=== PATIENT | female | born 1980 | race Caucasian/White ===

== ENCOUNTER 2016-11-04 16:16 | Inpatient (IN) | payer MEDICARE, MEDICAID ==
[~2016-11-04] VITALS: Ht 172.7 cm; Wt 91.9 kg
[~2016-11-04 16:16] MED LIST: /LAMO20TA PO; ABIL1TAB5 PO; ABIL2TAB OR; ABIL5TAB PO; ALPH0.156 OD; Birth Control Pill OR; CLAR10CA3 PO; CLAR5CHW OR; CLON0.5T PO; DEBR6.5S AU; FLON0.05; LEVO112T2 PO; LEVO125T3 PO; LEVO75TA2 OR; LOPR50TA OR; LUMI0.01 OP; METO25TAB PO; OMEP20TA7 OR; PRIL20CA9 PO; TRAZ50TA4 PO; TRI SPRINTEC PO; TRIC145T PO; TRIC145T19 OR; VITA200016 PO; VITA500047 PO; WELBUTRIN PO; WELL100T2 OR; WELLTAB38 PO; ZOLO100T OR; ZOLO100T PO
[2016-11-04] MEDS ORDERED: ONDANSETRON 4 MG ORAL DISINTEGRATING TAB (S0181) PO ONE (16:30)
[2016-11-04] MEDS ORDERED: WELLTAB38 PO (16:43)
[2016-11-04 17:09] LABS: MEAN CORPUSCULAR HEMOGLOBIN 28.3 pg (27.0-33.0); MEAN CORPUSCULAR VOLUME 85.9 fl (80.0-96.0); PLATELET COUNT, AUTOMATED 514 k/mm3 (150-450); RED CELL DISTRIBUTION WIDTH 12.7 % (11.5-14.5)
[2016-11-04 17:24] LABS: ANION GAP 10 MEQ/L (8-16); BLOOD UREA NITROGEN 18 MG/DL (7-18); CALCIUM LEVEL 9.3 MG/DL (8.5-10.1); CARBON DIOXIDE LEVEL 25 MEQ/L (21-32); CHLORIDE LEVEL 107 MEQ/L (98-107); CREATININE FOR GFR 1.11 MG/DL (0.55-1.02); GLOMERULAR FILTRATION RATE 59.2 (>60); GLUCOSE, FASTING 181 MG/DL (70-105); POTASSIUM SERUM 3.8 MEQ/L (3.5-5.1); SODIUM LEVEL 142 MEQ/L (136-145)
[2016-11-04] MEDS ORDERED: ONDANSETRON 4MG/2ML VIAL (J2405) IV PRN ×2 (17:30→23:45)
[2016-11-04] MEDS ORDERED: NS 1,000 ML IV ONE (17:30)
[2016-11-04 17:52] LABS: ALBUMIN 4.1 GM/DL (3.2-5.2); ALBUMIN/GLOBULIN RATIO 1.14 (1.00-1.93); ALKALINE PHOSPHATASE 104 U/L (45-117); ALT/SGPT 24 U/L (12-78); AST/SGOT 13 U/L (15-37); BILIRUBIN,DIRECT 0.1 MG/DL (0.0-0.2); BILIRUBIN,TOTAL 0.3 MG/DL (0.2-1.0); TOTAL PROTEIN 7.7 GM/DL (6.4-8.2)
--- NOTE | 2016-11-04 18:12 | REP ---
Clinical: Right flank pain. Findings: Lung bases clear. Liver, spleen, pancreas, gallbladder, bilateral adrenal glands and kidneys are normal for noncontrast evaluation. Aseptically, there is no perinephric stranding, hydroureteronephrosis, intrarenal or obstructing ureteral calculi. The enteric system is without obstruction or acute inflammatory process and a normal terminal ileum and appendix are identified in the right lower quadrant. Pelvis demonstrates normal bladder and age-appropriate uterus/adnexa. No pelvic fluid or ascites. No adenopathy. No free air. Abdominal aorta without aneurysm. Surrounding musculoskeletal structures are intact. Impression: Normal noncontrast CT of the abdomen and pelvis. Signed by Jaylen Holloway MD 11/04/2016 06:03 P
[2016-11-04] MEDS ORDERED: METOCLOPRAMIDE INJ 10MG/2ML VIAL (J2765) IV ONE (19:00)
[2016-11-04] MEDS ORDERED: LORazepam 2 MG/ML VIAL (J2060) IV STA (19:29)
[2016-11-04] MEDS ORDERED: ISOVUE-370 76% 100ML VIAL (Q9967) As Ordered ONE (20:36)
[2016-11-04 20:39] LABS: CONTROL LINE HCG INT CTR LINE PRESENT
--- NOTE | 2016-11-04 21:50 | REPUSA ---
CT of the abdomen and pelvis with contrast Clinical statement: Pain. Technique: Multiple axial CT images were obtained from the base of the lungs through the floor of the pelvis utilizing 5 mm axial slices after administration of nonionic intravenous contrast. Coronal an d sagittal reconstructions were also obtained. Findings: Chest: The visualized lung bases are clear. Abdomen: The liver, spleen, pancreas, kidneys, gallbladder, and adrenal glands are unremarkable. The aorta is within normal limits. There is no evidence of abdominal lymphadenopathy or ascites. Pelvis: The bowel is unremarkable, with no obstructive or inflammatory changes. The appendix is natalie l. The urinary bladder is within normal limits. There is a simple left ovarian cyst noted, measuring 2.8 x 2.5 cm. The other pelvic structures appear grossly intact. There is no evidence of pelvic lymph adenopathy or ascites. Bones: There are no suspicious osseous abnormalities seen. Impression: 1. Simple left ovarian cyst. 2. No obstructive or inflammatory bowel changes. 3. No other acute abnormality. Findings are stable since the prior study.
[2016-11-04] MEDS ORDERED: TRUS1SOL OD (23:26)
[2016-11-04] MEDS ORDERED: METO25TA74 PO (23:26)
[2016-11-04] MEDS ORDERED: COMB0.2S OU (23:26)
[2016-11-04] MEDS ORDERED: GLUCAGON FOR INJ 1 MG VIAL (J1610) SC PRN (23:45)
[2016-11-04] MEDS ORDERED: DEXTROSE 50% 50 ML SYRINGE IV PRN (23:45)
[2016-11-04] MEDS ORDERED: ACETAMINOPHEN TAB 650MG DOSE (2X325MG) PO PRN (23:45)
[2016-11-04] MEDS ORDERED: GLUCOSE 4 GM CHEW TABLET PO PRN (23:45)
[2016-11-04 23:54] LABS: BASO % 0.2 % (0.0-1.0); EOS % 0.2 % (0.0-3.0); LARGE UNSTAINED CELL # 0.1 K/mm3 (0.0-0.4); LARGE UNSTAINED CELL % 0.6 % (0.0-4.0); LYMPH % 4.9 % (24.0-44.0); MONO # 0.8 K/mm3 (0.0-0.8); MONO % 3.9 % (0.0-5.0); NEUTROPHILS # 18.6 K/mm3 (1.8-7.7); NEUTROPHILS % 90.2 % (36.0-66.0)
[2016-11-05 00:10] LABS: MAGNESIUM LEVEL 2.1 MG/DL (1.8-2.4)
[2016-11-05 00:16] LABS: ERYTHROCYTE SEDIMENTATION RATE 2 mm/hr (0-20)
[2016-11-05 00:50] VITALS: BP 154/96
[2016-11-05] MEDS: PIPERACILLIN/TAZOBACTAM SOD 3.375 GM in D5W MINI-BAG PLUS 50 ML IV SCH ×2 (01:13→08:00)
[2016-11-05] MEDS: NS 0.45% 1,000 ML IV SCH ×5 (01:13→22:40)
--- NOTE | 2016-11-05 03:26 | HPE ---
DATE OF ADMISSION: 11/04/2016 TIME: Patient was seen at roughly 2300 PRIMARY CARE PROVIDER: Dr. Trinidad. HISTORY OF PRESENT ILLNESS: 36-year-old female with past medical history of persistent leukocytosis, suicidal thoughts, posttraumatic stress disorder (PTSD) , depression, mild mental retardation, history of oppositional and manipulative behavior, hypertriglyceridemia, gastroesophageal reflux disease (GERD), hypertension, hypothyroidism, vitamin D deficiency, presented with severe nausea , vomiting and poor oral intake. From [facility] ([facility]) staff , patient started vomiting the night prior around 10 p.m. It appeared to be somewhat bilious; however, the next day patient's vomiting worsened. She vomited at least 10 times every time patient had something to drink. Patient herself was not very cooperative. She only spoke a few words. From patient, she stated that she is feeling cold; however, no actual fever. Denies any abdominal pains, any diarrhea or constipation. Patient's last bowel movement was today and it was not loose per patient. However, patient appears to be a poor historian. She actually had thoughts of committing suicide yesterday and she also had a plan to stab herself. She also received counseling at [facility] and stated that she is better now. Otherwise, she also denied any problem with urination, any burning on urination. She also denies any headache. Admits to another person she stayed in contact with at [facility] had the flu. Denies any discomfort anywhere else and she does have a history of persistent elevated leukocytosis. From record back in 2011 her white count was as high as 23.3 thousand and around that time patient had suicidal ideation. ALLERGIES: No known drug allergies. PAST MEDICAL HISTORY: 1. Persistent leukocytosis. 2. Suicidal thoughts. 3. PTSD, depression. 4. Mental retardation. 5. History of oppositional and manipulative behavior. 6. GERD. 7. Hyperlipidemia, specifically hypertriglyceridemia. 8. Hypertension. 9. Hypothyroidism. 10. Vitamin D deficiency. 11. Glaucoma of the right eye. 12. Allergic rhinitis. PAST SURGICAL HISTORY: Denies. Patient does not have any surgical history. HOME MEDICATIONS: - Wellbutrin 150 mg one tablet by mouth daily - Combigan 0.2/0.5% in each eye twice a day - Trusopt one drop in each eye three times a day - TriCor 145 mg one tablet by mouth daily - levothyroxine 125 mcg by mouth daily - metoprolol 25 mg one tablet by mouth daily - omeprazole 20 mg one tablet by mouth daily - vitamin D 2000 units one tablet by mouth daily SOCIAL HISTORY: Patient does not smoke, drink or use any recreational drugs. Patient is a resident at [facility]. FAMILY HISTORY: Denies. REVIEW OF SYSTEMS: GENERAL: Denies any recent traveling, any weight changes. Patient does have a sick contact. One of her residents that she stayed close contact to has flu at [facility]. Admits to feeling cold. HEENT: Denies any changes with vision, smell, hearing or taste. Denies any sore throat or cough. CARDIOVASCULAR: Denies any chest pain, trouble breathing. PULMONARY: Denies any trouble breathing. GASTROINTESTINAL (GI): Admits to severe vomiting. Denies any abdominal pains, however. Denies any diarrhea or constipation. Denies any blood in the stool. Last bowel movement was today and it appears to be normal per patient. GENITOURINARY (): Denies any problem with urination. MUSCULOSKELETAL: Denies any pain anywhere. ENDOCRINE: Denies any polydipsia, polyuria. Admits to feeling cold. Denies excessive heat. HEMATOLOGY/ONCOLOGY: Denies any bleeding anywhere. Denies any easy bruising. PSYCHIATRIC: Admits to depression. Admits to suicidal thoughts and a plan to commit suicide by stabbing herself. NEUROLOGICAL: Denies any weakness on any side of her body, any change of sensations. PHYSICAL EXAMINATION: VITAL SIGNS: Temperature 98.6, pulse 99, respirations 20, blood pressure 144/83 , oxygen was saturating 97% on room air. GENERAL: Patient is a morbidly obese young female who was alert, awake, and oriented times three. Does not appear to be in distress, lying comfortably in bed at left lateral decubitus position. HEENT: Normocephalic, atraumatic. Extraocular motor intact. Mucous moist. NECK: Supple, no neck lymphadenopathy. CARDIOVASCULAR: Regular rate and rhythm, S1, S2. Difficult to auscultate due to increased AP diameter and body habitus. LUNGS: Clear to auscultate bilaterally. No wheezes, rales, rhonchi. ABDOMEN: Obese. Positive bowel sounds, soft, nontender. There are no peritoneal signs. No ecchymosis. EXTREMITIES: No edema, clubbing or cyanosis. SKIN: Warm and dry. NEUROLOGIC: Cranial nerves II-XII intact. No focal neurological deficit. LABORATORY DATA: WBC 21, hemoglobin 15.5, hematocrit 47 with platelet count of 514, and MCV of 85.9. Sodium 142, potassium 3.8, chloride 107, bicarbonate 25, anion gap was 10, BUN 18, creatinine 1.11, GFR 59.2, fasting glucose 181, calcium 9.3, total bilirubin 0.3, direct bilirubin 0.1, AST 13, ALT 24, alkaline phosphatase 104, total protein 7.7, albumin 4.1. HCG was negative. Patient's urine appears to be cloudy, 1+ protein, 1+ glucose, trace ketone, 1+ blood, no nitrite, no leukocyte esterase, 6+ WBC, 2 bacteria, small amorphous sediment. Influenza has been negative. Urine culture is pending. Gastrointestinal (GI) panel and respiratory panel are pending. Patient had a CT of abdomen and pelvis in the emergency department (ED). Shows a simple left ovarian cyst with contrast. The patient had a noncontrast CT of abdomen and pelvis earlier in the day. Shows normal noncontrast CT of abdomen and pelvis. Patient also had a portable chest x-ray in the emergency room. Did not show any acute finding. Official result is pending. ASSESSMENT AND PLAN: 36-year-old female with past medical history of persistent leukocytosis, posttraumatic stress disorder (PTSD), depression, suicidal ideations, mild mental retardation, hypertriglyceridemia, gastroesophageal reflux disease (GERD), hypertension, hypothyroidism, vitamin D deficiency, presented with: 1. Severe nausea and vomiting. Likely secondary to viral gastritis; however, patient does have a white count of 21. Therefore, bacterial etiology could not be entirely ruled out. Patient also has a very mild urinalysis (UA) with positive bacteria and positive white blood cells (WBCs). At this point, will start patient on empiric antibiotic with Zosyn 3.375 grams intravenous (IV) every 8 hours and will discontinue once urine culture and blood culture have been negative. In addition, will start patient on half-normal saline at a rate of 100 mL/h due to patient's severe nausea and vomiting and prerenal azotemia. At this point, will continue to monitor patient. 2. Suicidal ideation with plan. Sitter has been ordered. Patient has been put on suicidal precautions. Will need psychiatry consult in the morning. At this point, patient appears to be calm. She did receive counseling at [facility] ([facility]) as well. 3. Hyperglycemia with a glucose elevated at 181. Possibly secondary to infection versus type 2 diabetes. Patient does appear to be obese. A1c has been ordered. Will continue to monitor. At this point, will place patient on fingersticks and insulin sliding scale. 4. Prerenal azotemia with a creatinine of 1.11. Patient's baseline is 0.9. Continue half-normal saline at a rate of 100 mL/h. Patient is on clear liquid diet due to severe nausea, vomiting. Will advance as tolerated, likely in the morning. 5. History of PTSD, depression, suicidal attempts and oppositional manipulative disorder. Continue to monitor. Continue sitter and possibly consult psychiatry in the morning. 6. Persistent leukocytosis. Patient's baseline white count appears to be between 12 and 13 thousand; however, back in 2013 it was as high as 18 and back in 2011 it was as high as 23. At this point, will continue to monitor. This is likely related to patient's severe nausea and vomiting. Continue empiric antibiotic and will stop it once culture comes back negative. 7. Hypertension. Continue metoprolol succinate 25 mg daily with hold parameters, holding for systolic blood pressures less than 120 or heart rates less than 65. 8. GERD. Continue home proton pump inhibitor (PPI). 9. Hypertriglyceridemia. Continue fenofibrate. 10. Mild mental retardation. Stable, continue to monitor. 11. Glaucoma. Continue eye drops. 12. Allergic rhinitis. Continue to monitor. 13. Deep venous thrombosis (DVT) prophylaxis. On subcutaneous Lovenox. Patient has been discussed with attending doctor, Dr. Sharif. My preceptor for this patient encounter was Dr. Jefferson Sharif. The preceptor was physically present in the building during the encounter and was fully available as needed. All aspects of the patient interview, examination, medical decision making process, and medical care plan development were reviewed and approved by the preceptor. The preceptor is aware and concurs with the plan as stated in the body of this note and will attest to such by his/her co-signature. JEFRY
[2016-11-05 05:52] LABS: BASO % 0.2 % (0.0-1.0); EOS # 0.1 K/mm3 (0.0-0.50); EOS % 0.6 % (0.0-3.0); LARGE UNSTAINED CELL # 0.3 K/mm3 (0.0-0.4); LARGE UNSTAINED CELL % 1.6 % (0.0-4.0); LYMPH # 3.2 K/mm3 (1.5-4.5); LYMPH % 14.7 % (24.0-44.0); MEAN CORPUSCULAR HEMOGLOBIN 29.2 pg (27.0-33.0); MEAN CORPUSCULAR HGB CONC 32.7 g/dl (32.0-36.5); MEAN CORPUSCULAR VOLUME 89.1 fl (80.0-96.0); MONO # 1.7 K/mm3 (0.0-0.8); MONO % 8.5 % (0.0-5.0); NEUTROPHILS # 14.7 K/mm3 (1.8-7.7); NEUTROPHILS % 74.5 % (36.0-66.0); RED CELL DISTRIBUTION WIDTH 13.1 % (11.5-14.5); WHITE BLOOD COUNT 19.7 K/mm3 (4.0-10.0)
[2016-11-05 06:00] VITALS: BP 125/78
[2016-11-05 06:01] LABS: PLATELET COUNT, AUTOMATED 381 k/mm3 (150-450)
[2016-11-05 06:06] LABS: BLOOD UREA NITROGEN 14 MG/DL (7-18); CARBON DIOXIDE LEVEL 27 MEQ/L (21-32); CHLORIDE LEVEL 111 MEQ/L (98-107); CREATININE FOR GFR 0.86 MG/DL (0.55-1.02); GLOMERULAR FILTRATION RATE > 60.0 (>60); GLUCOSE, FASTING 118 MG/DL (70-105)
[2016-11-05] MEDS: LEVOTHYROXINE 0.125 MG TAB (125 MCG) PO SCH (06:08)
[2016-11-05 06:38] LABS: ANION GAP 7 MEQ/L (8-16); CALCIUM LEVEL 7.9 MG/DL (8.5-10.1); SODIUM LEVEL 145 MEQ/L (136-145)
[2016-11-05] MEDS ORDERED: HumaLOG INSULIN (NovoLOG) PER UNIT SC SCH ×2 (07:30→21:00)
--- NOTE | 2016-11-05 09:14 | IPNPDOC ---
Subjective Date Seen The patient was seen on 11/05/16. Subjective Chief Complaint/HPI The patient is a 36-year-old female admitted with a reason for visit of Leukocytosis;Vomiting. General: Denies: Chills, Fatigue, Malaise, Night Sweats, Normal Appetite, Other Symptoms, ROS Unobtainable Constitutional: Denies: Chills, Fatigue, Fever, Lethargy, Malaise, Night Sweats , Other, Weakness, Weight Loss Eyes: Denies: Conjunctivae inflammation, Eyelid inflammation, Other, Pain, Redness, Vision change ENT: Denies: Dysphagia, Ear Pain, Epistaxis, Head Aches, Other Symptoms, Post Nasal Drip, Sinus Congestion, Sore Throat Skin: Denies: Breakdown, Bruising, Dry, Itching, Jaundice, Lesions, Nail Changes, Other, Rash Pulmonary: Denies: Cough, Dyspnea, Other Symptoms, Pleuritic Chest Pain Cardiovascular: Denies: Chest Pain, Edema, Lt Headedness, Orthopnea, Other Symptoms, Palpitations, Paroxysmal Noc. Dyspnea Gastrointestinal: Denies: Abdominal Pain, Constipation, Diarrhea, Hematochezia , Melena, Nausea, Other Symptoms, Vomiting Genitourinary: Denies: Dysuria, Frequency, Hematuria, Incontinence, Other Symptoms, Retention Objective Physical Examination General Exam: Positive: Alert, Cooperative, No Acute Distress Eye Exam: Positive: Conjunctiva & lids normal, EOMI, PERRLA, Negative: Sclera icteric ENT Exam: Positive: Atraumatic, Mucous membr. moist/pink Neck Exam: Positive: Supple Chest Exam: Positive: Clear to auscultation, Normal air movement Heart Exam: Positive: Rate Normal, Regular Rhythm Abdomen Exam: Positive: Normal bowel sounds, Other (obese), Soft, Negative: Tenderness Extremity Exam: Negative: Edema Psych Exam: Positive: Oriented x 3, Other (flat affect) Assessment /Plan Problems (1) Suicidal ideation Status: Acute Response to Treatment: Progressing Discussed With: Patient Problem Specific Plan: Consult Specialist, Monitor Clinically Problem Text: 1:1 sitter Suicide precautions Psych evaluation likely in 24 hours. (2) Vomiting Status: Acute Response to Treatment: Improving Discussed With: Patient Problem Specific Plan: Monitor Clinically, Repeat Labs Problem Text: Appears to be tolerating diet. Continue to follow clinically. Monitor electrolytes. (3) Leukocytosis Status: Acute Discussed With: Patient Problem Specific Plan: Monitor Clinically Problem Text: Acute on chronic. Patient has history of persistent leukocytosis. No obvious source of infection, possibly gastroenteritis. Continue to follow clinically. Deescalate antibiotics to Levaquin 500 IV. Check peripheral smear. (4) PTSD (post-traumatic stress disorder) Status: Chronic Discussed With: Patient (5) Depression Status: Chronic Problem Text: Wellbutrin. (6) Mental retardation Status: Chronic (7) Psychiatric disorder Status: Chronic Discussed With: Patient Problem Specific Plan: Monitor Clinically Problem Text: History of PTSD, depression, suicide attempt and oppositional manipulate disorder. Anticipate psych eval in 24 hours. Continue home medication - Wellbutrin. (8) Hypertriglyceridemia Status: Chronic Problem Text: Tricor. (9) GERD (gastroesophageal reflux disease) Status: Chronic Problem Text: Prilosec (10) HTN (hypertension) Status: Chronic Problem Specific Plan: Monitor Clinically Problem Text: Troprol XL (11) Hypothyroidism Status: Chronic Discussed With: Patient Problem Text: Synthroid (12) Hyperglycemia Status: Acute Discussed With: Patient Problem Specific Plan: Monitor Clinically, Repeat Labs Problem Text: A1C - 5.6 Monitor FS. Plan/VTE VTE Prophylaxis Ordered?: Yes (Lovenox) Plan IVF: Decrease Diet: Advance Activity: Continue Current Medications: Replete Electrolytes PO, Taper Antibiotics Diagnostics: Repeat Labs in AM Anticipated Discharge: Psych VS, I&O, 24H, Fishbone Vital Signs/I&O Vital Signs Date Time Temp Pulse Resp B/P Pulse Ox O2 Delivery O2 Flow Rate FiO2 11/05/16 06:00 98.8 92 18 125/78 99 11/05/16 00:50 Room Air I&O- Last 24 Hours up to 6 AM 11/05/16 05:59 Intake Total 550 ml Balance 550 ml Laboratory Data 24H LABS Laboratory Tests 2 11/04/16 16:40: Human Chorionic Gonadotropin, Qual NEGATIVE, Urine Amorphous Sediment SMALLH, Urine Appearance CLOUDYH, Urine Color YELLOW, Urine pH 5.0, Urine Specific Groom 1.029, Urine Protein 1+H, Urine Glucose (UA) 1+H, Urine Ketones TRACEH, Urine Urobilinogen 0.2, Urine Bilirubin NEGATIVE, Urine Leukocyte Esterase NEGATIVE, Urine Bacteria (Auto) 2+H, Urine Blood 1+H, Urine Calcium Carbonate Cryst(Auto) , Urine Calcium Oxalate Cryst (Auto) , Urine Calcium Phosphate Dee (Auto) , Urine Cellular Casts , Urine Cystine Crystals , Urine Granular Casts ( Auto) , Urine Hyaline Casts (Auto) 0, Urine Leucine Crystals , Urine Mucus (Auto ) , Urine Nitrite NEGATIVE, Urine Oval Fat Bodies (Auto) , Urine RBC (Auto) 0, Urine Renal Epithelial Cells , Urine Sperm (Auto) , Urine Squamous Epithelial Cells 7, Urine Transitional Epithelial Cells , Urine Trichomonas (Auto) , Urine Triple Phosphate Cryst (Auto) , Urine Tyrosine Crystals , Urine Uric Acid Crystals (Auto) , Urine WBC (Auto) 6H, Urine Waxy Casts (Auto) , Urine Yeast- Like Cells (Auto) 11/04/16 16:49: Aspartate Amino Transf (AST/SGOT) 13L, Alanine Aminotransferase (ALT/SGPT) 24, Alkaline Phosphatase 104, Total Bilirubin 0.3, Direct Bilirubin 0.1, Albumin 4.1 , Albumin/Globulin Ratio 1.14, Anion Gap 10, Basophils # (Auto) 0.0, Basophils ( %) (Auto) 0.2, C-Reactive Protein, Quantitative 4.28H, Calcium Level 9.3, Creatine Kinase MB 1.0, Creatine Kinase MB Relative Index 0.99, Eosinophils # ( Auto) 0.0, Eosinophils (%) (Auto) 0.2, Erythrocyte Sedimentation Rate 2, Glomerular Filtration Rate 59.2L, Large Unclassified Cells # 0.1, Large Unclassified Cells % 0.6, Lymphocytes # (Auto) 1.0L, Lymphocytes (%) (Auto) 4.9L , Magnesium Level 2.1, Monocytes # (Auto) 0.8, Monocytes (%) (Auto) 3.9, Neutrophils # (Auto) 18.6H, Neutrophils (%) (Auto) 90.2H, Platelet Estimate , Thyroid Stimulating Hormone (TSH) 0.672, Total Creatine Kinase 101, Total Protein 7.7, Troponin I < 0.02 11/05/16 00:04: Estimated Mean Plasma Glucose 114H, Hemoglobin A1c 5.6 11/05/16 05:41: Anion Gap 7L, Basophils # (Auto) 0.0, Basophils (%) (Auto) 0.2, Calcium Level 7.9#L, Eosinophils # (Auto) 0.1, Eosinophils (%) (Auto) 0.6, Glomerular Filtration Rate > 60.0, Large Unclassified Cells # 0.3, Large Unclassified Cells % 1.6, Lymphocytes # (Auto) 3.2, Lymphocytes (%) (Auto) 14.7L, Monocytes # (Auto) 1.7H, Monocytes (%) (Auto) 8.5H, Neutrophils # (Auto) 14.7H, Neutrophils (%) (Auto) 74.5H, White Blood Count 19.7H, Red Blood Count 4.53, Hemoglobin 13.2#, Hematocrit 40.4, Mean Corpuscular Volume 89.1, Mean Corpuscular Hemoglobin 29.2, Mean Corpuscular Hemoglobin Concent 32.7, Red Cell Distribution Width 13.1, Platelet Count 381#, Blood Urea Nitrogen 14, Creatinine 0.86, Sodium Level 145, Potassium Level 3.0#L, Chloride Level 111H, Carbon Dioxide Level 27 CBC/BMP Laboratory Tests 11/04/16 16:49 Red Blood Count 5.48 H, Mean Corpuscular Volume 85.9, Mean Corpuscular Hemoglobin 28.3, Mean Corpuscular Hemoglobin Concent 33.0, Red Cell Distribution Width 12.7 11/05/16 05:41 Red Blood Count 4.53, Mean Corpuscular Volume 89.1, Mean Corpuscular Hemoglobin 29.2, Mean Corpuscular Hemoglobin Concent 32.7, Red Cell Distribution Width 13.1 , Calcium Level 7.9 #L, Neutrophils (%) (Auto) 74.5 H, Lymphocytes (%) (Auto) 14.7 L, Monocytes (%) (Auto) 8.5 H, Eosinophils (%) (Auto) 0.6, Basophils (%) ( Auto) 0.2, Neutrophils # (Auto) 14.7 H, Lymphocytes # (Auto) 3.2, Monocytes # ( Auto) 1.7 H, Eosinophils # (Auto) 0.1, Basophils # (Auto) 0.0 Microbiology Microbiology 11/05/16 Blood Culture, Received Pending 11/05/16 Blood Culture, Received Pending 11/05/16 Respiratory Virus Panel (PCR) ([facility]) - Final, Complete 11/04/16 Influenza Virus Type A Antigen - Final, Complete 11/04/16 Influenza Virus Type B Antigen - Final, Complete 11/04/16 Urine Culture, Received Pending DONOVAN TODD MD Nov 05, 2016 09:14
--- NOTE | 2016-11-05 09:20 | REP ---
Clinical: Chest and abdominal pain with vomiting . Comparison: 08/31/2014 . Findings: The mediastinum and cardiac silhouette are stable and within normal limits for portable technique. The lung vick are clear without acute consolidation, effusion, or pneumothorax. Skeletal structures are intact. Impression: Normal portable chest x-ray Signed by Jaylen Holloway MD 11/05/2016 09:12 A
[2016-11-05 09:44] LABS: REASON FOR REVIEW LEUKEMIA / BLASTS
[2016-11-05] MEDS: buPROPion **XL** TABLET 150MG (WELLBUTRIN XL) PO SCH (09:59)
[2016-11-05] MEDS: FENOFIBRATE 145 MG TAB (TRICOR) PO SCH (09:59)
[2016-11-05] MEDS: ENOXAPARIN 40 MG/0.4 ML SYRINGE (J1650) SC SCH (10:00)
[2016-11-05] MEDS: METOPROLOL SUCC *XL* 25MG TAB (TopROL *XL*) PO SCH (10:00)
[2016-11-05] MEDS ORDERED: POTASSIUM CHLORIDE 10 MEQ SR TABLET PO ONE (10:00)
[2016-11-05] MEDS: OMEPRAZOLE 20 MG CAP PO SCH (10:00)
[2016-11-05] MEDS: VITAMIN D 1,000 INTERNATIONAL UNITS TABLET PO SCH (10:00)
[2016-11-05] MEDS: DORZOLAMIDE 2% OPHTH SOLN 10 ML BTL OD SCH ×3 (10:01→20:30)
[2016-11-05] MEDS: LevoFLOXacin IV 500 MG in APPROPRIATE DILUENT 1 EA IV SCH (10:01)
[2016-11-05 14:00] VITALS: BP 159/81
[2016-11-05 17:53] LABS: ANION GAP 7 MEQ/L (8-16); BLOOD UREA NITROGEN 14 MG/DL (7-18); CALCIUM LEVEL 7.7 MG/DL (8.5-10.1); CARBON DIOXIDE LEVEL 27 MEQ/L (21-32); CHLORIDE LEVEL 109 MEQ/L (98-107); CREATININE FOR GFR 0.78 MG/DL (0.55-1.02); GLOMERULAR FILTRATION RATE > 60.0 (>60); GLUCOSE, FASTING 88 MG/DL (70-105); POTASSIUM SERUM 3.6 MEQ/L (3.5-5.1); SODIUM LEVEL 143 MEQ/L (136-145)
[2016-11-05 22:00] VITALS: BP 142/89
[2016-11-06] MEDS: NS 0.45% 1,000 ML IV SCH ×2 (04:39→16:35)
[2016-11-06] MEDS: LEVOTHYROXINE 0.125 MG TAB (125 MCG) PO SCH (05:41)
[2016-11-06 06:00] VITALS: BP 135/70
[2016-11-06 06:00] LABS: BASO # 0.1 K/mm3 (0.0-0.2); BASO % 0.5 % (0.0-1.0); EOS # 0.3 K/mm3 (0.0-0.50); EOS % 2.6 % (0.0-3.0); LARGE UNSTAINED CELL # 0.2 K/mm3 (0.0-0.4); LARGE UNSTAINED CELL % 1.5 % (0.0-4.0); LYMPH # 3.2 K/mm3 (1.5-4.5); LYMPH % 24.6 % (24.0-44.0); MEAN CORPUSCULAR HEMOGLOBIN 28.3 pg (27.0-33.0); MEAN CORPUSCULAR HGB CONC 31.8 g/dl (32.0-36.5); MEAN CORPUSCULAR VOLUME 89.2 fl (80.0-96.0); MONO # 0.9 K/mm3 (0.0-0.8); MONO % 6.8 % (0.0-5.0); NEUTROPHILS # 8.4 K/mm3 (1.8-7.7); PLATELET COUNT, AUTOMATED 402 k/mm3 (150-450); RED CELL DISTRIBUTION WIDTH 12.9 % (11.5-14.5); WHITE BLOOD COUNT 13.2 K/mm3 (4.0-10.0)
[2016-11-06 06:20] LABS: ANION GAP 10 MEQ/L (8-16); BLOOD UREA NITROGEN 11 MG/DL (7-18); CALCIUM LEVEL 7.7 MG/DL (8.5-10.1); CARBON DIOXIDE LEVEL 26 MEQ/L (21-32); CHLORIDE LEVEL 105 MEQ/L (98-107); CREATININE FOR GFR 0.93 MG/DL (0.55-1.02); GLOMERULAR FILTRATION RATE > 60.0 (>60); GLUCOSE, FASTING 89 MG/DL (70-105); POTASSIUM SERUM 3.2 MEQ/L (3.5-5.1); SODIUM LEVEL 141 MEQ/L (136-145)
[2016-11-06] MEDS: ENOXAPARIN 40 MG/0.4 ML SYRINGE (J1650) SC SCH (09:54)
[2016-11-06] MEDS: LevoFLOXacin IV 500 MG in APPROPRIATE DILUENT 1 EA IV SCH (09:54)
[2016-11-06] MEDS: VITAMIN D 1,000 INTERNATIONAL UNITS TABLET PO SCH (09:54)
[2016-11-06] MEDS: FENOFIBRATE 145 MG TAB (TRICOR) PO SCH (09:55)
[2016-11-06] MEDS: OMEPRAZOLE 20 MG CAP PO SCH (09:55)
[2016-11-06] MEDS: buPROPion **XL** TABLET 150MG (WELLBUTRIN XL) PO SCH (09:55)
[2016-11-06] MEDS: DORZOLAMIDE 2% OPHTH SOLN 10 ML BTL OD SCH ×3 (09:56→20:02)
[2016-11-06] MEDS: METOPROLOL SUCC *XL* 25MG TAB (TopROL *XL*) PO SCH (09:56)
--- NOTE | 2016-11-06 09:58 | IPNPDOC ---
Subjective Date Seen The patient was seen on 11/06/16. Subjective Chief Complaint/HPI The patient is a 36-year-old female admitted with a reason for visit of Leukocytosis;Vomiting. General: Denies: Chills, Fatigue, Malaise, Night Sweats, Normal Appetite, Other Symptoms, ROS Unobtainable Constitutional: Denies: Chills, Fatigue, Fever, Lethargy, Malaise, Night Sweats , Other, Weakness, Weight Loss Eyes: Denies: Conjunctivae inflammation, Eyelid inflammation, Other, Pain, Redness, Vision change ENT: Denies: Dysphagia, Ear Pain, Epistaxis, Head Aches, Other Symptoms, Post Nasal Drip, Sinus Congestion, Sore Throat Skin: Denies: Breakdown, Bruising, Dry, Itching, Jaundice, Lesions, Nail Changes, Other, Rash Pulmonary: Denies: Cough, Dyspnea, Other Symptoms, Pleuritic Chest Pain Cardiovascular: Denies: Chest Pain, Edema, Lt Headedness, Orthopnea, Other Symptoms, Palpitations, Paroxysmal Noc. Dyspnea Gastrointestinal: Denies: Abdominal Pain, Constipation, Diarrhea, Hematochezia , Melena, Nausea, Other Symptoms, Vomiting Genitourinary: Denies: Dysuria, Frequency, Hematuria, Incontinence, Other Symptoms, Retention Hematologic: Denies: Bleeding Excessively, Bruising, Enlarged Lymph Nodes, Other Hematologic, Petecchia, Purpura Endocrine: Denies: Cold Intolerance, Heat Intolerance, Other Endocrine Sx, Polydipsia, Polyphagia, Polyuria Musculoskeletal: Denies: Arm Pain, Back Pain, Foot Pain, Hand Pain, Joint Pain , Leg Pain, Muscle Pain, Neck Pain, Other Symptoms, Shoulder Pain, Spasms Objective Physical Examination General Exam: Positive: Alert, Cooperative, No Acute Distress Eye Exam: Positive: Conjunctiva & lids normal, EOMI, PERRLA, Negative: Sclera icteric ENT Exam: Positive: Atraumatic, Mucous membr. moist/pink Neck Exam: Positive: Supple Chest Exam: Positive: Clear to auscultation, Normal air movement Heart Exam: Positive: Rate Normal, Regular Rhythm Abdomen Exam: Positive: Normal bowel sounds, Other (obese), Soft, Negative: Tenderness Extremity Exam: Negative: Edema Psych Exam: Positive: Oriented x 3, Other (flat affect, requires significant prompting to verbalize, still short one word answers) Assessment /Plan Problems (1) Suicidal ideation Status: Acute Response to Treatment: Progressing Discussed With: Patient Problem Specific Plan: Consult Specialist, Monitor Clinically Problem Text: 1:1 sitter Suicide precautions Psych evaluation likely in 24 hours. (2) Vomiting Status: Acute Response to Treatment: Improving Discussed With: Patient Problem Specific Plan: Monitor Clinically, Repeat Labs Problem Text: No further episodes, but poor PO intake. Continue to follow clinically. Monitor electrolytes. (3) Leukocytosis Status: Acute Discussed With: Patient Problem Specific Plan: Monitor Clinically Problem Text: Improving. Patient has history of persistent leukocytosis. No obvious source of infection, possibly gastroenteritis. Continue to follow clinically. Deescalate antibiotics to Levaquin 500 IV. Peripheral smear noted. (4) PTSD (post-traumatic stress disorder) Status: Chronic Discussed With: Patient Problem Text: As per medical history. (5) Depression Status: Chronic Problem Text: Wellbutrin. (6) Mental retardation Status: Chronic Problem Text: Resident of [facility]. (7) Psychiatric disorder Status: Chronic Discussed With: Patient Problem Specific Plan: Monitor Clinically Problem Text: History of PTSD, depression, suicide attempt and oppositional manipulate disorder. Anticipate psych eval in 24 hours. Continue home medication - Wellbutrin. (8) Hypertriglyceridemia Status: Chronic Problem Text: Tricor. (9) GERD (gastroesophageal reflux disease) Status: Chronic Problem Text: Prilosec (10) HTN (hypertension) Status: Chronic Problem Specific Plan: Monitor Clinically Problem Text: Troprol XL (11) Hypothyroidism Status: Chronic Discussed With: Patient Problem Text: Synthroid (12) Hyperglycemia Status: Resolved Discussed With: Patient Problem Specific Plan: Repeat Labs Problem Text: A1C - 5.6 Monitor FS. Plan/VTE VTE Prophylaxis Ordered?: Yes (Lovenox) Plan IVF: Decrease Diet: Advance Activity: Continue Current Medications: Replete Electrolytes PO, Taper Antibiotics Diagnostics: Repeat Labs in AM Anticipated Discharge: Psych Continue to monitor urine output, leukocytosis improving, currently IV antibiotics. Anticipating psych evaluation in 24 hours. Disposition Likely discharge to [facility]. VS, I&O, 24H, Fishbone Vital Signs/I&O Vital Signs Date Time Temp Pulse Resp B/P Pulse Ox O2 Delivery O2 Flow Rate FiO2 11/06/16 06:00 98.6 66 18 135/70 95 11/05/16 14:00 Room Air I&O- Last 24 Hours up to 6 AM 11/06/16 06:00 Intake Total 1720 ml Output Total 1200 ml Balance 520 ml Laboratory Data 24H LABS Laboratory Tests 2 11/05/16 17:20: Anion Gap 7L, Blood Urea Nitrogen 14, Creatinine 0.78, Sodium Level 143, Potassium Level 3.6, Chloride Level 109H, Carbon Dioxide Level 27, Calcium Level 7.7L, Glomerular Filtration Rate > 60.0 11/05/16 20:52: Troponin I < 0.02 11/06/16 05:41: Anion Gap 10, Blood Urea Nitrogen 11, Creatinine 0.93, Sodium Level 141, Potassium Level 3.2L, Chloride Level 105, Carbon Dioxide Level 26, Calcium Level 7.7L, Glomerular Filtration Rate > 60.0, Troponin I < 0.02, White Blood Count 13.2H, Red Blood Count 4.71, Hemoglobin 13.3, Hematocrit 42.0, Mean Corpuscular Volume 89.2, Mean Corpuscular Hemoglobin 28.3, Mean Corpuscular Hemoglobin Concent 31.8L, Red Cell Distribution Width 12.9, Platelet Count 402, Neutrophils (%) (Auto) 64.0, Lymphocytes (%) (Auto) 24.6, Monocytes (%) (Auto) 6.8H, Eosinophils (%) (Auto) 2.6, Basophils (%) (Auto) 0.5, Neutrophils # (Auto ) 8.4H, Lymphocytes # (Auto) 3.2, Monocytes # (Auto) 0.9H, Eosinophils # (Auto) 0.3, Basophils # (Auto) 0.1, Large Unclassified Cells # 0.2, Large Unclassified Cells % 1.5 CBC/BMP Laboratory Tests 11/05/16 17:20 Calcium Level 7.7 L 11/06/16 05:41 Calcium Level 7.7 L, Red Blood Count 4.71, Mean Corpuscular Volume 89.2, Mean Corpuscular Hemoglobin 28.3, Mean Corpuscular Hemoglobin Concent 31.8 L, Red Cell Distribution Width 12.9, Neutrophils (%) (Auto) 64.0, Lymphocytes (%) (Auto ) 24.6, Monocytes (%) (Auto) 6.8 H, Eosinophils (%) (Auto) 2.6, Basophils (%) ( Auto) 0.5, Neutrophils # (Auto) 8.4 H, Lymphocytes # (Auto) 3.2, Monocytes # ( Auto) 0.9 H, Eosinophils # (Auto) 0.3, Basophils # (Auto) 0.1 Microbiology Microbiology 11/05/16 Blood Culture - Preliminary, Resulted No growth after 24 hours . All specim... 11/05/16 Blood Culture - Preliminary, Resulted No growth after 24 hours . All specim... 11/05/16 MRSA Screen, Received Pending 11/05/16 Respiratory Virus Panel (PCR) ([facility]) - Final, Complete 11/04/16 Influenza Virus Type A Antigen - Final, Complete 11/04/16 Influenza Virus Type B Antigen - Final, Complete 11/04/16 Urine Culture - Final, Complete DONOVAN TODD MD Nov 06, 2016 09:58
[2016-11-06 14:00] VITALS: BP 148/89
[2016-11-06 15:22] LABS: MAGNESIUM LEVEL 2.2 MG/DL (1.8-2.4)
[2016-11-06] MEDS ORDERED: POTASSIUM CHLORIDE 10 MEQ SR TABLET PO ONE (16:00)
[2016-11-06] MEDS: COMBIGAN OPHTH (PATIENT'S OWN MED) OU SCH (20:02)
--- NOTE | 2016-11-06 21:10 | ECGEPIP ---
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
[2016-11-06 22:00] VITALS: BP 136/78
[2016-11-07] MEDS: NS 0.45% 1,000 ML IV SCH (02:33)
[2016-11-07] MEDS: LEVOTHYROXINE 0.125 MG TAB (125 MCG) PO SCH (05:44)
[2016-11-07 06:00] VITALS: BP 139/75
[2016-11-07 06:16] LABS: BASO % 0.4 % (0.0-1.0); EOS # 0.3 K/mm3 (0.0-0.50); EOS % 2.8 % (0.0-3.0); LARGE UNSTAINED CELL # 0.1 K/mm3 (0.0-0.4); LARGE UNSTAINED CELL % 1.3 % (0.0-4.0); LYMPH # 2.7 K/mm3 (1.5-4.5); LYMPH % 25.6 % (24.0-44.0); MEAN CORPUSCULAR HEMOGLOBIN 28.7 pg (27.0-33.0); MEAN CORPUSCULAR HGB CONC 32.3 g/dl (32.0-36.5); MEAN CORPUSCULAR VOLUME 88.8 fl (80.0-96.0); MONO # 0.8 K/mm3 (0.0-0.8); MONO % 7.3 % (0.0-5.0); NEUTROPHILS # 6.7 K/mm3 (1.8-7.7); NEUTROPHILS % 62.6 % (36.0-66.0); PLATELET COUNT, AUTOMATED 392 k/mm3 (150-450); RED CELL DISTRIBUTION WIDTH 12.7 % (11.5-14.5); WHITE BLOOD COUNT 10.6 K/mm3 (4.0-10.0)
[2016-11-07 06:30] LABS: ANION GAP 7 MEQ/L (8-16); BLOOD UREA NITROGEN 7 MG/DL (7-18); CARBON DIOXIDE LEVEL 24 MEQ/L (21-32); CHLORIDE LEVEL 112 MEQ/L (98-107); CREATININE FOR GFR 0.69 MG/DL (0.55-1.02); GLOMERULAR FILTRATION RATE > 60.0 (>60); GLUCOSE, FASTING 88 MG/DL (70-105); POTASSIUM SERUM 3.9 MEQ/L (3.5-5.1); SODIUM LEVEL 143 MEQ/L (136-145)
[2016-11-07] MEDS: DORZOLAMIDE 2% OPHTH SOLN 10 ML BTL OD SCH ×2 (09:48→15:07)
[2016-11-07] MEDS: ENOXAPARIN 40 MG/0.4 ML SYRINGE (J1650) SC SCH (09:48)
[2016-11-07] MEDS: COMBIGAN OPHTH (PATIENT'S OWN MED) OU SCH (09:48)
[2016-11-07 09:49] VITALS: BP 139/75
[2016-11-07] MEDS: LevoFLOXacin IV 500 MG in APPROPRIATE DILUENT 1 EA IV SCH (09:49)
[2016-11-07] MEDS: buPROPion **XL** TABLET 150MG (WELLBUTRIN XL) PO SCH (09:49)
[2016-11-07] MEDS: FENOFIBRATE 145 MG TAB (TRICOR) PO SCH (09:49)
[2016-11-07] MEDS: OMEPRAZOLE 20 MG CAP PO SCH (09:49)
[2016-11-07] MEDS: VITAMIN D 1,000 INTERNATIONAL UNITS TABLET PO SCH (09:49)
[2016-11-07] MEDS: METOPROLOL SUCC *XL* 25MG TAB (TopROL *XL*) PO SCH (09:49)
[2016-11-07] MEDS ORDERED: LEVA500T PO (11:45)
[2016-11-07 14:00] VITALS: BP 145/86
--- NOTE | 2016-11-07 16:26 | CR ---
DATE OF CONSULTATION: 11/07/2016 Ning Sifuentes is a 36-year-old female living at [facility] on [facility]. She was admitted for throwing up, which is no longer occurring. She states that she was admitted here for having suicidal thoughts, though at this moment she states she is no longer suicidal. She states however she is depressed, and has been depressed for weeks before coming in. She states that she has been taking Wellbutrin. She does not know the dose. She has been depressed for a number of weeks. Her psychiatric outpatient treatment is by Dr. Baron. She does not know how long it has been since she has seen him. PSYCHIATRIC MEDICATION: Has been Wellbutrin. PSYCHIATRIC HOSPITALIZATION: She states she was previously hospitalized here for suicidality. SOCIAL HISTORY: Her mother lives in [place]. She does not know her own education. She does not know if she has ever worked. DRUG HISTORY: Negative. ALCOHOL HISTORY: Negative. For fun the patient likes to play cards. LEGAL ISSUES: Negative. No other medical problems. Very pleasant female. Good eye contact. Fully oriented. Full fund of information. Denying hallucinations, delusions, obsessions, compulsions and phobias. Her speech is of normal rate and rhtyhm. Some poverty of thought. Attention and concentration are intact. No apparent psychotic thought or thought disorder noted. DIAGNOSES: Major depression, recurrent. MMR suggesting transfer to inpatient mental health unit for stabilization.
--- NOTE | 2016-11-07 17:51 | DSES ---
DATE OF ADMISSION: 11/06/2016 DATE OF DISCHARGE: 11/07/2016 SPECIALIST INVOLVED IN CARE: Dr. Smith. No complications during her stay, no procedures performed during her stay. DISCHARGE DIAGNOSES: - Suicidal ideation. - Gastroenteritis. - Vomiting. - Leukocytosis. - Posttraumatic stress disorder (PTSD) - Depression. - Mental retardation. - Psychiatric disorder. - Hypertriglyceridemia. - Gastroesophageal reflux disease (GERD). - Hypertension. - Hypothyroidism. - Hyperglycemia. - Possible myeloproliferative disorder versus reactive process. FINAL SUMMARY OF HER HOSPITALIZATION: This is a 36-year-old patient of [facility] who presented with vomiting. She had limited interaction and was thought to be a poor historian at the time of presentation. She was admitted to the hospitalists service with a sitter because she had expressed suicidal ideation with plan. She is treated imperially with antibiotics with improvement of her marked white cell count. Resolution of her nausea. The patient did have a peripheral smear during her stay which was nonspecific as was it findings. Would recommend following up for full smear or CBC in 6-8 weeks with followup with Hematology/Oncology as needed. On day of discharge she is feeling well. She has no complaints of pain, chest pain, shortness of breath, tolerating a diet, and is still relatively non-verbal. Temperature 98.2, pulse 68, respirations 16, blood pressure 129/75, 97% on room air. Heart is in regular rate and rhythm. Abdomen is soft, doughy, nontender, hypoactive bowel sounds. No significant lower extremity edema. White cell count 10.6, hemoglobin 13, and platelets of 392. BUN 7, creatinine 0.69. DISCHARGE INSTRUCTIONS: Followup with [facility] upon discharge from Inpatient Mental Health Unit (IM). Diet and activity as tolerated. Continue Levaquin 500 mg by mouth daily for 4 days. Continue Wellbutrin XL 150 mg by mouth daily, Combigan HI twice daily, Trusopt 1 drop right eye three times a day, fenofibrate 145 mg by mouth daily, Synthroid 125 mcg by mouth daily, metoprolol succinate 25 mg by mouth daily, omeprazole 20 mg by mouth daily, and vitamin D 2,000 units by mouth daily.
[2016-11-08] MEDS ORDERED: LevoFLOXacin 500 MG TABLET PO SCH (06:00)
== END 2016-11-07 16:24 | DRG 392 ==
LOC: M ED 18:20 → M ED INP 23:00 → M MSPAV 11-05 00:51 → OBSVTOIN 11-06 10:43
PROVIDERS: ADMIT Internal Medicine; ATTEND Internal Medicine
DX: K52.9 Noninfective gastroenteritis and colitis, unspecified (principal); F33.9 Major depressive disorder, recurrent, unspecified; K21.9 Gastro-esophageal reflux disease without esophagitis; I10 Essential (primary) hypertension; E03.9 Hypothyroidism, unspecified; F43.10 Post-traumatic stress disorder, unspecified; F70 Mild intellectual disabilities; E55.9 Vitamin D deficiency, unspecified; H40.9 Unspecified glaucoma; Z79.899 Other long term (current) drug therapy; E78.1 Pure hyperglyceridemia; R73.9 Hyperglycemia, unspecified; D72.829 Elevated white blood cell count, unspecified

== ENCOUNTER 2016-11-07 14:59 | Inpatient (IN) | payer MEDICARE, MEDICAID ==
[~2016-11-07] VITALS: Ht 165.1 cm; Wt 90.4 kg
[~2016-11-07 14:59] MED LIST changes: +COMB0.2S OU; +LEVA500T PO; +METO25TA74 PO; +TRUS1SOL OD
[2016-11-07 17:18] VITALS: BP 155/90
[2016-11-07] MEDS ORDERED: MOM 30ML SUSPENSION UDC PO PRN (18:30)
[2016-11-07] MEDS ORDERED: ACETAMINOPHEN TAB 650MG DOSE (2X325MG) PO PRN (18:30)
[2016-11-07] MEDS ORDERED: MAALOX 30 ML SUSP *UDC PO PRN (18:30)
[2016-11-07] MEDS: OPTH OU SCH (21:59)
[2016-11-07] MEDS: DORZOLAMIDE 2% OPHTH SOLN 10 ML BTL OD SCH (21:59)
[2016-11-07] MEDS: COMBIGAN OU SCH (21:59)
[2016-11-07] MEDS: traZODone 50 MG TAB PO PRN (22:17)
[2016-11-08 06:19] VITALS: BP 139/79
[2016-11-08] MEDS: LEVOTHYROXINE 0.125 MG TAB (125 MCG) PO SCH (06:32)
[2016-11-08] MEDS: METOPROLOL SUCC *XL* 25MG TAB (TopROL *XL*) PO SCH (09:00)
[2016-11-08] MEDS: COMBIGAN OU SCH ×2 (09:00→21:29)
[2016-11-08] MEDS: DORZOLAMIDE 2% OPHTH SOLN 10 ML BTL OD SCH ×3 (09:00→21:28)
[2016-11-08] MEDS: FENOFIBRATE 145 MG TAB (TRICOR) PO SCH (09:00)
[2016-11-08] MEDS: OPTH OU SCH ×2 (09:00→21:29)
[2016-11-08] MEDS: OMEPRAZOLE 20 MG CAP PO SCH (09:00)
[2016-11-08] MEDS: VITAMIN D 1,000 INTERNATIONAL UNITS TABLET PO SCH (09:01)
[2016-11-08] MEDS: buPROPion **XL** TABLET 150MG (WELLBUTRIN XL) PO SCH (09:01)
--- NOTE | 2016-11-08 11:43 | HPEPDOC ---
Medical History and Physical Date of Admission Nov 07, 2016 at 16:30 History and Physical PCP: Radha RUSSO ATTENDING: Dr. Ten Alexander HPI: 36yoF admitted to [facility] for MDD, being medically examined today. No acute medical complaints today. Denies any fevers, chills, weakness, fatigue, HOLLAND, CP, SOB, cough, palpitations, abdominal pain, N/V/D or changes in bowel or bladder habits. PMHx: Persistent leukocytosis SI PTSD Depression Mental retardation History of oppositional and manipulative behavior GERD Hyperlipidemia/hypertriglyceridemia Hypertension Hypothyroidism Vitamin D deficiency Glaucoma of the right eye Allergic rhinitis PSHX: Denies SOCHX: Resides in: [facility] residence Marital Status: Single Kids: None Employment: Disabled Tobacco use: Denies ETOH: Denies Illicit Drugs: Denies IV Drug Use: Denies Tattoos done unprofessionally: Denies FAMHX: Mother: Alive, well Father: , unknown Siblings: One brother, one sister Alive, well Children: None ROS: As noted in HPI, otherwise 11pt ROS of systems reviewed and remarkable only for LMP unknown. PE: GEN: 36 yo F, appears stated age. Well-nourished, well developed. No acute distress. Alert and oriented x 3. Pleasant, interactive. HEENT: Normocephalic, atraumatic. Pupils are equal, round, and reactive to light. Extraocular movements are intact. No nystagmus appreciated. Sclera are nonicteric. Conjunctiva without injection. Nose midline. Nasal turbinates without bogginess. EACs both patent BL. TMs both visualized and mccarthy with good cone of light, no bulging or erythema. No facial asymmetry. Moist mucous membranes. Dentition fair. Pharynx pink and moist, no cobblestoning. Neck supple , trachea midline. No lymphadenopathy or thyromegaly appreciated. CHEST: Regular rate and rhythm, +S1, +S2 LUNGS: Clear to auscultation bilaterally. No wheezes, rales, or rhonchi. Breathing appears symmetric and easy. Patient is speaking in full sentences. No accessory muscle use. ABD: Round, soft, non-tender, non-distended. +Bowel sounds throughout. No rebound or guarding. No costovertebral angle tenderness. EXT: Pulses 2+ bilaterally dorsalis pedis and radial. No lower extremity edema appreciated. SKIN: [place], dry, warm. Capillary refill <2sec. Excoriations are noted on the left forearm which the patient states is from scratching. NEURO: Alert and oriented x 3. Cranial nerves III-XII are intact. No focal deficits appreciated. EK11/05/16 Normal sinus rhythm Left axis deviation Delayed anterior R wave progression Nonspecific ST-T wave abnormalities No significant change when compared to prior tracing of 08/31/2014 Peripheral smear 11/06/16 Mild leukocytosis with neutrophilia. Normal Hb and platelet count. No evidence for acute leukemia or lymphoma is noted. Patient has Hx of leukocytosis in previous years, if leukocytosis persists in 6- 8 weeks , further work up/hematology consult may be needed to rule out a myeloproliferative disorder versus a reactive process. MRSA screen. Negative Blood culture 2. Negative Urine culture. Negative Respiratory panel. Negative Flu screen. Negative A&P: 36yoF admitted to [facility] for MDD 1. Psych. Plan per Psychiatry. EKG on file. 2. Glaucoma. Continue Combigan and Trusopt eyedrops. 3. Borderline EKG. No cardiac signs or symptoms appreciated on exam, follow with PCP. 4. Follow up with PCP on discharge. 5. Hypertriglyceridemia. Continue TriCor 145 mg by mouth daily. 6. Hypothyroidism. Continue levothyroxine 125 g daily. TSH is noted within normal limits. 7. Vitamin D deficiency. Continue vitamin D 2000 units daily. 8. GERD. Continue Prilosec 20 mg daily. 9. Hypertension. Continue Toprol-XL 25 mg daily. 10. Persistent leukocytosis. No obvious source of infectious etiology with influenza screen, respiratory panel, urine culture, blood culture, MRSA screen negative. Patient is finishing course of antibiotics for gastroenteritis, she will finish Levaquin by mouth 500 mg daily for an additional 4 days. Peripheral smear indicated mild leukocytosis with neutrophilia. No acute leukemia or lymphoma. If leukocytosis persists in 6-8 weeks further workup and hematology consultation is recommended. Plan is for outpatient follow-up with PCP. 11. Staff member Danuta present throughout exam. Vital Signs Vital Signs Label Value Date Time Patient Temperature 97.5 degrees F 11/08/16 0619 Temperature Source Skin 11/08/16 0619 Pulse 63 11/08/16 0619 Respiratory Rate 18 bpm 11/08/16 0619 Blood Pressure Assessment 139/79 (99) 11/08/16 0619 Bedside Pulse Oximetry 98 % 11/07/16 1718 Item Value Date Time Oxygen Delivery Method Room Air 11/07/16 1718 Laboratory Data Labs 24H Item Value Date Time Thyroid Stimulating Hormone (TSH) 0.672 uIU/ML 11/04/16 1649 Human Chorionic Gonadotropin, Qual NEGATIVE 11/04/16 1640 Item Value Date Time White Blood Count 10.6 K/mm3 H 11/07/16 0556 Red Blood Count 4.54 M/mm3 11/07/16 0556 Hemoglobin 13.0 g/dl 11/07/16 0556 Hematocrit 40.3 % 11/07/16 0556 Mean Corpuscular Volume 88.8 fl 11/07/16 0556 Mean Corpuscular Hemoglobin 28.7 pg 11/07/16 0556 Mean Corpuscular Hemoglobin Concent 32.3 g/dl 11/07/16 0556 Red Cell Distribution Width 12.7 % 11/07/16 0556 Platelet Count 392 k/mm3 11/07/16 0556 Sodium Level 143 MEQ/L 11/07/16 0556 Potassium Level 3.9 MEQ/L # 11/07/16 0556 Chloride Level 112 MEQ/L H 11/07/16 0556 Carbon Dioxide Level 24 MEQ/L 11/07/16 0556 Anion Gap 7 MEQ/L L 11/07/16 0556 Blood Urea Nitrogen 7 MG/DL 11/07/16 0556 Creatinine 0.69 MG/DL 11/07/16 0556 Glomerular Filtration Rate > 60.0 11/07/16 0556 Fasting Glucose 88 MG/DL 11/07/16 0556 Calcium Level 8.0 MG/DL L 11/07/16 0556 Troponin I < 0.02 NG/ML 11/06/16 1157 Home Medications Scheduled (Combigan 0.2-0.5 %) 1 Hakeem Hakeem 1 HAKEEM OU BID Bupropion HCl (Wellbutrin Xl) 150 Mg Tab 150 MG PO DAILY Dorzolamide HCl (Trusopt) 2 % Hakeem 1 DROP OD TID Fenofibrate (Tricor) 145 Mg Tab 145 MG PO DAILY Levofloxacin Hemihydrate (Levaquin) 500 Mg Tab 500 MG PO DAILY Levothyroxine Sodium (Synthroid) 125 Mcg Tab 125 MCG PO DAILY Metoprolol Succinate (Metoprolol Succinate ER) 25 Mg Tab 25 MG PO DAILY Omeprazole (Prilosec) 20 Mg Cap 20 MG PO DAILY Vitamin D (Vitamin D) 2,000 Unit Cap 2,000 UNIT PO DAILY Allergies Coded Allergies: No Known Drug Allergy (Verified Allergy, Mild, 11/04/16) Karon Marin Nov 08, 2016 11:43
[2016-11-08] MEDS: LevoFLOXacin 500 MG TABLET PO SCH (12:30)
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
[2016-11-08] MEDS: hydrOXYzine 25 MG TAB PO PRN (16:27)
[2016-11-08 18:00] VITALS: BP 134/88
[2016-11-08] MEDS: traZODone 50 MG TAB PO PRN (21:28)
[2016-11-09] MEDS: LEVOTHYROXINE 0.125 MG TAB (125 MCG) PO SCH (06:04)
[2016-11-09] MEDS: LevoFLOXacin 500 MG TABLET PO SCH (06:04)
[2016-11-09 06:10] VITALS: BP 115/53
[2016-11-09] MEDS: hydrOXYzine 25 MG TAB PO PRN (09:08)
[2016-11-09] MEDS: VITAMIN D 1,000 INTERNATIONAL UNITS TABLET PO SCH (09:08)
[2016-11-09] MEDS: FENOFIBRATE 145 MG TAB (TRICOR) PO SCH (09:09)
[2016-11-09] MEDS: buPROPion **XL** TABLET 150MG (WELLBUTRIN XL) PO SCH (09:09)
[2016-11-09] MEDS: OMEPRAZOLE 20 MG CAP PO SCH (09:09)
[2016-11-09] MEDS: DORZOLAMIDE 2% OPHTH SOLN 10 ML BTL OD SCH ×3 (09:09→21:16)
[2016-11-09] MEDS: METOPROLOL SUCC *XL* 25MG TAB (TopROL *XL*) PO SCH (09:09)
[2016-11-09] MEDS: COMBIGAN OU SCH ×2 (09:10→21:16)
[2016-11-09] MEDS: OPTH OU SCH ×2 (09:10→21:16)
--- NOTE | 2016-11-09 10:39 | IPN ---
DATE: 11/09/2016 I spoke with Ms. Sifuentes today. Her mood was good. She denied any suicidal or homicidal ideation or self destructive thoughts. She denied any thoughts of self harm at all. She stated that she was looking forward to going back to the [facility] ([facility] home. There was no thought disorder noted. She had no loose associations. She described no abnormal or psychotic thoughts. Her judgment and insight were fair. She was fully oriented. There was no disturbance of recent or remote memory. Her attention and concentration were good. No disturbances of language noted. Fund of knowledge was fair. Mood was good. Affect was bright. Discharge planned for tomorrow. DIAGNOSES: 1. Mild mental retardation. 2. History of depression. JEFRY
--- NOTE | 2016-11-09 17:24 | IPNPDOC ---
[facility] Progress Note Progress Note DATE OF SERVICE: 11/09/16 INTERVAL HISTORY: Medication Side Effects: The patient reports no side effects from her home Wellbutrin Psychiatric Symptoms: The patient denies any expansive depression or anxiety currently. States that her original presenting symptoms had resolved prior to her presenting to the inpatient psychiatric navarro. Events/Behavior: The patient is been noted to be amenable and generally well behaved on the navarro. There've been no acute issues overnight. Psychotherapy/Group attendance: The patient has been noted to attend groups relatively frequently. MENTAL STATUS EXAMINATION: General: Well dressed with good hygiene Speech: Spontaneous and fluid Thought processes: Linear and logical Thought content: Future orientated focused on discharge Abstract reasoning, and computation: Intact Description of associations: Intact Description of abnormal or psychotic thoughts:Denies any suicidal or homicidal ideation. Denies any auditory or visual hallucinations. Does not appear to be responding to internal stimuli. Does not appear to be endorsing any bizarre or paranoid ideation. Judgment: Fair Insight: Fair Orientation: Alert and orientated 3 Recent and remote memory: Intact Attention span and concentration: Intact Fund of knowledge: Limited Mood: "Okay" Affect: Euthymic with a full range DIAGNOSES Per DSMV: 1. Unspecified depressive disorder. 2. Intellectual disability, mild, by history. 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 This case was discussed with the Attending and SW. TIME SPENT: 15 minutes. Vital Signs Vital Signs Date Time Temp Pulse Resp B/P Pulse Ox O2 Delivery O2 Flow Rate FiO2 11/09/16 09:09 93 135/83 11/09/16 06:10 99.4 16 11/08/16 06:19 Room Air 11/07/16 17:18 98 Current Medications Current Medications Acetaminophen (Tylenol Tab) 650 mg Q6HP PRN PO HEADACHE or DISCOMFORT; Start at 18:30; Stop 12/07/16 at 18:29 Al Hydrox/Mg Hydrox/Simethicone (Mylanta) 30 ml Q4HP PRN PO HEARTBURN/ INDIGESTION; Start 11/07/16 at 18:30; Stop 12/07/16 at 18:29 Bupropion HCl (Wellbutrin Xl) 150 mg DAILY PO Last administered on 11/09/16 09 :09; Start 11/08/16 at 09:00; Stop 12/08/16 at 08:59 Dorzolamide HCl (Trusopt Ocumeter Plus) 1 drop TID OD Last administered on 11/09 16:35; Start 11/07/16 at 21:00; Stop 12/07/16 at 20:59 Fenofibrate (Tricor) 145 mg DAILY PO Last administered on 11/09/16 09:09; Start 11/08/16 at 09:00; Stop 12/08/16 at 08:59 Hydroxyzine HCl (Atarax) 25 mg Q6HP PRN PO ANXIETY Last administered on 09:08; Start 11/07/16 at 18:45; Stop 12/07/16 at 18:44 Levofloxacin (Levaquin) 500 mg DAILY@06 PO Last administered on 11/09/16 06:04 ; Start 11/08/16 at 06:00; Stop 11/11/16 at 06:01 Levothyroxine Sodium (Synthroid) 0.125 mg DAILY@06 PO Last administered on 11/09 06:04; Start 11/08/16 at 06:00; Stop 12/08/16 at 05:59 Magnesium Hydroxide (Milk Of Magnesia) 30 ml DAILYPRN PRN PO CONSTIPATION; Start 11/07/16 at 18:30; Stop 12/07/16 at 18:29 Metoprolol Succinate (TopROL XL) 25 mg DAILY PO Last administered on 11/09/16 09:09; Start 11/08/16 at 09:00; Stop 12/08/16 at 08:59 Omeprazole (PriLOSEC) 20 mg DAILY PO Last administered on 11/09/16 09:09; Start 11/08/16 at 09:00; Stop 12/08/16 at 08:59 Patient Own Medication (Patient'S Own Med) COMBIGAN 0.2-0.5% O... BID OU Last administered on 11/09/16 09:10; Start 11/07/16 at 21:00; Stop 12/07/16 at 20:59 Trazodone HCl (Desyrel) 50 mg QHSP PRN PO INSOMNIA Last administered on 21:28; Start 11/07/16 at 18:30; Stop 12/07/16 at 18:29 Vitamin D (Vitamin D) 2,000 units DAILY PO Last administered on 11/09/16 09:08 ; Start 11/08/16 at 09:00; Stop 12/08/16 at 08:59 Allergies Coded Allergies: No Known Drug Allergy (Verified Allergy, Mild, 11/04/16) GME ATTESTATION My preceptor for this patient encounter was physically present in the building during the encounter and was fully available. As needed, all aspects of the patient interview, examination, medical decision making process, and medical care plan development were reviewed and approved by the preceptor. Preceptor is aware and concurs with the plan as stated in the body of this note and will attest to such by his/her cosignature. LISANDRO FONSECA DO Nov 09, 2016 17:24
[2016-11-09 18:00] VITALS: BP 122/67
[2016-11-09] MEDS: traZODone 50 MG TAB PO PRN (21:15)
[2016-11-10] MEDS: LEVOTHYROXINE 0.125 MG TAB (125 MCG) PO SCH (06:09)
[2016-11-10] MEDS: LevoFLOXacin 500 MG TABLET PO SCH (06:09)
[2016-11-10 06:33] VITALS: BP 127/73
[2016-11-10] MEDS ORDERED: BUPR150T3 PO (07:04)
[2016-11-10] MEDS ORDERED: HYDR25T PO (07:20)
[2016-11-10] MEDS: OMEPRAZOLE 20 MG CAP PO SCH (08:59)
[2016-11-10] MEDS: COMBIGAN OU SCH (09:00)
[2016-11-10] MEDS: OPTH OU SCH (09:00)
[2016-11-10 09:01] VITALS: BP 127/73
[2016-11-10] MEDS: buPROPion **XL** TABLET 150MG (WELLBUTRIN XL) PO SCH (09:01)
[2016-11-10] MEDS: DORZOLAMIDE 2% OPHTH SOLN 10 ML BTL OD SCH (09:01)
[2016-11-10] MEDS: METOPROLOL SUCC *XL* 25MG TAB (TopROL *XL*) PO SCH (09:01)
[2016-11-10] MEDS: FENOFIBRATE 145 MG TAB (TRICOR) PO SCH (09:01)
[2016-11-10] MEDS: VITAMIN D 1,000 INTERNATIONAL UNITS TABLET PO SCH (09:01)
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
[2016-11-10] MEDS ORDERED: LEVA500T PO (12:21)
== END 2016-11-10 12:30 | disposition home or self-care (01) | DRG 881 ==
LOC: M PSY 16:30
PROVIDERS: ADMIT Psychiatry & Neurology Child & Adolescent Psychiatry; ATTEND Psychiatry & Neurology Child & Adolescent Psychiatry
DX: F32.9 Major depressive disorder, single episode, unspecified (principal); F70 Mild intellectual disabilities; K21.9 Gastro-esophageal reflux disease without esophagitis; F91.3 Oppositional defiant disorder; E03.9 Hypothyroidism, unspecified; I10 Essential (primary) hypertension; E78.5 Hyperlipidemia, unspecified; E55.9 Vitamin D deficiency, unspecified; E78.1 Pure hyperglyceridemia; D72.829 Elevated white blood cell count, unspecified; K52.9 Noninfective gastroenteritis and colitis, unspecified; Z79.899 Other long term (current) drug therapy

== ENCOUNTER 2016-11-19 16:46 | Emergency (ER) | payer MEDICARE, MEDICAID ==
[~2016-11-19] VITALS: Ht 165.1 cm; Wt 93.0 kg
[~2016-11-19 16:46] MED LIST changes: +BUPR150T3 PO; +HYDR25T PO
[2016-11-19] MEDS ORDERED: TRI-TAB11 PO (17:02)
[2016-11-19] MEDS ORDERED: METOCLOPRAMIDE INJ 10MG/2ML VIAL (J2765) IV ONE (19:30)
[2016-11-19] MEDS ORDERED: NS 1,000 ML IV ONE (19:30)
[2016-11-19 19:49] LABS: BASO % 0.2 % (0.0-1.0); EOS # 0.1 K/mm3 (0.0-0.50); EOS % 0.3 % (0.0-3.0); LARGE UNSTAINED CELL # 0.1 K/mm3 (0.0-0.4); LARGE UNSTAINED CELL % 0.4 % (0.0-4.0); LYMPH # 0.9 K/mm3 (1.5-4.5); MEAN CORPUSCULAR HEMOGLOBIN 28.1 pg (27.0-33.0); MEAN CORPUSCULAR HGB CONC 31.5 g/dl (32.0-36.5); MEAN CORPUSCULAR VOLUME 89.2 fl (80.0-96.0); MONO # 0.5 K/mm3 (0.0-0.8); MONO % 2.6 % (0.0-5.0); NEUTROPHILS # 18.3 K/mm3 (1.8-7.7); NEUTROPHILS % 92.4 % (36.0-66.0); PLATELET COUNT, AUTOMATED 403 k/mm3 (150-450); RED CELL DISTRIBUTION WIDTH 13.5 % (11.5-14.5); WHITE BLOOD COUNT 19.8 K/mm3 (4.0-10.0)
[2016-11-19 20:12] LABS: ALBUMIN 3.4 GM/DL (3.2-5.2); ALBUMIN/GLOBULIN RATIO 0.92 (1.00-1.93); ALKALINE PHOSPHATASE 100 U/L (45-117); ALT/SGPT 22 U/L (12-78); AMYLASE 43 U/L (25-115); ANION GAP 9 MEQ/L (8-16); AST/SGOT 17 U/L (15-37); BILIRUBIN,DIRECT < 0.1 MG/DL (0.0-0.2); BILIRUBIN,TOTAL 0.2 MG/DL (0.2-1.0); BLOOD UREA NITROGEN 13 MG/DL (7-18); CALCIUM LEVEL 8.8 MG/DL (8.5-10.1); CARBON DIOXIDE LEVEL 23 MEQ/L (21-32); CHLORIDE LEVEL 109 MEQ/L (98-107); CREATININE FOR GFR 0.93 MG/DL (0.55-1.02); GLOMERULAR FILTRATION RATE > 60.0 (>60); GLUCOSE, FASTING 122 MG/DL (70-105); POTASSIUM SERUM 4.1 MEQ/L (3.5-5.1); SODIUM LEVEL 141 MEQ/L (136-145); TOTAL PROTEIN 7.1 GM/DL (6.4-8.2)
[2016-11-19] MEDS ORDERED: ZOFR4TAB3 PO (22:06)
[2016-11-19] MEDS ORDERED: ACETAMINOPHEN TAB 650MG DOSE (2X325MG) PO ONE (22:30)
[2016-11-19 22:31] VITALS: BP 175/89
[2016-11-19] MEDS ORDERED: ACETAMINOPHEN 325 MG TAB As Ordered ONE (22:36)
== END 2016-11-19 22:39 | disposition home or self-care (01) ==
LOC: M ED 17:45
DX: R11.2 Nausea with vomiting, unspecified (principal); R19.7 Diarrhea, unspecified; I10 Essential (primary) hypertension; E78.00 Pure hypercholesterolemia, unspecified; J30.9 Allergic rhinitis, unspecified; K21.9 Gastro-esophageal reflux disease without esophagitis; E03.9 Hypothyroidism, unspecified; E55.9 Vitamin D deficiency, unspecified; F41.9 Anxiety disorder, unspecified; F33.9 Major depressive disorder, recurrent, unspecified; F43.10 Post-traumatic stress disorder, unspecified; F70 Mild intellectual disabilities; Z79.899 Other long term (current) drug therapy
CPT/HCPCS: 36415; 80048; 80076; 81001; 81025; 82150; 83690; 85025; 87086; 96361; 96374; 99283; J2765

== ENCOUNTER → 2016-11-21 | Outpatient (REF) | payer MEDICARE, MEDICAID ==
[~2016-11-21] MED LIST changes: +TRI-TAB11 PO; +ZOFR4TAB3 PO
[2016-11-21 17:27] LABS: MEAN CORPUSCULAR HEMOGLOBIN 28.4 pg (27.0-33.0); RED CELL DISTRIBUTION WIDTH 13.3 % (11.5-14.5); WHITE BLOOD COUNT 12.8 K/mm3 (4.0-10.0)
[2016-11-21 17:53] LABS: ALBUMIN 3.2 GM/DL (3.2-5.2); ALBUMIN/GLOBULIN RATIO 1.03 (1.00-1.93); ALKALINE PHOSPHATASE 79 U/L (45-117); ALT/SGPT 26 U/L (12-78); ANION GAP 6 MEQ/L (8-16); AST/SGOT 25 U/L (15-37); BILIRUBIN,TOTAL 0.3 MG/DL (0.2-1.0); BLOOD UREA NITROGEN 11 MG/DL (7-18); CALCIUM LEVEL 8.5 MG/DL (8.5-10.1); CARBON DIOXIDE LEVEL 26 MEQ/L (21-32); CHLORIDE LEVEL 106 MEQ/L (98-107); CREATININE FOR GFR 0.93 MG/DL (0.55-1.02); GLOMERULAR FILTRATION RATE > 60.0 (>60); GLUCOSE, FASTING 91 MG/DL (70-105); POTASSIUM SERUM 3.8 MEQ/L (3.5-5.1); SODIUM LEVEL 138 MEQ/L (136-145); TOTAL PROTEIN 6.3 GM/DL (6.4-8.2)
== END ==
LOC: M SFHCLERA 13:36
PROVIDERS: ATTEND Physician Assistant
DX: D72.829 Elevated white blood cell count, unspecified (principal)
CPT/HCPCS: 80053; 85027; G0463

== ENCOUNTER → 2016-11-23 | Outpatient (REF) | payer MEDICARE, MEDICAID | LOC: M LAB REF 15:17 | PROVIDERS: ATTEND Physician Assistant Medical | DX: R19.7 Diarrhea, unspecified (principal) ==

== ENCOUNTER 2017-06-25 06:23 | Observation (INO) | payer MEDICARE, MEDICAID ==
[~2017-06-25] VITALS: Ht 157.5 cm; Wt 90.6 kg
[~2017-06-25 06:23] MED LIST changes: +ABIL10TA9 PO; -ABIL1TAB5 PO; +HYDR-3363 PO; -HYDR25T PO; +LEVA1TAB2 PO; -LEVA500T PO; -LEVO125T3 PO; +LEVO125T4 PO; +METO1TAB32 PO; -METO25TA74 PO; +TRAZ50TA11 PO; -TRAZ50TA4 PO; -TRIC145T PO; +TRIC145T22 PO
[2017-06-25] MEDS ORDERED: TRUS1SOL OD (06:35)
[2017-06-25] MEDS ORDERED: METOCLOPRAMIDE INJ 10MG/2ML VIAL (J2765) IV ONE (06:45)
[2017-06-25] MEDS ORDERED: NS 1,000 ML IV ONE ×2 (06:45→08:45)
[2017-06-25 07:47] LABS: BASO # 0.1 10^3/uL (0.0-0.2); BASO % 0.4 % (0.0-1.0); EOS % 0.1 % (0.0-3.0); IMMATURE GRANULOCYTE % 0.7 % (0-0); LYMPH # 1.3 10^3/uL (1.5-4.5); LYMPH % 5.3 % (24.0-44.0); MEAN CORPUSCULAR HEMOGLOBIN 28.3 pg (27.0-33.0); MEAN CORPUSCULAR HGB CONC 32.4 g/dl (32.0-36.5); MEAN CORPUSCULAR VOLUME 87.4 fl (80.0-96.0); MONO # 0.5 10^3/uL (0.0-0.8); MONO % 2.2 % (0.0-5.0); NEUTROPHILS # 22.9 10^3/uL (1.8-7.7); NEUTROPHILS % 91.3 % (36.0-66.0); PLATELET COUNT, AUTOMATED 556 10^3/uL (150-450); RED CELL DISTRIBUTION WIDTH 13.1 % (11.5-14.5); WHITE BLOOD COUNT 25.1 10^3/uL (4.0-10.0)
[2017-06-25 08:08] LABS: CONTROL LINE HCG INT CTR LINE PRESENT
[2017-06-25 08:13] LABS: ALBUMIN 3.9 GM/DL (3.2-5.2); ALBUMIN/GLOBULIN RATIO 1.03 (1.00-1.93); ALKALINE PHOSPHATASE 112 U/L (45-117); ALT/SGPT 22 U/L (12-78); AMYLASE 70 U/L (25-115); ANION GAP 8 MEQ/L (8-16); AST/SGOT 12 U/L (7-37); BILIRUBIN,DIRECT 0.1 MG/DL (0.0-0.2); BILIRUBIN,TOTAL 0.3 MG/DL (0.2-1.0); BLOOD UREA NITROGEN 18 MG/DL (7-18); CALCIUM LEVEL 9.5 MG/DL (8.5-10.1); CARBON DIOXIDE LEVEL 28 MEQ/L (21-32); CHLORIDE LEVEL 103 MEQ/L (98-107); CREATININE FOR GFR 1.01 MG/DL (0.55-1.02); GLOMERULAR FILTRATION RATE > 60.0 (>60); GLUCOSE, FASTING 167 MG/DL (70-105); POTASSIUM SERUM 4.1 MEQ/L (3.5-5.1); SODIUM LEVEL 139 MEQ/L (136-145); TOTAL PROTEIN 7.7 GM/DL (6.4-8.2)
[2017-06-25] MEDS ORDERED: ISOVUE-370 76% 100ML VIAL (Q9967) As Ordered ONE (08:45)
--- NOTE | 2017-06-25 08:47 | REP ---
Clinical: Chest pain . Comparison: 11/04/2016 . Findings: The mediastinum and cardiac silhouette are stable and within normal limits for portable technique. The lung vick are clear without acute consolidation, effusion, or pneumothorax. Skeletal structures are intact. Impression: No acute cardiopulmonary process appreciated. Signed by Jaylen Holloway MD 06/25/2017 08:39 A
[2017-06-25] MEDS: DORZOLAMIDE 2% OPHTH SOLN 10 ML BTL OD SCH ×3 (09:00→20:08)
--- NOTE | 2017-06-25 09:13 | REP ---
Clinical: Acute abdominal pain with leukocytosis and vomiting. Technique: Axial contrast enhanced images from the lung bases to the pubic symphysis using 100 ml Isovue 370 intravenous contrast material with coronal and sagittal re-formations. Comparison: 11/04/2016. Findings: Lung bases are clear. Visualized heart and pericardium are normal. Liver, spleen, pancreas, gallbladder, bilateral adrenal glands and kidneys are normal. The enteric system is without obstruction or acute inflammatory process. Normal terminal ileum and appendix identified in the right lower quadrant. Pelvis demonstrates normal bladder and age-appropriate uterus/adnexa. No pelvic fluid or ascites. No free air. No adenopathy. Abdominal aorta and vasculature appears normal. Musculoskeletal structures are intact. Impression: No acute abdominopelvic pathology appreciated. Signed by Jaylen Holloway MD 06/25/2017 09:05 A
[2017-06-25] MEDS ORDERED: ONDANSETRON 4MG/2ML VIAL (J2405) IV ONE (09:15)
[2017-06-25] MEDS ORDERED: BUPR150T3 PO (09:58)
[2017-06-25] MEDS ORDERED: NS 1,000 ML IV SCH (10:21)
--- NOTE | 2017-06-25 10:21 | HPEPDOC ---
[facility] Medical History & Physical Date of Admission Jun 25, 2017 Primary Care Physician: BEV PASCUAL PA-C Attending Physician: JENNIFFER AMATO DO History and Physical PCP: Radha RUSSO CC: N/V intractable since 1;30 am HPI: 36yoF presented to ED with intractable vomiting and abdominal pain/ cramping that started this morning. She is a [facility] resident and the caregiver with her says there seems to be quite a bit of this going around at their facility. She was evaluated in ED and provider contacted the hospitalist service for Observation because Ning has not been able to keep food down and has an unusually high white count. She does have a history of chronic leukocytosis but no usually this high. No history of recent antibiotics. Ning does not c/o: f/c/r, diarrhea, hematochezia/melena, CP, GUERRA/SOB, productive sputum, h/a, photophobia. PMHx: Persistent leukocytosis SI PTSD Depression Mental retardation History of oppositional and manipulative behavior GERD Hyperlipidemia/hypertriglyceridemia Hypertension Hypothyroidism Vitamin D deficiency Glaucoma of the right eye Allergic rhinitis PSHX: Denies SOCHX: Resides in: [facility] [place] residence Marital Status: Single Kids: None Employment: Disabled Tobacco use: Denies ETOH: Denies Illicit Drugs: Denies IV Drug Use: Denies Tattoos done unprofessionally: Denies FAMHX: Mother: Alive, well Father: , unknown Siblings: One brother, one sister Alive, well Children: None ROS: As noted in HPI, otherwise 11pt ROS of systems reviewed and remarkable only for LMP unknown. Allergies: NKDA MEDICATIONS: Listed below (will wait for pharmacy medication reconciliation) PE: GEN: 36 yo F, appears stated age. Well-nourished, well developed. No acute distress. Alert and oriented x 3. Pleasant, interactive. HEENT: Normocephalic, atraumatic. Pupils are equal, round, and reactive to light. Extraocular movements are intact. No nystagmus appreciated. Sclera are nonicteric. Conjunctiva without injection. Nose midline. Nasal turbinates without bogginess. EACs both patent BL. TMs both visualized and mccarthy with good cone of light, no bulging or erythema. No facial asymmetry. Moist mucous membranes. Dentition fair. Pharynx pink and moist, no cobblestoning. Neck supple , trachea midline. No lymphadenopathy or thyromegaly appreciated. CHEST: Regular rate and rhythm, +S1, +S2 LUNGS: Clear to auscultation bilaterally. No wheezes, rales, or rhonchi. Breathing appears symmetric and easy. Patient is speaking in full sentences. No accessory muscle use. ABD: Round, soft, mild vague tendernes without distention. +Bowel sounds throughout. No rebound or guarding. No costovertebral angle tenderness. EXT: Pulses 2+ bilaterally dorsalis pedis and radial. No lower extremity edema appreciated. SKIN: [place], dry, warm. Capillary refill <2sec. Excoriations are noted on the left forearm which the patient states is from scratching. NEURO: Alert and oriented x 3. Cranial nerves III-XII are intact. No focal deficits appreciated. Peripheral smear 11/06/16 Mild leukocytosis with neutrophilia. Normal Hb and platelet count. No evidence for acute leukemia or lymphoma is noted. Patient has Hx of leukocytosis in previous years, if leukocytosis persists in 6- 8 weeks , further work up/hematology consult may be needed to rule out a myeloproliferative disorder versus a reactive process. See labs listed below. CXR: No acute cardiopulmonary process appreciated. CT ABD/PELVIS W/CONTRAST: No acute abdominopelvic pathology appreciated. IMPRESSION: 37 yo female resident of [facility] with intractable n/v and gastroenteritis in need of further supportive care. PROBLEM LIST: 1. Acute Gastroenteritis 2. Leukocytosis (acute on persistent) 3. PTSD with h/o SI (not currently suicidal) 4. Depression 5. Mental retardation 6. History of oppositional and manipulative behavior 7. GERD 8. Hyperlipidemia/hypertriglyceridemia 9. Hypertension 10. Hypothyroidism 11. Vitamin D deficiency 12. Glaucoma of the right eye 13. Allergic rhinitis PLAN: Admit Observation overnight with supportive IVNS with antiemetics, brat diet as tolerated. Her Leukocytosis may be reactive and related to her vomiting. However, she is on a PPI and this could increase her risk of c. Diff. Should she develop diarrhea may want to check a GI panel. Continue her home medications. Repeat CBC and RP in morning. DVT Prophylaxis: Lovenox DISPOSITION: Anticipate discharge to [facility] tomorrow. Vital Signs Vital Signs Date Time Temp Pulse Resp B/P (MAP) Pulse Ox O2 Delivery O2 Flow Rate FiO2 06/25/17 09:50 110 94 06/25/17 09:35 182/89 (120) 06/25/17 06:24 96.5 20 Room Air Laboratory Data Labs 24H Laboratory Tests 2 06/25/17 07:29: Immature Granulocyte % (Auto) 0.7H, White Blood Count 25.1H, Red Blood Count 5.30, Hemoglobin 15.0, Hematocrit 46.3, Mean Corpuscular Volume 87.4, Mean Corpuscular Hemoglobin 28.3, Mean Corpuscular Hemoglobin Concent 32.4, Red Cell Distribution Width 13.1, Platelet Count 556H, Neutrophils (%) (Auto) 91.3H, Lymphocytes (%) (Auto) 5.3L, Monocytes (%) (Auto) 2.2, Eosinophils (%) (Auto) 0.1, Basophils (%) (Auto) 0.4, Neutrophils # (Auto) 22.9H, Lymphocytes # (Auto) 1.3L, Monocytes # (Auto) 0.5, Eosinophils # (Auto) 0.0, Basophils # (Auto) 0.1, Immature Granulocyte # (Auto) 0.2H, Nucleated Red Blood Cells % (auto) 0.0, Urine Appearance HAZY, Urine Color YELLOW, Urine pH 7.0, Urine Specific Secretary 1.026, Urine Protein 1+H, Urine Glucose (UA) NEGATIVE, Urine Ketones NEGATIVE, Urine Urobilinogen 0.2, Urine Bilirubin NEGATIVE, Urine Leukocyte Esterase NEGATIVE, Urine Blood NEGATIVE, Urine Nitrite NEGATIVE, Urine WBC (Auto) 1, Urine RBC (Auto) 3, Urine Hyaline Casts (Auto) 0, Urine Bacteria (Auto) NEGATIVE , Urine Squamous Epithelial Cells 2, Urine Mucus (Auto) SMALL, Urine Sperm (Auto ) , Anion Gap 8, Glomerular Filtration Rate > 60.0, Calcium Level 9.5, Aspartate Amino Transf (AST/SGOT) 12, Alanine Aminotransferase (ALT/SGPT) 22, Alkaline Phosphatase 112, Total Bilirubin 0.3, Direct Bilirubin 0.1, Total Protein 7.7, Albumin 3.9, Albumin/Globulin Ratio 1.03, Amylase Level 70, Lipase 145, Human Chorionic Gonadotropin, Qual NEGATIVE CBC/BMP Laboratory Tests 06/25/17 07:29 Red Blood Count 5.30, Mean Corpuscular Volume 87.4, Mean Corpuscular Hemoglobin 28.3, Mean Corpuscular Hemoglobin Concent 32.4, Red Cell Distribution Width 13.1 , Neutrophils (%) (Auto) 91.3 H, Lymphocytes (%) (Auto) 5.3 L, Monocytes (%) ( Auto) 2.2, Eosinophils (%) (Auto) 0.1, Basophils (%) (Auto) 0.4, Neutrophils # ( Auto) 22.9 H, Lymphocytes # (Auto) 1.3 L, Monocytes # (Auto) 0.5, Eosinophils # (Auto) 0.0, Basophils # (Auto) 0.1 Microbiology Microbiology 06/25/17 Blood Culture, Received Pending 06/25/17 Blood Culture, Received Pending 06/25/17 Urine Culture, Received Pending Home Medications Scheduled (Combigan 0.2-0.5 %) 1 Lula Lula, 1 DROP OU BID (Tri-Previfem 0.18/0.215/0.25 mg-35 Mcg) 1 Tab Tab, 1 TAB PO DAILY Bupropion Hcl (Bupropion HCl Xl) 150 Mg Tab, 150 MG PO DAILY Dorzolamide HCl (Trusopt) 2 % Lula, 1 DROP OD TID Fenofibrate (Tricor) 145 Mg Tab, 145 MG PO DAILY Levothyroxine Sodium (Synthroid) 125 Mcg Tab, 125 MCG PO DAILY Metoprolol Succinate (Metoprolol Succinate ER) 25 Mg Tab, 25 MG PO DAILY Omeprazole (Prilosec) 20 Mg Cap, 20 MG PO DAILY Vitamin D (Vitamin D) 2,000 Unit Cap, 2,000 UNIT PO DAILY Allergies Coded Allergies: No Known Drug Allergy (Verified Allergy, Mild, 11/04/16) JENNIFFER AMATO DO Jun 25, 2017 10:21
[2017-06-25] MEDS ORDERED: ONDANSETRON 4MG/2ML VIAL (J2405) IV PRN ×2 (10:30→14:15)
[2017-06-25] MEDS ORDERED: LORazepam 2 MG/ML VIAL (J2060) As Ordered ONE (10:43)
[2017-06-25] MEDS ORDERED: LORazepam 2 MG/ML VIAL (J2060) IV STA (10:47)
[2017-06-25 10:50] VITALS: BP 167/93
[2017-06-25] MEDS ORDERED: diphenhydrAMINE INJ 50MG/ML VIAL (J1200) IV PRN (11:00)
[2017-06-25] MEDS ORDERED: HALOPERIDOL 5 MG/ML VIAL (J1630) IV PRN (11:00)
[2017-06-25] MEDS: FENOFIBRATE 145 MG TAB (TRICOR) PO SCH (11:17)
[2017-06-25] MEDS: VITAMIN D 1,000 INTERNATIONAL UNITS TABLET PO SCH (11:17)
[2017-06-25] MEDS: buPROPion **XL** TABLET 150MG (WELLBUTRIN XL) PO SCH (11:17)
[2017-06-25] MEDS: OMEPRAZOLE 20 MG CAP PO SCH (11:17)
[2017-06-25] MEDS: ENOXAPARIN 40 MG/0.4 ML SYRINGE (J1650) SC SCH (11:17)
[2017-06-25] MEDS: METOPROLOL SUCC *XL* 25MG TAB (TopROL *XL*) PO SCH (11:18)
[2017-06-25] MEDS: LEVOTHYROXINE 125MCG TABLET (0.125MG) PO SCH (11:19)
[2017-06-25 14:00] VITALS: BP 140/90
[2017-06-25] MEDS ORDERED: METOCLOPRAMIDE INJ 10MG/2ML VIAL (J2765) IV PRN (14:15)
[2017-06-25 15:48] VITALS: BP 162/92
[2017-06-25] MEDS: GI COCKTAIL 50ML BTL(HYOSCYAMINE/MAALOX/LIDOCAINE VISCOUS)(1:3:1) PO PRN (17:23)
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
[2017-06-25] MEDS: LORazepam 2 MG/ML VIAL (J2060) IV PRN (20:08)
[2017-06-25] MEDS: ACETAMINOPHEN TAB 650MG DOSE (2X325MG) PO PRN (20:08)
[2017-06-25 22:00] VITALS: BP 128/62
[2017-06-26] MEDS: LEVOTHYROXINE 125MCG TABLET (0.125MG) PO SCH (05:47)
[2017-06-26 06:00] VITALS: BP 141/80
[2017-06-26 06:45] LABS: MEAN CORPUSCULAR HEMOGLOBIN 28.7 pg (27.0-33.0); MEAN CORPUSCULAR HGB CONC 32.5 g/dl (32.0-36.5); MEAN CORPUSCULAR VOLUME 88.4 fl (80.0-96.0); RED CELL DISTRIBUTION WIDTH 13.1 % (11.5-14.5)
[2017-06-26 06:57] LABS: PLATELET COUNT, AUTOMATED 409 10^3/uL (150-450)
[2017-06-26 07:08] LABS: ANION GAP 8 MEQ/L (8-16); BLOOD UREA NITROGEN 9 MG/DL (7-18); CARBON DIOXIDE LEVEL 25 MEQ/L (21-32); CHLORIDE LEVEL 108 MEQ/L (98-107); CREATININE FOR GFR 0.68 MG/DL (0.55-1.02); GLOMERULAR FILTRATION RATE > 60.0 (>60); GLUCOSE, FASTING 107 MG/DL (70-105); PHOSPHORUS LEVEL 1.3 MG/DL (2.5-4.9); POTASSIUM SERUM 3.1 MEQ/L (3.5-5.1); SODIUM LEVEL 141 MEQ/L (136-145)
[2017-06-26] MEDS: OMEPRAZOLE 20 MG CAP PO SCH (08:22)
[2017-06-26] MEDS: VITAMIN D 1,000 INTERNATIONAL UNITS TABLET PO SCH (08:22)
[2017-06-26] MEDS: FENOFIBRATE 145 MG TAB (TRICOR) PO SCH (08:22)
[2017-06-26] MEDS: ENOXAPARIN 40 MG/0.4 ML SYRINGE (J1650) SC SCH (08:23)
[2017-06-26] MEDS: LORazepam 2 MG/ML VIAL (J2060) IV PRN (08:23)
[2017-06-26] MEDS: buPROPion **XL** TABLET 150MG (WELLBUTRIN XL) PO SCH (08:24)
[2017-06-26] MEDS: METOPROLOL SUCC *XL* 25MG TAB (TopROL *XL*) PO SCH (08:28)
[2017-06-26] MEDS: DORZOLAMIDE 2% OPHTH SOLN 10 ML BTL OD SCH ×3 (08:28→20:03)
[2017-06-26] MEDS ORDERED: POTASSIUM PHOSPHATE INJ 15 MMOL in D5W 250 ML IV ONE (10:00)
[2017-06-26 13:17] LABS: MEAN CORPUSCULAR HEMOGLOBIN 28.4 pg (27.0-33.0); MEAN CORPUSCULAR HGB CONC 32.5 g/dl (32.0-36.5); MEAN CORPUSCULAR VOLUME 87.5 fl (80.0-96.0); PLATELET COUNT, AUTOMATED 419 10^3/uL (150-450); RED CELL DISTRIBUTION WIDTH 13.1 % (11.5-14.5); WHITE BLOOD COUNT 23.9 10^3/uL (4.0-10.0)
[2017-06-26 13:28] LABS: ADD MANUAL DIFFER YES; DIFF SLIDE NUMBER 164; POSITIVE MORPH POS FLAG
[2017-06-26 14:00] VITALS: BP 142/92
[2017-06-26 14:05] LABS: ALBUMIN 3.1 GM/DL (3.2-5.2); ALBUMIN/GLOBULIN RATIO 1.03 (1.00-1.93); ALKALINE PHOSPHATASE 86 U/L (45-117); ALT/SGPT 26 U/L (12-78); ANION GAP 7 MEQ/L (8-16); AST/SGOT 23 U/L (7-37); BILIRUBIN,TOTAL 0.3 MG/DL (0.2-1.0); BLOOD UREA NITROGEN 8 MG/DL (7-18); CALCIUM LEVEL 7.9 MG/DL (8.5-10.1); CARBON DIOXIDE LEVEL 25 MEQ/L (21-32); CHLORIDE LEVEL 104 MEQ/L (98-107); GLOMERULAR FILTRATION RATE > 60.0 (>60); GLUCOSE, FASTING 143 MG/DL (70-105); POTASSIUM SERUM 3.6 MEQ/L (3.5-5.1); SODIUM LEVEL 136 MEQ/L (136-145); TOTAL PROTEIN 6.1 GM/DL (6.4-8.2)
[2017-06-26] MEDS: ACETAMINOPHEN TAB 650MG DOSE (2X325MG) PO PRN (14:21)
[2017-06-26 14:28] LABS: ANISOCYTOSIS 1+; MICROCYTOSIS 1+
--- NOTE | 2017-06-26 15:02 | IPNPDOC ---
Text Note Date of Service The patient was seen on 06/26/17. NOTE Subjective: Pt feels well. Denies CP/SOB. No abd pain. No N/V. Would like to advance diet. No diarrhea. Objective: Vitals: (see below) General: No acute distress, laying comfortably in bed. HEENT: Moist mucous membranes. Neck: No JVD or lymphadenopathy Cardiac: RRR, No murmurs Pulm: Clear to auscultation b/l. No wheezing, rhonchi Abd: NT/ND + BS Ext: No edema or cyanosis Labs (see below) Images: CT ABd/pelvis 06/25/17 Impression: No acute abdominopelvic pathology appreciated. Assessment/Plan 1. Acute Gastroenteritis - resolving. Will advance diet as tolerated. No N/V/ Abd pain. States she has not tried to advance diet yet. Afebrile. No Diarrhea. 2. Leukocytosis (acute on persistent) - improving. 3. PTSD with h/o SI (not currently suicidal). 4. Depression - cont home meds 5. Mental retardation 6. History of oppositional and manipulative behavior 7. GERD on PPI 8. Hyperlipidemia/hypertriglyceridemia - cont home meds 9. Hypertension- cont home meds 10. Hypothyroidism- cont home meds 11. Vitamin D deficiency 12. Glaucoma of the right eye 13. Allergic rhinitis DVT prophy: Enoxaparin VS,Fishbone, I+O VS, Fishbone, I+O Laboratory Tests 06/26/17 06:29 Red Blood Count 4.14, Mean Corpuscular Volume 88.4, Mean Corpuscular Hemoglobin 28.7, Mean Corpuscular Hemoglobin Concent 32.5, Red Cell Distribution Width 13.1 , Anion Gap 8 06/26/17 12:59 Red Blood Count 4.15, Mean Corpuscular Volume 87.5, Mean Corpuscular Hemoglobin 28.4, Mean Corpuscular Hemoglobin Concent 32.5, Red Cell Distribution Width 13.1 , Calcium Level 7.9 L, Aspartate Amino Transf (AST/SGOT) 23, Alanine Aminotransferase (ALT/SGPT) 26, Alkaline Phosphatase 86, Total Bilirubin 0.3, Total Protein 6.1 #L, Albumin 3.1 L Vital Signs Date Time Temp Pulse Resp B/P (MAP) Pulse Ox O2 Delivery O2 Flow Rate FiO2 06/26/17 14:00 97.6 81 20 142/92 (564) 97 Room Air I&O- Last 24 Hours up to 6 AM 06/27/17 06:00 Intake Total 360 ml Output Total 400 ml Balance -40 ml OLVIN RM MD Jun 26, 2017 15:02
[2017-06-26] MEDS: GI COCKTAIL 50ML BTL(HYOSCYAMINE/MAALOX/LIDOCAINE VISCOUS)(1:3:1) PO PRN (20:04)
[2017-06-26] MEDS: TIMOLOL OU SCH (20:25)
[2017-06-26] MEDS: BRIMONIDINE OU SCH (20:25)
[2017-06-26 22:00] VITALS: BP 167/84
[2017-06-27] MEDS: LEVOTHYROXINE 125MCG TABLET (0.125MG) PO SCH (05:34)
[2017-06-27] MEDS: ACETAMINOPHEN TAB 650MG DOSE (2X325MG) PO PRN (05:34)
[2017-06-27 05:57] LABS: MEAN CORPUSCULAR HEMOGLOBIN 28.7 pg (27.0-33.0); MEAN CORPUSCULAR HGB CONC 32.4 g/dl (32.0-36.5); MEAN CORPUSCULAR VOLUME 88.6 fl (80.0-96.0); PLATELET COUNT, AUTOMATED 405 10^3/uL (150-450); WHITE BLOOD COUNT 17.4 10^3/uL (4.0-10.0)
[2017-06-27 06:00] VITALS: BP 142/75
[2017-06-27 06:14] LABS: ANION GAP 4 MEQ/L (8-16); BLOOD UREA NITROGEN 8 MG/DL (7-18); CARBON DIOXIDE LEVEL 29 MEQ/L (21-32); CHLORIDE LEVEL 105 MEQ/L (98-107); CREATININE FOR GFR 0.72 MG/DL (0.55-1.02); GLOMERULAR FILTRATION RATE > 60.0 (>60); GLUCOSE, FASTING 92 MG/DL (70-105); PHOSPHORUS LEVEL 1.9 MG/DL (2.5-4.9); POTASSIUM SERUM 3.6 MEQ/L (3.5-5.1); SODIUM LEVEL 138 MEQ/L (136-145)
[2017-06-27] MEDS ORDERED: POTASSIUM CHLORIDE 10 MEQ SR TABLET PO ONE (08:00)
[2017-06-27] MEDS ORDERED: DOCUSATE SODIUM 100 MG CAP PO SCH (09:00)
[2017-06-27] MEDS ORDERED: MIRALAX *UNIT DOSE* 17GM PACKET PO SCH (09:00)
[2017-06-27] MEDS: OMEPRAZOLE 20 MG CAP PO SCH (09:14)
[2017-06-27] MEDS: VITAMIN D 1,000 INTERNATIONAL UNITS TABLET PO SCH (09:14)
[2017-06-27] MEDS: ENOXAPARIN 40 MG/0.4 ML SYRINGE (J1650) SC SCH (09:14)
[2017-06-27] MEDS: FENOFIBRATE 145 MG TAB (TRICOR) PO SCH (09:14)
[2017-06-27] MEDS: TIMOLOL OU SCH (09:14)
[2017-06-27] MEDS: DORZOLAMIDE 2% OPHTH SOLN 10 ML BTL OD SCH (09:14)
[2017-06-27] MEDS: BRIMONIDINE OU SCH (09:14)
[2017-06-27 09:15] VITALS: BP 142/75
[2017-06-27] MEDS: buPROPion **XL** TABLET 150MG (WELLBUTRIN XL) PO SCH (09:15)
[2017-06-27] MEDS: METOPROLOL SUCC *XL* 25MG TAB (TopROL *XL*) PO SCH (09:15)
[2017-06-27] MEDS ORDERED: COLA100C5 PO (10:22)
[2017-06-27] MEDS: GI COCKTAIL 50ML BTL(HYOSCYAMINE/MAALOX/LIDOCAINE VISCOUS)(1:3:1) PO PRN (10:41)
[2017-06-27 14:00] VITALS: BP 140/86
--- NOTE | 2017-06-27 14:15 | DS.PDOC ---
Discharge Summary General Date of Admission Jun 25, 2017 at 10:21 Date of Discharge 06/27/17 Attending Physician: OLVIN RM MD Discharge Summary PROCEDURES PERFORMED DURING STAY: None. ADMITTING/DISCHARGE DIAGNOSES: 1. Gastroenteritis 2. Leukocytosis (acute on persistent) 3. PTSD with h/o SI (not currently suicidal). 4. Depression 5. Mental retardation 6. History of oppositional and manipulative behavior 7. GERD on PPI 8. Hyperlipidemia/hypertriglyceridemia 9. Hypertension 10. Hypothyroidism 11. Vitamin D deficiency 12. Glaucoma of the right eye 13. Allergic rhinitis COMPLICATIONS/CHIEF COMPLAINT: N/V HISTORY OF PRESENT ILLNESS/HOSPITAL COURSE: This is a 37-year-old female past medical history mental retardation, GERD, PTSD who presents with nausea/vomiting. Patient's was likely noted to have gastric enteritis. She had a CAT scan of the abdomen and pelvis which was negative. Her nausea and vomiting had significantly improved, she was tolerating a clear liquid diet. The patient states she feels well today. Her diet has been advanced. The patient states that she has no nausea/vomiting/abdominal pain at this point. Patient was also noted to have leukocytosis likely secondary to her gastroenteritis, which has resolved. Her leukocytosis has started to trend down and has been chronic in nature. She will need to follow-up outpatient for this. Patient is now hemodynamically stable and will be discharged back to [facility]. Patient is to return to the ED if symptoms worsen. DISCHARGE MEDICATIONS: Please see below. ALLERGIES: Please see below. PHYSICAL EXAMINATION ON DISCHARGE: Vitals: (see below) General: No acute distress, laying comfortably in bed. HEENT: Moist mucous membranes. Neck: No JVD or lymphadenopathy Cardiac: RRR, No murmurs Pulm: Clear to auscultation b/l. No wheezing, rhonchi Abd: NT/ND + BS Ext: No edema or cyanosis LABORATORY DATA: Please see below. IMAGING: CT Abd/pelvis 06/25/17 Impression: No acute abdominopelvic pathology appreciated. PROGNOSIS: Fair ACTIVITY: As tolerated. DIET: BRAT diet DISCHARGE PLAN/DISPOSITION: Discharged to [facility] DISCHARGE INSTRUCTIONS: 1. Follow-up with PCP in 1-2 weeks. Return to the ED if symptoms worsen. DISCHARGE CONDITION: Stable. TIME SPENT ON DISCHARGE: Greater than 30 minutes. Vital Signs/I&Os Vital Signs Date Time Temp Pulse Resp B/P (MAP) Pulse Ox O2 Delivery O2 Flow Rate FiO2 06/27/17 09:15 65 142/75 06/27/17 06:00 97.1 18 97 06/26/17 14:00 Room Air I&O- Last 24 Hours up to 6 AM 06/28/17 06:00 Intake Total 120 ml Balance 120 ml Laboratory Data Labs 24H Laboratory Tests 2 06/27/17 05:26: Nucleated Red Blood Cells % (auto) 0.0, Blood Urea Nitrogen 8, Creatinine 0.72, Sodium Level 138, Potassium Level 3.6, Chloride Level 105, Carbon Dioxide Level 29, Anion Gap 4L, Glomerular Filtration Rate > 60.0, Calcium Level 8.0L, Phosphorus Level 1.9#L, Albumin 3.0L CBC/BMP Laboratory Tests 06/27/17 05:26 Red Blood Count 4.29, Mean Corpuscular Volume 88.6, Mean Corpuscular Hemoglobin 28.7, Mean Corpuscular Hemoglobin Concent 32.4, Red Cell Distribution Width 13.0 , Anion Gap 4 L Microbiology Microbiology 06/25/17 Blood Culture - Preliminary, Resulted No Growth after 48 hours. All Specime... 06/25/17 Blood Culture - Preliminary, Resulted No Growth after 48 hours. All Specime... 06/25/17 Urine Culture - Final, Complete Discharge Medications Scheduled (Combigan 0.2-0.5 %) 1 Lula Lula, 1 DROP OU BID, (Reported) (Tri-Previfem 0.18/0.215/0.25 mg-35 Mcg) 1 Tab Tab, 1 TAB PO DAILY, (Reported) Bupropion Hcl (Bupropion HCl Xl) 150 Mg Tab, 150 MG PO DAILY, (Reported) Docusate Sodium (Colace) 100 Mg Cap, 100 MG PO BID Dorzolamide HCl (Trusopt) 2 % Lula, 1 DROP OD TID, (Reported) Fenofibrate (Tricor) 145 Mg Tab, 145 MG PO DAILY, (Reported) Levothyroxine Sodium (Synthroid) 125 Mcg Tab, 125 MCG PO DAILY, (Reported) Metoprolol Succinate (Metoprolol Succinate ER) 25 Mg Tab, 25 MG PO DAILY, ( Reported) Omeprazole (Prilosec) 20 Mg Cap, 20 MG PO DAILY, (Reported) Vitamin D (Vitamin D) 2,000 Unit Cap, 2,000 UNIT PO DAILY, (Reported) Allergies Coded Allergies: No Known Drug Allergy (Verified Allergy, Mild, 11/04/16) OLVIN RM MD Jun 27, 2017 14:15
[2017-06-27] MEDS ORDERED: MOM 30ML SUSPENSION UDC PO ONE (15:00)
== END 2017-06-27 15:24 | disposition home or self-care (01) ==
LOC: M ED 06:23 → M ED INP 10:21 → M MSPAV 10:50
PROVIDERS: ADMIT Hospitalist; ATTEND Internal Medicine
DX: K52.89 Other specified noninfective gastroenteritis and colitis (principal); R11.2 Nausea with vomiting, unspecified; D72.829 Elevated white blood cell count, unspecified; I10 Essential (primary) hypertension; E03.9 Hypothyroidism, unspecified; E78.5 Hyperlipidemia, unspecified; E78.1 Pure hyperglyceridemia; E55.9 Vitamin D deficiency, unspecified; F43.10 Post-traumatic stress disorder, unspecified; F32.9 Major depressive disorder, single episode, unspecified; K21.9 Gastro-esophageal reflux disease without esophagitis; F79 Unspecified intellectual disabilities; J30.9 Allergic rhinitis, unspecified; H40.9 Unspecified glaucoma; Z79.899 Other long term (current) drug therapy
CPT/HCPCS: 36415; 71010; 74177; 80048; 80053; 80069; 80076; 81001; 82150; 82550; 82553; 83690; 83735; 84484; 84703; 85025; 85027; 87040; 87086; 93005; 96361; 96372; 96374; 96375; 99285; G0378; J1650; J2060; J2405; J2765; Q9967

== ENCOUNTER 2017-07-07 14:46 | Inpatient (IN) | payer MEDICARE, MEDICAID ==
[~2017-07-07] VITALS: Ht 162.6 cm; Wt 90.9 kg
[~2017-07-07 14:46] MED LIST changes: +COLA100C5 PO
[2017-07-07] MEDS ORDERED: ONDANSETRON 4MG/2ML VIAL (J2405) IV ONE (17:15)
[2017-07-07] MEDS ORDERED: KETOROLAC 30 MG/ML VIAL (J1885) IV ONE (17:15)
[2017-07-07 18:05] LABS: MEAN CORPUSCULAR HEMOGLOBIN 28.6 pg (27.0-33.0); MEAN CORPUSCULAR HGB CONC 32.5 g/dl (32.0-36.5); MEAN CORPUSCULAR VOLUME 87.9 fl (80.0-96.0); PLATELET COUNT, AUTOMATED 488 10^3/uL (150-450); RED CELL DISTRIBUTION WIDTH 13.6 % (11.5-14.5)
[2017-07-07 18:09] LABS: POS COUNT POS FLAG; POSITIVE DIFF POS FLAG; WHITE BLOOD COUNT 34.5 10^3/uL (4.0-10.0)
[2017-07-07 18:13] LABS: ADD MANUAL DIFFER YES; DIFF SLIDE NUMBER 152
[2017-07-07] MEDS ORDERED: DOCU100C16 PO (19:15)
[2017-07-07 19:39] LABS: ALBUMIN 3.6 GM/DL (3.2-5.2); ALBUMIN/GLOBULIN RATIO 0.95 (1.00-1.93); ALKALINE PHOSPHATASE 108 U/L (45-117); ALT/SGPT 22 U/L (12-78); ANION GAP 11 MEQ/L (8-16); AST/SGOT 16 U/L (7-37); BILIRUBIN,TOTAL 0.3 MG/DL (0.2-1.0); BLOOD UREA NITROGEN 18 MG/DL (7-18); CALCIUM LEVEL 9.1 MG/DL (8.5-10.1); CARBON DIOXIDE LEVEL 20 MEQ/L (21-32); CHLORIDE LEVEL 109 MEQ/L (98-107); CREATININE FOR GFR 0.97 MG/DL (0.55-1.02); GLOMERULAR FILTRATION RATE > 60.0 (>60); GLUCOSE, FASTING 122 MG/DL (70-105); POTASSIUM SERUM 4.7 MEQ/L (3.5-5.1); SODIUM LEVEL 140 MEQ/L (136-145); TOTAL PROTEIN 7.4 GM/DL (6.4-8.2)
[2017-07-07] MEDS ORDERED: METOCLOPRAMIDE INJ 10MG/2ML VIAL (J2765) IV ONE (19:45)
[2017-07-07] MEDS ORDERED: MORPHINE 4 MG/ML 1ML SYRINGE IV ONE (19:45)
[2017-07-07 19:56] LABS: AMYLASE 31 U/L (25-115)
--- NOTE | 2017-07-07 20:00 | REPUSA ---
Clinical history: Right upper quadrant pain. Findings: The pancreas is limited in visualization secondary to overlying bowel gas, but appears pablito sly unremarkable. The liver demonstrates increased echotexture and echogenicity, with no mass lesions . The gallbladder is unremarkable. The common bile duct measures 5 mm and is within normal limits. Th ere is no ascites. The right kidney measures 9.5 cm in length and is unremarkable. Impression: 1. No acute abnormality. 2. Fatty infiltration of the liver.
[2017-07-07] MEDS ORDERED: ISOVUE-370 76% 100ML VIAL (Q9967) As Ordered ONE (20:21)
[2017-07-07] MEDS ORDERED: diphenhydrAMINE INJ 50MG/ML VIAL (J1200) IV ONE (20:30)
--- NOTE | 2017-07-07 20:50 | REPUSA ---
CT of the abdomen and pelvis with contrast Clinical statement: Pain. Technique: Multiple axial CT images were obtained from the base of the lungs through the floor of the pelvis utilizing 5 mm axial slices after administration of nonionic intravenous contrast. Coronal an d sagittal reconstructions were also obtained. Comparison: 11/04/2016. Findings: Chest: The visualized lung bases are clear. Abdomen: The liver, spleen, pancreas, kidneys, gallbladder, and adrenal glands are unremarkable. The aorta is within normal limits. There is no evidence of abdominal lymphadenopathy or ascites. Pelvis: Numerous air fluid levels are seen throughout the colon. The bowel is otherwise unremarkable, with no obstructive or inflammatory changes. The urinary bladder is within normal limits. The other pelvic structures appear grossly intact. There is no evidence of pelvic lymphadenopathy or ascites. Bones: There are no suspicious osseous abnormalities seen. Impression: 1. Mild colonic ileus with numerous air fluid levels suggesting diarrhea. Findings could represent co litis. Follow-up is recommended as clinically indicated. No evidence of bowel obstruction.
[2017-07-07] MEDS: DORZOLAMIDE 2% OPHTH SOLN 10 ML BTL OD SCH (21:00)
[2017-07-07] MEDS: DOCUSATE SODIUM 100 MG CAP PO SCH (21:00)
[2017-07-07] MEDS ORDERED: CIPROFLOXACIN 400 MG in APPROPRIATE DILUENT 1 EA IV ONE (22:00)
[2017-07-07] MEDS ORDERED: metroNIDAZOLE 500 MG in APPROPRIATE DILUENT 1 EA IV ONE (22:00)
[2017-07-08 00:50] VITALS: BP 140/88
[2017-07-08] MEDS: NS 1,000 ML IV SCH ×3 (01:46→23:37)
[2017-07-08] MEDS: ACETAMINOPHEN TAB 650MG DOSE (2X325MG) PO PRN ×2 (02:09→09:14)
[2017-07-08] MEDS: ONDANSETRON 4MG/2ML VIAL (J2405) IV PRN (02:37)
--- NOTE | 2017-07-08 02:42 | HPE ---
DATE OF ADMISSION: 07/07/2017 The patient, Ning Sifuentes, is a 37-year-old female. Patient comes in with a chief complaint of nausea and one episode of vomiting. Patient with recent admission for similar symptoms. Patient notes that she has had nausea and abdominal pain with one episode of vomiting for the last day. She was brought in by her home care staff. Patient is [place], [facility] [place]. Patient was found to have extremely elevated white count 34.[address] that shows mild colonic ileus with numerous air-fluid levels suggestive of diarrhea, though the patient denies diarrhea. Findings could represent colitis. Followup is recommended as clinically indicated. No evidence of bowel obstruction. REVIEW OF SYSTEMS: Patient without any other acute complaints other than what was noted in the history of present illness (HPI). Patient denies any significant family history. Patient denies significant previous medical history; however, documentation shows patient with a history of posttraumatic stress disorder (PTSD), depression, mental retardation, history of oppositional manipulative behavior, gastroesophageal reflux disease (GERD) on proton pump inhibitor (PPI), hyperlipidemia, hypertriglyceridemia, hypertension, hypothyroidism, vitamin D deficiency, glaucoma in the right eye, allergic rhinitis. Patient's workers note that she always has a relatively high WBC count between 15 and 20 at baseline. Patient's home medications include: - bupropion - Combigan - docusate sodium - Trusopt - fenofibrate - levothyroxine - metoprolol - omeprazole - Tri-Previfem - vitamin D PHYSICAL EXAMINATION: Patient's cranial nerves II-XII grossly intact. Patient is alert and oriented times two. Patient with grossly normal hearing. ENT within normal limits. Neck exam was supple with no rigidity. S1, S2. Good inspiratory, expiratory effort. No wheezes, rhonchi or rales. Patient with good strength in all four extremities, able to sit up under her own power. No apparent lymphadenopathy. Abdomen is soft, nontender to palpation. Patient with normal affect, normal mood. Patient is alert and oriented times three at this time. Vital signs: Patient's temperature 99.4, pulse 83, respiratory rate 16, blood pressure 126/84, pulse oximetry 95% on room air. IMAGING: As noted in HPI. LABORATORY EXAMINATION: Shows WBC 34.5, platelet count 488, hemoglobin and hematocrit within normal limits. Chemistry: Sodium 140, potassium 4.7, chloride 109, carbon dioxide 20, BUN/creatinine 18/0.97, fasting glucose is 122, lactic acid is 1.5. Urinalysis is negative for stigmata of infection. ASSESSMENT AND PLAN: Patient is a 37-year-old female who comes in with chief complaint of one episode of nausea and vomiting. Patient with possible colitis versus other infectious process. Cipro, Flagyl began in the emergency department (ED), will continue. Intravenous (IV) fluids. Not meeting sepsis criteria. Deep venous thrombosis (DVT) prophylaxis not indicated. Patient is young and ambulatory. Patient is, however, on IV antibiotics, therefore a prolonged admission of greater than two midnights is expected. Patient with significant psychiatric history with multiple difficulties in past admissions with regards to her behavior, therefore, patient to be on close monitoring. Will continue patient's home psychiatric medications. For hypothyroidism, continue patient's home levothyroxine. For hypertension, continue patient's home medications. Gastrointestinal (GI) prophylaxis/gastroesophageal reflux disease (GERD). Patient's home dose omeprazole 20. Will replace with 40 daily of omeprazole. I first saw patient 07/07/2017.
[2017-07-08] MEDS: metroNIDAZOLE 500 MG in APPROPRIATE DILUENT 1 EA IV SCH ×4 (04:52→22:31)
[2017-07-08 06:00] VITALS: BP 135/81
[2017-07-08 07:02] LABS: MEAN CORPUSCULAR HEMOGLOBIN 28.6 pg (27.0-33.0); MEAN CORPUSCULAR HGB CONC 32.4 g/dl (32.0-36.5); MEAN CORPUSCULAR VOLUME 88.3 fl (80.0-96.0); PLATELET COUNT, AUTOMATED 414 10^3/uL (150-450); RED CELL DISTRIBUTION WIDTH 13.7 % (11.5-14.5); WHITE BLOOD COUNT 24.5 10^3/uL (4.0-10.0)
[2017-07-08 07:18] LABS: ANION GAP 10 MEQ/L (8-16); BLOOD UREA NITROGEN 20 MG/DL (7-18); CALCIUM LEVEL 8.4 MG/DL (8.5-10.1); CARBON DIOXIDE LEVEL 21 MEQ/L (21-32); CHLORIDE LEVEL 110 MEQ/L (98-107); CREATININE FOR GFR 0.96 MG/DL (0.55-1.02); GLOMERULAR FILTRATION RATE > 60.0 (>60); GLUCOSE, FASTING 131 MG/DL (70-105); POTASSIUM SERUM 3.9 MEQ/L (3.5-5.1); SODIUM LEVEL 141 MEQ/L (136-145)
[2017-07-08 07:48] LABS: REASON FOR REVIEW COMPREHENSIVE REVIEW
[2017-07-08] MEDS: PANTOPRAZOLE 40MG TAB (PROTONIX) PO SCH (09:10)
[2017-07-08] MEDS: LEVOTHYROXINE 125MCG TABLET (0.125MG) PO SCH (09:10)
[2017-07-08] MEDS: DOCUSATE SODIUM 100 MG CAP PO SCH ×2 (09:10→21:16)
[2017-07-08] MEDS: FENOFIBRATE 145 MG TAB (TRICOR) PO SCH (09:10)
[2017-07-08] MEDS: buPROPion **XL** TABLET 150MG (WELLBUTRIN XL) PO SCH (09:11)
[2017-07-08] MEDS: METOPROLOL SUCC *XL* 25MG TAB (TopROL *XL*) PO SCH (09:11)
[2017-07-08] MEDS: VITAMIN D 1,000 INTERNATIONAL UNITS TABLET PO SCH (09:11)
[2017-07-08] MEDS: CIPROFLOXACIN 400 MG in APPROPRIATE DILUENT 1 EA IV SCH ×2 (09:12→21:16)
[2017-07-08] MEDS: COMBIGAN OU SCH ×2 (09:13→21:16)
[2017-07-08] MEDS: DORZOLAMIDE 2% OPHTH SOLN 10 ML BTL OD SCH ×3 (09:13→21:16)
[2017-07-08 14:00] VITALS: BP 137/82
--- NOTE | 2017-07-08 18:27 | IPN ---
DATE: 07/08/2017 SUBJECTIVE: Patient seen and examined in the room today. The patient stated her abdominal pain is improving. No more nausea and vomiting. The patient showed gradual improvement of her symptoms. OBJECTIVE: VITAL SIGNS: Temperature is 98.1, pulse 85, respirations 18, blood pressure 135/81, pulse oximetry 96% on room air. GENERAL: No sign of acute distress. Alert and oriented times three. HEENT: Normocephalic, atraumatic. Extraocular motor grossly intact. CARDIOVASCULAR: Positive S1, S2. Regular rate. LUNGS: Clear to auscultation bilaterally. ABDOMEN: Soft, nontender, nondistended. Bowel sounds present. EXTREMITIES: No edema. No sign of cyanosis. LABORATORY DATA: WBC 24.5, hemoglobin 12.5, hematocrit 38.6, platelet count 414. Sodium is 141, potassium 3.9, chloride 110, carbon dioxide 21, BUN 20, creatinine 0.96, GFR greater than 60, fasting glucose 131, calcium 8.4. ASSESSMENT AND PLAN: 1. Abdominal pain due to possible colitis. Imaging study highly suggests colitis. The patient started empiric antibiotics of Cipro and Flagyl. Since admission, the patient does not have any bowel movements and unable to obtain samples. Since admission, the patient did show improvement of the symptoms and also improvement of white blood cell count (WBC). 2. Chronic leukocytosis. The patient has been having chronic elevation of WBC last time the patient was admitted to the hospital, and the patient was given instructions to followup with family mediator. We will follow with a repeat of peripheral smear. 3. Multiple psychiatric (please clarify) in the past. The patient is continued on her home psychiatric medications. 4. Hypothyroidism, on Synthroid. 5. Hypertension. Blood pressure in the satisfactory range. Patient is on metoprolol succinate. 6. Gastroesophageal reflux disease on omeprazole. 7. Deep venous thrombosis (DVT) prophylaxis: Compression.
[2017-07-08 22:00] VITALS: BP 133/65
[2017-07-09] MEDS: metroNIDAZOLE 500 MG in APPROPRIATE DILUENT 1 EA IV SCH ×4 (03:34→22:29)
[2017-07-09 06:00] VITALS: BP 138/78
[2017-07-09 07:07] LABS: BASO # 0.1 10^3/uL (0.0-0.2); BASO % 0.4 % (0.0-1.0); EOS # 0.2 10^3/uL (0.0-0.50); EOS % 1.5 % (0.0-3.0); IMMATURE GRANULOCYTE % 0.9 % (0-0); LYMPH # 2.5 10^3/uL (1.5-4.5); LYMPH % 21.2 % (24.0-44.0); MEAN CORPUSCULAR HGB CONC 32.1 g/dl (32.0-36.5); MEAN CORPUSCULAR VOLUME 90.2 fl (80.0-96.0); MONO # 0.8 10^3/uL (0.0-0.8); MONO % 6.9 % (0.0-5.0); NEUTROPHILS # 8.1 10^3/uL (1.8-7.7); NEUTROPHILS % 69.1 % (36.0-66.0); PLATELET COUNT, AUTOMATED 349 10^3/uL (150-450); RED CELL DISTRIBUTION WIDTH 13.7 % (11.5-14.5); WHITE BLOOD COUNT 11.7 10^3/uL (4.0-10.0)
[2017-07-09 07:24] LABS: ANION GAP 7 MEQ/L (8-16); BLOOD UREA NITROGEN 7 MG/DL (7-18); CALCIUM LEVEL 7.6 MG/DL (8.5-10.1); CARBON DIOXIDE LEVEL 25 MEQ/L (21-32); CHLORIDE LEVEL 109 MEQ/L (98-107); CREATININE FOR GFR 0.86 MG/DL (0.55-1.02); GLOMERULAR FILTRATION RATE > 60.0 (>60); GLUCOSE, FASTING 114 MG/DL (70-105); POTASSIUM SERUM 3.5 MEQ/L (3.5-5.1); SODIUM LEVEL 141 MEQ/L (136-145)
[2017-07-09] MEDS: ACETAMINOPHEN TAB 650MG DOSE (2X325MG) PO PRN (08:37)
[2017-07-09] MEDS: DORZOLAMIDE 2% OPHTH SOLN 10 ML BTL OD SCH ×3 (09:00→20:43)
[2017-07-09] MEDS: CIPROFLOXACIN 400 MG in APPROPRIATE DILUENT 1 EA IV SCH ×2 (10:34→20:43)
[2017-07-09] MEDS: FENOFIBRATE 145 MG TAB (TRICOR) PO SCH (10:35)
[2017-07-09] MEDS: buPROPion **XL** TABLET 150MG (WELLBUTRIN XL) PO SCH (10:35)
[2017-07-09] MEDS: DOCUSATE SODIUM 100 MG CAP PO SCH ×2 (10:37→20:43)
[2017-07-09] MEDS: LEVOTHYROXINE 125MCG TABLET (0.125MG) PO SCH (10:37)
[2017-07-09] MEDS: METOPROLOL SUCC *XL* 25MG TAB (TopROL *XL*) PO SCH (10:37)
[2017-07-09] MEDS: VITAMIN D 1,000 INTERNATIONAL UNITS TABLET PO SCH (10:41)
[2017-07-09] MEDS: PANTOPRAZOLE 40MG TAB (PROTONIX) PO SCH (10:41)
[2017-07-09] MEDS: COMBIGAN OU SCH ×2 (10:47→21:09)
[2017-07-09 10:53] VITALS: BP 120/72
[2017-07-09] MEDS: NS 1,000 ML IV SCH (12:50)
[2017-07-09 13:53] VITALS: BP 130/83
--- NOTE | 2017-07-09 17:52 | IPNPDOC ---
Text Note Date of Service The patient was seen on 07/09/17. NOTE Patient seen and examined in the room today. The patient stated her abdominal pain is improving. No more nausea and vomiting. She tolerates liquid diet well. She agrees diet advancement. OBJECTIVE: VITAL SIGNS: Listed below GENERAL: No sign of acute distress. Alert and oriented times three. HEENT: Normocephalic, atraumatic. Extraocular motor grossly intact. CARDIOVASCULAR: Positive S1, S2. Regular rate. LUNGS: Clear to auscultation bilaterally. ABDOMEN: Soft, nontender, nondistended. Bowel sounds present. EXTREMITIES: No edema. No sign of cyanosis. LABORATORY DATA: WBC 24.5, hemoglobin 12.5, hematocrit 38.6, platelet count 414. Sodium is 141, potassium 3.9, chloride 110, carbon dioxide 21, BUN 20, creatinine 0.96, GFR greater than 60, fasting glucose 131, calcium 8.4. ASSESSMENT AND PLAN: 1. Abdominal pain due to possible colitis. Imaging study highly suggests colitis. The patient started empiric antibiotics of Cipro and Flagyl. Since admission, the patient does not have any bowel movements and unable to obtain samples. Since admission, the patient did show improvement of the symptoms and also improvement of white blood cell count (WBC). Will advance the diet. Consider discharge patient tomorrow. 2. Chronic leukocytosis. The patient has been having chronic elevation of WBC last time the patient was admitted to the hospital, and the patient was given instructions to followup with bar and filler assembler. Peripheral smear shows reactive process. . 3. Multiple psychiatric conditions in the past. The patient is continued on her home psychiatric medications. 4. Hypothyroidism, on Synthroid. 5. Hypertension. Blood pressure in the satisfactory range. Patient is on metoprolol succinate. 6. Gastroesophageal reflux disease on omeprazole. 7. Deep venous thrombosis (DVT) prophylaxis: Compression. VS,Fishbone, I+O VS, Fishbone, I+O Laboratory Tests 07/09/17 06:46 Red Blood Count 3.97 L, Mean Corpuscular Volume 90.2, Mean Corpuscular Hemoglobin 29.0, Mean Corpuscular Hemoglobin Concent 32.1, Red Cell Distribution Width 13.7, Neutrophils (%) (Auto) 69.1 H, Lymphocytes (%) (Auto) 21.2 L, Monocytes (%) (Auto) 6.9 H, Eosinophils (%) (Auto) 1.5, Basophils (%) ( Auto) 0.4, Neutrophils # (Auto) 8.1 H, Lymphocytes # (Auto) 2.5, Monocytes # ( Auto) 0.8, Eosinophils # (Auto) 0.2, Basophils # (Auto) 0.1 07/09/17 06:47 Calcium Level 7.6 L Vital Signs Date Time Temp Pulse Resp B/P (MAP) Pulse Ox O2 Delivery O2 Flow Rate FiO2 07/09/17 13:53 97.1 78 19 130/83 (99) 98 Room Air I&O- Last 24 Hours up to 6 AM 07/10/17 06:00 Intake Total 3500 ml Output Total 2800 ml Balance 700 ml AYO ALDRIDGE DO Jul 09, 2017 17:52
[2017-07-09] MEDS: TRI PREVIFEM PO SCH (20:43)
[2017-07-09 22:40] VITALS: BP 162/89
[2017-07-09 23:22] VITALS: BP 142/85
[2017-07-10] MEDS: NS 1,000 ML IV SCH ×3 (00:39→20:39)
[2017-07-10 04:00] VITALS: BP 137/99
[2017-07-10] MEDS: metroNIDAZOLE 500 MG in APPROPRIATE DILUENT 1 EA IV SCH ×2 (04:19→10:14)
[2017-07-10] MEDS: ACETAMINOPHEN TAB 650MG DOSE (2X325MG) PO PRN (04:23)
[2017-07-10 08:32] LABS: BASO # 0.1 10^3/uL (0.0-0.2); BASO % 0.6 % (0.0-1.0); EOS # 0.2 10^3/uL (0.0-0.50); EOS % 1.6 % (0.0-3.0); IMMATURE GRANULOCYTE % 0.7 % (0-0); LYMPH # 2.5 10^3/uL (1.5-4.5); LYMPH % 16.5 % (24.0-44.0); MEAN CORPUSCULAR HEMOGLOBIN 29.1 pg (27.0-33.0); MEAN CORPUSCULAR HGB CONC 32.4 g/dl (32.0-36.5); MEAN CORPUSCULAR VOLUME 89.8 fl (80.0-96.0); MONO # 1.2 10^3/uL (0.0-0.8); MONO % 8.2 % (0.0-5.0); NEUTROPHILS # 10.9 10^3/uL (1.8-7.7); NEUTROPHILS % 72.4 % (36.0-66.0); PLATELET COUNT, AUTOMATED 379 10^3/uL (150-450); RED CELL DISTRIBUTION WIDTH 13.7 % (11.5-14.5)
[2017-07-10] MEDS: DORZOLAMIDE 2% OPHTH SOLN 10 ML BTL OD SCH ×3 (08:41→20:24)
[2017-07-10] MEDS: FENOFIBRATE 145 MG TAB (TRICOR) PO SCH (08:42)
[2017-07-10] MEDS: DOCUSATE SODIUM 100 MG CAP PO SCH ×2 (08:42→20:23)
[2017-07-10] MEDS: LEVOTHYROXINE 125MCG TABLET (0.125MG) PO SCH (08:42)
[2017-07-10] MEDS: METOPROLOL SUCC *XL* 25MG TAB (TopROL *XL*) PO SCH (08:42)
[2017-07-10] MEDS: CIPROFLOXACIN 400 MG in APPROPRIATE DILUENT 1 EA IV SCH (08:42)
[2017-07-10] MEDS: PANTOPRAZOLE 40MG TAB (PROTONIX) PO SCH (08:42)
[2017-07-10] MEDS: buPROPion **XL** TABLET 150MG (WELLBUTRIN XL) PO SCH (08:42)
[2017-07-10] MEDS: VITAMIN D 1,000 INTERNATIONAL UNITS TABLET PO SCH (08:42)
[2017-07-10] MEDS: COMBIGAN OU SCH ×2 (08:43→20:24)
[2017-07-10] MEDS: TRI PREVIFEM PO SCH (08:43)
[2017-07-10 09:06] LABS: ANION GAP 7 MEQ/L (8-16); BLOOD UREA NITROGEN 7 MG/DL (7-18); CALCIUM LEVEL 8.7 MG/DL (8.5-10.1); CARBON DIOXIDE LEVEL 22 MEQ/L (21-32); CHLORIDE LEVEL 110 MEQ/L (98-107); CREATININE FOR GFR 0.69 MG/DL (0.55-1.02); GLOMERULAR FILTRATION RATE > 60.0 (>60); GLUCOSE, FASTING 99 MG/DL (70-105); POTASSIUM SERUM 4.2 MEQ/L (3.5-5.1); SODIUM LEVEL 139 MEQ/L (136-145)
[2017-07-10 13:16] LABS: ALBUMIN 2.8 GM/DL (3.2-5.2); ALKALINE PHOSPHATASE 78 U/L (45-117); ALT/SGPT 21 U/L (12-78); AST/SGOT 22 U/L (7-37); BILIRUBIN,DIRECT < 0.1 MG/DL (0.0-0.2); BILIRUBIN,TOTAL < 0.1 MG/DL (0.2-1.0); TOTAL PROTEIN 6.3 GM/DL (6.4-8.2)
[2017-07-10] MEDS ORDERED: ISOVUE-370 76% 100ML VIAL (Q9967) As Ordered ONE (13:27)
[2017-07-10 13:41] LABS: ERYTHROCYTE SEDIMENTATION RATE 7 mm/hr (0-20)
[2017-07-10 14:00] VITALS: BP 130/74
[2017-07-10] MEDS: metroNIDAZOLE (FLAGYL) 500 MG TAB PO SCH ×2 (14:24→22:19)
--- NOTE | 2017-07-10 14:45 | REP ---
Clinical: Increasing abdominal pain. Comparison: 07/07/2017. Technique: Axial contrast enhanced images from the lung bases to the pubic symphysis using 100 ml Isovue 370 intravenous contrast material with coronal and sagittal re-formations. Findings: Lung bases are clear. Visualized heart and pericardium normal. Liver, spleen, pancreas, gallbladder, bilateral adrenal glands and kidneys are normal. The enteric system is improved when compared to prior examination previously noted distended colon with air-fluid levels now appears relatively normal. The small bowel is without obstruction or acute inflammatory process. A normal terminal ileum and appendix are identified in the right lower quadrant. Pelvis demonstrates normal bladder and age-appropriate uterus/adnexa. No pelvic fluid or ascites. No free air. No adenopathy. Abdominal aorta without aneurysm or dissection. Musculoskeletal structures are intact. Impression: 1. Improved appearance with normal appearing large bowel and no evidence for continued ileus. No evidence for bowel obstruction or perforation. No pneumatosis. 2. No acute abdominopelvic pathology appreciated. 3. No ascites. No free air. No adenopathy. Signed by Jaylen Holloway MD 07/10/2017 02:37 P
[2017-07-10] MEDS: CIPROFLOXACIN 500 MG TAB PO SCH (17:02)
--- NOTE | 2017-07-10 18:38 | IPNPDOC ---
Text Note Date of Service The patient was seen on 07/10/17. NOTE SUBJECTIVE: Patient seen and examined in the room today. Patient states she has no appetite. Right abdominal pain still persist. No nausea and vomiting. OBJECTIVE: VITAL SIGNS: Listed below GENERAL: No sign of acute distress. Alert and oriented times three. HEENT: Normocephalic, atraumatic. Extraocular motor grossly intact. CARDIOVASCULAR: Positive S1, S2. Regular rate. LUNGS: Clear to auscultation bilaterally. ABDOMEN: Soft, nontender, nondistended. Bowel sounds present. EXTREMITIES: No edema. No sign of cyanosis. LABORATORY DATA: Listed below ASSESSMENT AND PLAN: 1. Abdominal pain due to possible colitis. Imaging study highly suggests colitis. The patient started empiric antibiotics of Cipro and Flagyl. Since admission, the patient does not have any bowel movements and unable to obtain samples. Patient has acute worsening of symptoms. WBC also increases. Will follow repeat CT abdomen/pelvis. 2. Chronic leukocytosis. The patient has been having chronic elevation of WBC last time the patient was admitted to the hospital, and the patient was given instructions to followup with anthropology instructor. Peripheral smear shows reactive process. . 3. Multiple psychiatric conditions in the past. The patient is continued on her home psychiatric medications. 4. Hypothyroidism, on Synthroid. 5. Hypertension. Blood pressure in the satisfactory range. Patient is on metoprolol succinate. 6. Gastroesophageal reflux disease on omeprazole. 7. Deep venous thrombosis (DVT) prophylaxis: Compression. VS,Fishbone, I+O VS, Fishbone, I+O Laboratory Tests 07/10/17 08:20 Red Blood Count 4.33, Mean Corpuscular Volume 89.8, Mean Corpuscular Hemoglobin 29.1, Mean Corpuscular Hemoglobin Concent 32.4, Red Cell Distribution Width 13.7 , Neutrophils (%) (Auto) 72.4 H, Lymphocytes (%) (Auto) 16.5 L, Monocytes (%) ( Auto) 8.2 H, Eosinophils (%) (Auto) 1.6, Basophils (%) (Auto) 0.6, Neutrophils # (Auto) 10.9 H, Lymphocytes # (Auto) 2.5, Monocytes # (Auto) 1.2 H, Eosinophils # (Auto) 0.2, Basophils # (Auto) 0.1, Calcium Level 8.7 Vital Signs Date Time Temp Pulse Resp B/P (MAP) Pulse Ox O2 Delivery O2 Flow Rate FiO2 07/10/17 14:00 98.8 62 18 130/74 (92) 98 Room Air I&O- Last 24 Hours up to 6 AM 07/11/17 06:00 Intake Total 240 ml Output Total 2400 ml Balance -2160 ml AYO ALDRIDGE DO Jul 10, 2017 18:38
[2017-07-10 21:21] VITALS: BP 131/71
[2017-07-11] MEDS: CIPROFLOXACIN 500 MG TAB PO SCH ×2 (05:55→18:21)
[2017-07-11] MEDS: metroNIDAZOLE (FLAGYL) 500 MG TAB PO SCH ×3 (05:55→21:12)
[2017-07-11 06:14] VITALS: BP 131/67
[2017-07-11 07:20] LABS: BASO # 0.1 10^3/uL (0.0-0.2); BASO % 0.5 % (0.0-1.0); EOS # 0.3 10^3/uL (0.0-0.50); IMMATURE GRANULOCYTE % 0.6 % (0-0); LYMPH # 2.4 10^3/uL (1.5-4.5); LYMPH % 16.6 % (24.0-44.0); MEAN CORPUSCULAR HEMOGLOBIN 28.9 pg (27.0-33.0); MEAN CORPUSCULAR HGB CONC 32.4 g/dl (32.0-36.5); MEAN CORPUSCULAR VOLUME 89.1 fl (80.0-96.0); MONO % 6.8 % (0.0-5.0); NEUTROPHILS # 10.7 10^3/uL (1.8-7.7); NEUTROPHILS % 73.5 % (36.0-66.0); PLATELET COUNT, AUTOMATED 398 10^3/uL (150-450); RED CELL DISTRIBUTION WIDTH 13.7 % (11.5-14.5); WHITE BLOOD COUNT 14.6 10^3/uL (4.0-10.0)
[2017-07-11 07:43] LABS: ANION GAP 7 MEQ/L (8-16); BLOOD UREA NITROGEN 10 MG/DL (7-18); CALCIUM LEVEL 8.1 MG/DL (8.5-10.1); CARBON DIOXIDE LEVEL 25 MEQ/L (21-32); CHLORIDE LEVEL 109 MEQ/L (98-107); CREATININE FOR GFR 0.75 MG/DL (0.55-1.02); GLOMERULAR FILTRATION RATE > 60.0 (>60); GLUCOSE, FASTING 109 MG/DL (70-105); POTASSIUM SERUM 3.9 MEQ/L (3.5-5.1); SODIUM LEVEL 141 MEQ/L (136-145)
[2017-07-11] MEDS: FENOFIBRATE 145 MG TAB (TRICOR) PO SCH (08:36)
[2017-07-11] MEDS: PANTOPRAZOLE 40MG TAB (PROTONIX) PO SCH (08:36)
[2017-07-11] MEDS: COMBIGAN OU SCH ×2 (08:36→21:12)
[2017-07-11] MEDS: buPROPion **XL** TABLET 150MG (WELLBUTRIN XL) PO SCH (08:36)
[2017-07-11] MEDS: TRI PREVIFEM PO SCH (08:36)
[2017-07-11] MEDS: DORZOLAMIDE 2% OPHTH SOLN 10 ML BTL OD SCH ×3 (08:36→21:13)
[2017-07-11] MEDS: DOCUSATE SODIUM 100 MG CAP PO SCH ×2 (08:36→21:12)
[2017-07-11] MEDS: VITAMIN D 1,000 INTERNATIONAL UNITS TABLET PO SCH (08:36)
[2017-07-11] MEDS: METOPROLOL SUCC *XL* 25MG TAB (TopROL *XL*) PO SCH (08:37)
[2017-07-11] MEDS: LEVOTHYROXINE 125MCG TABLET (0.125MG) PO SCH (08:37)
[2017-07-11] MEDS: NS 1,000 ML IV SCH ×2 (11:43→18:21)
[2017-07-11 13:30] VITALS: BP 122/76
[2017-07-11 17:00] VITALS: BP 130/90
--- NOTE | 2017-07-11 19:59 | IPNPDOC ---
Text Note Date of Service The patient was seen on 07/11/17. NOTE SUBJECTIVE: Patient seen and examined in the room today. Patient states her symptoms are improving. right mid/upper abdominal pain has almost resolved completely. Her appetite also improved. OBJECTIVE: VITAL SIGNS: Listed below GENERAL: No sign of acute distress. Alert and oriented times three. HEENT: Normocephalic, atraumatic. Extraocular motor grossly intact. CARDIOVASCULAR: Positive S1, S2. Regular rate. LUNGS: Clear to auscultation bilaterally. ABDOMEN: Soft, nontender, nondistended. Bowel sounds present. EXTREMITIES: No edema. No sign of cyanosis. LABORATORY DATA: Listed below ASSESSMENT AND PLAN: 1. Abdominal pain due to possible colitis. Imaging study highly suggests colitis. The patient started empiric antibiotics of Cipro and Flagyl. Since admission, the patient does not have any bowel movements and unable to obtain samples. Patient has acute worsening of symptoms. WBC also increases. Repeated CT abdomen shows there is improvement. 2. Chronic leukocytosis. The patient has been having chronic elevation of WBC last time the patient was admitted to the hospital, and the patient was given instructions to followup with ore washer. Peripheral smear shows reactive process. . 3. Multiple psychiatric conditions in the past. The patient is continued on her home psychiatric medications. 4. Hypothyroidism, on Synthroid. 5. Hypertension. Blood pressure in the satisfactory range. Patient is on metoprolol succinate. 6. Gastroesophageal reflux disease on omeprazole. 7. Deep venous thrombosis (DVT) prophylaxis: Compression. VS,Fishbone, I+O VS, Fishbone, I+O Laboratory Tests 07/11/17 07:05 Red Blood Count 4.05, Mean Corpuscular Volume 89.1, Mean Corpuscular Hemoglobin 28.9, Mean Corpuscular Hemoglobin Concent 32.4, Red Cell Distribution Width 13.7 , Neutrophils (%) (Auto) 73.5 H, Lymphocytes (%) (Auto) 16.6 L, Monocytes (%) ( Auto) 6.8 H, Eosinophils (%) (Auto) 2.0, Basophils (%) (Auto) 0.5, Neutrophils # (Auto) 10.7 H, Lymphocytes # (Auto) 2.4, Monocytes # (Auto) 1.0 H, Eosinophils # (Auto) 0.3, Basophils # (Auto) 0.1, Calcium Level 8.1 L Vital Signs Date Time Temp Pulse Resp B/P (MAP) Pulse Ox O2 Delivery O2 Flow Rate FiO2 07/11/17 17:00 98.0 61 16 130/90 (103) 100 Room Air I&O- Last 24 Hours up to 6 AM 07/12/17 06:00 Intake Total 480 ml Output Total 2600 ml Balance -2120 ml AYO ALDRIDGE DO Jul 11, 2017 19:59
[2017-07-11 22:00] VITALS: BP 152/90
[2017-07-12] MEDS: NS 1,000 ML IV SCH ×2 (03:08→12:39)
[2017-07-12] MEDS: CIPROFLOXACIN 500 MG TAB PO SCH (05:48)
[2017-07-12] MEDS: metroNIDAZOLE (FLAGYL) 500 MG TAB PO SCH ×2 (05:48→14:14)
[2017-07-12 06:00] VITALS: BP 143/72
[2017-07-12 06:54] LABS: MEAN CORPUSCULAR HEMOGLOBIN 28.6 pg (27.0-33.0); MEAN CORPUSCULAR HGB CONC 32.4 g/dl (32.0-36.5); MEAN CORPUSCULAR VOLUME 88.3 fl (80.0-96.0); PLATELET COUNT, AUTOMATED 446 10^3/uL (150-450); RED CELL DISTRIBUTION WIDTH 13.7 % (11.5-14.5); WHITE BLOOD COUNT 16.2 10^3/uL (4.0-10.0)
[2017-07-12] MEDS: ONDANSETRON 4MG/2ML VIAL (J2405) IV PRN (06:58)
[2017-07-12 07:15] LABS: ANION GAP 8 MEQ/L (8-16); BLOOD UREA NITROGEN 9 MG/DL (7-18); CALCIUM LEVEL 8.4 MG/DL (8.5-10.1); CARBON DIOXIDE LEVEL 26 MEQ/L (21-32); CHLORIDE LEVEL 106 MEQ/L (98-107); CREATININE FOR GFR 0.73 MG/DL (0.55-1.02); GLOMERULAR FILTRATION RATE > 60.0 (>60); GLUCOSE, FASTING 108 MG/DL (70-105); POTASSIUM SERUM 3.8 MEQ/L (3.5-5.1); SODIUM LEVEL 140 MEQ/L (136-145)
[2017-07-12] MEDS: PANTOPRAZOLE 40MG TAB (PROTONIX) PO SCH (09:00)
[2017-07-12] MEDS: COMBIGAN OU SCH (09:00)
[2017-07-12] MEDS: DORZOLAMIDE 2% OPHTH SOLN 10 ML BTL OD SCH (09:00)
[2017-07-12] MEDS: TRI PREVIFEM PO SCH (09:07)
[2017-07-12] MEDS: LEVOTHYROXINE 125MCG TABLET (0.125MG) PO SCH (09:07)
[2017-07-12 09:08] VITALS: BP 143/72
[2017-07-12] MEDS: METOPROLOL SUCC *XL* 25MG TAB (TopROL *XL*) PO SCH (09:08)
[2017-07-12] MEDS: buPROPion **XL** TABLET 150MG (WELLBUTRIN XL) PO SCH (09:08)
[2017-07-12] MEDS: VITAMIN D 1,000 INTERNATIONAL UNITS TABLET PO SCH (09:09)
[2017-07-12] MEDS: FENOFIBRATE 145 MG TAB (TRICOR) PO SCH (09:09)
[2017-07-12] MEDS: DOCUSATE SODIUM 100 MG CAP PO SCH (09:09)
[2017-07-12] MEDS ORDERED: BACITAB PO (10:59)
[2017-07-12] MEDS ORDERED: FLAG500T PO (10:59)
[2017-07-12] MEDS ORDERED: ZOFR20TA PO (10:59)
[2017-07-12] MEDS ORDERED: CIPR500T3 PO (10:59)
== END 2017-07-12 14:40 | disposition other institution (70) | DRG 392 ==
LOC: M ED 14:46 → M ED INP 22:39 → M MS5PR 07-08 01:00 → M MS4PR 07-09 22:46 → M MS5PR 07-11 16:45
PROVIDERS: ADMIT Internal Medicine; ATTEND Internal Medicine
DX: K52.9 Noninfective gastroenteritis and colitis, unspecified (principal); K21.9 Gastro-esophageal reflux disease without esophagitis; E78.5 Hyperlipidemia, unspecified; I10 Essential (primary) hypertension; E03.9 Hypothyroidism, unspecified; F43.10 Post-traumatic stress disorder, unspecified; F32.9 Major depressive disorder, single episode, unspecified; F79 Unspecified intellectual disabilities; Z79.899 Other long term (current) drug therapy

== ENCOUNTER → 2017-07-20 | Outpatient (REF) | payer MEDICARE, MEDICAID ==
[~2017-07-20] MED LIST changes: +BACITAB PO; +CIPR500T3 PO; +DOCU100C16 PO; +FLAG500T PO; +ZOFR20TA PO
[2017-07-20 12:52] LABS: BASO # 0.1 10^3/uL (0.0-0.2); BASO % 0.5 % (0.0-1.0); EOS # 0.2 10^3/uL (0.0-0.50); EOS % 1.2 % (0.0-3.0); IMMATURE GRANULOCYTE % 0.5 % (0-0); LYMPH # 1.7 10^3/uL (1.5-4.5); LYMPH % 12.6 % (24.0-44.0); MEAN CORPUSCULAR HEMOGLOBIN 28.8 pg (27.0-33.0); MEAN CORPUSCULAR HGB CONC 31.9 g/dl (32.0-36.5); MEAN CORPUSCULAR VOLUME 90.4 fl (80.0-96.0); MONO # 0.8 10^3/uL (0.0-0.8); NEUTROPHILS # 10.9 10^3/uL (1.8-7.7); NEUTROPHILS % 79.2 % (36.0-66.0); PLATELET COUNT, AUTOMATED 541 10^3/uL (150-450); RED CELL DISTRIBUTION WIDTH 13.8 % (11.5-14.5); WHITE BLOOD COUNT 13.8 10^3/uL (4.0-10.0)
[2017-07-20 13:20] LABS: REASON FOR REVIEW COMPREHENSIVE REVIEW
== END ==
LOC: M SFHCLERA 10:43
PROVIDERS: ATTEND Physician Assistant
DX: D72.829 Elevated white blood cell count, unspecified (principal); E03.9 Hypothyroidism, unspecified; Z79.899 Other long term (current) drug therapy

== ENCOUNTER 2017-08-30 22:53 | Emergency (ER) | payer MEDICARE, MEDICAID ==
[2017-08-30] MEDS: NS 500 ML IV (23:49)
[2017-08-30] MEDS: ONDANSETRON 4MG/2ML VIAL (J2405) IV (23:49)
[2017-08-30 23:54] LABS: BASO # 0.1 10^3/uL (0.0-0.2); BASO % 0.2 % (0.0-1.0); HEMATOCRIT 41.4 % (36.0-47.0); HEMOGLOBIN 13.7 g/dl (12.0-16.0); IMMATURE GRANULOCYTE # 0.1 10^3/uL (0-0); IMMATURE GRANULOCYTE % 0.4 % (0-0); LYMPH # 1.1 10^3/uL (1.5-4.5); LYMPH % 5.1 % (24.0-44.0); MEAN CORPUSCULAR HEMOGLOBIN 29.1 pg (27.0-33.0); MEAN CORPUSCULAR HGB CONC 33.1 g/dl (32.0-36.5); MEAN CORPUSCULAR VOLUME 87.9 fl (80.0-96.0); MONO # 0.3 10^3/uL (0.0-0.8); MONO % 1.2 % (0.0-5.0); NEUTROPHILS # 19.5 10^3/uL (1.8-7.7); NEUTROPHILS % 93.1 % (36.0-66.0); PLATELET COUNT, AUTOMATED 463 10^3/uL (150-450); RED BLOOD COUNT 4.71 10^6/uL (4.00-5.40); RED CELL DISTRIBUTION WIDTH 12.3 % (11.5-14.5)
[2017-08-31 00:18] LABS: ALBUMIN 3.8 GM/DL (3.2-5.2); ALBUMIN/GLOBULIN RATIO 0.88 (1.00-1.93); ALKALINE PHOSPHATASE 92 U/L (45-117); ALT/SGPT 16 U/L (12-78); ANION GAP 8 MEQ/L (8-16); AST/SGOT 11 U/L (7-37); BILIRUBIN,DIRECT < 0.1 MG/DL (0.0-0.2); BILIRUBIN,TOTAL 0.3 MG/DL (0.2-1.0); BLOOD UREA NITROGEN 12 MG/DL (7-18); CALCIUM LEVEL 8.8 MG/DL (8.5-10.1); CARBON DIOXIDE LEVEL 27 MEQ/L (21-32); CHLORIDE LEVEL 103 MEQ/L (98-107); CREATININE FOR GFR 0.89 MG/DL (0.55-1.02); GLOMERULAR FILTRATION RATE > 60.0 (>60); GLUCOSE, FASTING 156 MG/DL (70-105); LIPASE 81 U/L (73-393); POTASSIUM SERUM 3.6 MEQ/L (3.5-5.1); SODIUM LEVEL 138 MEQ/L (136-145); TOTAL PROTEIN 8.1 GM/DL (6.4-8.2)
[2017-08-31 00:22] LABS: LACTIC ACID SEPSIS PROTOCOL 1.3 MMOL/L (0.4-2.0)
[2017-08-31] MEDS ORDERED: ISOVUE-370 76% 100ML VIAL (Q9967) As Ordered (00:32)
[2017-08-31] MEDS: ONDANSETRON 4MG/2ML VIAL (J2405) IV (00:45)
[2017-08-31] MEDS: PANTOPRAZOLE 40MG INJ (PROTONIX) (C9113) IV (00:45)
[2017-08-31] MEDS: LORazepam 2 MG/ML VIAL (J2060) IV ×2 (01:04→01:28)
[2017-08-31] MEDS ORDERED: fentaNYL 100 MCG/2 ML INJECTION (J3010) As Ordered (01:15)
[2017-08-31] MEDS: fentaNYL 100 MCG/2 ML INJECTION (J3010) IV (01:21)
[2017-08-31] MEDS: HALOPERIDOL 5 MG/ML VIAL (J1630) IM (01:33)
== END 2017-08-31 03:27 | disposition home or self-care (01) ==
LOC: M ED 22:53
DX: R10.9 Unspecified abdominal pain (principal); R11.2 Nausea with vomiting, unspecified; R19.7 Diarrhea, unspecified; I10 Essential (primary) hypertension; F32.9 Major depressive disorder, single episode, unspecified; F43.10 Post-traumatic stress disorder, unspecified; E03.9 Hypothyroidism, unspecified; K21.9 Gastro-esophageal reflux disease without esophagitis; F91.8 Other conduct disorders
CPT/HCPCS: C9113

== ENCOUNTER → 2017-09-05 | Outpatient (REF) | payer MEDICARE, MEDICAID ==
[2017-09-05 14:29] LABS: FERRITIN 49 NG/ML (8-252); IRON (FE) 68 UG/DL (50-170); PERCENT SATURATION 17.3 % (13.2-45.0); TOTAL IRON BINDING CAPACITY 392 UG/DL (250-450)
== END ==
LOC: M LAB REF 12:48
DX: D72.829 Elevated white blood cell count, unspecified (principal)
CPT/HCPCS: 83550

== ENCOUNTER → 2017-09-07 | Outpatient (REF) | payer MEDICARE, MEDICAID | LOC: M SFHCWAGY 15:41 | DX: Z12.4 Encounter for screening for malignant neoplasm of cervix (principal) | CPT/HCPCS: G0123 ==

== ENCOUNTER → 2017-09-19 | Outpatient (CLI) | payer MEDICARE, MEDICAID ==
[2017-09-19 07:58] LABS: IMMUNOGLOBULIN A 92.5 MG/DL (70-400)
[2017-09-19 07:58] LABS: THYROID STIMULATING HORMONE 0.499 uIU/ML (0.358-3.740)
[2017-09-20 14:11] LABS: TISSUE TRANSGLUTAMINASE IgA <2 U/mL (0-3)
== END ==
LOC: M LAB 06:27
DX: R10.30 Lower abdominal pain, unspecified (principal); R11.2 Nausea with vomiting, unspecified; E03.9 Hypothyroidism, unspecified
CPT/HCPCS: 84443

== ENCOUNTER → 2017-09-20 | Outpatient (REF) | payer MEDICARE, MEDICAID | LOC: M LAB REF 18:34 | DX: R10.30 Lower abdominal pain, unspecified (principal) | CPT/HCPCS: 87507 ==

== ENCOUNTER 2017-09-27 07:14 | Day surgery (SDC) | payer MEDICARE, MEDICAID ==
[~2017-09-27 07:14] MED LIST changes: -/LAMO20TA PO; -ABIL10TA9 PO; -ABIL2TAB OR; -ABIL5TAB PO; -ALPH0.156 OD; -BACITAB PO; -BUPR150T3 PO; -Birth Control Pill OR; -CIPR500T3 PO; -CLAR10CA3 PO; -CLAR5CHW OR; -CLON0.5T PO; -COLA100C5 PO; -COMB0.2S OU; -DEBR6.5S AU; -DOCU100C16 PO; -FLAG500T PO; -FLON0.05; -HYDR-3363 PO; -LEVA1TAB2 PO; -LEVO112T2 PO; -LEVO125T4 PO; -LEVO75TA2 OR; +LIDOCAINE 2% INJ 100 MG/5 ML SDV (FOR ANES.) As Ordered; -LOPR50TA OR; -LUMI0.01 OP; -METO1TAB32 PO; -METO25TAB PO; -OMEP20TA7 OR; -PRIL20CA9 PO; +PROPOFOL 200 MG/20 ML VIAL As Ordered; -TRAZ50TA11 PO; -TRI SPRINTEC PO; -TRI-TAB11 PO; -TRIC145T19 OR; -TRIC145T22 PO; -TRUS1SOL OD; -VITA200016 PO; -VITA500047 PO; -WELBUTRIN PO; -WELL100T2 OR; -WELLTAB38 PO; -ZOFR20TA PO; -ZOFR4TAB3 PO; -ZOLO100T OR; -ZOLO100T PO
[2017-09-27] MEDS: NS 1,000 ML IV (07:30)
[2017-09-27] MEDS ORDERED: PROPOFOL 200 MG/20 ML VIAL As Ordered (08:31)
== END 2017-09-27 08:55 | disposition home or self-care (01) ==
LOC: M OPP 07:14
DX: R93.3 Abnormal findings on diagnostic imaging of other parts of digestive tract (principal); R10.84 Generalized abdominal pain; R11.2 Nausea with vomiting, unspecified; I10 Essential (primary) hypertension; E78.5 Hyperlipidemia, unspecified; E05.90 Thyrotoxicosis, unspecified without thyrotoxic crisis or storm; E03.9 Hypothyroidism, unspecified; K52.9 Noninfective gastroenteritis and colitis, unspecified; R12 Heartburn; K21.9 Gastro-esophageal reflux disease without esophagitis; D72.829 Elevated white blood cell count, unspecified; F41.9 Anxiety disorder, unspecified; F32.9 Major depressive disorder, single episode, unspecified; R51 Headache; F43.10 Post-traumatic stress disorder, unspecified; F70 Mild intellectual disabilities; H40.9 Unspecified glaucoma; Z88.8 Allergy status to other drugs, medicaments and biological substances; Z88.5 Allergy status to narcotic agent; Z79.899 Other long term (current) drug therapy
CPT/HCPCS: 45378

== ENCOUNTER → 2017-10-11 | Outpatient (CLI) | payer MEDICARE, MEDICAID | LOC: M RAD 08:00 | DX: K82.8 Other specified diseases of gallbladder (principal); R11.2 Nausea with vomiting, unspecified | CPT/HCPCS: J2805 ==

== ENCOUNTER → 2017-10-17 | Outpatient (REF) | payer MEDICARE, MEDICAID | LOC: M LAB REF 15:02 | DX: D72.829 Elevated white blood cell count, unspecified (principal) | CPT/HCPCS: 88300 ==

== ENCOUNTER 2017-10-19 14:22 | Emergency (ER) | payer MEDICARE, MEDICAID ==
[2017-10-19] MEDS ORDERED: fentaNYL 100 MCG/2 ML INJECTION (J3010) IV (16:00)
[2017-10-19] MEDS ORDERED: PANTOPRAZOLE 40MG INJ (PROTONIX) (C9113) IV (16:00)
[2017-10-19] MEDS ORDERED: METOCLOPRAMIDE INJ 10MG/2ML VIAL (J2765) IV (16:15)
[2017-10-19 16:33] LABS: KETONE, URINE AUTO RFX NEGATIVE (NEGATIVE); LEUKOCYTE ESTERASE UR AUTO RFX NEGATIVE (NEGATIVE); NITRITE, URINE AUTO RFX NEGATIVE (NEGATIVE); RBC, URINE AUTO RFX 2 /HPF (0-3); SPECIFIC GRAVITY UR AUTO RFX 1.005 (1.002-1.035); SQUAM EPITHELIAL CELL UR AURFX 1 /HPF (0-6); WBC, URINE AUTO RFX 1 /HPF (0-3)
[2017-10-19] MEDS: PANTOPRAZOLE 40MG TAB (PROTONIX) PO (17:06)
[2017-10-19] MEDS: PERCOCET 5MG/325MG TAB PO (17:06)
[2017-10-19] MEDS: METOCLOPRAMIDE 10 MG TAB PO (17:06)
[2017-10-19 17:24] LABS: BASO # 0.1 10^3/uL (0.0-0.2); BASO % 0.6 % (0.0-1.0); EOS # 0.2 10^3/uL (0.0-0.50); EOS % 1.1 % (0.0-3.0); HEMOGLOBIN 13.7 g/dl (12.0-16.0); IMMATURE GRANULOCYTE % 0.7 % (0-3.0); LYMPH # 2.8 10^3/uL (1.5-4.5); LYMPH % 17.4 % (24.0-44.0); MEAN CORPUSCULAR HEMOGLOBIN 28.4 pg (27.0-33.0); MEAN CORPUSCULAR HGB CONC 32.6 g/dl (32.0-36.5); MEAN CORPUSCULAR VOLUME 87.1 fl (80.0-96.0); MONO # 0.9 10^3/uL (0.0-0.8); MONO % 5.7 % (0.0-5.0); NEUTROPHILS # 11.9 10^3/uL (1.8-7.7); NEUTROPHILS % 74.5 % (36.0-66.0); PLATELET COUNT, AUTOMATED 505 10^3/uL (150-450); RED BLOOD COUNT 4.82 10^6/uL (4.00-5.40); RED CELL DISTRIBUTION WIDTH 12.5 % (11.5-14.5)
[2017-10-19 17:52] LABS: ALBUMIN 3.6 GM/DL (3.2-5.2); ALBUMIN/GLOBULIN RATIO 1.06 (1.00-1.93); ALKALINE PHOSPHATASE 92 U/L (45-117); ALT/SGPT 17 U/L (12-78); ANION GAP 8 MEQ/L (8-16); AST/SGOT 15 U/L (7-37); BILIRUBIN,DIRECT < 0.1 MG/DL (0.0-0.2); BILIRUBIN,TOTAL 0.2 MG/DL (0.2-1.0); BLOOD UREA NITROGEN 12 MG/DL (7-18); CALCIUM LEVEL 8.9 MG/DL (8.5-10.1); CARBON DIOXIDE LEVEL 25 MEQ/L (21-32); CHLORIDE LEVEL 110 MEQ/L (98-107); GLOMERULAR FILTRATION RATE > 60.0 (>60); GLUCOSE, FASTING 93 MG/DL (70-100); LIPASE 93 U/L (73-393); POTASSIUM SERUM 4.2 MEQ/L (3.5-5.1); SODIUM LEVEL 143 MEQ/L (136-145)
== END 2017-10-19 18:41 | disposition home or self-care (01) ==
LOC: M ED 14:22
DX: D72.829 Elevated white blood cell count, unspecified (principal); K31.84 Gastroparesis; F41.9 Anxiety disorder, unspecified; E78.5 Hyperlipidemia, unspecified; F32.9 Major depressive disorder, single episode, unspecified; F43.10 Post-traumatic stress disorder, unspecified; F79 Unspecified intellectual disabilities; F91.3 Oppositional defiant disorder; R51 Headache; E03.9 Hypothyroidism, unspecified; H40.9 Unspecified glaucoma; K52.9 Noninfective gastroenteritis and colitis, unspecified; Z79.899 Other long term (current) drug therapy; Z88.5 Allergy status to narcotic agent; Z88.8 Allergy status to other drugs, medicaments and biological substances
CPT/HCPCS: 83690

== ENCOUNTER → 2017-10-30 | Outpatient (CLI) | payer MEDICARE, MEDICAID ==
[~2017-10-30] MED LIST changes: +GLUCAGON FOR INJ 1 MG VIAL (J1610) As Ordered; +ISOVUE-370 76% 100ML VIAL (Q9967) As Ordered; -LIDOCAINE 2% INJ 100 MG/5 ML SDV (FOR ANES.) As Ordered; -PROPOFOL 200 MG/20 ML VIAL As Ordered; +VoLumen 0.1% SUSPENSION 450ML BOTTLE As Ordered
== END ==
LOC: M RAD 11:32
DX: K52.89 Other specified noninfective gastroenteritis and colitis (principal)
CPT/HCPCS: Q9967

== ENCOUNTER → 2017-12-11 | Outpatient (CLI) | payer MEDICARE, MEDICAID ==
[2017-12-11 07:02] LABS: BASO # 0.1 10^3/uL (0.0-0.2); BASO % 0.4 % (0.0-1.0); EOS # 0.3 10^3/uL (0.0-0.50); HEMATOCRIT 40.9 % (36.0-47.0); HEMOGLOBIN 13.1 g/dl (12.0-15.5); IMMATURE GRANULOCYTE % 0.4 % (0-3.0); LYMPH # 2.8 10^3/uL (1.5-4.5); LYMPH % 21.3 % (24.0-44.0); MEAN CORPUSCULAR HEMOGLOBIN 28.2 pg (27.0-33.0); MONO # 1.1 10^3/uL (0.0-0.8); NEUTROPHILS % 67.9 % (36.0-66.0); PLATELET COUNT, AUTOMATED 443 10^3/uL (150-450); RED BLOOD COUNT 4.65 10^6/uL (4.00-5.40); RED CELL DISTRIBUTION WIDTH 13.1 % (11.5-14.5); WHITE BLOOD COUNT 13.3 10^3/uL (4.0-10.0)
[2017-12-11 07:25] LABS: ALBUMIN 3.4 GM/DL (3.2-5.2); ALBUMIN/GLOBULIN RATIO 0.89 (1.00-1.93); ALKALINE PHOSPHATASE 102 U/L (45-117); ALT/SGPT 17 U/L (12-78); ANION GAP 9 MEQ/L (8-16); AST/SGOT 15 U/L (7-37); BILIRUBIN,TOTAL 0.3 MG/DL (0.2-1.0); BLOOD UREA NITROGEN 13 MG/DL (7-18); CALCIUM LEVEL 8.8 MG/DL (8.5-10.1); CARBON DIOXIDE LEVEL 24 MEQ/L (21-32); CHLORIDE LEVEL 110 MEQ/L (98-107); CREATININE FOR GFR 0.82 MG/DL (0.55-1.30); GLOMERULAR FILTRATION RATE > 60.0 (>60); GLUCOSE, FASTING 102 MG/DL (70-100); POTASSIUM SERUM 4.2 MEQ/L (3.5-5.1); SODIUM LEVEL 143 MEQ/L (136-145); TOTAL PROTEIN 7.2 GM/DL (6.4-8.2)
== END ==
LOC: M LAB 06:15
DX: I10 Essential (primary) hypertension (principal); E03.9 Hypothyroidism, unspecified
CPT/HCPCS: 84443

== ENCOUNTER → 2018-04-05 | Outpatient (CLI) | payer MEDICARE, MEDICAID ==
[2018-04-05 07:09] LABS: ESTIMATED AVERAGE GLUCOSE 114 MG/DL (60-110); HEMOGLOBIN A1c 5.6 %
== END ==
LOC: M LAB 06:24
DX: E66.09 Other obesity due to excess calories (principal); R73.09 Other abnormal glucose
CPT/HCPCS: 83036

== ENCOUNTER 2018-04-29 21:44 | Emergency (ER) | payer MEDICARE, MEDICAID ==
[2018-04-29 22:50] LABS: BASO # 0.1 10^3/uL (0.0-0.2); BASO % 0.4 % (0.0-1.0); EOS % 0.1 % (0.0-3.0); HEMATOCRIT 42.5 % (36.0-47.0); HEMOGLOBIN 13.9 g/dl (12.0-15.5); IMMATURE GRANULOCYTE % 0.6 % (0-3.0); LYMPH # 1.5 10^3/uL (1.5-4.5); LYMPH % 7.5 % (24.0-44.0); MEAN CORPUSCULAR HEMOGLOBIN 28.1 pg (27.0-33.0); MEAN CORPUSCULAR HGB CONC 32.7 g/dl (32.0-36.5); MEAN CORPUSCULAR VOLUME 85.9 fl (80.0-96.0); MONO # 0.5 10^3/uL (0.0-0.8); MONO % 2.6 % (0.0-5.0); NEUTROPHILS # 18.2 10^3/uL (1.8-7.7); NEUTROPHILS % 88.8 % (36.0-66.0); PLATELET COUNT, AUTOMATED 551 10^3/uL (150-450); RED BLOOD COUNT 4.95 10^6/uL (4.00-5.40); RED CELL DISTRIBUTION WIDTH 12.8 % (11.5-14.5); WHITE BLOOD COUNT 20.5 10^3/uL (4.0-10.0)
[2018-04-29] MEDS: NS 1,000 ML IV (22:51)
[2018-04-29] MEDS: diphenhydrAMINE INJ 50MG/ML VIAL (J1200) IV (22:51)
[2018-04-29] MEDS: HALOPERIDOL 5 MG/ML VIAL (J1630) IV (22:51)
[2018-04-29 23:13] LABS: CONTROL LINE HCG INT CTR LINE PRESENT; HCG, SERUM QUALITATIVE NEGATIVE (NEGATIVE)
[2018-04-29 23:18] LABS: ALBUMIN 3.6 GM/DL (3.2-5.2); ALBUMIN/GLOBULIN RATIO 0.84 (1.00-1.93); ALKALINE PHOSPHATASE 94 U/L (45-117); ALT/SGPT 21 U/L (12-78); ANION GAP 11 MEQ/L (8-16); AST/SGOT 15 U/L (7-37); BILIRUBIN,DIRECT < 0.1 MG/DL (0.0-0.2); BILIRUBIN,TOTAL 0.2 MG/DL (0.2-1.0); BLOOD UREA NITROGEN 11 MG/DL (7-18); CALCIUM LEVEL 8.8 MG/DL (8.5-10.1); CARBON DIOXIDE LEVEL 22 MEQ/L (21-32); CHLORIDE LEVEL 105 MEQ/L (98-107); CREATININE FOR GFR 0.88 MG/DL (0.55-1.30); GLOMERULAR FILTRATION RATE > 60.0 (>60); GLUCOSE, FASTING 142 MG/DL (70-100); LIPASE 90 U/L (73-393); POTASSIUM SERUM 3.7 MEQ/L (3.5-5.1); SODIUM LEVEL 138 MEQ/L (136-145); TOTAL PROTEIN 7.9 GM/DL (6.4-8.2)
[2018-04-30 00:43] LABS: APPEARANCE, URINE CLEAR (CLEAR); BACTERIA, URINE AUTO NEGATIVE (NEGATIVE); BILIRUBIN, URINE AUTO NEGATIVE (NEGATIVE); BLOOD, URINE BLOOD 3+ (NEGATIVE); COLOR, URINE STRAW (YELLOW); GLUCOSE, URINE (UA) AUTO NEGATIVE (NEGATIVE); KETONE, URINE AUTO NEGATIVE (NEGATIVE); LEUKOCYTE ESTERASE, URINE AUTO NEGATIVE (NEGATIVE); MUCUS, URINE SMALL (NEGATIVE); NITRITE, URINE AUTO NEGATIVE (NEGATIVE); PROTEIN, URINE AUTO NEGATIVE (NEGATIVE); RBC, URINE AUTO 1 /HPF (0-3); SPECIFIC GRAVITY URINE AUTO 1.002 (1.002-1.035); SQUAMOUS EPITHELIAL CELL UR AU 3 /HPF (0-6); UROBILINOGEN, URINE AUTO 0.2 mg/dL (0.0-2.0); WBC, URINE AUTO 0 /HPF (0-3)
== END 2018-04-30 01:58 | disposition home or self-care (01) ==
LOC: M ED 04-30 01:58
DX: R11.10 Vomiting, unspecified (principal); R10.9 Unspecified abdominal pain; E03.9 Hypothyroidism, unspecified; E78.5 Hyperlipidemia, unspecified; K21.9 Gastro-esophageal reflux disease without esophagitis; F78 Other intellectual disabilities; Z79.899 Other long term (current) drug therapy; Z79.890 Hormone replacement therapy; Z88.5 Allergy status to narcotic agent; Z88.8 Allergy status to other drugs, medicaments and biological substances
CPT/HCPCS: J1200

== ENCOUNTER → 2018-05-02 | Outpatient (REF) | payer MEDICARE, MEDICAID ==
[2018-05-02 18:43] LABS: BASO # 0.1 10^3/uL (0.0-0.2); BASO % 0.5 % (0.0-1.0); EOS # 0.4 10^3/uL (0.0-0.50); EOS % 2.4 % (0.0-3.0); HEMATOCRIT 41.7 % (36.0-47.0); HEMOGLOBIN 13.3 g/dl (12.0-15.5); IMMATURE GRANULOCYTE % 0.7 % (0-3.0); LYMPH # 3.2 10^3/uL (1.5-4.5); LYMPH % 19.8 % (24.0-44.0); MEAN CORPUSCULAR HEMOGLOBIN 28.2 pg (27.0-33.0); MEAN CORPUSCULAR HGB CONC 31.9 g/dl (32.0-36.5); MEAN CORPUSCULAR VOLUME 88.5 fl (80.0-96.0); MONO # 1.1 10^3/uL (0.0-0.8); MONO % 6.6 % (0.0-5.0); NEUTROPHILS # 11.4 10^3/uL (1.8-7.7); PLATELET COUNT, AUTOMATED 494 10^3/uL (150-450); RED BLOOD COUNT 4.71 10^6/uL (4.00-5.40); RED CELL DISTRIBUTION WIDTH 13.1 % (11.5-14.5); WHITE BLOOD COUNT 16.3 10^3/uL (4.0-10.0)
== END ==
LOC: M SFHCPLAZ 15:04
DX: D72.829 Elevated white blood cell count, unspecified (principal)
CPT/HCPCS: 85025

== ENCOUNTER → 2018-08-26 | Outpatient (CLI) | payer MEDICAID, MEDICARE ==
[~2018-08-26] MED LIST changes: +/LAMO20TA PO; +ABIL10TA9 PO; +ABIL2TAB OR; +ABIL5TAB PO; +ALPH0.156 OD; +BACITAB PO; +BUPR150T3 PO; +Birth Control Pill OR; +CIPR500T3 PO; +CLAR10CA3 PO; +CLAR5CHW OR; +CLON0.5T PO; +COLA100C5 PO; +COMB0.2S OU; +DEBR6.5S AU; +DOCU100C16 PO; +FLAG500T PO; +FLON0.05; -GLUCAGON FOR INJ 1 MG VIAL (J1610) As Ordered; +HYDR-3363 PO; -ISOVUE-370 76% 100ML VIAL (Q9967) As Ordered; +LEVA1TAB2 PO; +LEVO112T2 PO; +LEVO125T4 PO; +LEVO75TA2 OR; +LOPR50TA OR; +LUMI0.01 OP; +METO1TAB32 PO; +METO25TAB PO; +OMEP20TA7 OR; +PHEN2SUP PR; +PRIL20CA9 PO; +REGL10TA6 PO; +TRAZ-160 PO; +TRI SPRINTEC PO; +TRI-TAB11 PO; +TRIC145T19 OR; +TRIC145T22 PO; +TRUS1SOL OD; +VITA200016 PO; +VITA500047 PO; -VoLumen 0.1% SUSPENSION 450ML BOTTLE As Ordered; +WELBUTRIN PO; +WELL100T2 OR; +WELLTAB38 PO; +ZOFR4TAB14 PO; +ZOFR4TAB16 PO; +ZOLO100T OR; +ZOLO100T PO
[2018-08-26 07:58] LABS: HEMOGLOBIN A1c 5.7 %
[2018-08-26 08:10] LABS: FREE T4 1.22 NG/DL (0.76-1.46); THYROID STIMULATING HORMONE 0.326 uIU/ML (0.358-3.740)
[2018-08-26 10:38] LABS: PTH INTACT 25.2 PG/ML (18.5-88.0); TOTAL 25(OH) VITAMIN D 43.6 NG/ML (30.0-100.0)
== END ==
LOC: M LAB 07:09
PROVIDERS: ATTEND Physician Assistant Medical
DX: E66.09 Other obesity due to excess calories (principal); E03.9 Hypothyroidism, unspecified; E55.9 Vitamin D deficiency, unspecified

== ENCOUNTER → 2018-09-26 | Outpatient (REF) | payer MEDICARE, MEDICAID ==
[2018-09-26 12:34] LABS: ALBUMIN 3.4 GM/DL (3.2-5.2); ALT/SGPT 16 U/L (12-78); BILIRUBIN,TOTAL 0.2 MG/DL (0.2-1.0); BLOOD UREA NITROGEN 15 MG/DL (7-18); CALCIUM LEVEL 8.9 MG/DL (8.5-10.1); CARBON DIOXIDE LEVEL 26 MEQ/L (21-32); CHLORIDE LEVEL 104 MEQ/L (98-107); CREATININE FOR GFR 0.81 MG/DL (0.55-1.30); FREE T4 1.15 NG/DL (0.76-1.46); GLOMERULAR FILTRATION RATE > 60.0 (>60); GLUCOSE, FASTING 110 MG/DL (70-100); POTASSIUM SERUM 4.7 MEQ/L (3.5-5.1); SODIUM LEVEL 140 MEQ/L (136-145); TOTAL PROTEIN 6.8 GM/DL (6.4-8.2)
[2018-09-26 14:50] LABS: HEMOGLOBIN A1c 5.8 %
== END ==
LOC: M SFHCPLAZ 09:16
PROVIDERS: ATTEND Physician Assistant Medical
DX: I10 Essential (primary) hypertension (principal); E03.9 Hypothyroidism, unspecified; Z68.31 Body mass index [BMI] 31.0-31.9, adult

== ENCOUNTER 2019-02-10 01:15 | Emergency (ER) | payer MEDICARE, MEDICAID ==
[~2019-02-10] VITALS: Ht 162.6 cm; Wt 100.0 kg
[~2019-02-10 01:15] MED LIST changes: -/LAMO20TA PO; +LAMI1TAB9 PO; +METO1TAB63 PO; -METO25TAB PO; -TRAZ-160 PO; +TRAZ-252 PO
[2019-02-10] MEDS ORDERED: LEVO112T2 PO (01:50)
[2019-02-10] MEDS ORDERED: D-10TAB3 PO (01:50)
[2019-02-10] MEDS ORDERED: MM S100C PO (01:50)
[2019-02-10 01:57] LABS: BASO # 0.1 10^3/uL (0.0-0.2); BASO % 0.4 % (0.0-1.0); EOS % 0.2 % (0.0-3.0); HEMATOCRIT 43.3 % (36.0-47.0); HEMOGLOBIN 14.3 g/dl (12.0-15.5); LYMPH # 1.4 10^3/uL (1.5-4.5); LYMPH % 7.3 % (24.0-44.0); MEAN CORPUSCULAR HEMOGLOBIN 29.1 pg (27.0-33.0); MEAN CORPUSCULAR VOLUME 88.2 fl (80.0-96.0); MONO # 0.6 10^3/uL (0.0-0.8); NEUTROPHILS # 16.5 10^3/uL (1.8-7.7); NEUTROPHILS % 88.8 % (36.0-66.0); PLATELET COUNT, AUTOMATED 474 10^3/uL (150-450); RED BLOOD COUNT 4.91 10^6/uL (4.00-5.40); WHITE BLOOD COUNT 18.6 10^3/uL (4.0-10.0)
[2019-02-10] MEDS ORDERED: METOCLOPRAMIDE INJ 10MG/2ML VIAL (J2765) As Ordered ONE (01:57)
[2019-02-10] MEDS ORDERED: ONDANSETRON 4 MG ORAL DISINTEGRATING TAB (Q0162 PER 1MG) PO ONE (02:00)
[2019-02-10] MEDS ORDERED: NS 1,000 ML IV ONE (02:00)
[2019-02-10] MEDS ORDERED: ACETAMINOPHEN 500 MG TAB PO ONE (02:00)
[2019-02-10] MEDS ORDERED: METOCLOPRAMIDE INJ 10MG/2ML VIAL (J2765) IV ONE (02:00)
[2019-02-10 02:10] LABS: ALT/SGPT 25 U/L (12-78); BILIRUBIN,DIRECT < 0.1 MG/DL (0.0-0.2); BILIRUBIN,TOTAL 0.2 MG/DL (0.2-1.0); BLOOD UREA NITROGEN 20 MG/DL (7-18); CALCIUM LEVEL 9.3 MG/DL (8.5-10.1); CARBON DIOXIDE LEVEL 23 MEQ/L (21-32); CHLORIDE LEVEL 109 MEQ/L (98-107); CREATININE FOR GFR 0.94 MG/DL (0.55-1.30); GLOMERULAR FILTRATION RATE > 60.0 (>60); GLUCOSE, FASTING 149 MG/DL (70-100); LIPASE 102 U/L (73-393); POTASSIUM SERUM 4.3 MEQ/L (3.5-5.1); SODIUM LEVEL 142 MEQ/L (136-145); TOTAL PROTEIN 7.7 GM/DL (6.4-8.2)
[2019-02-10 02:16] LABS: APPEARANCE, URINE CLOUDY (CLEAR); BACTERIA, URINE AUTO NEGATIVE (NEGATIVE); BILIRUBIN, URINE AUTO NEGATIVE (NEGATIVE); BLOOD, URINE BLOOD NEGATIVE (NEGATIVE); COLOR, URINE YELLOW (YELLOW); GLUCOSE, URINE (UA) AUTO NEGATIVE (NEGATIVE); KETONE, URINE AUTO NEGATIVE (NEGATIVE); LEUKOCYTE ESTERASE, URINE AUTO NEGATIVE (NEGATIVE); MUCUS, URINE SMALL (NEGATIVE); NITRITE, URINE AUTO NEGATIVE (NEGATIVE); PROTEIN, URINE AUTO NEGATIVE (NEGATIVE); RBC, URINE AUTO 2 /HPF (0-3); SPECIFIC GRAVITY URINE AUTO 1.023 (1.002-1.035); SQUAMOUS EPITHELIAL CELL UR AU 19 /HPF (0-6); UROBILINOGEN, URINE AUTO 0.2 mg/dL (0.0-2.0); WBC, URINE AUTO 2 /HPF (0-3)
[2019-02-10] MEDS ORDERED: ACETAMINOPHEN *IV* 1,000 MG in APPROPRIATE DILUENT 1 EA IV ONE (02:45)
[2019-02-10] MEDS ORDERED: ACETAMINOPHEN *IV* 650 MG in APPROPRIATE DILUENT 1 EA IV ONE (02:45)
[2019-02-10 02:58] LABS: HCG, SERUM QUALITATIVE NEGATIVE (NEGATIVE)
[2019-02-10] MEDS ORDERED: diphenhydrAMINE INJ 50MG/ML VIAL (J1200) IV STA (03:16)
[2019-02-10] MEDS ORDERED: HALOPERIDOL 5 MG/ML VIAL (J1630) IV STA (03:16)
--- NOTE | 2019-02-10 03:56 | REPVR ---
EXAM: CT Abdomen and Pelvis Without Contrast EXAM DATE/TIME: 02/10/2019 3:05 AM CLINICAL HISTORY: 38 years old, female; Abdominal pain; Flank; Left; Additional info: L colic TECHNIQUE: Imaging protocol: Axial computed tomography images of the abdomen and pelvis without contrast. Coronal and sagittal reformatted images were created and reviewed. Radiation optimization: All CT scans at this facility use at least one of these dose optimization techniques: automated exposure control; mA and/or kV adjustment per patient size (includes targeted exams where dose is matched to clinical indication); or iterative reconstruction. COMPARISON: CT ABD PELVIS W/O CONTRAST 04/30/2018 12:52 AM FINDINGS: Mediastinum: Slight wall thickening of the distal esophagus. Liver: Normal. No mass. Gallbladder and bile ducts: Normal. No calcified stones. No ductal dilation. Pancreas: Normal. No ductal dilation. Spleen: Normal. No splenomegaly. Adrenals: Normal. No mass. Kidneys and ureters: Normal. No hydronephrosis. Stomach and bowel: Normal. No obstruction. No mucosal thickening. Appendix: A normal appendix is seen. Intraperitoneal space: Normal. No free air. No significant fluid collection. Vasculature: Normal. No abdominal aortic aneurysm. Lymph nodes: Normal. No enlarged lymph nodes. Bladder: Unremarkable as visualized. Reproductive: Unremarkable as visualized. Bones/joints: No acute fracture. No dislocation. Soft tissues: Unremarkable. IMPRESSION: 1. Slight distal esophageal wall thickening which may reflect esophagitis. 2. Otherwise negative CT abdomen/pelvis which is similar to 04/30/2018. No renal or ureteral calculi are evident and there is no evidence of obstructive uropathy. Electronically signed by: Jorge Alvarez On 02/10/2019 03:56:36 AM
[2019-02-10] MEDS ORDERED: GI COCKTAIL 50ML BTL(HYOSCYAMINE/MAALOX/LIDOCAINE VISCOUS)(1:3:1) PO ONE (04:00)
[2019-02-10] MEDS ORDERED: PANTOPRAZOLE 40MG INJ (PROTONIX) (C9113) IV ONE (04:00)
[2019-02-10] MEDS ORDERED: PROT1TAB2 PO (04:04)
[2019-02-10] MEDS ORDERED: SUCR1SS PO (04:04)
[2019-02-10] MEDS ORDERED: MAALSUS19 PO (04:06)
[2019-02-10 06:00] VITALS: BP 169/88
== END 2019-02-10 06:25 | disposition home or self-care (01) ==
LOC: M ED 01:15
DX: K20.9 Esophagitis, unspecified (principal); K21.9 Gastro-esophageal reflux disease without esophagitis; K29.70 Gastritis, unspecified, without bleeding; D72.829 Elevated white blood cell count, unspecified; F98.9 Unspecified behavioral and emotional disorders with onset usually occurring in childhood and adolescence; Z79.899 Other long term (current) drug therapy; Z88.6 Allergy status to analgesic agent
CPT/HCPCS: 36415; 74176; 80048; 80076; 81001; 83690; 84703; 85025; 87086; 96361; 96374; 96375; 99284; C9113; J0131; J1200; J1630; J2765; Q0162

== ENCOUNTER → 2019-02-27 | Outpatient (CLI) | payer MEDICARE, MEDICAID ==
[~2019-02-27] MED LIST changes: +D-10TAB3 PO; +MAALSUS19 PO; +MM S100C PO; +PROT1TAB2 PO; +SUCR1SS PO
[2019-02-27 06:57] LABS: BASO # 0.1 10^3/uL (0.0-0.2); BASO % 0.6 % (0.0-1.0); EOS # 0.3 10^3/uL (0.0-0.50); HEMATOCRIT 39.4 % (36.0-47.0); HEMOGLOBIN 12.5 g/dl (12.0-15.5); LYMPH # 3.7 10^3/uL (1.5-4.5); LYMPH % 22.7 % (24.0-44.0); MEAN CORPUSCULAR HEMOGLOBIN 28.3 pg (27.0-33.0); MEAN CORPUSCULAR HGB CONC 31.7 g/dl (32.0-36.5); MEAN CORPUSCULAR VOLUME 89.3 fl (80.0-96.0); MONO % 6.4 % (0.0-5.0); NEUTROPHILS % 67.8 % (36.0-66.0); PLATELET COUNT, AUTOMATED 466 10^3/uL (150-450); RED BLOOD COUNT 4.41 10^6/uL (4.00-5.40); WHITE BLOOD COUNT 16.2 10^3/uL (4.0-10.0)
[2019-02-27 07:14] LABS: HEMOGLOBIN A1c 6.1 %
[2019-02-27 07:34] LABS: ALBUMIN 3.4 GM/DL (3.2-5.2); ALT/SGPT 19 U/L (12-78); BILIRUBIN,TOTAL 0.3 MG/DL (0.2-1.0); BLOOD UREA NITROGEN 13 MG/DL (7-18); CALCIUM LEVEL 8.6 MG/DL (8.5-10.1); CARBON DIOXIDE LEVEL 27 MEQ/L (21-32); CHLORIDE LEVEL 109 MEQ/L (98-107); CHOLESTEROL LEVEL 164 MG/DL (<200); CHOLESTEROL RISK RATIO 2.411 (<5); CREATININE FOR GFR 0.93 MG/DL (0.55-1.30); FREE T4 1.03 NG/DL (0.76-1.46); GLOMERULAR FILTRATION RATE > 60.0 (>60); GLUCOSE, FASTING 98 MG/DL (70-100); HDL CHOLESTEROL 68 MG/DL (>40); LDL CHOLESTEROL 65 MG/DL (<100); NON-HDL-C 96 MG/DL; POTASSIUM SERUM 4.3 MEQ/L (3.5-5.1); SODIUM LEVEL 141 MEQ/L (136-145); TOTAL PROTEIN 6.8 GM/DL (6.4-8.2); TRIGLYCERIDES LEVEL 155 MG/DL (<150)
[2019-02-27 10:02] LABS: PTH INTACT 38.2 PG/ML (18.5-88.0); TOTAL 25(OH) VITAMIN D 40.5 NG/ML (30.0-100.0)
== END ==
LOC: M LAB 06:21
PROVIDERS: ATTEND Physician Assistant Medical
DX: Z13.220 Encounter for screening for lipoid disorders (principal); D72.829 Elevated white blood cell count, unspecified; R11.10 Vomiting, unspecified; E03.9 Hypothyroidism, unspecified; E66.09 Other obesity due to excess calories; E55.9 Vitamin D deficiency, unspecified; Z79.899 Other long term (current) drug therapy

== ENCOUNTER → 2019-05-08 | Outpatient (CLI) | payer MEDICARE, MEDICAID ==
[2019-05-08 08:01] LABS: FREE T4 1.27 NG/DL (0.76-1.46); THYROID STIMULATING HORMONE 0.197 uIU/ML (0.358-3.740)
== END ==
LOC: M LAB 06:34
PROVIDERS: ATTEND Physician Assistant Medical
DX: E03.9 Hypothyroidism, unspecified (principal)

== ENCOUNTER → 2019-07-08 | Outpatient (CLI) | payer MEDICARE, MEDICAID ==
[2019-07-08 07:19] LABS: FREE T4 1.14 NG/DL (0.76-1.46); THYROID STIMULATING HORMONE 2.55 uIU/ML (0.358-3.740)
== END ==
LOC: M LAB 06:19
PROVIDERS: ATTEND Physician Assistant Medical
DX: E03.9 Hypothyroidism, unspecified (principal)

== ENCOUNTER → 2019-09-16 | Outpatient (CLI) | payer MEDICARE, MEDICAID ==
[2019-09-16 07:16] LABS: APPEARANCE, URINE CLEAR (CLEAR); BACTERIA, URINE AUTO 1+ (NEGATIVE); BILIRUBIN, URINE AUTO NEGATIVE (NEGATIVE); BLOOD, URINE BLOOD 3+ (NEGATIVE); COLOR, URINE YELLOW (YELLOW); GLUCOSE, URINE (UA) AUTO NEGATIVE (NEGATIVE); KETONE, URINE AUTO NEGATIVE (NEGATIVE); LEUKOCYTE ESTERASE, URINE AUTO NEGATIVE (NEGATIVE); MUCUS, URINE SMALL (NEGATIVE); NITRITE, URINE AUTO NEGATIVE (NEGATIVE); PROTEIN, URINE AUTO NEGATIVE (NEGATIVE); RBC, URINE AUTO TNTC /HPF (0-3); SQUAMOUS EPITHELIAL CELL UR AU 8 /HPF (0-6); UROBILINOGEN, URINE AUTO 0.2 mg/dL (0.0-2.0); WBC, URINE AUTO 1 /HPF (0-3)
[2019-09-16 07:34] LABS: HEMOGLOBIN A1c 5.7 %
[2019-09-16 07:42] LABS: ALBUMIN 3.5 GM/DL (3.2-5.2); ALT/SGPT 16 U/L (12-78); BILIRUBIN,TOTAL 0.2 MG/DL (0.2-1.0); BLOOD UREA NITROGEN 12 MG/DL (7-18); C REACTIVE PROTEIN QUANTITATIV 0.67 MG/DL (0.00-0.30); CALCIUM LEVEL 8.7 MG/DL (8.5-10.1); CARBON DIOXIDE LEVEL 27 MEQ/L (21-32); CHLORIDE LEVEL 110 MEQ/L (98-107); CHOLESTEROL LEVEL 150 MG/DL (<200); CHOLESTEROL RISK RATIO 2.307 (<5); CPK CREATINE PHOSPHOKINASE 66 U/L (26-192); CREATININE FOR GFR 0.78 MG/DL (0.55-1.30); GLOMERULAR FILTRATION RATE > 60.0 (>60); GLUCOSE, FASTING 98 MG/DL (70-100); HDL CHOLESTEROL 65 MG/DL (>40); LDL CHOLESTEROL 46 MG/DL (<100); NON-HDL-C 85 MG/DL; POTASSIUM SERUM 4.4 MEQ/L (3.5-5.1); SODIUM LEVEL 141 MEQ/L (136-145); TOTAL PROTEIN 6.7 GM/DL (6.4-8.2); TRIGLYCERIDES LEVEL 194 MG/DL (<150)
[2019-09-16 07:51] LABS: MAU/CREAT RATIO 11.5 MCG/MG (0.0-30.0)
== END ==
LOC: M LAB 06:31
PROVIDERS: ATTEND Family Medicine
DX: E78.2 Mixed hyperlipidemia (principal); R73.01 Impaired fasting glucose

== ENCOUNTER 2019-12-25 11:08 | Inpatient (IN) | payer MEDICARE, MEDICAID ==
[~2019-12-25] VITALS: Ht 170.2 cm; Wt 78.1 kg
[2019-12-25] MEDS ORDERED: DORZ2SOL4 OD (11:31)
[2019-12-25] MEDS ORDERED: ATOR1TAB21 PO (11:31)
[2019-12-25] MEDS ORDERED: TRI-TAB PO (11:31)
[2019-12-25] MEDS ORDERED: METF500T13 PO (11:31)
[2019-12-25] MEDS ORDERED: KETO0.02 OU (11:31)
[2019-12-25] MEDS ORDERED: PROMETHAZINE INJ 25 MG/ML VIAL (J2550) IM ONE (11:45)
[2019-12-25 12:34] LABS: HEMATOCRIT 41.6 % (36.0-47.0); HEMOGLOBIN 13.8 g/dl (12.0-15.5); MEAN CORPUSCULAR HEMOGLOBIN 28.9 pg (27.0-33.0); MEAN CORPUSCULAR HGB CONC 33.2 g/dl (32.0-36.5); MEAN CORPUSCULAR VOLUME 87.2 fl (80.0-96.0); PLATELET COUNT, AUTOMATED 584 10^3/uL (150-450); RED BLOOD COUNT 4.77 10^6/uL (4.00-5.40); WHITE BLOOD COUNT 24.7 10^3/uL (4.0-10.0)
[2019-12-25 12:35] LABS: AMPHETAMINES LEVEL URINE NEGATIVE (NEGATIVE); BARBITURATES URINE NEGATIVE (NEGATIVE); BENZODIAZEPINES URINE NEGATIVE (NEGATIVE); CANNABINOIDS URINE NEGATIVE (NEGATIVE); COCAINE METABOLITE URINE NEGATIVE (NEGATIVE); HCG, SERUM QUALITATIVE NEGATIVE (NEGATIVE); METHADONE URINE NEGATIVE (NEGATIVE); OPIATES URINE NEGATIVE (NEGATIVE); PHENCYCLIDINE URINE NEGATIVE (NEGATIVE)
[2019-12-25 12:48] LABS: ACETAMINOPHEN LEVEL < 2.0 UG/ML (10.0-30.0); ALBUMIN 3.3 GM/DL (3.2-5.2); ALT/SGPT 40 U/L (12-78); BILIRUBIN,DIRECT 0.2 MG/DL (0.0-0.2); BILIRUBIN,TOTAL 0.5 MG/DL (0.2-1.0); BLOOD UREA NITROGEN 13 MG/DL (7-18); CALCIUM LEVEL 8.7 MG/DL (8.5-10.1); CARBON DIOXIDE LEVEL 27 MEQ/L (21-32); CHLORIDE LEVEL 105 MEQ/L (98-107); CREATININE FOR GFR 0.94 MG/DL (0.55-1.30); ETHYL ALCOHOL (ETHANOL) 0.003 % (0.000-0.010); GLOMERULAR FILTRATION RATE > 60.0 (>60); GLUCOSE, FASTING 124 MG/DL (70-100); POTASSIUM SERUM 3.6 MEQ/L (3.5-5.1); SALICYLATE LEVEL < 1.7 MG/DL (5.0-30.0); SODIUM LEVEL 139 MEQ/L (136-145); TOTAL PROTEIN 7.5 GM/DL (6.4-8.2)
[2019-12-25] MEDS ORDERED: ISOVUE-370 76% 100ML VIAL As Ordered ONE ×2 (13:32→13:46)
--- NOTE | 2019-12-25 14:58 | REP ---
CT ABDOMEN AND PELVIS WITH IV CONTRAST: TECHNIQUE: Axial contrast enhanced images from the lung bases to the pubic symphysis using 100 mL Isovue-370 intravenous contrast material with multiplanar reformations. Visualized lung bases demonstrate no acute infiltrate. The liver, gallbladder, spleen, adrenals, pancreas, and kidneys are unremarkable. There is no hydronephrosis. There is no abdominal aortic aneurysm. There is no adenopathy. There is no free air or free fluid. No bowel thickening is seen. The appendix is normal. A cystic structure in the right adnexa measures 3.3 cm in diameter. This is a new findings compared to the prior CT of 02/10/2019. No other pelvic mass is seen. Urinary bladder is not well distended and not well evaluated. IMPRESSION: Cystic structure right adnexa 3.3 cm in diameter. No free air or free fluid. Normal appendix. No evidence of bowel obstruction. No other acute finding. Electronically Signed by Rodríguez Caputo MD 12/25/2019 03:09 P
[2019-12-25 19:38] LABS: BASO # 0.1 10^3/uL (0.0-0.2); BASO % 0.3 % (0.0-1.0); EOS # 0.1 10^3/uL (0.0-0.5); EOS % 0.3 % (0.0-3.0); HEMATOCRIT 39.3 % (36.0-47.0); HEMOGLOBIN 12.8 g/dl (12.0-15.5); LYMPH # 2.7 10^3/uL (1.5-5.0); LYMPH % 14.2 % (24.0-44.0); MEAN CORPUSCULAR HEMOGLOBIN 28.4 pg (27.0-33.0); MEAN CORPUSCULAR HGB CONC 32.6 g/dl (32.0-36.5); MEAN CORPUSCULAR VOLUME 87.1 fl (80.0-96.0); MONO # 1.3 10^3/uL (0.0-0.8); MONO % 6.7 % (0.0-5.0); NEUTROPHILS # 14.5 10^3/uL (1.5-8.5); NEUTROPHILS % 77.5 % (36.0-66.0); PLATELET COUNT, AUTOMATED 546 10^3/uL (150-450); RED BLOOD COUNT 4.51 10^6/uL (4.00-5.40); WHITE BLOOD COUNT 18.7 10^3/uL (4.0-10.0)
[2019-12-25] MEDS ORDERED: VITAD1000T PO (19:56)
[2019-12-25] MEDS ORDERED: PANT-23 PO (19:56)
[2019-12-25] MEDS ORDERED: ACETAMINOPHEN TAB 650MG DOSE (2X325MG) PO PRN (20:15)
[2019-12-25] MEDS ORDERED: MOM 30ML SUSPENSION UDC PO PRN (20:15)
[2019-12-25] MEDS ORDERED: MAALOX 30 ML SUSP *UDC PO PRN (20:15)
[2019-12-25 21:27] VITALS: BP 134/77
[2019-12-25] MEDS: ATORVASTATIN 20 MG TAB PO SCH (23:00)
[2019-12-25] MEDS: DOCUSATE SODIUM 100 MG CAP PO SCH (23:00)
[2019-12-25] MEDS: PANTOPRAZOLE 40MG TAB (PROTONIX) PO SCH (23:00)
[2019-12-25] MEDS: DORZOLAMIDE 2% OPHTH SOLN 10 ML BTL OD SCH (23:26)
[2019-12-26] MEDS: ACETAMINOPHEN 500 MG TAB PO SCH ×3 (06:00→21:47)
[2019-12-26] MEDS: LEVOTHYROXINE 112MCG TABLET (0.112MG) PO SCH (06:02)
[2019-12-26 06:18] VITALS: BP 136/63
[2019-12-26] MEDS: DOCUSATE SODIUM 100 MG CAP PO SCH ×2 (08:30→21:30)
[2019-12-26] MEDS: VITAMIN D 1,000 INTERNATIONAL UNITS TABLET PO SCH (08:30)
[2019-12-26] MEDS: DORZOLAMIDE 2% OPHTH SOLN 10 ML BTL OD SCH ×2 (08:31→21:30)
[2019-12-26] MEDS: METOPROLOL SUCC *XL* 25MG TAB (TopROL *XL*) PO SCH (08:32)
[2019-12-26] MEDS ORDERED: buPROPion **XL** TABLET 150MG (WELLBUTRIN XL) PO SCH (09:00)
--- NOTE | 2019-12-26 09:12 | MHHPEPDOC ---
[facility] History & Physical History and Physical DATE OF ADMISSION: December 25, 2019 at 20:01 New Patient Ning Wright MRN: N/A Date of : N/A Date of Service: 12/26/2019 Chief Complaint "I want to kill myself." History of Present Illness The patient a 25-year-old woman with history of intellectual problems and depression presents after becoming distorted and bizarre. She had reportedly made unusual statements and had tried to kill herself. She was brought in and admitted out of an abundance of caution. The patient is quite a poor historian and generally does not engage and much of an interview simply saying yes or no to a majority of questions stated. The patient reports that she had been feeling down and want to , but denied any other depressive symptoms. There have been some concerns that she was trying to spend more time outside of her house that she has had a boyfriend. Review Of Systems Depression: As above. Anxiety: No reported anxiety. Mitchel: Does not screen, positive for mitchel. Psychotic: Denies any voices. Trauma: Screen is negative for PTSD. Borderline: Not screened due to IQ. Past Psychiatric History Has a history of reported depression and auditory hallucinations in the past. Allergies Please see below. Family Psychiatric History The patient denies/is unaware any history of mental health history including addictions and suicide. Social History The patient currently lives in the [facility]. No notable history of trauma or abuse. Completed the 12th grade at high school with an IEP. Patient currently lives and is supported by [facility]. Substance Abuse History The patient denies any excessive alcohol use, tobacco or illicit drug use, denies history of substance use treatment. Medical History Patient has no significant past medical history. Mental Status Examination General: Well dressed with good hygiene Speech: Spontaneous and fluid Thought processes: Linear and logical MSK: Smooth and coordinated gait, no signs of tremors or involuntary orofacial movements Thought content: Hopelessness. Abstract reasoning, and computation: Intact Description of associations: Intact Description of abnormal or psychotic thoughts: Report suicidal thoughts. Judgment: Limited. Insight: Limited. Orientation: Alert and orientated 3 Cognition: Grossly normal Recent and remote memory: Intact Attention span and concentration: Intact Fund of knowledge: Adequate Mood: "okay" Affect: Flat and dysthymic, as well as anxious. Diagnoses Unspecified depressive disorder. Likely adjustment versus manufactured. Intellectual disability. Assessment and Plan Unspecified depressive disorder: Increase Wellbutrin to 300 mg daily. Intellectual disability: Monitor for behavioral problem. Disposition Patient will be retained for further observation and treatment due to suicidal thoughts. Problem List 1. Risk for suicide. 2. Ineffective coping. Initial Treatment Plan 1. Patient was admitted on a 9.39 legal status. 2. Complete history was obtained. 3. With patients permission, family will be contacted and database will be expanded. 4. Patients medication regimen will be reviewed and changed accordingly. 5. Patient will be provided with protected environment. 6. Patient will be treated with individual, group, and milieu therapies. 7. Patient will receive supportive psych-education. 8. Discharge planning will commence immediately. 9. Outpatient follow-up treatment will be strongly recommended. 10. The initial treatment plan will focus initially on: Estimated Length Of Stay 3 days. Time Spent 70 minutes with greater than 50% of time spent on counseling/coordination of care. Sunday Vital Signs Vital Signs Date Time Temp Pulse Resp B/P (MAP) Pulse Ox O2 Delivery O2 Flow Rate FiO2 12/26/19 08:32 94 126/84 12/26/19 06:18 98.0 16 97 12/25/19 21:27 Room Air Laboratory Data 24H Labs Laboratory Tests 2 12/25/19 11:52: Nucleated Red Blood Cells % (auto) 0.0, Anion Gap 7L, Glomerular Filtration Rate > 60.0, Calcium Level 8.7, Total Bilirubin 0.5, Direct Bilirubin 0.2, Aspartate Amino Transf (AST/SGOT) 30, Alanine Aminotransferase (ALT/SGPT) 40, Alkaline Phosphatase 250H, Total Protein 7.5, Albumin 3.3, Albumin/Globulin Ratio 0.8L, Thyroid Stimulating Hormone (TSH) 2.000, Human Chorionic Gonadotropin, Qual NEGATIVE, Salicylates Level < 1.7L, Urine Opiates Screen NEGATIVE, Urine Methado ne Screen NEGATIVE, Acetaminophen Level < 2.0L, Urine Barbiturates Screen NEGATIVE, Urine Phencyclidine Screen NEGATIVE, Urine Amphetamines Screen NEGATIVE, Urine Benzodiazepines Screen NEGATIVE, Urine Cocaine Metabolite Screen NEGATIVE, Urine Cannabinoids Screen NEGATIVE, Ethyl Alcohol Level 0.003 12/25/19 19:22: Nucleated Red Blood Cells % (auto) 0.0, Immature Granulocyte % (Auto) 1.0, Neutrophils (%) (Auto) 77.5H, Lymphocytes (%) (Auto) 14.2L, Monocytes (%) (Auto) 6.7H, Eosinophils (%) (Auto) 0.3, Basophils (%) (Auto) 0.3, Neutrophils # (Auto) 14.5H, Lymphocytes # (Auto) 2.7, Monocytes # (Auto) 1.3H, Eosinophils # (Auto) 0.1, Basophils # (Auto) 0.1 CBC/BMP Laboratory Tests 12/25/19 11:52 12/25/19 19:22 Medications Scheduled Atorvastatin Calcium (Atorvastatin Calcium) 20 Mg Tablet, 20 MG PO QHS, (R eported) Brimonidine Tartrate/Timolol (Combigan 0.2%-0.5% Eye Drops) 1 Lula Lula, 1 DROP OU BID, (Reported) Bupropion Hcl (Bupropion Xl) 150 Mg Tab, 150 MG PO DAILY, (Reported) Cholecalciferol (Vitamin D3) (Vitamin D3) 1,000 Unit Tablet, 1,000 UNITS PO DAILY, (Reported) Docusate Sodium (Stool Softener) 100 Mg Capsule, 100 MG PO BID, (Reported) Dorzolamide HCl (Dorzolamide HCl) 2% 10ML Drops, 1 DROP OD BID, (Reported) Ketotifen Fumarate (Ketotifen Fumarate) 5 Ml Drops, 1 DROP OU BID, (Reported) Levothyroxine Sodium (Levothyroxine Sodium) 112 Mcg Tablet, 112 MCG PO DAILY, ( Reported) Metformin HCl (Metformin HCl) 500 Mg Tablet, 500 MG PO BID, (Reported) Metoprolol Succinate (Metoprolol Succinate) 25 Mg Tab, 25 MG PO DAILY, (Reported) Norgestimate-Ethinyl Estradiol (Tri-Sprintec Tablet) 1 Each Tablet, 1 TAB PO QHS, (Reported) Pantoprazole Sodium (Pantoprazole Sodium) 40 Mg Tablet.dr, 40 MG PO QPM, (Reported) Allergies Coded Allergies: ketorolac (Verified Allergy, Intermediate, rash, itching, 02/10/19) was given close together with morphine; unsure which one caused allergic reaction morphine (Verified Allergy, Intermediate, rash, itching, 02/10/19) LISANDRO FONSECA DO December 26, 2019 09:12
[2019-12-26 10:13] LABS: ERYTHROCYTE SEDIMENTATION RATE 45 mm/hr (0-20)
[2019-12-26 10:14] LABS: C REACTIVE PROTEIN QUANTITATIV 2.14 MG/DL (0.00-0.30)
[2019-12-26 11:02] LABS: CA 125 5.6 U/ML (<30.2)
[2019-12-26 11:32] LABS: CA19-9 TUMOR MARKER,CARBOHYDRA 8.8 U/ML (<35.0)
--- NOTE | 2019-12-26 11:56 | REP ---
PELVIC ULTRASOUND: Real-time sonographic evaluation of pelvis performed. Transabdominal and endovaginal technique is utilized. The bladder measures 3.1 x 1.3 x 5.5 cm. The uterus measures 6.4 x 3.1 x 4.0 cm. The endometrial thickness is 2 mm. Left ovary is not visualized. Right ovary measures 4.7 x 2.7 x 4.8 cm. There is a simple cyst of the right ovary 2.9 x 2.2 x 3.1 cm. There is no evidence of right ovarian torsion with duplex Doppler evaluation. No free fluid is seen. IMPRESSION: Simple cyst right ovary 3.1 cm in diameter. No torsion or free fluid. Left ovary is not visualized sonographically, but appears normal on CT scan of 12/25/2019. Electronically Signed by Rodríguez Caputo MD 12/26/2019 12:03 P
[2019-12-26 16:04] VITALS: BP 110/56
--- NOTE | 2019-12-26 20:19 | HPE ---
DATE OF ADMISSION: 12/25/2019 Date of service: 12/26/2019 CC: depression HPI: 39-year-old female admitted for psychosis to inpatient mental health unit, complained of abdominal pain. CT abdomen and pelvis 12/25/2019 showed adnexal cystic structure on the right, 3.3 cm. No other abnormality noted.no fever or chills, or flank pain. No vaginal discharge. Denies cloudy urine. Patient was evaluated with CT abdomen and pelvis, which showed a right adnexal cyst, given Tylenol as needed for pain, admitted to inpatient mental health unit for psychosis, unspecified. The patient denies any weight gain, weight loss, fatigue, hematuria, bright red blood per rectum, vaginal bleeding. Denies abdominal fullness, abdominal distention, ascites, lower extremity edema. No family history of gynecological (CAD OPERATOR) cancer, such as ovarian, breast, endometrial. Denies any family history of prostate or colon cancer in the family. Describes pain as achy, present all the time, worse with ambulation, unrelated to meals, 5/10 on a pain scale, better with Tylenol. PAST MEDICAL HISTORY: Chronic leukocytosis. Depression. Post-traumatic stress disorder (PTSD). Hypothyroidism. Hypertension. Reflux. Oppositional and manipulative behavior. History of suicidal thoughts. Glaucoma. Mild mental retardation. Vitamin D deficiency. Hyperlipidemia. Allergic rhinitis. Gastroparesis. Gastric retention via capsule endoscopy. ALLERGIES: To MORPHINE, TORADOL causing hives. SURGICAL HISTORY: No surgical history aside from normal esophagogastroduodenoscopy (EGD)/colonoscopy, capsule endoscopy. FAMILY HISTORY: Father alive, age 65, with hypertension, coronary artery disease, myocardial infarction ([place]), diabetes. Siblings age 24 and 31. Mother alive, with diabetes. HOSPITAL MEDICATIONS: - Tylenol 650 mg as needed - Wellbutrin 150 mg daily - vitamin D 1000 units daily - metoprolol 25 mg daily - Synthroid 112 mcg daily - atorvastatin 20 mg nightly - Colace 100 mg twice a day - Trusopt one drop twice a day - Protonix 40 mg every evening - trazodone 50 mg nightly as needed - Milk of Magnesia 30 mL daily as needed - Mylanta 30 mL every 4 hours as needed SOCIAL HISTORY: Never worked, lives at [facility] finished high school. Denies recreational drug use. No alcohol. No smoking history. REVIEW OF SYSTEMS: Per history of the present illness, 12-point system otherwise negative. PHYSICAL EXAM: Temperature 98, pulse 91, respiratory rate 16, blood pressure 126/84, 97% on room air. Generally, awake, alert, oriented to person, place and time. Answering questions appropriately. No facial asymmetry. Trachea is midline. Pupils round and reactive, anicteric, no jaundice. Lungs are clear to auscultation. No wheezing, rales or rhonchi. Heart: S1, S2, sinus rhythm. Abdomen is soft, slight tender left lower quadrant. No rebound, guarding. Positive bowel sounds. Extremities: No cyanosis, clubbing or any pitting edema. LABORATORY DATA: White count 18.7, previous white count of 16.2 in February 2019, hemoglobin 12, hematocrit 39, platelet count 546. Sodium 139, potassium 3.6, chloride 105, bicarbonate 27, BUN 13, creatinine 0.94, glucose of 124. ASSESSMENT AND PLAN: A 39-year-old female admitted for psychosis to inpatient mental health unit, complained of abdominal pain. CT abdomen and pelvis 12/25/2019 showed adnexal cystic structure on the right, 3.3 cm. No other abnormality noted. IMPRESSION: 1. Right adnexal cystic structure 3.3 cm. Obtain a transvaginal ultrasound. Check CA19-9, CA-125 Check UA, urine culture and sensitivity, CRP, ESR and procalcitonin. 2. Chronic leukocytosis. Previously evaluated by medical oncologist, Dr. Bindu Shah, at the [facility] and thought to be reactive without need for bone marrow. 3. Mild mental retardation/psychosis, managed by psychiatrist. 4. History of reflux with gastroparesis. Continue on home medications. 5. Hypothyroidism. Continue on Synthroid. 6. Hypertension, on Toprol XL 25 mg daily. 7. Dyslipidemia. On Lipitor. 8. Metabolic syndrome. Check A1c and lipid profile. [facility]
[2019-12-26] MEDS: PANTOPRAZOLE 40MG TAB (PROTONIX) PO SCH (21:30)
[2019-12-26] MEDS: ATORVASTATIN 20 MG TAB PO SCH (21:31)
[2019-12-26] MEDS: traZODone 50 MG TAB PO PRN (21:31)
[2019-12-27 06:35] VITALS: BP 140/83
[2019-12-27] MEDS: LEVOTHYROXINE 112MCG TABLET (0.112MG) PO SCH (06:36)
[2019-12-27] MEDS: ACETAMINOPHEN 500 MG TAB PO SCH ×3 (06:37→22:22)
[2019-12-27] MEDS: buPROPion **XL** TABLET 150MG (WELLBUTRIN XL) PO SCH (09:03)
[2019-12-27] MEDS: VITAMIN D 1,000 INTERNATIONAL UNITS TABLET PO SCH (09:03)
[2019-12-27] MEDS: METOPROLOL SUCC *XL* 25MG TAB (TopROL *XL*) PO SCH (09:03)
[2019-12-27] MEDS: DORZOLAMIDE 2% OPHTH SOLN 10 ML BTL OD SCH ×2 (09:03→21:28)
[2019-12-27] MEDS: DOCUSATE SODIUM 100 MG CAP PO SCH ×2 (09:03→21:30)
[2019-12-27 16:16] VITALS: BP 122/76
[2019-12-27] MEDS: ATORVASTATIN 20 MG TAB PO SCH (21:31)
[2019-12-27] MEDS: PANTOPRAZOLE 40MG TAB (PROTONIX) PO SCH (21:31)
[2019-12-27] MEDS: traZODone 50 MG TAB PO PRN (21:31)
[2019-12-28] MEDS: LEVOTHYROXINE 112MCG TABLET (0.112MG) PO SCH (06:14)
[2019-12-28] MEDS: ACETAMINOPHEN 500 MG TAB PO SCH ×3 (06:14→20:36)
[2019-12-28 06:33] VITALS: BP 135/84
[2019-12-28] MEDS: DORZOLAMIDE 2% OPHTH SOLN 10 ML BTL OD SCH ×2 (08:29→20:35)
[2019-12-28] MEDS: buPROPion **XL** TABLET 150MG (WELLBUTRIN XL) PO SCH (08:29)
[2019-12-28] MEDS: VITAMIN D 1,000 INTERNATIONAL UNITS TABLET PO SCH (08:30)
[2019-12-28] MEDS: DOCUSATE SODIUM 100 MG CAP PO SCH ×2 (08:30→20:35)
[2019-12-28] MEDS: METOPROLOL SUCC *XL* 25MG TAB (TopROL *XL*) PO SCH (08:30)
--- NOTE | 2019-12-28 09:44 | MHIPN ---
DATE: 12/27/2019 The patient today states, " I am doing good". She then admits that sometimes she is still having suicidal thoughts. She says she slept good. MENTAL STATUS EXAMINATION: This patient is alert times three. Eye contact is fair. She is very guarded. She responds in simple one or two word sentences that appear to be appropriate. There is no formal thought disorder noted. She says that her mood is "good". Her affect is flat. She says that she is still having some suicidal thoughts. She denies homicidal thoughts. I did not elicit any psychotic symptoms. Concentration is fair. Insight and judgment is poor. DIAGNOSES: Unspecified depressive disorder. Intellectual disability. TREATMENT PLAN: We will continue to monitor the patient for continued elevation and stabilization of her mood and continued resolution of suicidal ideation.
[2019-12-28 16:10] VITALS: BP 137/78
[2019-12-28] MEDS: traZODone 50 MG TAB PO PRN (20:35)
[2019-12-28] MEDS: PANTOPRAZOLE 40MG TAB (PROTONIX) PO SCH (20:36)
[2019-12-28] MEDS: ATORVASTATIN 20 MG TAB PO SCH (20:36)
[2019-12-28] MEDS ORDERED: haloperidoL 5 MG TAB PO ONE (22:15)
[2019-12-28] MEDS ORDERED: diphenhydrAMINE 50MG CAP PO ONE (22:15)
[2019-12-28] MEDS ORDERED: LORazepam 1 MG TAB PO ONE (22:15)
[2019-12-29] MEDS: LEVOTHYROXINE 112MCG TABLET (0.112MG) PO SCH (06:10)
[2019-12-29] MEDS: ACETAMINOPHEN 500 MG TAB PO SCH ×3 (06:11→21:36)
[2019-12-29 06:38] VITALS: BP 117/60
[2019-12-29] MEDS: DOCUSATE SODIUM 100 MG CAP PO SCH ×2 (08:57→21:35)
[2019-12-29] MEDS: buPROPion **XL** TABLET 150MG (WELLBUTRIN XL) PO SCH (08:57)
[2019-12-29] MEDS: VITAMIN D 1,000 INTERNATIONAL UNITS TABLET PO SCH (08:58)
[2019-12-29] MEDS: DORZOLAMIDE 2% OPHTH SOLN 10 ML BTL OD SCH ×2 (08:58→21:36)
[2019-12-29] MEDS: METOPROLOL SUCC *XL* 25MG TAB (TopROL *XL*) PO SCH (08:58)
--- NOTE | 2019-12-29 11:57 | MHIPNPDOC ---
[facility] Progress Note Progress Note Inpatient Progress Note Ning Wright MRN: N/A Date of : N/A Date of Service: 12/29/2019 History of Present Illness The patient a 25-year-old woman with history of intellectual problems and depression presents after becoming distorted and bizarre. She had reportedly made unusual statements and had tried to kill herself. She was brought in and admitted out of an abundance of caution. The patient is quite a poor historian and generally does not engage and much of an interview simply saying yes or no to a majority of questions stated. The patient reports that she had been feeling down and want to , but denied any other depressive symptoms. There have been some concerns that she was trying to spend more time outside of her house that she has had a boyfriend. Interval History The patient refuses to meet with this provider today. She has been engaged and no suicidal or homicidal ideation while in the unit, consistently denying it. She generally appears to demonstrate some behavioral problems in terms of attention seeking, but has had no overt aggression or other problems over the weekend. Review Of Systems Patient declines interview. Psychotherapy None on this visit. Vital Signs Reviewed. Mental Status Examination Patient declines interview. Diagnoses Unspecified depressive disorder. Likely adjustment versus manufactured. Intellectual disability. Assessment and Plan Unspecified depressive disorder: We will continue Wellbutrin 300 mg daily. Intellectual disability: Monitor for behavioral problem. Disposition Patient will likely be discharged tomorrow, as it is not appearing that she is demonstrating any signs or symptoms of depression and I have a distinct concern given her sudden unamenability to meeting that her reasons for presenting are manufactured. She may be under the misguided belief that if she does not meet with me that she will not be discharged, however, her statements to nursing staff and observed behaviors demonstrate that she is unlikely to be at any elevated risk of harm towards herself or others and appears to likely be in her normal state of mental health. Time Spent 15 minutes. Sunday Vital Signs Vital Signs Date Time Temp Pulse Resp B/P (MAP) Pulse Ox O2 Delivery O2 Flow Rate FiO2 12/29/19 08:58 102 138/84 12/29/19 06:38 98.9 16 Room Air 12/27/19 06:35 96 Current Medications Current Medications Medications (Trade) Dose Ordered Sig/Raul Route PRN Reason Start Time Stop Time Status Last Admin Dose Admin Acetaminophen (Tylenol Tab) 650 mg Q6HP PRN PO HEADACHE or DISCOMFORT 12/25/19 20:15 12/26/19 08:56 DC 12/25/19 21:54 Acetaminophen (Tylenol Tab) 1,000 mg Q8H PO 12/26/19 06:00 12/29/19 06:11 Al Hydrox/Mg Hydrox/Simethicone (Mylanta) 30 ml Q4HP PRN PO HEARTBURN/INDIGESTION 12/25/19 20:15 Atorvastatin Calcium (Lipitor) 20 mg QHS PO 12/25/19 21:00 12/28/19 20:36 Bupropion HCl (Wellbutrin Xl) 150 mg DAILY PO 12/26/19 09:00 12/26/19 10:33 DC 12/26/19 08:30 Bupropion HCl (Wellbutrin Xl) 300 mg DAILY PO 12/27/19 09:00 12/29/19 08:57 Docusate Sodium (Colace) 100 mg BID PO 12/25/19 21:00 12/29/19 08:57 Dorzolamide HCl (Trusopt Ocumeter Plus) 1 drop BID OD 12/25/19 21:00 12/29/19 08:58 Home Med (Med Rec Complete!) ASDIRECTED XX 12/25/19 20:00 12/25/19 19:59 DC Levothyroxine Sodium (Synthroid) 112 mcg DAILY@0600 PO 12/26/19 06:00 12/29/19 06:10 Magnesium Hydroxide (Milk Of Magnesia) 30 ml DAILYPRN PRN PO CONSTIPATION 12/25/19 20:15 Metoprolol Succinate (TopROL XL) 25 mg DAILY PO 12/26/19 09:00 12/29/19 08:58 Pantoprazole Sodium (Protonix) 40 mg QPM PO 12/25/19 21:00 12/28/19 20:36 Trazodone HCl (Desyrel) 50 mg QHSP PRN PO INSOMNIA 12/25/19 20:15 12/28/19 20:35 Vitamin D (Vitamin D) 1,000 units DAILY PO 12/26/19 09:00 12/29/19 08:58 Allergies Coded Allergies: ketorolac (Verified Allergy, Intermediate, rash, itching, 02/10/19) was given close together with morphine; unsure which one caused allergic reaction morphine (Verified Allergy, Intermediate, rash, itching, 02/10/19) LISANDRO FONSECA DO December 29, 2019 11:57
[2019-12-29 15:40] VITALS: BP 117/59
[2019-12-29] MEDS: ATORVASTATIN 20 MG TAB PO SCH (21:35)
[2019-12-29] MEDS: PANTOPRAZOLE 40MG TAB (PROTONIX) PO SCH (21:35)
[2019-12-29] MEDS: traZODone 50 MG TAB PO PRN (21:38)
--- NOTE | 2019-12-29 22:56 | MHIPN ---
DATE: 12/28/2019 The patient tells me that she is doing "good." She said she slept good, but other than that, the patient does not give any further information. MENTAL STATUS EXAM: She is alert and oriented . Eye contact is fair. Psychomotor activity is normal. There is no formal thought disorder noted. She says that her mood is good but affect flat. She denies any psychotic symptoms. She is denying suicidal or homicidal ideations today. Concentration is fair. Insight and judgment is fair. DIAGNOSIS: Unspecified depressive disorder. Intellectual disability. TREATMENT PLAN: We will continue to monitor the patient for continued resolution of any suicidal or homicidal ideations. JEFRY
[2019-12-30] MEDS: LEVOTHYROXINE 112MCG TABLET (0.112MG) PO SCH (06:12)
[2019-12-30] MEDS: ACETAMINOPHEN 500 MG TAB PO SCH ×2 (06:12→14:18)
[2019-12-30 06:41] VITALS: BP 122/63
[2019-12-30] MEDS: DORZOLAMIDE 2% OPHTH SOLN 10 ML BTL OD SCH (08:29)
[2019-12-30 08:30] VITALS: BP 122/63
[2019-12-30] MEDS: METOPROLOL SUCC *XL* 25MG TAB (TopROL *XL*) PO SCH (08:30)
[2019-12-30] MEDS: VITAMIN D 1,000 INTERNATIONAL UNITS TABLET PO SCH (08:30)
[2019-12-30] MEDS: DOCUSATE SODIUM 100 MG CAP PO SCH (08:30)
[2019-12-30] MEDS: buPROPion **XL** TABLET 150MG (WELLBUTRIN XL) PO SCH (08:30)
--- NOTE | 2019-12-30 09:18 | MHDSPDOC ---
[facility] Discharge Summary Discharge Summary DATE OF ADMISSION: December 25, 2019 at 20:01 DATE OF DISCHARGE: 12/30/2019 Discharge Ning Wright MRN: N/A Date of : N/A Date of Service: 12/30/2019 Diagnoses Malingering Intellectual disability History of Present Illness The patient a 25-year-old woman with history of intellectual problems and depression presents after becoming distorted and bizarre. She had reportedly made unusual statements and had tried to kill herself. She was brought in and admitted out of an abundance of caution. The patient is quite a poor historian and generally does not engage and much of an interview simply saying yes or no to a majority of questions stated. The patient reports that she had been feeling down and want to , but denied any other depressive symptoms. There have been some concerns that she was trying to spend more time outside of her house that she has had a boyfriend. Consultants Involved Hospitalist/PCP screening Treatment and Progress On The Unit The patient was admitted to the inpatient mental health unit. Her symptoms of depression appeared highly manufactured. She was increased on her Wellbutrin out of an abundance of caution. She did well on the unit socializing well without any signs of depression objectively. However, she refused to meet with providers under the assumption that this would continue her at [facility] as if they could not meet with her they could not discharge her. However, after multiple refusals she became suddenly fairly upset when she was informed she was being discharged. She had been denying suicidal and homicidal ideation through the entirety of her admission only suddenly manifesting it when she was told about discharge. She became aggressive and needed to be escorted out by police as she had attempted to malinger as she did not want to return to her home. Discharge Assessment 25 year olds intellectually disabled individual malingering as she does note want to return to her jail due to conflicts. She becomes quite upset when being informed of her discharge. She does not meet involuntary criteria as she does not demonstrate significant sincere suicidal ideation as it only appears when she is going to be discharged. Otherwise in that she had been euthymic on observation and engaged with other patients. She specifically was attempting to avoid meeting with providers in order to avoid discharge. She does not make an appropriate voluntary as she has poor insight into the current situation and is noncompliant with treatment. Mental Status Examination Patient refuses interview Follow Up The social work team worked during the predischarge meeting in order to evaluate for further issues of lethality address them fully before discharge. They worked on safety planning with the patient's family members in order to ensure that the patient will have a safe and effective discharge. Time Spent The amount of time spent in the coordination of care for this patient was approximately 50 minutes. Sunday Vital Signs/I&Os Vital Signs Date Time Temp Pulse Resp B/P (MAP) Pulse Ox O2 Delivery O2 Flow Rate FiO2 12/30/19 08:30 72 122/63 12/30/19 06:41 98.4 16 97 Room Air Medications Scheduled Atorvastatin Calcium (Atorvastatin Calcium) 20 Mg Tablet, 20 MG PO QHS, (Reported) Brimonidine Tartrate/Timolol (Combigan 0.2%-0.5% Eye Drops) 1 Lula Lula, 1 DROP OU BID, (Reported) Bupropion Hcl (Bupropion Xl) 150 Mg Tab, 150 MG PO DAILY, (Reported) Cholecalciferol (Vitamin D3) (Vitamin D3) 1,000 Unit Tablet, 1,000 UNITS PO DAILY, (Reported) Docusate Sodium (Stool Softener) 100 Mg Capsule, 100 MG PO BID, (Reported) Dorzolamide HCl (Dorzolamide HCl) 2% 10ML Drops, 1 DROP OD BID, (Reported) Ketotifen Fumarate (Ketotifen Fumarate) 5 Ml Drops, 1 DROP OU BID, (Reported) Levothyroxine Sodium (Levothyroxine Sodium) 112 Mcg Tablet, 112 MCG PO DAILY, (Reported) Metformin HCl (Metformin HCl) 500 Mg Tablet, 500 MG PO BID, (Reported) Metoprolol Succinate (Metoprolol Succinate) 25 Mg Tab, 25 MG PO DAILY, (Reported) Norgestimate-Ethinyl Estradiol (Tri-Sprintec Tablet) 1 Each Tablet, 1 TAB PO QHS, (Reported) Pantoprazole Sodium (Pantoprazole Sodium) 40 Mg Tablet.dr, 40 MG PO QPM, (Reported) Allergies Coded Allergies: ketorolac (Verified Allergy, Intermediate, rash, itching, 02/10/19) was given close together with morphine; unsure which one caused allergic reaction morphine (Verified Allergy, Intermediate, rash, itching, 02/10/19) LISANDRO FONSECA DO December 30, 2019 09:18
== END 2019-12-30 15:50 | disposition home or self-care (01) | DRG 951 ==
LOC: M ED 11:08 → M ED INP 20:01 → M PSY 21:23 → M ED INP 12-26 00:30 → M PSY 12-26 00:31
PROVIDERS: ADMIT Psychiatry & Neurology Addiction Medicine; ATTEND Psychiatry & Neurology Addiction Medicine
DX: Z76.5 Malingerer [conscious simulation] (principal); Z79.899 Other long term (current) drug therapy; Z88.8 Allergy status to other drugs, medicaments and biological substances; Z88.5 Allergy status to narcotic agent; K21.9 Gastro-esophageal reflux disease without esophagitis; E88.81 Metabolic syndrome and other insulin resistance; E78.5 Hyperlipidemia, unspecified; E03.9 Hypothyroidism, unspecified; K31.84 Gastroparesis; I10 Essential (primary) hypertension; E55.9 Vitamin D deficiency, unspecified; F70 Mild intellectual disabilities

== ENCOUNTER 2019-12-30 16:16 | Inpatient (IN) | payer MEDICARE, MEDICAID ==
[~2019-12-30] VITALS: Ht 167.6 cm; Wt 90.0 kg
[~2019-12-30 16:16] MED LIST changes: +ATOR1TAB21 PO; +DORZ2SOL4 OD; +KETO0.02 OU; +METF500T13 PO; +PANT-23 PO; +TRI-TAB PO; +VITAD1000T PO
--- NOTE | 2019-12-30 16:56 | ED PDOC ---
Provider Note SOAP Note Ning Wright MRN: N/A Date of : N/A Date of Service: 12/30/2019 History of Present Illness The patient a 39-year-old woman who I recently discharged as of several hours ago from the inpatient unit is brought back in after she reportedly resists being discharged after being noncompliant with treatment, denying suicidal homicidal ideation but then suddenly manifesting it when discharge is approached. The patient was aggressive and primarily focused on continuing her inpatient admission. She reported suicidal ideation to the police who are escorting her up due to her aggression and she was brought back in for evaluation. When he met with the patient, she reports no major changes and when asked specifically if there were issues at the house that had led her to not want to return, she sheepishly responded "no". The patient presents no other changes and generally does not engage in any meaningful interview with me at this time. Mental Status Examination General: Well dressed with good hygiene Speech: Spontaneous and fluid Thought processes: Linear and logical MSK: Smooth and coordinated gait, no signs of tremors or involuntary orofacial movements Thought content: Perseverative on admission Abstract reasoning, and computation: Intact Description of associations: Intact Description of abnormal or psychotic thoughts: As above. Judgment: Chronically limited. Insight: Chronically limited. Orientation: Alert and orientated 3 Cognition: Grossly normal Recent and remote memory: Intact Attention span and concentration: Intact Fund of knowledge: Adequate Mood: "okay" Affect: Generally euthymic, although anxious when dealing with this provider. Assessment and Plan The patient a 39-year-old woman who I recently discharged from the inpatient mental health unit presents again after reporting suicidal ideation in a vein attempt at regaining inpatient admission. She had been completely uninterested in meeting with this provider or any other providers under the false assumption that this would prolong her admission and that she would not have to return to her [facility] of which it appears that she has some conflicting issues with another individual's name Myrna as had been reported in her initial assessment upon presenting to the ER for her first admission. At this time, I do not believe that she meets involuntary criteria as she is not demonstrating any significant mental status changes or any suicidal or homicidal ideation that is sincere as it is entirely related to whether she will be discharged or not, contingency suggests that it is not sincere and likely manufactured. The patient makes a poor voluntary admission as she is primarily malingering and intellectually disabled of which these individuals generally do not do better on the inpatient unit, but simply remain regressed and are unable to be dispositioned as they were refuse to leave. Diagnoses: 1. Intellectual disability 2. Malingering. Time spent 30 minutes. Sunday LISANDRO FONSECA DO December 30, 2019 16:56
[2019-12-31] MEDS ORDERED: LEVOTHYROXINE 112MCG TABLET (0.112MG) PO ONE (08:00)
[2019-12-31] MEDS ORDERED: metFORMIN (GLUCOPHAGE) 500 MG TAB PO ONE (09:00)
[2019-12-31] MEDS ORDERED: METOPROLOL SUCC *XL* 25MG TAB (TopROL *XL*) PO ONE (09:00)
[2019-12-31] MEDS ORDERED: DORZOLAMIDE 2% OPHTH SOLN 10 ML BTL OU ONE (09:00)
[2019-12-31] MEDS ORDERED: DOCUSATE SODIUM 100 MG CAP PO ONE (09:00)
[2019-12-31] MEDS ORDERED: VITAMIN D 1,000 INTERNATIONAL UNITS TABLET PO ONE (09:00)
[2019-12-31] MEDS ORDERED: buPROPion **XL** TABLET 150MG (WELLBUTRIN XL) PO ONE (09:00)
[2019-12-31] MEDS ORDERED: ALPRAZolam 0.5 MG TAB PO ONE (15:45)
[2019-12-31] MEDS ORDERED: MOM 30ML SUSPENSION UDC PO PRN (19:00)
[2019-12-31] MEDS ORDERED: ACETAMINOPHEN TAB 650MG DOSE (2X325MG) PO PRN (19:00)
[2019-12-31 20:25] VITALS: BP 138/75
[2019-12-31] MEDS: DORZOLAMIDE 2% OPHTH SOLN 10 ML BTL OD SCH (21:00)
[2019-12-31] MEDS: PANTOPRAZOLE 40MG TAB (PROTONIX) PO SCH (21:04)
[2019-12-31] MEDS: DOCUSATE SODIUM 100 MG CAP PO SCH (21:04)
[2019-12-31] MEDS: haloperidoL 5 MG TAB PO SCH (21:04)
[2019-12-31] MEDS: ATORVASTATIN 20 MG TAB PO SCH (21:04)
[2019-12-31] MEDS: traZODone 50 MG TAB PO PRN (22:19)
[2019-12-31] MEDS: MAALOX 30 ML SUSP *UDC PO PRN (22:46)
[2020-01-01 06:20] VITALS: BP 124/76
[2020-01-01] MEDS: LEVOTHYROXINE 112MCG TABLET (0.112MG) PO SCH (06:28)
[2020-01-01] MEDS: metFORMIN (GLUCOPHAGE) 500 MG TAB PO SCH ×2 (08:23→17:17)
[2020-01-01] MEDS: haloperidoL 5 MG TAB PO SCH (08:23)
[2020-01-01] MEDS: DOCUSATE SODIUM 100 MG CAP PO SCH ×2 (08:23→20:39)
[2020-01-01] MEDS: VITAMIN D 1,000 INTERNATIONAL UNITS TABLET PO SCH (08:23)
[2020-01-01 09:42] VITALS: BP 130/83
[2020-01-01] MEDS: METOPROLOL SUCC *XL* 25MG TAB (TopROL *XL*) PO SCH (09:42)
[2020-01-01] MEDS: DORZOLAMIDE 2% OPHTH SOLN 10 ML BTL OD SCH ×2 (09:42→20:39)
--- NOTE | 2020-01-01 09:59 | MHHPEPDOC ---
[facility] History & Physical History and Physical DATE OF ADMISSION: December 31, 2019 at 19:00 New Patient Ning Wright MRN: N/A Date of : N/A Date of Service: 01/01/2020 Chief Complaint " I am here." History of Present Illness The patient a recently discharged 39-year-old woman with intellectual disabilities, presents after reportedly becoming quite upset when she was discharged back to her home. Although an attempt had been made to triage her back to home from the ER. She had reportedly been scratching herself where subsequently the ER provider was concerned about her safety and was insistent on her being admitted. When the patient was met with, she reported that she had "no problems" and simply did not want to return to her half-way. She was unable to ascribe any specifics or even not relay basic information of a previous complaint against a person's name Myrna". She generally reports that things are "the same." Review Of Systems Depression: No changes. Anxiety: No changes. Itzel: No changes. Psychotic: No changes. Trauma: No changes. Borderline: No changes. Past Psychiatric History Reportedly, has a history of depression, was on Wellbutrin, followed up at [facility]. No history of suicide attempts. Last admission 1 day ago. Allergies Please see below. Family Psychiatric History Noncontributory. Social History Patient lives in a [facility]. There is no history of trauma or abuse. She has completed the 12th grade with an IEP. She currently has lived and supported by [facility]. No known history of legal problems at this time. Substance Abuse History No notable substance use history. Medical History Reports a history of hypertension and cholesterol problems. Mental Status Examination General: Well dressed with good hygiene Speech: Spontaneous and fluid Thought processes: Linear and logical MSK: Smooth and coordinated gait, no signs of tremors or involuntary orofacial movements Thought content: Future orientated Abstract reasoning, and computation: Intact Description of associations: Intact Description of abnormal or psychotic thoughts: Denies any suicidal or homicidal ideation. Denies any auditory or visual hallucinations. Does not appear to be responding to internal stimuli. Does not appear to be endorsing any bizarre or paranoid ideation. Judgment: limited Insight: limited Orientation: Alert and orientated 3 Cognition: Grossly normal Recent and remote memory: Intact Attention span and concentration: Intact Fund of knowledge: Adequate Mood: "okay" Affect: Euthymic with a full range Diagnoses Unspecified impulse/conduct disorder. Malingering. Intellectual disability moderate. Assessment and Plan Unspecified impulse/conduct disorder: Continue Haldol 5 mg BID. We will increase to 10 mg, this will likely help improve her ability to tolerate frustration, as it appears that her impulsive behavior makes it difficult to engage in a dischar ge. Malingering: I am still under the strong concerned of malingering as she only manifests her suicidal and homicidal thoughts as well as behaviors only when speaking about going back to the half-way. Have discussed about reaching out to [facility] in order to ascertain whether there is any specific conflicts the patient has been in. Intellectual disability: Stable at this time. Disposition We will monitor overnight and increase medications to ideally get her feeling more in control and perhaps discharge tomorrow if she does not meet involuntary criteria. Problem List 1. Ineffective coping. Initial Treatment Plan 1. Patient was admitted on a 9.39 legal status. 2. Complete history was obtained. 3. With patients permission, family will be contacted and database will be expanded. 4. Patients medication regimen will be reviewed and changed accordingly. 5. Patient will be provided with protected environment. 6. Patient will be treated with individual, group, and milieu therapies. 7. Patient will receive supportive psych-education. 8. Discharge planning will commence immediately. 9. Outpatient follow-up treatment will be strongly recommended. 10. The initial treatment plan will focus initially on: Estimated Length Of Stay 2 days. Time Spent 70 minutes with greater than 50% of time spent on counseling/coordination of care. Vital Signs Vital Signs Date Time Temp Pulse Resp B/P (MAP) Pulse Ox O2 Delivery O2 Flow Rate FiO2 01/01/20 09:42 113 130/83 01/01/20 06:20 98.4 18 96 Room Air Medications Scheduled Atorvastatin Calcium (Atorvastatin Calcium) 20 Mg Tablet, 20 MG PO QHS, (Reported) Brimonidine Tartrate/Timolol (Combigan 0.2%-0.5% Eye Drops) 1 Lula Lula, 1 DROP OU BID, (Reported) Bupropion Hcl (Bupropion Xl) 150 Mg Tab, 150 MG PO DAILY, (Reported) Cholecalciferol (Vitamin D3) (Vitamin D3) 1,000 Unit Tablet, 1,000 UNITS PO DAILY, (Reported) Docusate Sodium (Stool Softener) 100 Mg Capsule, 100 MG PO BID, (Reported) Dorzolamide HCl (Dorzolamide HCl) 2% 10ML Drops, 1 DROP OD BID, (Reported) Haloperidol (Haloperidol) 10 Mg Tablet, 10 MG PO BID for thought Ketotifen Fumarate (Ketotifen Fumarate) 5 Ml Drops, 1 DROP OU BID, (Reported) Levothyroxine Sodium (Levothyroxine Sodium) 112 Mcg Tablet, 112 MCG PO DAILY, (Reported) Metformin HCl (Metformin HCl) 500 Mg Tablet, 500 MG PO BID, (Reported) Metoprolol Succinate (Metoprolol Succinate) 25 Mg Tab, 25 MG PO DAILY, (Reported) Norgestimate-Ethinyl Estradiol (Tri-Sprintec Tablet) 1 Each Tablet, 1 TAB PO QHS, (Reported) Pantoprazole Sodium (Pantoprazole Sodium) 40 Mg Tablet.dr, 40 MG PO QPM, (Repo rted) Allergies Coded Allergies: ketorolac (Verified Allergy, Intermediate, rash, itching, 02/10/19) was given close together with morphine; unsure which one caused allergic reaction morphine (Verified Allergy, Intermediate, rash, itching, 02/10/19) LISANDRO FONSECA DO January 01, 2020 09:59
--- NOTE | 2020-01-01 18:01 | HPEPDOC ---
[facility] Medical History & Physical Date of Admission January 01, 2020 Date of Service: January 01, 2020 History and Physical Chief complaint: Suicidal ideation History of present illness: This is the 39-year-old female with aspirin, history of depression and suicidal ideation was recently discharged from the behavioral health unit, comes to the psychiatric unit and we have been consulted for medical reasons. She admits to suicidal ideation but has no definite plans. Currently has been admitted to the psychiatric facility and the management will be as per them. She was [facility] the [facility] of which it appears that she has some conflicting issues with another individual. She denies any shortness of breath, any chest pain, any headache. Family history. Hypertension. Social history. Occasional smoker. Denies any drug abuse. Denies any recreational drug use. Past medical history none except for depression. Past surgical history none as per patient Review of systems. Pertinent positive findings as per HPI and is negative PHYSICAL EXAMINATION: General: The patient is awake, alert, oriented x3, sitting up in the bed in no apparent distress. Head and Neck Exam: Extraocular muscles intact. Pupils equally round and reactive to light. Mucous membranes are moist. Neck is supple. There is no jugular venous distention (JVD). Cardiovascular: S1 and S2, regular rate. No real edema Respiratory: Clear auscultation Abdomen: Soft. Positive bowel sounds. Nontender. No organomegaly. Genitourinary: Deferred Musculoskeletal: Clubbing of the fingernails, no cyanosis was noted. Central Nervous System (INTRAVENOUS THERAPY NURSE): No focal deficit. Power is 5/5 in all extremities. Medications reviewed Radiology reviewed Assessment and plan This is a 39-year-old female was been admitted to the psychiatric facility for suicide ideation. And we have been consulted for medical management. 1. Suicide attempt. Management is per psychiatry. Diet as per psychiatric Please reconsult if needed Thank so much for consulting us on this patient Vital Signs Vital Signs Date Time Temp Pulse Resp B/P (MAP) Pulse Ox O2 Delivery O2 Flow Rate FiO2 01/01/20 09:42 113 130/83 01/01/20 06:20 98.4 18 96 Room Air Home Medications Scheduled Atorvastatin Calcium (Atorvastatin Calcium) 20 Mg Tablet, 20 MG PO QHS Brimonidine Tartrate/Timolol (Combigan 0.2%-0.5% Eye Drops) 1 Lula Lula, 1 DROP OU BID Bupropion Hcl (Bupropion Xl) 150 Mg Tab, 150 MG PO DAILY Cholecalciferol (Vitamin D3) (Vitamin D3) 1,000 Unit Tablet, 1,000 UNITS PO DAILY Docusate Sodium (Stool Softener) 100 Mg Capsule, 100 MG PO BID Dorzolamide HCl (Dorzolamide HCl) 2% 10ML Drops, 1 DROP OD BID Haloperidol (Haloperidol) 10 Mg Tablet, 10 MG PO BID for thought Ketotifen Fumarate (Ketotifen Fumarate) 5 Ml Drops, 1 DROP OU BID Levothyroxine Sodium (Levothyroxine Sodium) 112 Mcg Tablet, 112 MCG PO DAILY Metformin HCl (Metformin HCl) 500 Mg Tablet, 500 MG PO BID Metoprolol Succinate (Metoprolol Succinate) 25 Mg Tab, 25 MG PO DAILY Norgestimate-Ethinyl Estradiol (Tri-Sprintec Tablet) 1 Each Tablet, 1 TAB PO QHS Pantoprazole Sodium (Pantoprazole Sodium) 40 Mg Tablet.dr, 40 MG PO QPM Allergies Coded Allergies: ketorolac (Verified Allergy, Intermediate, rash, itching, 02/10/19) was given close together with morphine; unsure which one caused allergic reaction morphine (Verified Allergy, Intermediate, rash, itching, 02/10/19) A-FIB/CHADSVASC A-FIB History Current/History of A-Fib/PAF?: No Current PO Anticoag Therapy: No DAYTON GARZA MD January 01, 2020 18:01
[2020-01-01] MEDS: traZODone 50 MG TAB PO PRN (20:39)
[2020-01-01] MEDS: ATORVASTATIN 20 MG TAB PO SCH (20:39)
[2020-01-01] MEDS: PANTOPRAZOLE 40MG TAB (PROTONIX) PO SCH (20:39)
[2020-01-01] MEDS: MAALOX 30 ML SUSP *UDC PO PRN (21:11)
[2020-01-02] MEDS: LEVOTHYROXINE 112MCG TABLET (0.112MG) PO SCH (06:04)
[2020-01-02 06:13] VITALS: BP 141/65
[2020-01-02] MEDS: VITAMIN D 1,000 INTERNATIONAL UNITS TABLET PO SCH (08:11)
[2020-01-02] MEDS: METOPROLOL SUCC *XL* 25MG TAB (TopROL *XL*) PO SCH (08:12)
[2020-01-02] MEDS: metFORMIN (GLUCOPHAGE) 500 MG TAB PO SCH ×2 (08:12→08:21)
[2020-01-02] MEDS: DORZOLAMIDE 2% OPHTH SOLN 10 ML BTL OD SCH (08:12)
[2020-01-02] MEDS: DOCUSATE SODIUM 100 MG CAP PO SCH (08:20)
--- NOTE | 2020-01-02 09:23 | MHDSPDOC ---
[facility] Discharge Summary Discharge Summary DATE OF ADMISSION: December 31, 2019 at 19:00 DATE OF DISCHARGE: 01/02/2020 Discharge Ning Wright MRN: N/A Date of : N/A Date of Service: 01/02/2020 Diagnoses Unspecified impulse/conduct disorder. Malingering. Intellectual disability moderate. History of Present Illness The patient a 39-year-old woman who I recently discharged as of several hours ago from the inpatient unit is brought back in after she reportedly resists being discharged after being noncompliant with treatment, denying suicidal homicidal ideation but then suddenly manifesting it when discharge is approached. The patient was aggressive and primarily focused on continuing her inpatient admission. She reported suicidal ideation to the police who are escorting her up due to her aggression and she was brought back in for evaluation. When he met with the patient, she reports no major changes and when asked specifically if there were issues at the house that had led her to not want to return, she sheepishly responded "no". The patient presents no other changes and generally does not engage in any meaningful interview with me at this time. Consultants Involved Hospitalist/PCP screening Treatment and Progress On The Unit The patient was admitted to the inpatient mental health unit. She was not resumed on Wellbutrin and was changed onto Haldol 5 mg b.i.d. for her impulsive problems. Increased to 10 mg the patient did well with that. No signs of progression or behavior problems, only becoming upset when discussion of going home had arisen. Eventually the patient did stabilize and before the 48 hours of extension, the patient had requested discharge reporting that she was feeling fine. She had no behavioral problems on the unit during the observation. Discharge Assessment 39-year-old woman with likely intellectual disabilities and malingering on her unit. She does not want to return home. Her impulsive problems necessitate her readmission. She was treated appropriately with Haldol in order to reduce this. She does not meet involuntary criteria as she has no suicidal/homicidal ideation and is currently able to relay information and is in behavioral control. Mental Status Examination General: Well dressed with good hygiene Speech: Spontaneous and fluid Thought processes: Linear and logical MSK: Smooth and coordinated gait, no signs of tremors or involuntary orofacial movements Thought content: Future orientated Abstract reasoning, and computation: Intact Description of associations: Intact Description of abnormal or psychotic thoughts: Denies any suicidal or homicidal ideation. Denies any auditory or visual hallucinations. Does not appear to be responding to internal stimuli. Does not appear to be endorsing any bizarre or paranoid ideation. Judgment: Chronically limited. Insight: Chronically limited. Orientation: Alert and orientated 3 Cognition: Grossly normal Recent and remote memory: Intact Attention span and concentration: Intact Fund of knowledge: Adequate Mood: "okay" Affect: Euthymic with a full range. Follow Up The social work team worked during the predischarge meeting in order to evaluate for further issues of lethality address them fully before discharge. They worked on safety planning with the patient's family members in order to ensure that the patient will have a safe and effective discharge. Time Spent The amount of time spent in the coordination of care for this patient was approximately 45 minutes. Sunday Vital Signs/I&Os Vital Signs Date Time Temp Pulse Resp B/P (MAP) Pulse Ox O2 Delivery O2 Flow Rate FiO2 01/02/20 06:13 98.3 88 14 141/65 (90) 96 Room Air Medications Scheduled Atorvastatin Calcium (Atorvastatin Calcium) 20 Mg Tablet, 20 MG PO QHS, (Reported) Brimonidine Tartrate/Timolol (Combigan 0.2%-0.5% Eye Drops) 1 Lula Lula, 1 DROP OU BID, (Reported) Bupropion Hcl (Bupropion Xl) 150 Mg Tab, 150 MG PO DAILY, (Reported) Cholecalciferol (Vitamin D3) (Vitamin D3) 1,000 Unit Tablet, 1,000 UNITS PO DAILY, (Reported) Docusate Sodium (Stool Softener) 100 Mg Capsule, 100 MG PO BID, (Reported) Dorzolamide HCl (Dorzolamide HCl) 2% 10ML Drops, 1 DROP OD BID, (Reported) Haloperidol (Haloperidol) 10 Mg Tablet, 10 MG PO BID for thought for 7 Days, #14 Ketotifen Fumarate (Ketotifen Fumarate) 5 Ml Drops, 1 DROP OU BID, (Reported) Levothyroxine Sodium (Levothyroxine Sodium) 112 Mcg Tablet, 112 MCG PO DAILY, (Reported) Metformin HCl (Metformin HCl) 500 Mg Tablet, 500 MG PO BID, (Reported) Metoprolol Succinate (Metoprolol Succinate) 25 Mg Tab, 25 MG PO DAILY, (Reported) Norgestimate-Ethinyl Estradiol (Tri-Sprintec Tablet) 1 Each Tablet, 1 TAB PO QH S, (Reported) Pantoprazole Sodium (Pantoprazole Sodium) 40 Mg Tablet.dr, 40 MG PO QPM, (Reported) Allergies Coded Allergies: ketorolac (Verified Allergy, Intermediate, rash, itching, 02/10/19) was given close together with morphine; unsure which one caused allergic reaction morphine (Verified Allergy, Intermediate, rash, itching, 02/10/19) LISANDRO FONSECA DO January 02, 2020 09:23
[2020-01-02] MEDS ORDERED: HALO10TA20 PO (09:58)
== END 2020-01-02 13:55 | disposition home or self-care (01) | DRG 886 ==
LOC: M ED 16:16 → M ED INP 12-31 19:00 → M PSY 12-31 20:05
PROVIDERS: ADMIT Psychiatry & Neurology Addiction Medicine; ATTEND Psychiatry & Neurology Addiction Medicine
DX: F63.9 Impulse disorder, unspecified (principal); R45.851 Suicidal ideations; Z91.19 Patient's noncompliance with other medical treatment and regimen; Z79.899 Other long term (current) drug therapy; Z88.5 Allergy status to narcotic agent; Z88.8 Allergy status to other drugs, medicaments and biological substances

== ENCOUNTER 2020-01-06 00:12 | Emergency (ER) | payer MEDICARE, MEDICAID ==
[~2020-01-06] VITALS: Ht 167.6 cm; Wt 90.3 kg
[~2020-01-06 00:12] MED LIST changes: +HALO10TA20 PO
[2020-01-06 00:39] VITALS: BP 130/79
[2020-01-06 00:41] LABS: HEMATOCRIT 36.9 % (36.0-47.0); HEMOGLOBIN 11.9 g/dl (12.0-15.5); MEAN CORPUSCULAR HEMOGLOBIN 28.1 pg (27.0-33.0); MEAN CORPUSCULAR HGB CONC 32.2 g/dl (32.0-36.5); PLATELET COUNT, AUTOMATED 617 10^3/uL (150-450); RED BLOOD COUNT 4.24 10^6/uL (4.00-5.40); WHITE BLOOD COUNT 18.6 10^3/uL (4.0-10.0)
[2020-01-06 01:05] LABS: HCG, SERUM QUALITATIVE NEGATIVE (NEGATIVE)
[2020-01-06 01:16] LABS: ALBUMIN 2.9 GM/DL (3.2-5.2); ALT/SGPT 16 U/L (12-78); BILIRUBIN,DIRECT 0.2 MG/DL (0.0-0.2); BILIRUBIN,TOTAL 0.4 MG/DL (0.2-1.0); BLOOD UREA NITROGEN 11 MG/DL (7-18); CALCIUM LEVEL 8.1 MG/DL (8.5-10.1); CARBON DIOXIDE LEVEL 27 MEQ/L (21-32); CHLORIDE LEVEL 100 MEQ/L (98-107); CREATININE FOR GFR 0.73 MG/DL (0.55-1.30); GLOMERULAR FILTRATION RATE > 60.0 (>60); GLUCOSE, FASTING 106 MG/DL (70-100); POTASSIUM SERUM 3.4 MEQ/L (3.5-5.1); SALICYLATE LEVEL < 1.7 MG/DL (5.0-30.0); SODIUM LEVEL 133 MEQ/L (136-145); TOTAL PROTEIN 6.8 GM/DL (6.4-8.2)
[2020-01-06 01:17] LABS: ACETAMINOPHEN LEVEL < 2.0 UG/ML (10.0-30.0); ETHYL ALCOHOL (ETHANOL) < 0.003 % (0.000-0.010)
[2020-01-06] MEDS ORDERED: POTASSIUM CHLORIDE 10 MEQ SR TABLET PO ONE (01:45)
[2020-01-06] MEDS ORDERED: ONDANSETRON 4 MG ORAL DISINTEGRATING TAB PO ONE (01:45)
[2020-01-06] MEDS ORDERED: POTASSIUM CHLORIDE 10 MEQ SR TABLET As Ordered ONE (01:56)
[2020-01-06 04:27] LABS: AMPHETAMINES LEVEL URINE NEGATIVE (NEGATIVE); BARBITURATES URINE NEGATIVE (NEGATIVE); BENZODIAZEPINES URINE NEGATIVE (NEGATIVE); CANNABINOIDS URINE NEGATIVE (NEGATIVE); COCAINE METABOLITE URINE NEGATIVE (NEGATIVE); METHADONE URINE NEGATIVE (NEGATIVE); OPIATES URINE NEGATIVE (NEGATIVE); PHENCYCLIDINE URINE NEGATIVE (NEGATIVE)
== END 2020-01-06 05:20 | disposition home or self-care (01) ==
LOC: M ED 00:12
DX: F63.9 Impulse disorder, unspecified (principal); I10 Essential (primary) hypertension; F33.9 Major depressive disorder, recurrent, unspecified; F70 Mild intellectual disabilities; Z79.899 Other long term (current) drug therapy; Z79.84 Long term (current) use of oral hypoglycemic drugs; Z88.5 Allergy status to narcotic agent; Z88.8 Allergy status to other drugs, medicaments and biological substances
CPT/HCPCS: 36415; 80048; 80076; 80307; 84443; 84703; 85027; 99284; G0480; Q0162

== ENCOUNTER → 2020-01-09 | Outpatient (REF) | payer MEDICARE, MEDICAID ==
[~2020-01-09] MED LIST changes: +ARIP1TAB4 PO; -BUPR150T3 PO; +BUPR150T4 PO; +CIPR-249 PO; +D31000TA2 PO; +FERR325T3 PO; +PRED0.12 OU; +SYNT100T PO; +VITA500C24 PO; -VITAD1000T PO; +[UNRECOGNIZED DRUG - OTHER]
[2020-01-09 13:01] LABS: BASO # 0.1 10^3/uL (0.0-0.2); BASO % 0.5 % (0.0-1.0); EOS # 0.3 10^3/uL (0.0-0.5); EOS % 1.6 % (0.0-3.0); HEMATOCRIT 35.5 % (36.0-47.0); HEMOGLOBIN 11.6 g/dl (12.0-15.5); LYMPH # 2.2 10^3/uL (1.5-5.0); MEAN CORPUSCULAR HEMOGLOBIN 29.2 pg (27.0-33.0); MEAN CORPUSCULAR HGB CONC 32.7 g/dl (32.0-36.5); MEAN CORPUSCULAR VOLUME 89.4 fl (80.0-96.0); MONO # 1.2 10^3/uL (0.0-0.8); MONO % 7.1 % (0.0-5.0); NEUTROPHILS # 12.9 10^3/uL (1.5-8.5); NEUTROPHILS % 76.6 % (36.0-66.0); PLATELET COUNT, AUTOMATED 597 10^3/uL (150-450); RED BLOOD COUNT 3.97 10^6/uL (4.00-5.40); WHITE BLOOD COUNT 16.8 10^3/uL (4.0-10.0)
[2020-01-09 14:03] LABS: ALBUMIN 2.8 GM/DL (3.2-5.2); ALT/SGPT 16 U/L (12-78); BILIRUBIN,TOTAL 0.2 MG/DL (0.2-1.0); BLOOD UREA NITROGEN 13 MG/DL (7-18); CALCIUM LEVEL 9.7 MG/DL (8.5-10.1); CARBON DIOXIDE LEVEL 29 MEQ/L (21-32); CHLORIDE LEVEL 99 MEQ/L (98-107); CREATININE FOR GFR 0.67 MG/DL (0.55-1.30); GLOMERULAR FILTRATION RATE > 60.0 (>60); GLUCOSE, FASTING 97 MG/DL (70-100); POTASSIUM SERUM 4.7 MEQ/L (3.5-5.1); SODIUM LEVEL 134 MEQ/L (136-145); TOTAL PROTEIN 6.4 GM/DL (6.4-8.2)
== END ==
LOC: M SFHCPLAZ 10:48
PROVIDERS: ATTEND Physician Assistant Medical
DX: K52.9 Noninfective gastroenteritis and colitis, unspecified (principal); F91.8 Other conduct disorders
CPT/HCPCS: 36415; 80053; 85025; 87507; 90791; G0463

== ENCOUNTER 2020-01-21 09:29 | Emergency (ER) | payer MEDICARE, MEDICAID ==
[~2020-01-21] VITALS: Ht 162.6 cm; Wt 75.0 kg
[~2020-01-21 09:29] MED LIST changes: -ARIP1TAB4 PO; +BUPR150T3 PO; -BUPR150T4 PO; -CIPR-249 PO; -D31000TA2 PO; -FERR325T3 PO; -PRED0.12 OU; -SYNT100T PO; -VITA500C24 PO; +VITAD1000T PO; -[UNRECOGNIZED DRUG - OTHER]
[2020-01-21 10:03] LABS: HEMATOCRIT 37.1 % (36.0-47.0); HEMOGLOBIN 12.3 g/dl (12.0-15.5); MEAN CORPUSCULAR HEMOGLOBIN 28.5 pg (27.0-33.0); MEAN CORPUSCULAR HGB CONC 33.2 g/dl (32.0-36.5); MEAN CORPUSCULAR VOLUME 86.1 fl (80.0-96.0); PLATELET COUNT, AUTOMATED 721 10^3/uL (150-450); RED BLOOD COUNT 4.31 10^6/uL (4.00-5.40); WHITE BLOOD COUNT 20.6 10^3/uL (4.0-10.0)
[2020-01-21 10:25] LABS: HCG, SERUM QUALITATIVE NEGATIVE (NEGATIVE)
[2020-01-21 10:27] LABS: AMPHETAMINES LEVEL URINE NEGATIVE (NEGATIVE); BARBITURATES URINE NEGATIVE (NEGATIVE); BENZODIAZEPINES URINE NEGATIVE (NEGATIVE); CANNABINOIDS URINE NEGATIVE (NEGATIVE); COCAINE METABOLITE URINE NEGATIVE (NEGATIVE); METHADONE URINE NEGATIVE (NEGATIVE); OPIATES URINE NEGATIVE (NEGATIVE); PHENCYCLIDINE URINE NEGATIVE (NEGATIVE)
[2020-01-21 10:41] LABS: ACETAMINOPHEN LEVEL < 2.0 UG/ML (10.0-30.0); ALBUMIN 3.1 GM/DL (3.2-5.2); ALT/SGPT 17 U/L (12-78); BILIRUBIN,DIRECT 0.1 MG/DL (0.0-0.2); BILIRUBIN,TOTAL 0.3 MG/DL (0.2-1.0); BLOOD UREA NITROGEN 11 MG/DL (7-18); CALCIUM LEVEL 8.9 MG/DL (8.5-10.1); CARBON DIOXIDE LEVEL 25 MEQ/L (21-32); CHLORIDE LEVEL 104 MEQ/L (98-107); CREATININE FOR GFR 0.92 MG/DL (0.55-1.30); ETHYL ALCOHOL (ETHANOL) < 0.003 % (0.000-0.010); GLOMERULAR FILTRATION RATE > 60.0 (>60); GLUCOSE, FASTING 130 MG/DL (70-100); POTASSIUM SERUM 3.8 MEQ/L (3.5-5.1); SALICYLATE LEVEL < 1.7 MG/DL (5.0-30.0); SODIUM LEVEL 136 MEQ/L (136-145); TOTAL PROTEIN 7.2 GM/DL (6.4-8.2)
[2020-01-21] MEDS ORDERED: ONDANSETRON 4 MG ORAL DISINTEGRATING TAB PO ONE (11:45)
[2020-01-21] MEDS ORDERED: LORazepam 2 MG TAB PO STA (13:34)
[2020-01-21 15:55] LABS: HEMATOCRIT 36.7 % (36.0-47.0); HEMOGLOBIN 12.1 g/dl (12.0-15.5); MEAN CORPUSCULAR HEMOGLOBIN 28.6 pg (27.0-33.0); MEAN CORPUSCULAR VOLUME 86.8 fl (80.0-96.0); PLATELET COUNT, AUTOMATED 675 10^3/uL (150-450); RED BLOOD COUNT 4.23 10^6/uL (4.00-5.40); WHITE BLOOD COUNT 17.6 10^3/uL (4.0-10.0)
[2020-01-21] MEDS ORDERED: HALO10TA20 PO (23:06)
[2020-01-22 08:26] VITALS: BP 139/79
--- NOTE | 2020-01-22 21:25 | ECGEPIP ---
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
== END 2020-01-22 08:27 ==
LOC: M ED 09:29
DX: R45.851 Suicidal ideations (principal); D72.829 Elevated white blood cell count, unspecified; F32.9 Major depressive disorder, single episode, unspecified; Z79.899 Other long term (current) drug therapy; Z88.5 Allergy status to narcotic agent; Z88.8 Allergy status to other drugs, medicaments and biological substances
CPT/HCPCS: 80048; 80076; 80307; 84443; 84703; 85027; 87486; 87581; 87633; 87798; 93005; 99284; G0480; Q0162

== ENCOUNTER → 2020-03-19 | Outpatient (CLI) | payer MEDICARE, MEDICAID ==
[~2020-03-19] MED LIST changes: +ARIP1TAB4 PO; +CIPR-249 PO; +D31000TA2 PO; +PRED0.12 OU; +SYNT100T PO; -VITAD1000T PO; +[UNRECOGNIZED DRUG - OTHER]
[2020-04-17 04:28] LABS: BASO # 0.1 10^3/uL (0.0-0.2); BASO % 0.3 % (0.0-1.0); EOS # 0.2 10^3/uL (0.0-0.5); EOS % 0.9 % (0.0-3.0); HEMATOCRIT 39.7 % (36.0-47.0); HEMOGLOBIN 12.3 g/dl (12.0-15.5); LYMPH # 1.4 10^3/uL (1.5-5.0); LYMPH % 7.7 % (24.0-44.0); MEAN CORPUSCULAR HEMOGLOBIN 27.5 pg (27.0-33.0); MEAN CORPUSCULAR VOLUME 88.6 fl (80.0-96.0); MONO # 1.2 10^3/uL (0.0-0.8); MONO % 6.7 % (0.0-5.0); PLATELET COUNT, AUTOMATED 479 10^3/uL (150-450); RED BLOOD COUNT 4.48 10^6/uL (4.00-5.40); WHITE BLOOD COUNT 17.9 10^3/uL (4.0-10.0)
[2020-04-28 22:47] LABS: ALBUMIN 3.7 GM/DL (3.2-5.2); ALT/SGPT 19 U/L (12-78); BILIRUBIN,TOTAL 0.2 MG/DL (0.2-1.0); BLOOD UREA NITROGEN 13 MG/DL (7-18); CARBON DIOXIDE LEVEL 24 MEQ/L (21-32); CHLORIDE LEVEL 108 MEQ/L (98-107); CHOLESTEROL LEVEL 114 MG/DL (<200); CREATININE FOR GFR 0.72 MG/DL (0.55-1.30); FREE T4 1.35 NG/DL (0.76-1.46); GLOMERULAR FILTRATION RATE > 60.0 (>60); GLUCOSE, FASTING 95 MG/DL (70-100); HDL CHOLESTEROL 50 MG/DL (>40); LDL CHOLESTEROL 40 MG/DL (<100); NON-HDL-C 64 MG/DL; POTASSIUM SERUM 4.2 MEQ/L (3.5-5.1); SODIUM LEVEL 138 MEQ/L (136-145); THYROID STIMULATING HORMONE 0.319 uIU/ML (0.358-3.740); TOTAL PROTEIN 7.2 GM/DL (6.4-8.2); TRIGLYCERIDES LEVEL 120 MG/DL (<150)
[2020-04-28 22:48] LABS: HEMOGLOBIN A1c 5.3 %
== END ==
LOC: M LAB 08:57
PROVIDERS: ATTEND Physician Assistant Medical
DX: E03.9 Hypothyroidism, unspecified (principal); I10 Essential (primary) hypertension; E78.2 Mixed hyperlipidemia; R73.01 Impaired fasting glucose; F32.9 Major depressive disorder, single episode, unspecified; K21.9 Gastro-esophageal reflux disease without esophagitis

== ENCOUNTER 2020-05-03 15:57 | Inpatient (IN) | payer MEDICARE, MEDICAID ==
[~2020-05-03] VITALS: Ht 172.7 cm; Wt 74.3 kg
[~2020-05-03 15:57] MED LIST changes: -ARIP1TAB4 PO; -CIPR-249 PO; -PRED0.12 OU; -SYNT100T PO; -[UNRECOGNIZED DRUG - OTHER]
[2020-05-03] MEDS ORDERED: [UNRECOGNIZED DRUG - OTHER] (16:17)
[2020-05-03] MEDS ORDERED: ZOLO100T PO (16:20)
[2020-05-03] MEDS ORDERED: TRAZ-252 PO (16:20)
[2020-05-03 16:33] LABS: HEMATOCRIT 32.3 % (36.0-47.0); HEMOGLOBIN 10.8 g/dl (12.0-15.5); MEAN CORPUSCULAR HEMOGLOBIN 27.1 pg (27.0-33.0); MEAN CORPUSCULAR HGB CONC 33.4 g/dl (32.0-36.5); PLATELET COUNT, AUTOMATED 586 10^3/uL (150-450); RED BLOOD COUNT 3.99 10^6/uL (4.00-5.40)
[2020-05-03 16:37] LABS: WHITE BLOOD COUNT 41.5 10^3/uL (4.0-10.0)
[2020-05-03] MEDS ORDERED: ONDANSETRON 4MG/2ML VIAL IV ONE (17:15)
[2020-05-03] MEDS ORDERED: NS 1,000 ML IV ONE ×2 (17:15→18:00)
[2020-05-03 17:38] LABS: ACETAMINOPHEN LEVEL < 2.0 UG/ML (10.0-30.0); ALBUMIN 2.5 GM/DL (3.2-5.2); ALT/SGPT 21 U/L (12-78); BILIRUBIN,DIRECT 0.2 MG/DL (0.0-0.2); BILIRUBIN,TOTAL 0.3 MG/DL (0.2-1.0); BLOOD UREA NITROGEN 21 MG/DL (7-18); CALCIUM LEVEL 8.3 MG/DL (8.5-10.1); CARBON DIOXIDE LEVEL 24 MEQ/L (21-32); CHLORIDE LEVEL 97 MEQ/L (98-107); CREATININE FOR GFR 0.99 MG/DL (0.55-1.30); ETHYL ALCOHOL (ETHANOL) < 0.003 % (0.000-0.010); GLOMERULAR FILTRATION RATE > 60.0 (>60); GLUCOSE, FASTING 113 MG/DL (70-100); LIPASE 54 U/L (73-393); POTASSIUM SERUM 2.9 MEQ/L (3.5-5.1); SALICYLATE LEVEL < 1.7 MG/DL (5.0-30.0); SODIUM LEVEL 129 MEQ/L (136-145); THYROID STIMULATING HORMONE 0.793 uIU/ML (0.358-3.740); TOTAL PROTEIN 6.7 GM/DL (6.4-8.2)
[2020-05-03 17:56] LABS: HEMOGLOBIN 10.4 g/dl (12.0-15.5); MEAN CORPUSCULAR HEMOGLOBIN 26.6 pg (27.0-33.0); MEAN CORPUSCULAR HGB CONC 32.5 g/dl (32.0-36.5); MEAN CORPUSCULAR VOLUME 81.8 fl (80.0-96.0); PLATELET COUNT, AUTOMATED 555 10^3/uL (150-450); RED BLOOD COUNT 3.91 10^6/uL (4.00-5.40)
[2020-05-03 18:00] LABS: WHITE BLOOD COUNT 38.8 10^3/uL (4.0-10.0)
[2020-05-03] MEDS ORDERED: POTASSIUM CHLORIDE 10 MEQ SR TABLET PO ONE (18:00)
[2020-05-03 18:08] LABS: MAGNESIUM LEVEL 1.3 MG/DL (1.8-2.4)
[2020-05-03] MEDS ORDERED: ACETAMINOPHEN 325 MG TAB PO ONE (18:15)
[2020-05-03 18:18] LABS: EOSINOPHILS 1 % (0-3); LYMPHOCYTES 4 % (16-44); MONOCYTES 3 % (0-5); NEUTROPHILS 90 % (28-66)
[2020-05-03 18:19] LABS: ANISOCYTOSIS 1+; HYPOCHROMASIA 1+; PLATELET ESTIMATE INCREASED (NORMAL)
[2020-05-03 18:20] LABS: TEAR DROP CELLS 1+
[2020-05-03 18:23] LABS: CK-MB VALUE MASS < 1.0 NG/ML (<3.6); CPK CREATINE PHOSPHOKINASE 60 U/L (26-192); MB/CK RELATIVE INDEX 1.67 (< OR =4); TROPONIN I < 0.02 NG/ML (< 0.10)
[2020-05-03] MEDS ORDERED: ISOVUE-370 76% 100ML VIAL As Ordered ONE (18:44)
[2020-05-03] MEDS ORDERED: PIPERACILLIN/TAZOBACTAM SOD 4.5 GM in D5W MINI-BAG PLUS 50 ML IV ONE (18:45)
[2020-05-03] MEDS ORDERED: MAG SULF 1GM/100ML (MAG RUN) 1 GM in IV 1 EA IV ONE (18:45)
--- NOTE | 2020-05-03 18:57 | REPVR ---
PROCEDURE INFORMATION: Exam: XR Chest, 1 View Exam date and time: 05/03/2020 6:06 PM Age: 39 years old Clinical indication: Shortness of breath; Additional info: [place] TECHNIQUE: Imaging protocol: XR of the chest Views: 1 view. COMPARISON: CR Chest, 1 view 06/25/2017 8:28 AM FINDINGS: Lungs: Unremarkable. No consolidation. Pleural space: Unremarkable. No pleural effusion. No pneumothorax. Heart/Mediastinum: Unremarkable. No cardiomegaly. Bones/joints: Unremarkable. IMPRESSION: No acute findings. Electronically signed by: Catherine Perrin On 05/03/2020 18:57:35 PM
--- NOTE | 2020-05-03 19:46 | REPVR ---
PROCEDURE INFORMATION: Exam: CT Angiography Chest With Contrast Exam date and time: 05/03/2020 7:06 PM Age: 39 years old Clinical indication: Chest pain; Additional info: Elev wbc TECHNIQUE: Imaging protocol: Computed tomographic angiography of the chest with intravenous contrast. 3D rendering (Not supervised by radiologist): MIP and/or 3D reconstructed images were created by the technologist. Radiation optimization: All CT scans at this facility use at least one of these dose optimization techniques: automated exposure control; mA and/or kV adjustment per patient size (includes targeted exams where dose is matched to clinical indication); or iterative reconstruction. Contrast material: ISOVUE 370; Contrast volume: 100 ml; Contrast route: INTRAVENOUS (IV); COMPARISON: CR Chest, 1 view 05/03/2020 6:24 PM FINDINGS: Pulmonary arteries: No pulmonary emboli. Aorta: No thoracic aortic aneurysm or dissection. Lungs: No lung consolidation. Pleural space: No pleural effusion or pneumothorax. Heart: No cardiomegaly or pericardial effusion. Mediastinal space: Hiatal hernia. Lymph nodes: No mediastinal or hilar lymphadenopathy. Bones/joints: Unremarkable. No acute fracture. Soft tissues: Unremarkable. Other findings: No significant findings in the upper abdomen. IMPRESSION: No acute findings in the thorax. Electronically signed by: Catherine Perrin On 05/03/2020 19:45:51 PM
--- NOTE | 2020-05-03 20:02 | REPVR ---
PROCEDURE INFORMATION: Exam: CT Abdomen And Pelvis With Contrast Exam date and time: 05/03/2020 7:06 PM Age: 39 years old Clinical indication: Abdominal pain; Generalized; Additional info: Elev wbc TECHNIQUE: Imaging protocol: Computed tomography of the abdomen and pelvis with intravenous contrast. Radiation optimization: All CT scans at this facility use at least one of these dose optimization techniques: automated exposure control; mA and/or kV adjustment per patient size (includes targeted exams where dose is matched to clinical indication); or iterative reconstruction. Contrast material: ISOVUE 370; Contrast volume: 100 ml; Contrast route: INTRAVENOUS (IV); COMPARISON: CT ABD/PEL W/IV CONTRAST ONLY 12/25/2019 1:35 PM FINDINGS: Mediastinal space: There is a hiatal hernia. Liver: There are no focal liver lesions although there appears to be a diffuse mottled appearance and is most likely due to the early arterial phase of x-ray contrast. Gallbladder and bile ducts: The gallbladder is unremarkable. Pancreas: The pancreas is normal. Spleen: The spleen is normal. Adrenals: The adrenal glands are unremarkable. Kidneys and ureters: There is focal low density in the left renal cortex laterally mid kidney. There is no hydronephrosis. There is focal low density in the left renal cortex lower pole laterally with adjacent soft tissue stranding. There is no hydronephrosis. Although the appendix is in the region of inflammation surrounding the lower pole of the right kidney and ascending colon the wall does not appear to be thickened. It measures upper limits of normal at 7 mm. Stomach and bowel: Although there is no bowel obstruction there appears to be mild thickening of the small bowel wall. Appendix: See above. Intraperitoneal space: No free air. No significant fluid collection. Vasculature: The aorta is unremarkable. Lymph nodes: Unremarkable. No enlarged lymph nodes. Bladder: The bladder is unremarkable. Reproductive: The cystic structure noted in the right adnexa on the 12/25/2019 CT is no longer apparent. Bones/joints: Unremarkable. No acute fracture. Soft tissues: As above. IMPRESSION: 1. There may be bilateral pyelonephritis most prominent in the right lower pole where there is associated perinephric soft tissue stranding. 2. The inflammation in the right mid abdomen surrounding the lower pole of the right kidney and ascending colon and appendix is most likely associated with renal infection and less likely due to ascending colitis. The appendix is not significantly enlarged and therefore appendicitis is unlikely. 3. The mild small bowel wall thickening may be due to enteritis but could also be associated with lack of distension. Electronically signed by: Catherine Perrin On 05/03/2020 20:01:15 PM
--- NOTE | 2020-05-03 20:36 | ECGEPIP ---
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
[2020-05-03] MEDS ORDERED: PRED0.12 OU (20:57)
[2020-05-03] MEDS ORDERED: BRIMONIDINE 0.15% OPHTH SOLN 5 ML OU SCH (21:00)
[2020-05-03] MEDS ORDERED: ONDANSETRON 4MG/2ML VIAL IV PRN (21:30)
[2020-05-03] MEDS ORDERED: prednisoLONE ACET 1% OPHTH SUSP 5ML OU PRN (22:00)
--- NOTE | 2020-05-03 22:11 | HPEPDOC ---
General Date of Admission 05/03/2020 Date of Service: May 03, 2020 Attending Physician: REI HASSAN MD Chief Complaint The patient is a 39-year-old female admitted with a reason for visit of E. Source: Patient, Caregiver Exam Limitations: No limitations Timing/Duration: Day(s) Associated Symptoms: Fever History of Present Illness 39 yo W with mild mental retardation, MDD, PTSD, hx of suicidal ideation, GERD, gastroparesis, chronic leukocytosis (baseline WBC ~17) presumed reactive to meds from prior workup, HTN, HLD, obesity, hypothyroidism who presented from her [place] with caregiver giving most of the history of recent episodic fevers to 102.8, nausea, emesis and ongoing diarrhea for a few days without rhinorrhea, congestion, new cough, chest pain, palpitations, toxic ingestions. In the ED, she had a low grade temp to 100.4 and soft normotensive but otherwise without acute pain complaints and breathing comfortably on room air. She had nausea and one episode of NBNB emesis. Work up was notable for acute on chronic leukocytosis to 41.5, Hgb 10.8, platelets 586, Na 129, K 2.9, BUN 21, Cr 0.99, glucose 113, LFTs, troponin, TSH, lipase and tox screen were all wnl. She hada lactate of 1.2 and had a CXR nad CTA chest without acute pathology and a CT A/P that showed likely bilateral pyelonephritis most prominent in the right lower pole where there is associated perinephric soft tissue stranding, inflammation in the right mid abdomen surrounding the lower pole of the right kidney and ascending colon and appendix, most likely associated with a renal infection and less likely due to ascending colitis. She was given zosyn, zofran, 1L NS, 1g of Mag sulfate nad 40meq of Kcl and is now being admitted to medicine for sepsis 2/2 pyelonephritis. Home Medications Scheduled Atorvastatin Calcium (Atorvastatin Calcium) 20 Mg Tablet, 20 MG PO QHS, (Reported) Brimonidine Tartrate/Timolol (Combigan 0.2%-0.5% Eye Drops) 1 Lula Lula, 1 DROP OU BID, (Reported) Bupropion Hcl (Bupropion Xl) 150 Mg Tab, 150 MG PO DAILY, (Reported) Cholecalciferol (Vitamin D3) (Vitamin D3) 1,000 Unit Tablet, 1,000 UNITS PO DAILY, (Reported) Dorzolamide HCl (Dorzolamide HCl) 2% 10ML Drops, 1 DROP OD TID, (Reported) Haloperidol (Haloperidol) 10 Mg Tablet, 2 MG PO BID, (Reported) Ketotifen Fumarate (Ketotifen Fumarate) 5 Ml Drops, 1 DROP OU BID, (Reported) Levothyroxine Sodium (Levothyroxine Sodium) 112 Mcg Tablet, 112 MCG PO DAILY, (Reported) Metformin HCl (Metformin HCl) 500 Mg Tablet, 500 MG PO BID, (Reported) Metoprolol Succinate (Metoprolol Succinate) 25 Mg Tab, 25 MG PO DAILY, (Reported) Norgestimate-Ethinyl Estradiol (Tri-Sprintec Tablet) 1 Each Tablet, 1 TAB PO DAILY, (Reported) Pantoprazole Sodium (Pantoprazole Sodium) 40 Mg Tablet.dr, 40 MG PO QPM, (Re ported) @1600 Sertraline Hcl (Zoloft) 100 Mg Tablet, 100 MG PO QHS, (Reported) Trazodone HCl (Trazodone HCl) 50 Mg Tablet, 50 MG PO QHS, (Reported) Scheduled PRN Prednisolone Acetate (Pred Mild) 0.12% 5ML Drops.susp, 1 DROP OU QID PRN for ITCHING/ BURNING, (Reported) Allergies Coded Allergies: ketorolac (Verified Allergy, Intermediate, rash, itching, 01/21/20) was given close together with morphine; unsure which one caused allergic reaction morphine (Verified Allergy, Intermediate, rash, itching, 01/21/20) Past Medical History Medical History PTSD/CHRONIC MDD/ODD/MILD ID CHRONIC MILD LEUKOCYTOSIS/THROMBOCYTOSIS-10/2017 NORMAL AMS FOR FC/CYTOGENETICS-FELT REACTIVE [address] RUIZ 10/2017 HYPOTHYROIDISM HYPERTENSION GERD H/O OPPOSITIONAL AND MANIPULATIVE BEHAVIOR H/O SUICIDAL THOUGHTS EATING DISORDER GLAUCOMA MILD MENTAL RETARDATION VITAMIN D DEFICIENCY HYPERLIPIDEMIA 2B ALLERGIC RHINITIS, CAUSE UNSPECIFIED CHRONIC ABDOMINAL PAIN-09/2017 NORMAL EGD/COLON/CAPSULE X "PROBABLY GASTROPARESIS/GASTRIC RENTENTION" OF PILLCAM-REINDL Surgical History No surgical history Family History Significant Family History: No pertinent family hx Social History * Smoker: Denies Alcohol: Denies Drugs: denies Recent Travel/Sick Contacts: Denies: Recent travel, Recent sick contacts Psychosocial History: Decreased mood, Depression, Suicidal thoughts Lives in residential A-FIB/CHADSVASC A-FIB History Current/History of A-Fib/PAF?: No Current PO Anticoag Therapy: No Age/Risk Factor Scoring CHADSVASC: CHADSVASC Response (Comments) Value Age Risk Factor Age < 65 years old 0 Gender Risk Factor Female 1 Hx of CHF No 0 Hx of HTN Yes 1 Hx of Stroke/TIA/or VTE No 0 Hx of Diabetes No 0 Hx of Vascular Disease No 0 Total 2 Treatment Treatment ordered: NONE Reason Anticoagulant not given: Not indicated/[id number] Review of Systems Constitutional: Reports: Fever; Denies: Chills, Malaise, Night Sweats, Weakness, Fatigue, Weight Loss, Lethargy Eyes: Denies: Pain, Vision change ENT: Reports: Other Symptoms (has resolving cold sores); Denies: Head Aches, Ear Pain, Dysphagia Skin: Denies: Rash, Lesions, Breakdown Pulmonary: Denies: Dyspnea, Cough Cardiovascular: Denies: Chest Pain, Palpitations, Orthopnea, Paroxysmal Noc. Dyspnea, Lt Headedness Gastrointestinal: Reports: Nausea, Vomiting, Diarrhea; Denies: Abdominal Pain, Constipation, Melena, Hematochezia Genitourinary: Denies: Dysuria, Frequency, Incontinence, Retention Hematologic: Denies: Bruising, Bleeding Excessively Endocrine: Denies: Polydipsia, Polyphagia, Polyuria, Heat Intolerance, Cold Intolerance, Other Endocrine Sx Musculoskeletal: Denies: Neck Pain, Back Pain, Joint Pain, Muscle Pain, Spasms Neurological: Denies: Weakness, Numbness, Change in speech, Confusion Psych: Reports: Depression, Thoughts of Self Harm Physical Examination General Exam: Positive: Alert, Cooperative, No Acute Distress, Other (obese appearing, not sure the BMI of 22.7 is accurate) Eye Exam: Positive: PERRLA, Conjunctiva & lids normal, EOMI; Negative: Sclera icteric ENT Exam: Positive: Atraumatic, Mucous membr. moist/pink, Pharynx Normal Neck Exam: Positive: Supple; Negative: JVD, thyromegaly Chest Exam: Positive: Clear to auscultation, Normal air movement Heart Exam: Positive: Rate Normal, Regular Rhythm, Normal S1, Normal S2, Murmurs (LUSB holosytolic murmur) Telemetry: Positive: No significant arrhythmia Abdomen Exam: Positive: Normal bowel sounds, Soft, Other (obese); Negative: Tenderness, Hepatospenomegaly Extremity Exam: Positive: Normal pulses; Negative: Clubbing, Cyanosis, Edema Skin Exam: Positive: Nl turgor and temperature, Lesion (resolving, scabbed over cold sore lip lesions ); Negative: Breakdown Neuro Exam: Positive: Normal Speech, Strength at 5/5 X4 ext, Normal Tone, Sensation Intact, Cranial Nerves 3-12 NL Psych Exam: Positive: Mental status NL, Oriented x 3; Negative: Mood NL (flat affect, gives minimal answers) Vital Signs Vital Signs Date Time Temp Pulse Resp B/P (MAP) Pulse Ox O2 Delivery O2 Flow Rate FiO2 05/03/20 16:55 05/03/20 15:57 100.0 88 18 99 Room Air Laboratory Data Labs 24H Laboratory Tests 2 05/03/20 16:22: Nucleated Red Blood Cells % (auto) 0.0, Anion Gap 8, Glomerular Filtration Rate > 60.0, Calcium Level 8.3L, Magnesium Level 1.3L, Total Bilirubin 0.3, Direct Bilirubin 0.2, Aspartate Amino Transf (AST/SGOT) 25, Alanine Aminotransferase (ALT/SGPT) 21, Alkaline Phosphatase 210H, Total Creatine Kinase 60, Creatine Kinase MB < 1.0, Creatine Kinase MB Relative Index 1.67, Troponin I < 0.02, Total Protein 6.7, Albumin 2.5L, Albumin/Globulin Ratio 0.6L, Lipase 54L, Thyroid Stimulating Hormone (TSH) 0.793, Salicylates Level < 1.7L, Acetaminophen Level < 2.0L, Ethyl Alcohol Level < 0.003 05/03/20 16:53: Nucleated Red Blood Cells % (auto) 0.0, Neutrophils (%) (Auto) , Neutrophils 90H, Band Neutrophils 2, Lymphocytes (Manual) 4L, Monocytes (Manual) 3, Eosinophils (Manual) 1, Hypochromasia 1+, Anisocytosis 1+, Macrocytosis 1+, Tear Drop Cells 1+, Platelet Estimate INCREASED 05/03/20 17:22: 05/03/20 17:23: Lactic Acid Level 1.2 CBC/BMP Laboratory Tests 05/03/20 16:22 05/03/20 16:53 Microbiology Microbiology 05/03/20 Blood Culture, Received Pending 05/03/20 Blood Culture, Received Pending Assessment/Plan 39 yo W with mild mental retardation, MDD, PTSD, hx of suicidal ideation, GERD, gastroparesis, chronic leukocytosis (baseline WBC ~17) presumed reactive to meds from prior workup, HTN, HLD, obesity, hypothyroidism who presented from her residential with caregiver giving most of the history of recent episodic fevers to 102.8, nausea, emesis and ongoing diarrhea now being admitted to medicine for sepsis 2/2 pyelonephritis. Sepsis 2/2 Pyelonephritis: with acute on chronic leukocytosis, low grade temp with recent history of documented fever, nausea, emesis and diarrhea -continue empiric zosyn -UA/UCx -CT A/P showing bilateral pyelonephritis and possible enteritis -GI panel -Bcx -s/p 1L NS in the ED, continue NS at 100cc/hr HypoNa: likely hypovolemic hypoNa in the setting of N/V/D likely 2/2 pyelo -continue fluids as above -AM BMP -urine and serum osmoles urine Na Suicidal ideation: -consult psychiatry -continue home psych meds as below -1:1 sitter -suicide precautions Newly noted murmur not otherwise documented else? Chronicity unclear -TTE -BCx -on empiric zosyn at this time HTN: -hold toprol XL while septoid HLD: -continue home lipitor MR, depression: -continue home haldol, bupropion, zoloft and trazodone Hypothyroidism: -continue home synthroid GERD: -continue home protonix -continue home eye drops and Vit D3 DVT ppx: lovenox daily Dispo: medsurg Plan / VTE VTE Prophylaxis Ordered?: Yes REI HASSAN MD May 03, 2020 22:11
[2020-05-03 22:35] VITALS: BP 116/67
[2020-05-03] MEDS: NS 1,000 ML IV SCH (23:26)
[2020-05-03] MEDS: traZODone 50 MG TAB PO SCH (23:37)
[2020-05-03] MEDS: DORZOLAMIDE 2% OPHTH SOLN 10 ML BTL OD SCH (23:37)
[2020-05-03] MEDS: SERTRALINE 100 MG TAB PO SCH (23:37)
[2020-05-03] MEDS: PANTOPRAZOLE 40MG TAB (PROTONIX) PO SCH (23:38)
[2020-05-03] MEDS: ATORVASTATIN 20 MG TAB PO SCH (23:38)
[2020-05-03 23:48] LABS: AMPHETAMINES LEVEL URINE NEGATIVE (NEGATIVE); BARBITURATES URINE NEGATIVE (NEGATIVE); BENZODIAZEPINES URINE NEGATIVE (NEGATIVE); CANNABINOIDS URINE NEGATIVE (NEGATIVE); COCAINE METABOLITE URINE NEGATIVE (NEGATIVE); METHADONE URINE NEGATIVE (NEGATIVE); OPIATES URINE NEGATIVE (NEGATIVE); PHENCYCLIDINE URINE NEGATIVE (NEGATIVE)
[2020-05-04] MEDS: NS 1,000 ML IV SCH ×3 (03:25→20:23)
[2020-05-04] MEDS: PIPERACILLIN/TAZOBACTAM SOD 3.375 GM in D5W MINI-BAG PLUS 50 ML IV SCH ×4 (03:25→21:41)
[2020-05-04] MEDS: LEVOTHYROXINE 112MCG TABLET (0.112MG) PO SCH (05:26)
[2020-05-04 06:00] VITALS: BP 105/63
[2020-05-04 06:14] LABS: HEMATOCRIT 28.6 % (36.0-47.0); HEMOGLOBIN 9.2 g/dl (12.0-15.5); MEAN CORPUSCULAR HEMOGLOBIN 26.8 pg (27.0-33.0); MEAN CORPUSCULAR HGB CONC 32.2 g/dl (32.0-36.5); MEAN CORPUSCULAR VOLUME 83.4 fl (80.0-96.0); PLATELET COUNT, AUTOMATED 477 10^3/uL (150-450); RED BLOOD COUNT 3.43 10^6/uL (4.00-5.40); WHITE BLOOD COUNT 26.4 10^3/uL (4.0-10.0)
[2020-05-04 07:56] LABS: ALBUMIN 1.9 GM/DL (3.2-5.2); ALT/SGPT 17 U/L (12-78); BILIRUBIN,TOTAL 0.2 MG/DL (0.2-1.0); BLOOD UREA NITROGEN 15 MG/DL (7-18); CALCIUM LEVEL 7.4 MG/DL (8.5-10.1); CARBON DIOXIDE LEVEL 25 MEQ/L (21-32); CHLORIDE LEVEL 110 MEQ/L (98-107); GLOMERULAR FILTRATION RATE > 60.0 (>60); GLUCOSE, FASTING 98 MG/DL (70-100); POTASSIUM SERUM 3.5 MEQ/L (3.5-5.1); SODIUM LEVEL 141 MEQ/L (136-145); TOTAL PROTEIN 5.2 GM/DL (6.4-8.2)
[2020-05-04] MEDS: ENOXAPARIN 40MG/0.4ML SYRINGE (J1650 PER 10MG) SC SCH (08:20)
[2020-05-04] MEDS: buPROPion **XL** TABLET 150MG (WELLBUTRIN XL) PO SCH (08:20)
[2020-05-04] MEDS: DORZOLAMIDE 2% OPHTH SOLN 10 ML BTL OD SCH ×3 (08:20→21:42)
[2020-05-04] MEDS: VITAMIN D 1,000 INTERNATIONAL UNITS TABLET PO SCH (08:20)
[2020-05-04] MEDS: BRIMONIDINE 0.15% OPHTH SOLN 5 ML OU SCH ×2 (08:20→21:42)
[2020-05-04] MEDS ORDERED: ENTER DRUG NAME HERE (PATIENT'S OWN MED) PO SCH (09:00)
[2020-05-04 14:00] VITALS: BP 121/73
--- NOTE | 2020-05-04 20:04 | IPNPDOC ---
Date Seen The patient was seen on 05/04/20. Progress Note SUBJECTIVE: Patient admits to wanting to harm herself prior to hospitalization but denies current thoughts of suicidal or homicidal ideation. WBC improving slowly, Cx's pending. Denies chest pain, dysuria, shortness of breath, n/v/d, abdominal pain. OBJECTIVE: VITAL SIGNS: Please see below PHYSICAL EXAMINATION: CONSTITUTIONAL: No acute distress, resting comfortably, AAO x 2 EYES: PERRLA, corrective lenses in place HENT, MOUTH: Normocephalic, atraumatic, moist mucous membranes NECK: SUPPLE, no JVD, no lymphadenopathy, no carotid bruit CV: Regular rate and rhythm, S1S2 normal, no murmurs/rubs/gallops RESPIRATORY: Clear to auscultation bilaterally, no rales/rhonchi/wheezes GI: BS positive in 4 quadrants, soft, nontender, nondistended, no rebound or guarding, no organomegaly : Deferred MUSCULOSKELETAL: Normal ROM. No cyanosis, clubbing, swelling, joint deformity, extremity edema INTEGUMENTARY: Intact, no rashes, no lesions, no erythema NEUROLOGIC: Cranial Nerves II-XII are intact, no focal deficits PSYCHIATRIC: Mood and affect are normal CURRENT MEDICATIONS: Please see below LABORATORY DATA: Please see below IMAGING: No new imaging ASSESSMENT: 39 yo W with mild mental retardation, MDD, PTSD, hx of suicidal ideation, GERD, gastroparesis, chronic leukocytosis (baseline WBC ~17) presumed reactive to meds from prior workup, HTN, HLD, obesity, hypothyroidism who [facility] giving most of the history of recent episodic fevers t o 102.8, nausea, emesis and ongoing diarrhea now being admitted to medicine for sepsis 2/2 pyelonephritis. PLAN: #Sepsis 2/2 acute pyelonephritis: with acute on chronic leukocytosis, low grade temp with recent history of documented fever, nausea, emesis and diarrhea -WBC improving slowly 26.4, afebrile, denies back/flank pain or dysuria -UA+, f/u UCx and blood cultures -CT A/P showing bilateral pyelonephritis and possible enteritis -C/w NS at 100cc/hr, zosyn #Hyponatremia likely hypovolemic hypoNa in the setting of N/V/D likely 2/2 pyelo -continue fluids as above -AM BMP #Suicidal ideation: -continue home psych meds as below -1:1 sitter -suicide precautions, consult psych when approaching possible discharge date #Newly noted murmur not otherwise documented else? Chronicity unclear. Not many risk factors for endocarditis -TTE, will check to see if done in AM -F/u BCx -IV zosyn # HTN: -hold toprol XL while septic #HLD: -continue home lipitor #MR, depression: -continue home haldol, bupropion, zoloft and trazodone #Hypothyroidism: -continue home synthroid #GERD: -continue home protonix # DVT ppx - lovenox daily DISPOSITION: Admitted under inpatient status. PT/OT ordered. Plan is discharge back to prior living situation when medically improved. VS, I&O, 24H, Fishbone Vital Signs/I&O Vital Signs Date Time Temp Pulse Resp B/P (MAP) Pulse Ox O2 Delivery O2 Flow Rate FiO2 05/04/20 14:00 97.3 64 14 121/73 (89) 99 Room Air I&O- Last 24 Hours up to 6 AM 05/04/20 06:00 Intake Total 1900 ml Output Total 400 ml Balance 1500 ml Laboratory Data 24H LABS Laboratory Tests 2 05/03/20 23:07: Urine Color YELLOW, Urine Appearance CLEAR, Urine pH 5.0, Urine Specific [place] 1.030, Urine Protein NEGATIVE, Urine Glucose (UA) NEGATIVE, Urine Ketones NEGATIVE, Urine Blood NEGATIVE, Urine Nitrite NEGATIVE, Urine Bilirubin NEGATIVE, Urine Urobilinogen 0.2, Urine Leukocyte Esterase 1+H, Urine WBC (Auto) 13H, Urine RBC (Auto) 2, Urine Hyaline Casts (Auto) 0, Urine Bacteria (Auto) 1+H, Urine Squamous Epithelial Cells 2, Urine Sperm (Auto) , Urine Opiates Screen NEGATIVE, Urine Methadone Screen NEGATIVE, Urine Barbiturates Screen NEGATIVE, Urine Phencyclidine Screen NEGATIVE, Urine Amphetamines Screen NEGATIVE, Urine Benzodiazepines Screen NEGATIVE, Urine Cocaine Metabolite Screen NEGATIVE, Urine Cannabinoids Screen NEGATIVE 05/04/20 05:27: Nucleated Red Blood Cells % (auto) 0.0, Anion Gap 6L, Glomerular Filtration Rate > 60.0, Calcium Level 7.4L, Magnesium Level 2.0, Total Bilirubin 0.2, Aspartate Amino Transf (AST/SGOT) 19, Alanine Aminotransferase (ALT/SGPT) 17, Alkaline Phosphatase 152H, Total Protein 5.2#L, Albumin 1.9#L, Albumin/Globulin Ratio 0.6L CBC/BMP Laboratory Tests 05/04/20 05:27 Microbiology Microbiology 05/03/20 Urine Culture, Received Pending 05/03/20 Gastrointestinal Tract Panel (PCR) - Final, Complete 05/03/20 Blood Culture - Preliminary, Resulted No growth after 24 hours . All specim... 05/03/20 Blood Culture - Preliminary, Resulted No growth after 24 hours . All specim... Current Medications Current Medications Medications (Trade) Dose Ordered Sig/Raul Route PRN Reason Start Time Stop Time Status Last Admin Dose Admin Acetaminophen (Tylenol Tab) 650 mg Q4H PRN PO PAIN OR FEVER 05/03/20 20:30 Atorvastatin Calcium (Lipitor) 20 mg QHS PO 05/03/20 21:00 05/03/20 23:38 Brimonidine Tartrate (Alphagan P 0.15%) 1 drop BID OU 05/03/20 21:00 Cancel Brimonidine Tartrate (Alphagan P 0.15%) 1 drop BID OU 05/04/20 09:00 05/04/20 08:20 Bupropion HCl (Wellbutrin Xl) 150 mg DAILY PO 05/04/20 09:00 05/04/20 08:20 Dorzolamide HCl (Trusopt Ocumeter Plus) 1 drop TID OD 05/03/20 21:00 05/04/20 15:26 Enoxaparin Sodium (Lovenox) 40 mg DAILY SC 05/04/20 09:00 05/04/20 08:20 Haloperidol (Haldol) 2 mg BID PO 05/03/20 21:00 05/03/20 22:14 DC Haloperidol (Haldol) 2 mg BID PO 05/03/20 21:00 05/04/20 08:20 Home Med (Med Rec Complete!) ASDIRECTED XX 05/03/20 21:00 05/03/20 21:04 DC Levothyroxine Sodium (Synthroid) 112 mcg DAILY@0600 PO 05/04/20 06:00 05/04/20 05:26 Miscellaneous (Unresolved Patient Own Med Order) SEE LABEL COMMENTS DAILY XX 05/03/20 09:00 Ondansetron HCl (ZOFRAN INJection) 4 mg Q4HP PRN IV NAUSEA OR VOMITING 05/03/20 21:30 Pantoprazole Sodium (Protonix) 40 mg QPM PO 05/03/20 21:00 05/03/20 23:38 Patient Own Medication (Patient'S Own Med) 1 ea DAILY PO 05/04/20 09:00 UNV Patient Own Medication (Patient'S Own Med) Ketotefan fumarate - 1drop BID BID OU 05/04/20 09:00 UNV Piperacillin Sod/ Tazobactam Sod 3.375 gm/Dextrose 50 ml @ 50 mls/hr Q6H IV 05/04/20 03:00 05/04/20 15:26 Prednisolone Acetate (Predforte 1% Ophth Susp) 2 drop QIDP PRN OU itching 05/03/20 22:00 Sertraline HCl (Zoloft) 100 mg QHS PO 05/03/20 21:00 05/03/20 23:37 Sodium Chloride 1,000 ml @ 100 mls/hr Q10H IV 05/03/20 20:30 05/04/20 12:21 Trazodone HCl (Desyrel) 50 mg QHS PO 05/03/20 21:00 05/03/20 23:37 Vitamin D (Vitamin D) 1,000 units DAILY PO 05/04/20 09:00 05/04/20 08:20 Allergies Coded Allergies: ketorolac (Verified Allergy, Intermediate, rash, itching, 01/21/20) was given close together with morphine; unsure which one caused allergic reaction morphine (Verified Allergy, Intermediate, rash, itching, 01/21/20) Liliane Saldaña MD May 04, 2020 20:04
[2020-05-04] MEDS: PANTOPRAZOLE 40MG TAB (PROTONIX) PO SCH (21:42)
[2020-05-04] MEDS: SERTRALINE 100 MG TAB PO SCH (21:42)
[2020-05-04] MEDS: ATORVASTATIN 20 MG TAB PO SCH (21:42)
[2020-05-04] MEDS: traZODone 50 MG TAB PO SCH (21:42)
[2020-05-04 22:00] VITALS: BP 120/71
[2020-05-05] MEDS: NS 1,000 ML IV SCH ×2 (02:27→14:46)
[2020-05-05] MEDS: PIPERACILLIN/TAZOBACTAM SOD 3.375 GM in D5W MINI-BAG PLUS 50 ML IV SCH ×4 (02:27→22:33)
[2020-05-05] MEDS: LEVOTHYROXINE 112MCG TABLET (0.112MG) PO SCH (05:31)
[2020-05-05 06:00] VITALS: BP_SYST 115; BP_SYST 162; BP_DIAS 68; BP_DIAS 89
[2020-05-05 06:37] LABS: HEMATOCRIT 27.5 % (36.0-47.0); HEMOGLOBIN 8.7 g/dl (12.0-15.5); MEAN CORPUSCULAR HEMOGLOBIN 26.4 pg (27.0-33.0); MEAN CORPUSCULAR HGB CONC 31.6 g/dl (32.0-36.5); MEAN CORPUSCULAR VOLUME 83.6 fl (80.0-96.0); PLATELET COUNT, AUTOMATED 468 10^3/uL (150-450); RED BLOOD COUNT 3.29 10^6/uL (4.00-5.40); WHITE BLOOD COUNT 16.2 10^3/uL (4.0-10.0)
[2020-05-05 07:15] LABS: ALBUMIN 1.6 GM/DL (3.2-5.2); ALT/SGPT 13 U/L (12-78); BILIRUBIN,TOTAL 0.1 MG/DL (0.2-1.0); BLOOD UREA NITROGEN 7 MG/DL (7-18); CALCIUM LEVEL 7.8 MG/DL (8.5-10.1); CARBON DIOXIDE LEVEL 25 MEQ/L (21-32); CHLORIDE LEVEL 112 MEQ/L (98-107); CREATININE FOR GFR 0.62 MG/DL (0.55-1.30); GLOMERULAR FILTRATION RATE > 60.0 (>60); GLUCOSE, FASTING 89 MG/DL (70-100); SODIUM LEVEL 143 MEQ/L (136-145); TOTAL PROTEIN 5.6 GM/DL (6.4-8.2)
[2020-05-05] MEDS ORDERED: POTASSIUM CHLORIDE 10 MEQ SR TABLET PO SCH (09:00)
[2020-05-05] MEDS: VITAMIN D 1,000 INTERNATIONAL UNITS TABLET PO SCH (09:37)
[2020-05-05] MEDS: buPROPion **XL** TABLET 150MG (WELLBUTRIN XL) PO SCH (09:38)
[2020-05-05] MEDS: ENOXAPARIN 40MG/0.4ML SYRINGE (J1650 PER 10MG) SC SCH (09:39)
[2020-05-05] MEDS: DORZOLAMIDE 2% OPHTH SOLN 10 ML BTL OD SCH ×3 (09:39→22:33)
[2020-05-05] MEDS: BRIMONIDINE 0.15% OPHTH SOLN 5 ML OU SCH ×2 (09:39→22:34)
[2020-05-05 14:00] VITALS: BP 134/66
--- NOTE | 2020-05-05 16:01 | IPNPDOC ---
Date Seen The patient was seen on 05/05/20. Progress Note SUBJECTIVE: Discussed case with psychiatry, wants us to call the day patient is cleared medically due to patient's suicidal ideations known to change daily on previous [facility] admission. WBC continues to improve, UCx likely contaminated so no sensitivities done. Denies chest pain, dysuria, shortness of breath, n/v/d, abdominal pain. OBJECTIVE: VITAL SIGNS: Please see below PHYSICAL EXAMINATION: CONSTITUTIONAL: No acute distress, resting comfortably, AAO x 2 EYES: PERRLA, corrective lenses in place HENT, MOUTH: Normocephalic, atraumatic, moist mucous membranes NECK: SUPPLE, no JVD, no lymphadenopathy, no carotid bruit CV: Regular rate and rhythm, S1S2 normal, no murmurs/rubs/gallops RESPIRATORY: Clear to auscultation bilaterally, no rales/rhonchi/wheezes GI: BS positive in 4 quadrants, soft, nontender, nondistended, no rebound or guarding, no organomegaly : Deferred MUSCULOSKELETAL: Normal ROM. No cyanosis, clubbing, swelling, joint deformity, extremity edema INTEGUMENTARY: Intact, no rashes, no lesions, no erythema NEUROLOGIC: Cranial Nerves II-XII are intact, no focal deficits PSYCHIATRIC: Mood and affect are normal CURRENT MEDICATIONS: Please see below LABORATORY DATA: Please see below IMAGING: No new imaging MICROBIOLOGY: BCx NG x 2 sets at 48 hrs UCx: likely contaminated GI panel: neg ASSESSMENT: 39 yo W with mild mental retardation, MDD, PTSD, hx of suicidal ideation, GERD, gastroparesis, chronic leukocytosis (baseline WBC ~17) presumed reactive to meds from prior workup, HTN, HLD, obesity, hypothyroidism admitted for sepsis 2/2 acute bilateral pyelonephritis. PLAN: #Acute pyelonephritis, resolved sepsis -UA +, UCx states to be contaminated; however, CT showed to be highly concerning for bilateral pyelonephritis with marked leukocytosis. -WBC improved further to 16. 2, afebrile, denies back/flank pain or dysuria -BCx NG at 48 hrs -D/c IVFs, c/w zosyn #Hyponatremia likely hypovolemic hypoNa- resolved with IVFs, hydration -D/c IVFs -F/u daily labs #Leukocytosis, r/o various infections (enteritis, new murmur-endocarditis?) -Could be 2/2 to acute pyelonephritis; however, UCx contaminated. -Enteritis could not be ruled out on CT but no abdominal pain -F/u echocardiogram -C/w zosyn #Suicidal ideation -Continue home psych meds as below -1:1 sitter, suicide precautions -Known to [facility], Discussed with Dr. Quijano. Will call again when medically she is #Newly noted murmur not otherwise documented else? Chronicity unclear. Not many risk factors for endocarditis -TTE, will check to see if done in AM -BCx NG -IV zosyn # HTN -Resumed toprol #HLD: -continue home lipitor #MR, depression: -continue home haldol, bupropion, zoloft and trazodone #Hypothyroidism: -continue home synthroid #GERD: -continue home protonix # DVT ppx - lovenox daily DISPOSITION: Admitted under inpatient status. PT/OT ordered. Will need psych evaluation prior to discharge. Plan is discharge back to prior living situation when medically improved. VS, I&O, 24H, Fishbone Vital Signs/I&O Vital Signs Date Time Temp Pulse Resp B/P (MAP) Pulse Ox O2 Delivery O2 Flow Rate FiO2 05/05/20 14:00 97.3 60 17 134/66 (88) 99 Room Air I&O- Last 24 Hours up to 6 AM 05/05/20 05:59 Intake Total 3260 ml Output Total 60 ml Balance 3200 ml Laboratory Data 24H LABS Laboratory Tests 2 05/05/20 06:03: Nucleated Red Blood Cells % (auto) 0.0, Anion Gap 6L, Glomerular Filtration Rate > 60.0, Calcium Level 7.8L, Total Bilirubin 0.1L, Aspartate Amino Transf (AST/SGOT) 13, Alanine Aminotransferase (ALT/SGPT) 13, Alkaline Phosphatase 130H, Total Protein 5.6L, Albumin 1.6L, Albumin/Globulin Ratio 0.4L CBC/BMP Laboratory Tests 05/05/20 06:03 Microbiology Microbiology 05/03/20 Urine Culture - Final, Complete 05/03/20 Gastrointestinal Tract Panel (PCR) - Final, Complete 05/03/20 Blood Culture - Preliminary, Resulted No growth after 24 hours . All specim... 05/03/20 Blood Culture - Preliminary, Resulted No growth after 24 hours . All specim... Current Medications Current Medications Medications (Trade) Dose Ordered Sig/Raul Route PRN Reason Start Time Stop Time Status Last Admin Dose Admin Acetaminophen (Tylenol Tab) 650 mg Q4H PRN PO PAIN OR FEVER 05/03/20 20:30 Atorvastatin Calcium (Lipitor) 20 mg QHS PO 05/03/20 21:00 05/04/20 21:42 Brimonidine Tartrate (Alphagan P 0.15%) 1 drop BID OU 05/03/20 21:00 Cancel Brimonidine Tartrate (Alphagan P 0.15%) 1 drop BID OU 05/04/20 09:00 05/05/20 09:39 Bupropion HCl (Wellbutrin Xl) 150 mg DAILY PO 05/04/20 09:00 05/05/20 09:38 Dorzolamide HCl (Trusopt Ocumeter Plus) 1 drop TID OD 05/03/20 21:00 05/05/20 09:39 Enoxaparin Sodium (Lovenox) 40 mg DAILY SC 05/04/20 09:00 05/05/20 09:39 Haloperidol (Haldol) 2 mg BID PO 05/03/20 21:00 05/03/20 22:14 DC Haloperidol (Haldol) 2 mg BID PO 05/03/20 21:00 05/05/20 09:39 Home Med (Med Rec Complete!) ASDIRECTED XX 05/03/20 21:00 05/03/20 21:04 DC Levothyroxine Sodium (Synthroid) 112 mcg DAILY@0600 PO 05/04/20 06:00 05/05/20 05:31 Miscellaneous (Unresolved Patient Own Med Order) SEE LABEL COMMENTS DAILY XX 05/03/20 09:00 Ondansetron HCl (ZOFRAN INJection) 4 mg Q4HP PRN IV NAUSEA OR VOMITING 05/03/20 21:30 Pantoprazole Sodium (Protonix) 40 mg QPM PO 05/03/20 21:00 05/04/20 21:42 Patient Own Medication (Patient'S Own Med) 1 ea DAILY PO 05/04/20 09:00 UNV Patient Own Medication (Patient'S Own Med) Ketotefan fumarate - 1drop BID BID OU 05/04/20 09:00 UNV Piperacillin Sod/ Tazobactam Sod 3.375 gm/Dextrose 50 ml @ 50 mls/hr Q6H IV 05/04/20 03:00 05/05/20 15:02 Potassium Chloride (Micro-K Extencaps) 30 meq BID PO 05/05/20 09:00 05/05/20 21:01 05/05/20 09:38 Prednisolone Acetate (Predforte 1% Ophth Susp) 2 drop QIDP PRN OU itching 05/03/20 22:00 Sertraline HCl (Zoloft) 100 mg QHS PO 05/03/20 21:00 05/04/20 21:42 Sodium Chloride 1,000 ml @ 100 mls/hr Q10H IV 05/03/20 20:30 05/05/20 14:46 Trazodone HCl (Desyrel) 50 mg QHS PO 05/03/20 21:00 05/04/20 21:42 Vitamin D (Vitamin D) 1,000 units DAILY PO 05/04/20 09:00 05/05/20 09:37 Allergies Coded Allergies: ketorolac (Verified Allergy, Intermediate, rash, itching, 01/21/20) was given close together with morphine; unsure which one caused allergic reaction morphine (Verified Allergy, Intermediate, rash, itching, 01/21/20) Liliane Saldaña MD May 05, 2020 16:01
[2020-05-05 20:26] VITALS: BP 107/67
[2020-05-05] MEDS: ATORVASTATIN 20 MG TAB PO SCH (22:32)
[2020-05-05] MEDS: POTASSIUM CHLORIDE 10 MEQ SR TABLET PO SCH (22:32)
[2020-05-05] MEDS: traZODone 50 MG TAB PO SCH (22:32)
[2020-05-05] MEDS: PANTOPRAZOLE 40MG TAB (PROTONIX) PO SCH (22:33)
[2020-05-05] MEDS: SERTRALINE 100 MG TAB PO SCH (22:33)
[2020-05-06] MEDS: PIPERACILLIN/TAZOBACTAM SOD 3.375 GM in D5W MINI-BAG PLUS 50 ML IV SCH ×3 (03:34→16:12)
[2020-05-06] MEDS: LEVOTHYROXINE 112MCG TABLET (0.112MG) PO SCH (05:10)
[2020-05-06 06:00] VITALS: BP 119/77
[2020-05-06 07:19] LABS: HEMATOCRIT 27.8 % (36.0-47.0); HEMOGLOBIN 8.8 g/dl (12.0-15.5); MEAN CORPUSCULAR HEMOGLOBIN 26.7 pg (27.0-33.0); MEAN CORPUSCULAR HGB CONC 31.7 g/dl (32.0-36.5); MEAN CORPUSCULAR VOLUME 84.2 fl (80.0-96.0); PLATELET COUNT, AUTOMATED 498 10^3/uL (150-450); WHITE BLOOD COUNT 14.8 10^3/uL (4.0-10.0)
[2020-05-06 07:33] LABS: ALBUMIN 1.7 GM/DL (3.2-5.2); ALT/SGPT 13 U/L (12-78); BILIRUBIN,TOTAL 0.3 MG/DL (0.2-1.0); BLOOD UREA NITROGEN 4 MG/DL (7-18); CALCIUM LEVEL 7.6 MG/DL (8.5-10.1); CARBON DIOXIDE LEVEL 26 MEQ/L (21-32); CHLORIDE LEVEL 111 MEQ/L (98-107); CREATININE FOR GFR 0.55 MG/DL (0.55-1.30); GLOMERULAR FILTRATION RATE > 60.0 (>60); GLUCOSE, FASTING 93 MG/DL (70-100); POTASSIUM SERUM 3.6 MEQ/L (3.5-5.1); SODIUM LEVEL 141 MEQ/L (136-145)
[2020-05-06] MEDS: ACETAMINOPHEN TAB 650MG DOSE (2X325MG) PO PRN (10:04)
[2020-05-06] MEDS: buPROPion **XL** TABLET 150MG (WELLBUTRIN XL) PO SCH (10:05)
[2020-05-06] MEDS: VITAMIN D 1,000 INTERNATIONAL UNITS TABLET PO SCH (10:05)
[2020-05-06] MEDS: POTASSIUM CHLORIDE 10 MEQ SR TABLET PO SCH ×2 (10:05→21:58)
[2020-05-06] MEDS: ENOXAPARIN 40MG/0.4ML SYRINGE (J1650 PER 10MG) SC SCH (10:05)
[2020-05-06] MEDS: DORZOLAMIDE 2% OPHTH SOLN 10 ML BTL OD SCH ×3 (10:06→21:59)
[2020-05-06] MEDS: METOPROLOL SUCC *XL* 25MG TAB (TopROL *XL*) PO SCH (10:06)
[2020-05-06] MEDS: BRIMONIDINE 0.15% OPHTH SOLN 5 ML OU SCH ×2 (10:06→21:59)
[2020-05-06] MEDS: KETOTIFEN 0.025% OU SCH ×2 (10:54→21:59)
[2020-05-06 14:00] VITALS: BP 120/76
--- NOTE | 2020-05-06 14:54 | ECHO ---
DATE OF PROCEDURE: 05/04/2020 Age: 39 Gender: Female Height: 68 inches Weight: 152 pounds Body surface area: 1.28 m2 PATIENT LOCATION: Inpatient [address] [place] [address], Room 5142. REFERRING PHYSICIAN: Haily Oglesby M.D. INDICATION: Murmur. MEASUREMENTS: 2D Measurements: RV 2.4 cm LV 4.5 cm Septum 0.8 cm Posterior wall 0.8 cm Aortic Root 2.6 cm LA 2.8 cm LVEF 65% Doppler Measurements: AV 1.7 m/s LVOT 0.88 m/s LVOT diameter 1.9 cm MV-E 105, A 70, E/A ratio 1.5 Early mitral deceleration time 197 m/s E prime medial 9.5, A prime medial 7.2, E prime lateral 19.3 PV 0.9 m/s Pulmonary artery acceleration time 148 m/s RVSP 23 mmHg IVC 1.5 cm COMMENTS: Normal sinus rhythm without intraventricular conduction disturbance. M-mode and two-dimensional echocardiography was performed with pulsed, continuous wave, color flow, and tissue Doppler studies. Normal left ventricle size, wall thickness, and wall motion. Normal left atrial size and Doppler assessment of left ventricular diastolic function and estimated mean left atrial pressure. Normal right heart chamber sizes and wall motion and estimated pulmonary arterial pressure. Normal inferior vena cava (IVC) size and collapse against an elevated central venous pressure. Normal aortic dimensions. Normal appearing and functioning valvular structures. No apparent intracardiac mass or pericardial effusion. No structural or functional abnormality to account for the patients heart murmur likely physiologic/flow related. MTDD
--- NOTE | 2020-05-06 16:28 | IPNPDOC ---
Date Seen The patient was seen on 05/06/20. Progress Note SUBJECTIVE: No acute complaints overnight. WBC continues to improve slightly, transitioned to cipro PO x 4 addtional days (completes 7). Denies chest pain, dysuria, shortness of breath, n/v/d, abdominal pain. OBJECTIVE: VITAL SIGNS: Please see below PHYSICAL EXAMINATION: CONSTITUTIONAL: No acute distress, resting comfortably, AAO x 2 EYES: PERRLA, corrective lenses in place HENT, MOUTH: Normocephalic, atraumatic, moist mucous membranes NECK: SUPPLE, no JVD, no lymphadenopathy, no carotid bruit CV: Regular rate and rhythm, S1S2 normal, systolic mumur, no rubs/gallops RESPIRATORY: Clear to auscultation bilaterally, no rales/rhonchi/wheezes GI: BS positive in 4 quadrants, soft, nontender, nondistended, no rebound or guarding, no organomegaly : Deferred MUSCULOSKELETAL: Normal ROM. No cyanosis, clubbing, swelling, joint deformity, extremity edema INTEGUMENTARY: Intact, no rashes, no lesions, no erythema NEUROLOGIC: Cranial Nerves II-XII are intact, no focal deficits PSYCHIATRIC: Mood and affect are normal CURRENT MEDICATIONS: Please see below LABORATORY DATA: Please see below IMAGING: Echocardiogram: Please see report MICROBIOLOGY: BCx NG x 2 sets at 48 hrs UCx: likely contaminated GI panel: neg ASSESSMENT: 39 yo W with mild mental retardation, MDD, PTSD, hx of suicidal ideation, GERD, gastroparesis, chronic leukocytosis (baseline WBC ~17) presumed reactive to meds from prior workup, HTN, HLD, obesity, hypothyroidism admitted for sepsis 2/2 acute bilateral pyelonephritis. PLAN: #Acute pyelonephritis, resolved sepsis -UA +, UCx states to be contaminated; however, CT showed to be highly concerning for bilateral pyelonephritis with marked leukocytosis. -WBC improved further to 14K, afebrile, denies back/flank pain or dysuria -BCx NG at 48 hrs -D/c zosyn and switched to PO cipro x 4 additional days (completes total of 7 days treatment) #Leukocytosis, r/o various infections (pyelonephritis, enteritis) -Could be 2/2 to acute pyelonephritis; however, UCx contaminated. -Enteritis could not be ruled out on CT but no abdominal pain -Echocardiogram not suspicious for endocarditis -C/w treatment with cipro #Suicidal ideation -Continue home psych meds as below -1:1 sitter, suicide precautions -Known to [facility], Discussed with Dr. Quijano. Will call again when medically improved #Murmur, likely physiologic -TTE above. # HTN -C/w toprol #HLD: -continue home lipitor #MR, depression: -continue home haldol, bupropion, zoloft and trazodone #Hypothyroidism: -continue home synthroid #GERD: -continue home protonix # DVT ppx - lovenox daily DISPOSITION: Admitted under inpatient status. PT/OT ordered. Will need psych evaluation prior to discharge. Plan is discharge back to prior living situation when medically improved. VS, I&O, 24H, Fishbone Vital Signs/I&O Vital Signs Date Time Temp Pulse Resp B/P (MAP) Pulse Ox O2 Delivery O2 Flow Rate FiO2 05/06/20 14:00 96.9 67 16 120/76 (91) 98 Room Air I&O- Last 24 Hours up to 6 AM 05/06/20 06:00 Intake Total 3660 ml Output Total 1050 ml Balance 2610 ml Laboratory Data 24H LABS Laboratory Tests 2 05/06/20 06:39: Nucleated Red Blood Cells % (auto) 0.0, Anion Gap 4L, Glomerular Filtration Rate > 60.0, Calcium Level 7.6L, Total Bilirubin 0.3#, Aspartate Amino Transf (AST/SGOT) 14, Alanine Aminotransferase (ALT/SGPT) 13, Alkaline Phosphatase 128H, Total Protein 5.0L, Albumin 1.7L, Albumin/Globulin Ratio 0.5L CBC/BMP Laboratory Tests 05/06/20 06:39 Microbiology Microbiology 05/03/20 Urine Culture - Final, Complete 05/03/20 Gastrointestinal Tract Panel (PCR) - Final, Complete 05/03/20 Blood Culture - Preliminary, Resulted No Growth after 48 hours. All Specime... 05/03/20 Blood Culture - Preliminary, Resulted No Growth after 48 hours. All Specime... Current Medications Current Medications Medications (Trade) Dose Ordered Sig/Raul Route PRN Reason Start Time Stop Time Status Last Admin Dose Admin Acetaminophen (Tylenol Tab) 650 mg Q4H PRN PO PAIN OR FEVER 05/03/20 20:30 05/06/20 10:04 Atorvastatin Calcium (Lipitor) 20 mg QHS PO 05/03/20 21:00 05/05/20 22:32 Brimonidine Tartrate (Alphagan P 0.15%) 1 drop BID OU 05/03/20 21:00 Cancel Brimonidine Tartrate (Alphagan P 0.15%) 1 drop BID OU 05/04/20 09:00 05/06/20 10:06 Bupropion HCl (Wellbutrin Xl) 150 mg DAILY PO 05/04/20 09:00 05/06/20 10:05 Dorzolamide HCl (Trusopt Ocumeter Plus) 1 drop TID OD 05/03/20 21:00 05/06/20 16:12 Enoxaparin Sodium (Lovenox) 40 mg DAILY SC 05/04/20 09:00 05/06/20 10:05 Haloperidol (Haldol) 2 mg BID PO 05/03/20 21:00 05/03/20 22:14 DC Haloperidol (Haldol) 2 mg BID PO 05/03/20 21:00 05/06/20 10:06 Home Med (Med Rec Complete!) ASDIRECTED XX 05/03/20 21:00 05/03/20 21:04 DC Levothyroxine Sodium (Synthroid) 112 mcg DAILY@0600 PO 05/04/20 06:00 05/06/20 05:10 Metoprolol Succinate (TopROL XL) 25 mg DAILY PO 05/06/20 09:00 05/06/20 10:06 Miscellaneous (Unresolved Patient Own Med Order) SEE LABEL COMMENTS DAILY XX 05/03/20 09:00 05/06/20 13:12 DC Ondansetron HCl (ZOFRAN INJection) 4 mg Q4HP PRN IV NAUSEA OR VOMITING 05/03/20 21:30 Pantoprazole Sodium (Protonix) 40 mg QPM PO 05/03/20 21:00 05/05/20 22:33 Patient Own Medication (Patient'S Own Med) 1 DROP BID OU 05/06/20 09:00 05/06/20 10:54 Patient Own Medication (Patient'S Own Med) 1 ea DAILY PO 05/04/20 09:00 05/06/20 13:11 DC Piperacillin Sod/ Tazobactam Sod 3.375 gm/Dextrose 50 ml @ 50 mls/hr Q6H IV 05/04/20 03:00 05/06/20 16:12 Potassium Chloride (Micro-K Extencaps) 20 meq BID PO 05/05/20 21:00 05/06/20 10:05 Potassium Chloride (Micro-K Extencaps) 30 meq BID PO 05/05/20 09:00 05/05/20 16:02 DC 05/05/20 09:38 Prednisolone Acetate (Predforte 1% Ophth Susp) 2 drop QIDP PRN OU itching 05/03/20 22:00 Sertraline HCl (Zoloft) 100 mg QHS PO 05/03/20 21:00 05/05/20 22:33 Sodium Chloride 1,000 ml @ 100 mls/hr Q10H IV 05/03/20 20:30 05/05/20 15:54 DC 05/05/20 14:46 Trazodone HCl (Desyrel) 50 mg QHS PO 05/03/20 21:00 05/05/20 22:32 Vitamin D (Vitamin D) 1,000 units DAILY PO 05/04/20 09:00 05/06/20 10:05 Allergies Coded Allergies: ketorolac (Verified Allergy, Intermediate, rash, itching, 01/21/20) was given close together with morphine; unsure which one caused allergic reaction morphine (Verified Allergy, Intermediate, rash, itching, 01/21/20) Liliane Saldaña MD May 06, 2020 16:28
[2020-05-06] MEDS: CIPROFLOXACIN 500MG TABLET PO SCH (17:52)
[2020-05-06] MEDS: traZODone 50 MG TAB PO SCH (21:58)
[2020-05-06] MEDS: PANTOPRAZOLE 40MG TAB (PROTONIX) PO SCH (21:58)
[2020-05-06] MEDS: SERTRALINE 100 MG TAB PO SCH (21:59)
[2020-05-06] MEDS: ATORVASTATIN 20 MG TAB PO SCH (21:59)
[2020-05-06 22:00] VITALS: BP 139/80
[2020-05-07 05:00] VITALS: BP 136/80
[2020-05-07] MEDS: LEVOTHYROXINE 112MCG TABLET (0.112MG) PO SCH (05:44)
[2020-05-07] MEDS: CIPROFLOXACIN 500MG TABLET PO SCH ×2 (05:44→17:04)
[2020-05-07 08:19] LABS: HEMATOCRIT 29.4 % (36.0-47.0); HEMOGLOBIN 9.1 g/dl (12.0-15.5); MEAN CORPUSCULAR HEMOGLOBIN 26.1 pg (27.0-33.0); MEAN CORPUSCULAR VOLUME 84.5 fl (80.0-96.0); PLATELET COUNT, AUTOMATED 541 10^3/uL (150-450); RED BLOOD COUNT 3.48 10^6/uL (4.00-5.40); WHITE BLOOD COUNT 14.6 10^3/uL (4.0-10.0)
[2020-05-07 08:54] LABS: ALBUMIN 1.8 GM/DL (3.2-5.2); ALT/SGPT 15 U/L (12-78); BLOOD UREA NITROGEN 4 MG/DL (7-18); CALCIUM LEVEL 8.6 MG/DL (8.5-10.1); CARBON DIOXIDE LEVEL 28 MEQ/L (21-32); CHLORIDE LEVEL 110 MEQ/L (98-107); CREATININE FOR GFR 0.56 MG/DL (0.55-1.30); GLOMERULAR FILTRATION RATE > 60.0 (>60); GLUCOSE, FASTING 78 MG/DL (70-100); POTASSIUM SERUM 4.1 MEQ/L (3.5-5.1); SODIUM LEVEL 144 MEQ/L (136-145); TOTAL PROTEIN 5.4 GM/DL (6.4-8.2)
[2020-05-07 09:19] LABS: BILIRUBIN,TOTAL < 0.1 MG/DL (0.2-1.0)
[2020-05-07] MEDS: ENOXAPARIN 40MG/0.4ML SYRINGE (J1650 PER 10MG) SC SCH (09:36)
[2020-05-07] MEDS: VITAMIN D 1,000 INTERNATIONAL UNITS TABLET PO SCH (09:37)
[2020-05-07] MEDS: DORZOLAMIDE 2% OPHTH SOLN 10 ML BTL OD SCH ×3 (09:38→22:00)
[2020-05-07] MEDS: KETOTIFEN 0.025% OU SCH ×2 (09:38→22:00)
[2020-05-07] MEDS: buPROPion **XL** TABLET 150MG (WELLBUTRIN XL) PO SCH (09:38)
[2020-05-07] MEDS: POTASSIUM CHLORIDE 10 MEQ SR TABLET PO SCH ×2 (09:38→21:59)
[2020-05-07] MEDS: BRIMONIDINE 0.15% OPHTH SOLN 5 ML OU SCH ×2 (09:38→21:59)
[2020-05-07] MEDS: METOPROLOL SUCC *XL* 25MG TAB (TopROL *XL*) PO SCH (09:39)
--- NOTE | 2020-05-07 12:25 | IPNPDOC ---
Date Seen The patient was seen on 05/07/20. Progress Note SUBJECTIVE: No acute complaints overnight. WBC mildly improved, on oral abx (Day 2) and tolerating well. Awaiting psych evaluation today for possible discharge. Denies chest pain, dysuria, shortness of breath, n/v/d, abdominal pain. OBJECTIVE: VITAL SIGNS: Please see below PHYSICAL EXAMINATION: CONSTITUTIONAL: No acute distress, resting comfortably, AAO x 2 EYES: PERRLA, corrective lenses in place HENT, MOUTH: Normocephalic, atraumatic, moist mucous membranes NECK: SUPPLE, no JVD, no lymphadenopathy, no carotid bruit CV: Regular rate and rhythm, S1S2 normal, systolic mumur, no rubs/gallops RESPIRATORY: Clear to auscultation bilaterally, no rales/rhonchi/wheezes GI: BS positive in 4 quadrants, soft, nontender, nondistended, no rebound or guarding, no organomegaly : Deferred MUSCULOSKELETAL: Normal ROM. No cyanosis, clubbing, swelling, joint deformity, extremity edema INTEGUMENTARY: Intact, no rashes, no lesions, no erythema NEUROLOGIC: Cranial Nerves II-XII are intact, no focal deficits PSYCHIATRIC: Mood and affect are normal CURRENT MEDICATIONS: Please see below LABORATORY DATA: Please see below IMAGING: Echocardiogram: Please see report MICROBIOLOGY: BCx NG x 2 sets at 48 hrs UCx: likely contaminated GI panel: neg ASSESSMENT: 39 yo W with mild mental retardation, MDD, PTSD, hx of suicidal ideation, GERD, gastroparesis, chronic leukocytosis (baseline WBC ~17) presumed reactive to meds from prior workup, HTN, HLD, obesity, hypothyroidism admitted for sepsis 2/2 acute bilateral pyelonephritis. PLAN: #Acute pyelonephritis, resolved sepsis -UA +, UCx states to be contaminated; however, CT showed to be highly concerning for bilateral pyelonephritis with marked leukocytosis. -WBC improved further , afebrile, denies back/flank pain or dysuria -BCx NG at 48 hrs -D/c zosyn and switched to PO cipro (day 2) x 3 additional days (completes total of 7 days treatment) #Leukocytosis, r/o various infections (pyelonephritis, enteritis) -Could be 2/2 to acute pyelonephritis; however, UCx contaminated. -Enteritis could not be ruled out on CT but no abdominal pain -Echocardiogram not suspicious for endocarditis -C/w treatment with cipro #Suicidal ideation -Currently denies SI/HI -F/u psych evaluation, Dr. Quijano today -Continue home psych meds as below -1:1 sitter, suicide precautions for now #Murmur, likely physiologic -TTE above. # HTN -C/w toprol #HLD: -continue home lipitor #MR, depression: -continue home haldol, bupropion, zoloft and trazodone #Hypothyroidism: -continue home synthroid #GERD: -continue home protonix # DVT ppx - lovenox daily DISPOSITION: Admitted under inpatient status. PT/OT ordered. Will need psych evaluation prior to discharge. Plan is discharge back to prior living situation when medically improved. VS, I&O, 24H, Fishbone Vital Signs/I&O Vital Signs Date Time Temp Pulse Resp B/P (MAP) Pulse Ox O2 Delivery O2 Flow Rate FiO2 05/07/20 09:39 76 117/70 05/07/20 05:01 99.0 97 05/07/20 05:00 18 Room Air l I&O- Last 24 Hours up to 6 AM 05/07/20 06:00 Intake Total 2480 ml Output Total 1100 ml Balance 1380 ml Laboratory Data 24H LABS Laboratory Tests 2 05/07/20 07:58: Nucleated Red Blood Cells % (auto) 0.0, Anion Gap 6L, Glomerular Filtration Rate > 60.0, Calcium Level 8.6, Total Bilirubin < 0.1#L, Aspartate Amino Transf (AST/SGOT) 16, Alanine Aminotransferase (ALT/SGPT) 15, Alkaline Phosphatase 137H, Total Protein 5.4L, Albumin 1.8L, Albumin/Globulin Ratio 0.5L CBC/BMP Laboratory Tests 05/07/20 07:58 Microbiology Microbiology 05/03/20 Urine Culture - Final, Complete 05/03/20 Gastrointestinal Tract Panel (PCR) - Final, Complete 05/03/20 Blood Culture - Preliminary, Resulted No Growth after 72 hours. All specime... 05/03/20 Blood Culture - Preliminary, Resulted No Growth after 72 hours. All specime... Current Medications Current Medications Medications (Trade) Dose Ordered Sig/Raul Route PRN Reason Start Time Stop Time Status Last Admin Dose Admin Acetaminophen (Tylenol Tab) 650 mg Q4H PRN PO PAIN OR FEVER 05/03/20 20:30 05/06/20 10:04 Atorvastatin Calcium (Lipitor) 20 mg QHS PO 05/03/20 21:00 05/06/20 21:59 Brimonidine Tartrate (Alphagan P 0.15%) 1 drop BID OU 05/03/20 21:00 Cancel Brimonidine Tartrate (Alphagan P 0.15%) 1 drop BID OU 05/04/20 09:00 05/07/20 09:38 Bupropion HCl (Wellbutrin Xl) 150 mg DAILY PO 05/04/20 09:00 05/07/20 09:38 Ciprofloxacin (Cipro) 500 mg BID@06,18 PO 05/06/20 18:00 05/10/20 12:00 05/07/20 05:44 Dorzolamide HCl (Trusopt Ocumeter Plus) 1 drop TID OD 05/03/20 21:00 05/07/20 09:38 Enoxaparin Sodium (Lovenox) 40 mg DAILY SC 05/04/20 09:00 05/07/20 09:36 Haloperidol (Haldol) 2 mg BID PO 05/03/20 21:00 05/03/20 22:14 DC Haloperidol (Haldol) 2 mg BID PO 05/03/20 21:00 05/07/20 09:37 Home Med (Med Rec Complete!) ASDIRECTED XX 05/03/20 21:00 05/03/20 21:04 DC Levothyroxine Sodium (Synthroid) 112 mcg DAILY@0600 PO 05/04/20 06:00 05/07/20 05:44 Metoprolol Succinate (TopROL XL) 25 mg DAILY PO 05/06/20 09:00 05/07/20 09:39 Miscellaneous (Unresolved Patient Own Med Order) SEE LABEL COMMENTS DAILY XX 05/03/20 09:00 05/06/20 13:12 DC Ondansetron HCl (ZOFRAN INJection) 4 mg Q4HP PRN IV NAUSEA OR VOMITING 05/03/20 21:30 Pantoprazole Sodium (Protonix) 40 mg QPM PO 05/03/20 21:00 05/06/20 21:58 Patient Own Medication (Patient'S Own Med) 1 DROP BID OU 05/06/20 09:00 05/07/20 09:38 Patient Own Medication (Patient'S Own Med) 1 ea DAILY PO 05/04/20 09:00 05/06/20 13:11 DC Piperacillin Sod/ Tazobactam Sod 3.375 gm/Dextrose 50 ml @ 50 mls/hr Q6H IV 05/04/20 03:00 05/06/20 16:30 DC 05/06/20 16:12 Potassium Chloride (Micro-K Extencaps) 20 meq BID PO 05/05/20 21:00 05/07/20 09:38 Potassium Chloride (Micro-K Extencaps) 30 meq BID PO 05/05/20 09:00 05/05/20 16:02 DC 05/05/20 09:38 Prednisolone Acetate (Predforte 1% Ophth Susp) 2 drop QIDP PRN OU itching 05/03/20 22:00 Sertraline HCl (Zoloft) 100 mg QHS PO 05/03/20 21:00 05/06/20 21:59 Sodium Chloride 1,000 ml @ 100 mls/hr Q10H IV 05/03/20 20:30 05/05/20 15:54 DC 05/05/20 14:46 Trazodone HCl (Desyrel) 50 mg QHS PO 05/03/20 21:00 05/06/20 21:58 Vitamin D (Vitamin D) 1,000 units DAILY PO 05/04/20 09:00 05/07/20 09:37 Allergies Coded Allergies: ketorolac (Verified Allergy, Intermediate, rash, itching, 01/21/20) was given close together with morphine; unsure which one caused allergic reaction morphine (Verified Allergy, Intermediate, rash, itching, 01/21/20) Liliane Saldaña MD May 07, 2020 12:25
[2020-05-07 14:00] VITALS: BP 136/81
[2020-05-07] MEDS ORDERED: CIPR-249 PO (17:49)
[2020-05-07] MEDS: PANTOPRAZOLE 40MG TAB (PROTONIX) PO SCH (21:59)
[2020-05-07] MEDS: ATORVASTATIN 20 MG TAB PO SCH (21:59)
[2020-05-07] MEDS: SERTRALINE 100 MG TAB PO SCH (21:59)
[2020-05-07] MEDS: traZODone 50 MG TAB PO SCH (21:59)
[2020-05-07 22:00] VITALS: BP 135/78
[2020-05-08] MEDS: CIPROFLOXACIN 500MG TABLET PO SCH (05:38)
[2020-05-08] MEDS: LEVOTHYROXINE 112MCG TABLET (0.112MG) PO SCH (05:38)
[2020-05-08 06:00] VITALS: BP 128/70
[2020-05-08 06:23] LABS: HEMATOCRIT 31.4 % (36.0-47.0); HEMOGLOBIN 9.7 g/dl (12.0-15.5); MEAN CORPUSCULAR HEMOGLOBIN 26.4 pg (27.0-33.0); MEAN CORPUSCULAR HGB CONC 30.9 g/dl (32.0-36.5); MEAN CORPUSCULAR VOLUME 85.6 fl (80.0-96.0); PLATELET COUNT, AUTOMATED 582 10^3/uL (150-450); RED BLOOD COUNT 3.67 10^6/uL (4.00-5.40); WHITE BLOOD COUNT 21.6 10^3/uL (4.0-10.0)
[2020-05-08 06:44] LABS: ALBUMIN 1.8 GM/DL (3.2-5.2); ALT/SGPT 17 U/L (12-78); BILIRUBIN,TOTAL 0.1 MG/DL (0.2-1.0); BLOOD UREA NITROGEN 6 MG/DL (7-18); CALCIUM LEVEL 8.6 MG/DL (8.5-10.1); CARBON DIOXIDE LEVEL 29 MEQ/L (21-32); CHLORIDE LEVEL 108 MEQ/L (98-107); CREATININE FOR GFR 0.54 MG/DL (0.55-1.30); GLOMERULAR FILTRATION RATE > 60.0 (>60); GLUCOSE, FASTING 104 MG/DL (70-100); POTASSIUM SERUM 3.8 MEQ/L (3.5-5.1); SODIUM LEVEL 143 MEQ/L (136-145)
[2020-05-08] MEDS: ENOXAPARIN 40MG/0.4ML SYRINGE (J1650 PER 10MG) SC SCH (10:01)
[2020-05-08] MEDS: VITAMIN D 1,000 INTERNATIONAL UNITS TABLET PO SCH (10:02)
[2020-05-08] MEDS: buPROPion **XL** TABLET 150MG (WELLBUTRIN XL) PO SCH (10:02)
[2020-05-08] MEDS: METOPROLOL SUCC *XL* 25MG TAB (TopROL *XL*) PO SCH (10:02)
[2020-05-08] MEDS: BRIMONIDINE 0.15% OPHTH SOLN 5 ML OU SCH ×2 (10:03→21:18)
[2020-05-08] MEDS: KETOTIFEN 0.025% OU SCH ×2 (10:03→21:18)
[2020-05-08] MEDS: POTASSIUM CHLORIDE 10 MEQ SR TABLET PO SCH ×2 (10:03→21:18)
[2020-05-08] MEDS: DORZOLAMIDE 2% OPHTH SOLN 10 ML BTL OD SCH ×3 (10:03→21:18)
[2020-05-08] MEDS: PIPERACILLIN/TAZOBACTAM SOD 3.375 GM in D5W MINI-BAG PLUS 50 ML IV SCH ×3 (10:04→21:17)
[2020-05-08 14:00] VITALS: BP 139/86
--- NOTE | 2020-05-08 15:31 | IPNPDOC ---
Date Seen The patient was seen on 05/08/20. Progress Note SUBJECTIVE: Psych cleared patient. No acute complaints overnight. Clinically patient appears well; however, WBC increased dramatically to 21K. Occurred when patient was transitioned to PO from IV abx. She is afebrile. Patient states she is having some diarrhea, ordered c. diff. Pancultured and found to have worsened UTI on repeat UA (compared to initial UA 05/03/20), repeat UCx pending, repeat BCx pending. Denies chest pain, dysuria, shortness of breath, n/v/d, abdominal pain. OBJECTIVE: VITAL SIGNS: Please see below PHYSICAL EXAMINATION: CONSTITUTIONAL: No acute distress, resting comfortably, AAO x 2 EYES: PERRLA, corrective lenses in place HENT, MOUTH: Normocephalic, atraumatic, moist mucous membranes NECK: SUPPLE, no JVD, no lymphadenopathy, no carotid bruit CV: Regular rate and rhythm, S1S2 normal, systolic mumur, no rubs/gallops RESPIRATORY: Clear to auscultation bilaterally, no rales/rhonchi/wheezes GI: BS positive in 4 quadrants, soft, nontender, nondistended, no rebound or guarding, no organomegaly : Deferred MUSCULOSKELETAL: Normal ROM. No cyanosis, clubbing, swelling, joint deformity, extremity edema INTEGUMENTARY: Intact, no rashes, no lesions, no erythema NEUROLOGIC: Cranial Nerves II-XII are intact, no focal deficits PSYCHIATRIC: Mood and affect are normal CURRENT MEDICATIONS: Please see below LABORATORY DATA: Please see below IMAGING: Echocardiogram: Please see report MICROBIOLOGY: BCx 05/03/20 x 2 sets: NG UCx 05/03/20: likely contaminated, no sensitivities GI panel: neg Repeat BCx 05/08/20: pending UCx 05/09/20: pending ASSESSMENT: 39 yo W with mild mental retardation, MDD, PTSD, hx of suicidal ideation, GERD, gastroparesis, chronic leukocytosis (baseline WBC ~17) presumed reactive to meds from prior workup, HTN, HLD, obesity, hypothyroidism admitted for sepsis 2/2 acute bilateral pyelonephritis. PLAN: #Acute pyelonephritis, resolved sepsis -Repeat UA appears worse than prior, WBC jumped to 21K. Increase in WBC funmilayo elates with stopping IV abx and transitioning to oral abx -No clinical s/s that would indicate worsening infection -F/u all micro above -Zosyn (05/03/20-05/06/20) -Ciprofloxacin (05/06/20- 05/08/20) -Restarting Zosyn due to worsening leukocytosis #Leukocytosis, r/o various infections (pyelonephritis, enteritis vs. c. diff?) -Diarrhea per patient, multiple bowel movements so r/o C. diff since on abx now since admissino -Enteritis could not be ruled out on CT but no abdominal pain -Echocardiogram not suspicious for endocarditis -Restarted zosyn, probiotic #Suicidal ideation -Currently denies SI/HI -Evaluated by psych, cleared. -D/c 1:1, suicide precautions for now #Murmur, likely physiologic -TTE above. # HTN -C/w toprol #HLD: -continue home lipitor #MR, depression: -continue home haldol, bupropion, zoloft and trazodone #Hypothyroidism: -continue home synthroid #GERD: -continue home protonix # DVT ppx - lovenox daily DISPOSITION: Admitted under inpatient status. Plan was to discharge today until WBC dramatically increased, requires additional w/u before d/c. Plan is discharge back to prior living situation when medically improved. VS, I&O, 24H, Leobone Vital Signs/I&O Vital Signs Date Time Temp Pulse Resp B/P (MAP) Pulse Ox O2 Delivery O2 Flow Rate FiO2 05/08/20 14:00 96.6 61 16 139/86 (103) 94 Room Air I&O- Last 24 Hours up to 6 AM 05/08/20 06:00 Intake Total 1260 ml Output Total 2900 ml Balance -1640 ml Laboratory Data 24H LABS Laboratory Tests 2 05/08/20 06:05: Nucleated Red Blood Cells % (auto) 0.0, Anion Gap 6L, Glomerular Filtration Rate > 60.0, Calcium Level 8.6, Total Bilirubin 0.1L, Aspartate Amino Transf (AST/SGOT) 20, Alanine Aminotransferase (ALT/SGPT) 17, Alkaline Phosphatase 135H , Total Protein 6.0L, Albumin 1.8L, Albumin/Globulin Ratio 0.4L 05/08/20 08:10: Urine Color YELLOW, Urine Appearance CLOUDYH, Urine pH 6.0, Urine Specific [place] 1.005, Urine Protein NEGATIVE, Urine Glucose (UA) NEGATIVE, Urine Ketones NEGATIVE, Urine Blood 3+H, Urine Nitrite NEGATIVE, Urine Bilirubin NEGATIVE, Urine Urobilinogen 0.2, Urine Leukocyte Esterase 3+H, Urine WBC (Auto) TNTCH, Urine RBC (Auto) TNTCH, Urine Hyaline Casts (Auto) 0, Urine Bacteria (Auto) 1+H, Urine Squamous Epithelial Cells 0, Urine Mucus (Auto) SMALL, Urine Sperm (Auto) CBC/BMP Laboratory Tests 05/08/20 06:05 Microbiology Microbiology 05/08/20 Blood Culture, Received Pending 05/08/20 Blood Culture, Received Pending 05/08/20 Urine Culture, Received Pending 05/03/20 Urine Culture - Final, Complete 05/03/20 Gastrointestinal Tract Panel (PCR) - Final, Complete 05/03/20 Blood Culture - Preliminary, Resulted No Growth after 72 hours. All specime... 05/03/20 Blood Culture - Preliminary, Resulted No Growth after 72 hours. All specime... Current Medications Current Medications Medications (Trade) Dose Ordered Sig/Raul Route PRN Reason Start Time Stop Time Status Last Admin Dose Admin Acetaminophen (Tylenol Tab) 650 mg Q4H PRN PO PAIN OR FEVER 05/03/20 20:30 05/06/20 10:04 Atorvastatin Calcium (Lipitor) 20 mg QHS PO 05/03/20 21:00 05/07/20 21:59 Brimonidine Tartrate (Alphagan P 0.15%) 1 drop BID OU 05/03/20 21:00 Cancel Brimonidine Tartrate (Alphagan P 0.15%) 1 drop BID OU 05/04/20 09:00 05/08/20 10:03 Bupropion HCl (Wellbutrin Xl) 150 mg DAILY PO 05/04/20 09:00 05/08/20 10:02 Ciprofloxacin (Cipro) 500 mg BID@06,18 PO 05/06/20 18:00 05/08/20 07:49 DC 05/08/20 05:38 Dorzolamide HCl (Trusopt Ocumeter Plus) 1 drop TID OD 05/03/20 21:00 05/08/20 10:03 Enoxaparin Sodium (Lovenox) 40 mg DAILY SC 05/04/20 09:00 05/08/20 10:01 Haloperidol (Haldol) 2 mg BID PO 05/03/20 21:00 05/03/20 22:14 DC Haloperidol (Haldol) 2 mg BID PO 05/03/20 21:00 05/08/20 10:02 Home Med (Med Rec Complete!) ASDIRECTED XX 05/03/20 21:00 05/03/20 21:04 DC Levothyroxine Sodium (Synthroid) 112 mcg DAILY@0600 PO 05/04/20 06:00 05/08/20 05:38 Metoprolol Succinate (TopROL XL) 25 mg DAILY PO 05/06/20 09:00 05/08/20 10:02 Miscellaneous (Unresolved Patient Own Med Order) SEE LABEL COMMENTS DAILY XX 05/03/20 09:00 05/06/20 13:12 DC Ondansetron HCl (ZOFRAN INJection) 4 mg Q4HP PRN IV NAUSEA OR VOMITING 05/03/20 21:30 Pantoprazole Sodium (Protonix) 40 mg QPM PO 05/03/20 21:00 05/07/20 21:59 Patient Own Medication (Patient'S Own Med) 1 DROP BID OU 05/06/20 09:00 05/08/20 10:03 Patient Own Medication (Patient'S Own Med) 1 ea DAILY PO 05/04/20 09:00 05/06/20 13:11 DC Piperacillin Sod/ Tazobactam Sod 3.375 gm/Dextrose 50 ml @ 50 mls/hr Q6H IV 05/04/20 03:00 05/06/20 16:30 DC 05/06/20 16:12 Piperacillin Sod/ Tazobactam Sod 3.375 gm/Dextrose 50 ml @ 50 mls/hr Q6H IV 05/08/20 08:00 05/08/20 10:04 Potassium Chloride (Micro-K Extencaps) 20 meq BID PO 05/05/20 21:00 05/08/20 10:03 Potassium Chloride (Micro-K Extencaps) 30 meq BID PO 05/05/20 09:00 05/05/20 16:02 DC 05/05/20 09:38 Prednisolone Acetate (Predforte 1% Ophth Susp) 2 drop QIDP PRN OU itching 05/03/20 22:00 Sertraline HCl (Zoloft) 100 mg QHS PO 05/03/20 21:00 05/07/20 21:59 Sodium Chloride 1,000 ml @ 100 mls/hr Q10H IV 05/03/20 20:30 05/05/20 15:54 DC 05/05/20 14:46 Trazodone HCl (Desyrel) 50 mg QHS PO 05/03/20 21:00 05/07/20 21:59 Vitamin D (Vitamin D) 1,000 units DAILY PO 05/04/20 09:00 05/08/20 10:02 Allergies Coded Allergies: ketorolac (Verified Allergy, Intermediate, rash, itching, 01/21/20) was given close together with morphine; unsure which one caused allergic reaction morphine (Verified Allergy, Intermediate, rash, itching, 01/21/20) Liliane Saldaña MD May 08, 2020 15:31
[2020-05-08] MEDS: LACTOBACILLUS ACIDOPHILUS CAP (BACID) PO SCH (17:49)
[2020-05-08] MEDS: PANTOPRAZOLE 40MG TAB (PROTONIX) PO SCH (21:17)
[2020-05-08] MEDS: traZODone 50 MG TAB PO SCH (21:18)
[2020-05-08] MEDS: SERTRALINE 100 MG TAB PO SCH (21:18)
[2020-05-08] MEDS: ATORVASTATIN 20 MG TAB PO SCH (21:18)
[2020-05-08 22:00] VITALS: BP 139/74
[2020-05-09] MEDS: PIPERACILLIN/TAZOBACTAM SOD 3.375 GM in D5W MINI-BAG PLUS 50 ML IV SCH ×4 (03:02→20:08)
[2020-05-09] MEDS: LEVOTHYROXINE 112MCG TABLET (0.112MG) PO SCH (05:51)
[2020-05-09 06:00] VITALS: BP 120/69
[2020-05-09 07:59] LABS: BASO % 0.2 % (0.0-1.0); EOS # 0.4 10^3/uL (0.0-0.5); EOS % 2.8 % (0.0-3.0); HEMATOCRIT 30.7 % (36.0-47.0); HEMOGLOBIN 9.4 g/dl (12.0-15.5); LYMPH # 1.7 10^3/uL (1.5-5.0); LYMPH % 11.2 % (24.0-44.0); MEAN CORPUSCULAR HEMOGLOBIN 26.1 pg (27.0-33.0); MEAN CORPUSCULAR HGB CONC 30.6 g/dl (32.0-36.5); MEAN CORPUSCULAR VOLUME 85.3 fl (80.0-96.0); MONO # 0.9 10^3/uL (0.0-0.8); MONO % 5.9 % (0.0-5.0); NEUTROPHILS # 11.9 10^3/uL (1.5-8.5); NEUTROPHILS % 77.9 % (36.0-66.0); PLATELET COUNT, AUTOMATED 536 10^3/uL (150-450); WHITE BLOOD COUNT 15.2 10^3/uL (4.0-10.0)
[2020-05-09 08:41] LABS: ALT/SGPT 20 U/L (12-78); BILIRUBIN,TOTAL 0.2 MG/DL (0.2-1.0); BLOOD UREA NITROGEN 5 MG/DL (7-18); CALCIUM LEVEL 8.6 MG/DL (8.5-10.1); CARBON DIOXIDE LEVEL 29 MEQ/L (21-32); CHLORIDE LEVEL 106 MEQ/L (98-107); CREATININE FOR GFR 0.71 MG/DL (0.55-1.30); GLOMERULAR FILTRATION RATE > 60.0 (>60); GLUCOSE, FASTING 102 MG/DL (70-100); POTASSIUM SERUM 4.1 MEQ/L (3.5-5.1); SODIUM LEVEL 142 MEQ/L (136-145); TOTAL PROTEIN 5.5 GM/DL (6.4-8.2)
[2020-05-09] MEDS: buPROPion **XL** TABLET 150MG (WELLBUTRIN XL) PO SCH (08:55)
[2020-05-09] MEDS: ENOXAPARIN 40MG/0.4ML SYRINGE (J1650 PER 10MG) SC SCH (08:55)
[2020-05-09] MEDS: LACTOBACILLUS ACIDOPHILUS CAP (BACID) PO SCH ×2 (08:55→17:20)
[2020-05-09] MEDS: VITAMIN D 1,000 INTERNATIONAL UNITS TABLET PO SCH (08:55)
[2020-05-09] MEDS: POTASSIUM CHLORIDE 10 MEQ SR TABLET PO SCH ×2 (08:56→20:09)
[2020-05-09] MEDS: KETOTIFEN 0.025% OU SCH ×2 (09:00→20:09)
[2020-05-09] MEDS: DORZOLAMIDE 2% OPHTH SOLN 10 ML BTL OD SCH ×3 (09:00→20:09)
[2020-05-09] MEDS: METOPROLOL SUCC *XL* 25MG TAB (TopROL *XL*) PO SCH (09:00)
[2020-05-09] MEDS: BRIMONIDINE 0.15% OPHTH SOLN 5 ML OU SCH ×2 (09:00→20:10)
[2020-05-09 10:31] LABS: CLOSTRIDIUM DIFFICILE PCR NEGATIVE (NEGATIVE)
--- NOTE | 2020-05-09 12:47 | IPNPDOC ---
Date Seen The patient was seen on 05/09/20. Progress Note SUBJECTIVE: UCx, NG. Repeat BCx pending. WBC improving with zosyn IV again. Diarrhea; however, C. diff neg and no increased abd pain, no cause of worsening leukocytosis at this time. After looking into prior admission, she had admission 11/04- for leukocytosis. She was later discharged with diagnosis of chronic leukocytosis and it was advised patient f/u with heme/onc as o/p. Denies chest pain, dysuria, shortness of breath, n/v/d, abdominal pain. OBJECTIVE: VITAL SIGNS: Please see below PHYSICAL EXAMINATION: CONSTITUTIONAL: No acute distress, resting comfortably, AAO x 3 EYES: PERRLA, corrective lenses in place HENT, MOUTH: Normocephalic, atraumatic, moist mucous membranes NECK: SUPPLE, no JVD, no lymphadenopathy, no carotid bruit CV: Regular rate and rhythm, S1S2 normal, systolic mumur, no rubs/gallops RESPIRATORY: Clear to auscultation bilaterally, no rales/rhonchi/wheezes GI: BS positive in 4 quadrants, soft, nontender, nondistended, no rebound or guarding, no organomegaly : Deferred MUSCULOSKELETAL: Normal ROM. No cyanosis, clubbing, swelling, joint deformity, extremity edema INTEGUMENTARY: Intact, no rashes, no lesions, no erythema NEUROLOGIC: Cranial Nerves II-XII are intact, no focal deficits PSYCHIATRIC: Mood and affect are normal CURRENT MEDICATIONS: Please see below LABORATORY DATA: Please see below IMAGING: Echocardiogram: Please see report MICROBIOLOGY: BCx 05/03/20 x 2 sets: NG UCx 05/03/20: likely contaminated, no sensitivities GI panel: neg Repeat BCx 05/08/20: Ng at 24 hours UCx 05/09/20: NG C. diff neg Strep A neg ASSESSMENT: 39 yo W with mild mental retardation, MDD, PTSD, hx of suicidal ideation, GERD, gastroparesis, chronic leukocytosis (baseline WBC ~17) presumed reactive to meds from prior workup, HTN, HLD, obesity, hypothyroidism admitted for sepsis 2/2 acute bilateral pyelonephritis. PLAN: #Acute on chronic leukocytosis. Acute likley 2/2 to pyelonephritis vs enteritis. Chronic component possibly 2/2 to unknown infection/malignancy vs. leukemoid rxn?). -Hx of chronic leukocytosis, was supposed to f/u with heme/onc in 2017; however, not known if this was done for further evaluation of this issue. -Increase in WBC correlates with stopping IV abx and transitioning to oral abx -Baseline WBC (dating back 2011) ranges from 13-25. -Diarrhea per patient but neg C. diff -Enteritis could not be ruled out on CT but no abdominal pain -Echocardiogram not suspicious for endocarditis -Please see reculturing/micro above. -F/u ordered peripheral smear, preliminary BCx -If neg, will d/c home with recommendation to follow up with heme/onc- same recommendation given in 10/2016 when she was hospitalized. -C/w zosyn for now, probiotic #Acute pyelonephritis- Treated -Repeat UA appears worse than prior, but UCX neg. WBC improving with IV zosyn. -No clinical s/s that would indicate worsening infection -Zosyn (05/03/20-05/06/20) -Ciprofloxacin (05/06/20- 05/08/20) -Today completes 7 days of Zosyn treatment. #Suicidal ideation -Currently denies SI/HI -Evaluated by psych, cleared. -D/c 1:1, suicide precautions for now #Murmur, likely physiologic -TTE above. # HTN -C/w toprol #HLD: -continue home lipitor #MR, depression: -continue home haldol, bupropion, zoloft and trazodone #Hypothyroidism: -continue home synthroid #GERD: -continue home protonix # DVT ppx - lovenox daily DISPOSITION: Admitted under inpatient status. Plan is discharge back to prior living situation when medically improved. Will need heme/onc referral by PCP after discharge. VS, I&O, 24H, Fishbone Vital Signs/I&O Vital Signs Date Time Temp Pulse Resp B/P (MAP) Pulse Ox O2 Delivery O2 Flow Rate FiO2 05/09/20 09:00 58 132/75 05/09/20 06:00 97.9 16 94 Room Air I&O- Last 24 Hours up to 6 AM 05/09/20 06:00 Intake Total 3960 ml Output Total 2100 ml Balance 1860 ml Laboratory Data 24H LABS Laboratory Tests 2 05/09/20 07:45: Immature Granulocyte % (Auto) 2.0, Neutrophils (%) (Auto) 77.9H, Lymphocytes (%) (Auto) 11.2L, Monocytes (%) (Auto) 5.9H, Eosinophils (%) (Auto) 2.8, Basophils (%) (Auto) 0.2, Neutrophils # (Auto) 11.9H, Lymphocytes # (Auto) 1.7, Monocytes # (Auto) 0.9H, Eosinophils # (Auto) 0.4, Basophils # (Auto) 0.0, Nucleated Red Blood Cells % (auto) 0.0, Anion Gap 7L, Glomerular Filtration Rate > 60.0, Calcium Level 8.6, Total Bilirubin 0.2#, Aspartate Amino Transf (AST/SGOT) 22, Alanine Aminotransferase (ALT/SGPT) 20, Alkaline Phosphatase 136H, Total Protein 5.5L, Albumin 2.0L, Albumin/Globulin Ratio 0.6L 05/09/20 09:30: Clostridium difficile [id number] PRESUMPTIVE NEGATIVE, Clostridium difficile Toxin (PCR) NEGATIVE CBC/BMP Laboratory Tests 05/09/20 07:45 Microbiology Microbiology 05/09/20 Group A Streptococcus Screen (CRYSTAL), Received Pending 05/08/20 Blood Culture - Preliminary, Resulted No growth after 24 hours . All specim... 05/08/20 Blood Culture - Preliminary, Resulted No growth after 24 hours . All specim... 05/08/20 Urine Culture - Final, Complete 05/03/20 Urine Culture - Final, Complete 05/03/20 Gastrointestinal Tract Panel (PCR) - Final, Complete 05/03/20 Blood Culture - Final, Complete NO GROWTH AFTER 5 DAYS 05/03/20 Blood Culture - Final, Complete NO GROWTH AFTER 5 DAYS Current Medications Current Medications Medications (Trade) Dose Ordered Sig/Raul Route PRN Reason Start Time Stop Time Status Last Admin Dose Admin Acetaminophen (Tylenol Tab) 650 mg Q4H PRN PO PAIN OR FEVER 05/03/20 20:30 05/06/20 10:04 Atorvastatin Calcium (Lipitor) 20 mg QHS PO 05/03/20 21:00 05/08/20 21:18 Brimonidine Tartrate (Alphagan P 0.15%) 1 drop BID OU 05/03/20 21:00 Cancel Brimonidine Tartrate (Alphagan P 0.15%) 1 drop BID OU 05/04/20 09:00 05/09/20 09:00 Bupropion HCl (Wellbutrin Xl) 150 mg DAILY PO 05/04/20 09:00 05/09/20 08:55 Ciprofloxacin (Cipro) 500 mg BID@06,18 PO 05/06/20 18:00 05/08/20 07:49 DC 05/08/20 05:38 Dorzolamide HCl (Trusopt Ocumeter Plus) 1 drop TID OD 05/03/20 21:00 05/09/20 09:00 Enoxaparin Sodium (Lovenox) 40 mg DAILY SC 05/04/20 09:00 05/09/20 08:55 Haloperidol (Haldol) 2 mg BID PO 05/03/20 21:00 05/03/20 22:14 DC Haloperidol (Haldol) 2 mg BID PO 05/03/20 21:00 05/09/20 08:56 Home Med (Med Rec Complete!) ASDIRECTED XX 05/03/20 21:00 05/03/20 21:04 DC Lactobacillus Acidophilus (Bacid) 1 ea BIDWM PO 05/08/20 18:00 05/09/20 08:55 Levothyroxine Sodium (Synthroid) 112 mcg DAILY@0600 PO 05/04/20 06:00 05/09/20 05:51 Metoprolol Succinate (TopROL XL) 25 mg DAILY PO 05/06/20 09:00 05/09/20 09:00 Miscellaneous (Unresolved Patient Own Med Order) SEE LABEL COMMENTS DAILY XX 05/03/20 09:00 05/06/20 13:12 DC Ondansetron HCl (ZOFRAN INJection) 4 mg Q4HP PRN IV NAUSEA OR VOMITING 05/03/20 21:30 Pantoprazole Sodium (Protonix) 40 mg QPM PO 05/03/20 21:00 05/08/20 21:17 Patient Own Medication (Patient'S Own Med) 1 DROP BID OU 05/06/20 09:00 05/09/20 09:00 Patient Own Medication (Patient'S Own Med) 1 ea DAILY PO 05/04/20 09:00 05/06/20 13:11 DC Piperacillin Sod/ Tazobactam Sod 3.375 gm/Dextrose 50 ml @ 50 mls/hr Q6H IV 05/04/20 03:00 05/06/20 16:30 DC 05/06/20 16:12 Piperacillin Sod/ Tazobactam Sod 3.375 gm/Dextrose 50 ml @ 50 mls/hr Q6H IV 05/08/20 08:00 05/09/20 08:55 Potassium Chloride (Micro-K Extencaps) 20 meq BID PO 05/05/20 21:00 05/09/20 08:56 Potassium Chloride (Micro-K Extencaps) 30 meq BID PO 05/05/20 09:00 05/05/20 16:02 DC 05/05/20 09:38 Prednisolone Acetate (Predforte 1% Ophth Susp) 2 drop QIDP PRN OU itching 05/03/20 22:00 Sertraline HCl (Zoloft) 100 mg QHS PO 05/03/20 21:00 05/08/20 21:18 Sodium Chloride 1,000 ml @ 100 mls/hr Q10H IV 05/03/20 20:30 05/05/20 15:54 DC 05/05/20 14:46 Trazodone HCl (Desyrel) 50 mg QHS PO 05/03/20 21:00 05/08/20 21:18 Vitamin D (Vitamin D) 1,000 units DAILY PO 05/04/20 09:00 05/09/20 08:55 Allergies Coded Allergies: ketorolac (Verified Allergy, Intermediate, rash, itching, 01/21/20) was given close together with morphine; unsure which one caused allergic reaction morphine (Verified Allergy, Intermediate, rash, itching, 01/21/20) Liliane Saldaña MD May 09, 2020 12:47
[2020-05-09 14:00] VITALS: BP 130/76
[2020-05-09] MEDS: ACETAMINOPHEN TAB 650MG DOSE (2X325MG) PO PRN (14:28)
[2020-05-09] MEDS: ATORVASTATIN 20 MG TAB PO SCH (20:08)
[2020-05-09] MEDS: PANTOPRAZOLE 40MG TAB (PROTONIX) PO SCH (20:08)
[2020-05-09] MEDS: traZODone 50 MG TAB PO SCH (20:08)
[2020-05-09] MEDS: SERTRALINE 100 MG TAB PO SCH (20:09)
[2020-05-09 22:00] VITALS: BP 136/69
[2020-05-10] MEDS: PIPERACILLIN/TAZOBACTAM SOD 3.375 GM in D5W MINI-BAG PLUS 50 ML IV SCH ×2 (02:35→08:00)
[2020-05-10] MEDS: LEVOTHYROXINE 112MCG TABLET (0.112MG) PO SCH (05:37)
[2020-05-10 06:00] VITALS: BP 133/68
[2020-05-10 07:19] LABS: BASO % 0.3 % (0.0-1.0); EOS # 0.4 10^3/uL (0.0-0.5); HEMATOCRIT 33.3 % (36.0-47.0); HEMOGLOBIN 10.1 g/dl (12.0-15.5); LYMPH % 13.7 % (24.0-44.0); MEAN CORPUSCULAR HEMOGLOBIN 26.2 pg (27.0-33.0); MEAN CORPUSCULAR HGB CONC 30.3 g/dl (32.0-36.5); MEAN CORPUSCULAR VOLUME 86.3 fl (80.0-96.0); MONO # 0.9 10^3/uL (0.0-0.8); MONO % 5.9 % (0.0-5.0); NEUTROPHILS # 10.9 10^3/uL (1.5-8.5); PLATELET COUNT, AUTOMATED 613 10^3/uL (150-450); RED BLOOD COUNT 3.86 10^6/uL (4.00-5.40); WHITE BLOOD COUNT 14.5 10^3/uL (4.0-10.0)
[2020-05-10 07:39] LABS: ALBUMIN 2.1 GM/DL (3.2-5.2); ALT/SGPT 19 U/L (12-78); BILIRUBIN,TOTAL 0.1 MG/DL (0.2-1.0); BLOOD UREA NITROGEN 6 MG/DL (7-18); CALCIUM LEVEL 8.9 MG/DL (8.5-10.1); CARBON DIOXIDE LEVEL 29 MEQ/L (21-32); CHLORIDE LEVEL 105 MEQ/L (98-107); GLOMERULAR FILTRATION RATE > 60.0 (>60); GLUCOSE, FASTING 94 MG/DL (70-100); POTASSIUM SERUM 4.7 MEQ/L (3.5-5.1); SODIUM LEVEL 140 MEQ/L (136-145); TOTAL PROTEIN 5.7 GM/DL (6.4-8.2)
[2020-05-10] MEDS: VITAMIN D 1,000 INTERNATIONAL UNITS TABLET PO SCH (08:41)
[2020-05-10 08:42] VITALS: BP 133/68
[2020-05-10] MEDS: METOPROLOL SUCC *XL* 25MG TAB (TopROL *XL*) PO SCH (08:42)
[2020-05-10] MEDS: buPROPion **XL** TABLET 150MG (WELLBUTRIN XL) PO SCH (08:42)
[2020-05-10] MEDS: POTASSIUM CHLORIDE 10 MEQ SR TABLET PO SCH (08:42)
[2020-05-10] MEDS: LACTOBACILLUS ACIDOPHILUS CAP (BACID) PO SCH (08:42)
[2020-05-10] MEDS: ENOXAPARIN 40MG/0.4ML SYRINGE (J1650 PER 10MG) SC SCH (08:43)
[2020-05-10] MEDS: KETOTIFEN 0.025% OU SCH (08:43)
[2020-05-10] MEDS: BRIMONIDINE 0.15% OPHTH SOLN 5 ML OU SCH (08:43)
[2020-05-10] MEDS: DORZOLAMIDE 2% OPHTH SOLN 10 ML BTL OD SCH (08:43)
--- NOTE | 2020-05-10 14:54 | DS.PDOC ---
Discharge Summary General Date of Admission May 03, 2020 at 20:17 Date of Discharge 05/10/20 Attending Physician: Liliane Saldaña MD Discharge Summary HISTORY OF PRESENT ILLNESS: 39 yo W with mild mental retardation, MDD, PTSD, hx of suicidal ideation, GERD, gastroparesis, chronic leukocytosis (baseline WBC ~17) presumed reactive to meds from prior workup, HTN, HLD, obesity, hypothyroidism who presented from her longterm with caregiver giving most of the history of recent episodic fevers to 102.8, nausea, emesis and ongoing diarrhea for a few days without rhinorrhea, congestion, new cough, chest pain, palpitations, toxic ingestions. In the ED, she had a low grade temp to 100.4 and soft normotensive but otherwise without acute pain complaints and breathing comfortably on room air. She had nausea and one episode of NBNB emesis. Work up was notable for acute on chronic leukocytosis to 41.5, Hgb 10.8, platelets 586, Na 129, K 2.9, BUN 21, Cr 0.99, glucose 113, LFTs, troponin, TSH, lipase and tox screen were all wnl. She hada lactate of 1.2 and had a CXR nad CTA chest without acute pathology and a CT A/P that showed likely bilateral pyelonephritis most prominent in the right lower pole where there is associated perinephric soft tissue stranding, inflammation in the right mid abdomen surrounding the lower pole of the right kidney and ascending colon and appendix, most likely associated with a renal infection and less likely due to ascending colitis. She was given zosyn, zofran, 1L NS, 1g of Mag sulfate nad 40meq of Kcl and is now being admitted to medicine for sepsis 2/2 pyelonephritis. HOSPITAL COURSE: The patient remained on IV Zosyn and WBC continued to improve. Urine culture came back negative, blood cultures no growth. Complained of some intermittent diarrhea, C. difficile came back negative. She was transitioned to oral antibiotics. Psych cleared patient. Clinically patient appeared well; however, WBC increased dramatically to 21K. Occurred when patient was transitioned to PO from IV abx. Upon panculturing again, patient was found to have UA + but UCx later came back NG. Repeat BCx were neg. After looking into prior admission, she had admission 11/04- for leukocytosis. She was later discharged with diagnosis of chronic leukocytosis and it was advised patient f/u with heme/onc as o/p. On 05/10/20, after 7 days of abx treatment, decision was made to discharge back to [facility]. Recommendation is to follow up with PCP closely and get referral for heme/onc for chronically elevated WBC, something we could not explain. On discharge, patient denies chest pain, dysuria, shortness of breath, n/v/d, abdominal pain. PAST MEDICAL HISTORY: PTSD/CHRONIC MDD/ODD/MILD ID CHRONIC MILD LEUKOCYTOSIS/THROMBOCYTOSIS-10/2017 NORMAL AMS FOR FC/CYTOGENETICS- FELT REACTIVE [address] RUIZ 10/2017 HYPOTHYROIDISM HYPERTENSION GERD H/O OPPOSITIONAL AND MANIPULATIVE BEHAVIOR H/O SUICIDAL THOUGHTS EATING DISORDER GLAUCOMA MILD MENTAL RETARDATION VITAMIN D DEFICIENCY HYPERLIPIDEMIA 2B ALLERGIC RHINITIS, CAUSE UNSPECIFIED CHRONIC ABDOMINAL PAIN-09/2017 NORMAL EGD/COLON/CAPSULE X "PROBABLY GASTROPARESIS/GASTRIC RENTENTION" OF PILLCAM-REINDL SURGICAL HISTORY: None FAMILY HISTORY: No pertinent family hx SOCIAL HISTORY: Smoker: Denies Alcohol: Denies Drugs: denies Recent Travel/Sick Contacts: Denies: Recent travel, Recent sick contacts Psychosocial History: Decreased mood, Depression, Suicidal thoughts Lives in longterm ALLERGIES: Please see below. DISCHARGE MEDICATIONS: Please see below. PHYSICAL EXAMINATION: CONSTITUTIONAL: No acute distress, resting comfortably, AAO x 3 EYES: PERRLA, corrective lenses in place HENT, MOUTH: Normocephalic, atraumatic, moist mucous membranes NECK: SUPPLE, no JVD, no lymphadenopathy, no carotid bruit CV: Regular rate and rhythm, S1S2 normal, systolic murmur, no rubs/gallops RESPIRATORY: Clear to auscultation bilaterally, no rales/rhonchi/wheezes GI: BS positive in 4 quadrants, soft, nontender, nondistended, no rebound or guarding, no organomegaly : Deferred MUSCULOSKELETAL: Normal ROM. No cyanosis, clubbing, swelling, joint deformity, extremity edema INTEGUMENTARY: Intact, no rashes, no lesions, no erythema NEUROLOGIC: Cranial Nerves II-XII are intact, no focal deficits PSYCHIATRIC: Mood and affect are normal CURRENT MEDICATIONS: Please see below LABORATORY DATA: Please see below IMAGING: Echocardiogram: Please see report MICROBIOLOGY: BCx 05/03/20 x 2 sets: NG UCx 05/03/20: likely contaminated, no sensitivities GI panel: neg Repeat BCx 05/08/20: Ng at 24 hours UCx 05/09/20: NG C. diff neg Strep A neg ASSESSMENT: 39 yo W with mild mental retardation, MDD, PTSD, hx of suicidal ideation, GERD, gastroparesis, chronic leukocytosis (baseline WBC ~17) presumed reactive to meds from prior workup, HTN, HLD, obesity, hypothyroidism admitted for sepsis 2/2 acute bilateral pyelonephritis. PLAN: #Acute on chronic leukocytosis. Acute likley 2/2 to pyelonephritis vs enteritis. Chronic component possibly 2/2 to unknown infection/malignancy vs. leukemoid rxn?). -Hx of chronic leukocytosis, was supposed to f/u with heme/onc in 2017; however, not known if this was done for further evaluation of this issue. -Increase in WBC correlates with stopping IV abx and transitioning to oral abx -Baseline WBC (dating back 2011) ranges from 13-25. -Diarrhea per patient but neg C. diff -Enteritis could not be ruled out on CT but no abdominal pain -Echocardiogram not suspicious for endocarditis -Please see reculturing/micro above. -F/u ordered peripheral smear as o/p by PCP, heme/onc -completed 7 days of zosyn, no need for additional tx. -Recommend referral by PCP to heme/onc for further evaluation. #Acute pyelonephritis- Treated -Repeat UA appears worse than prior, but UCX neg. -No clinical s/s that would indicate worsening infection -Zosyn (05/03/20-05/06/20) -Ciprofloxacin (05/06/20- 05/08/20) -ultimately completed 7 days of Zosyn treatment. #Suicidal ideation -Currently denies SI/HI -Evaluated by psych, cleared. -D/c 1:1, suicide precautions for now #Murmur, likely physiologic -TTE above. # HTN -C/w toprol #HLD: -continue home lipitor #MR, depression: -continue home haldol, bupropion, zoloft and trazodone #Hypothyroidism: -continue home synthroid #GERD: -continue home protonix # DVT ppx - lovenox daily DISPOSITION: Admitted under inpatient status. Discharge back to [facility] today. Will need heme/onc referral by PCP, f/u of peripheral smear by PCP. TIME SPENT ON DISCHARGE: Greater than 30 minutes. Vital Signs/I&Os Vital Signs Date Time Temp Pulse Resp B/P (MAP) Pulse Ox O2 Delivery O2 Flow Rate FiO2 05/10/20 08:42 57 133/68 05/10/20 06:00 98.3 16 95 Room Air I&O- Last 24 Hours up to 6 AM 05/10/20 06:00 Intake Total 3090 ml Output Total 2400 ml Balance 690 ml Laboratory Data Labs 24H Laboratory Tests 2 05/10/20 06:29: Immature Granulocyte % (Auto) 2.1, Neutrophils (%) (Auto) 75.0H, Lymphocytes (%) (Auto) 13.7L, Monocytes (%) (Auto) 5.9H, Eosinophils (%) (Auto) 3.0, Basophils (%) (Auto) 0.3, Neutrophils # (Auto) 10.9H, Lymphocytes # (Auto) 2.0, Monocytes # (Auto) 0.9H, Eosinophils # (Auto) 0.4, Basophils # (Auto) 0.0, Nucleated Red Blood Cells % (auto) 0.0, Anion Gap 6L, Glomerular Filtration Rate > 60.0, Calcium Level 8.9, Total Bilirubin 0.1L, Aspartate Amino Transf (AST/SGOT) 26, Alanine Aminotransferase (ALT/SGPT) 19, Alkaline Phosphatase 151H, Total Protein 5.7L, Albumin 2.1L, Albumin/Globulin Ratio 0.6L CBC/BMP Laboratory Tests 05/10/20 06:29 Microbiology Microbiology 05/09/20 Group A Streptococcus Screen (CRYSTAL) - Final, Complete 05/08/20 Blood Culture - Preliminary, Resulted No Growth after 48 hours. All Specime... 05/08/20 Blood Culture - Preliminary, Resulted No Growth after 48 hours. All Specime... 05/08/20 Urine Culture - Final, Complete 05/03/20 Urine Culture - Final, Complete 05/03/20 Gastrointestinal Tract Panel (PCR) - Final, Complete 05/03/20 Blood Culture - Final, Complete NO GROWTH AFTER 5 DAYS 05/03/20 Blood Culture - Final, Complete NO GROWTH AFTER 5 DAYS Discharge Medications Scheduled Atorvastatin Calcium (Atorvastatin Calcium) 20 Mg Tablet, 20 MG PO QHS, (Reported) Brimonidine Tartrate/Timolol (Combigan 0.2%-0.5% Eye Drops) 1 Lula Lula, 1 DROP OU BID, (Reported) Bupropion Hcl (Bupropion Xl) 150 Mg Tab, 150 MG PO DAILY, (Reported) Cholecalciferol (Vitamin D3) (Vitamin D3) 1,000 Unit Tablet, 1,000 UNITS PO DAILY, (Reported) Dorzolamide HCl (Dorzolamide HCl) 2% 10ML Drops, 1 DROP OD TID, (Reported) Haloperidol (Haloperidol) 10 Mg Tablet, 2 MG PO BID, (Reported) Ketotifen Fumarate (Ketotifen Fumarate) 5 Ml Drops, 1 DROP OU BID, (Reported) Levothyroxine Sodium (Levothyroxine Sodium) 112 Mcg Tablet, 112 MCG PO DAILY, (Reported) Metformin HCl (Metformin HCl) 500 Mg Tablet, 500 MG PO BID, (Reported) Metoprolol Succinate (Metoprolol Succinate) 25 Mg Tab, 25 MG PO DAILY, (Reported) Norgestimate-Ethinyl Estradiol (Tri-Sprintec Tablet) 1 Each Tablet, 1 TAB PO DAILY, (Reported) Pantoprazole Sodium (Pantoprazole Sodium) 40 Mg Tablet.dr, 40 MG PO QPM, (Reported) @1600 Sertraline Hcl (Zoloft) 100 Mg Tablet, 100 MG PO QHS, (Reported) Trazodone HCl (Trazodone HCl) 50 Mg Tablet, 50 MG PO QHS, (Reported) Scheduled PRN Prednisolone Acetate (Pred Mild) 0.12% 5ML Drops.susp, 1 DROP OU QID PRN for ITCHING/ BURNING, (Reported) Allergies Coded Allergies: ketorolac (Verified Allergy, Intermediate, rash, itching, 01/21/20) was given close together with morphine; unsure which one caused allergic reaction morphine (Verified Allergy, Intermediate, rash, itching, 01/21/20) Current Medications Current Medications Medications (Trade) Dose Ordered Sig/Raul Route PRN Reason Start Time Stop Time Status Last Admin Dose Admin Acetaminophen (Tylenol Tab) 650 mg Q4H PRN PO PAIN OR FEVER 05/03/20 20:30 05/10/20 11:54 DC 05/09/20 14:28 Atorvastatin Calcium (Lipitor) 20 mg QHS PO 05/03/20 21:00 05/10/20 11:54 DC 05/09/20 20:08 Brimonidine Tartrate (Alphagan P 0.15%) 1 drop BID OU 05/03/20 21:00 Cancel Brimonidine Tartrate (Alphagan P 0.15%) 1 drop BID OU 05/04/20 09:00 05/10/20 11:54 DC 05/10/20 08:43 Bupropion HCl (Wellbutrin Xl) 150 mg DAILY PO 05/04/20 09:00 05/10/20 11:54 DC 05/10/20 08:42 Ciprofloxacin (Cipro) 500 mg BID@06,18 PO 05/06/20 18:00 05/08/20 07:49 DC 05/08/20 05:38 Dorzolamide HCl (Trusopt Ocumeter Plus) 1 drop TID OD 05/03/20 21:00 05/10/20 11:54 DC 05/10/20 08:43 Enoxaparin Sodium (Lovenox) 40 mg DAILY SC 05/04/20 09:00 05/10/20 11:54 DC 05/09/20 08:55 Haloperidol (Haldol) 2 mg BID PO 05/03/20 21:00 05/03/20 22:14 DC Haloperidol (Haldol) 2 mg BID PO 05/03/20 21:00 05/10/20 11:54 DC 05/10/20 08:41 Home Med (Med Rec Complete!) ASDIRECTED XX 05/03/20 21:00 05/03/20 21:04 DC Lactobacillus Acidophilus (Bacid) 1 ea BIDWM PO 05/08/20 18:00 05/10/20 11:54 DC 05/10/20 08:42 Levothyroxine Sodium (Synthroid) 112 mcg DAILY@0600 PO 05/04/20 06:00 05/10/20 11:54 DC 05/10/20 05:37 Metoprolol Succinate (TopROL XL) 25 mg DAILY PO 05/06/20 09:00 05/10/20 11:54 DC 05/10/20 08:42 Miscellaneous (Unresolved Patient Own Med Order) SEE LABEL COMMENTS DAILY XX 05/03/20 09:00 05/06/20 13:12 DC Ondansetron HCl (ZOFRAN INJection) 4 mg Q4HP PRN IV NAUSEA OR VOMITING 05/03/20 21:30 05/10/20 11:54 DC Pantoprazole Sodium (Protonix) 40 mg QPM PO 05/03/20 21:00 05/10/20 11:54 DC 05/09/20 20:08 Patient Own Medication (Patient'S Own Med) 1 DROP BID OU 05/06/20 09:00 05/10/20 11:54 DC 05/10/20 08:43 Patient Own Medication (Patient'S Own Med) 1 ea DAILY PO 05/04/20 09:00 05/06/20 13:11 DC Piperacillin Sod/ Tazobactam Sod 3.375 gm/Dextrose 50 ml @ 50 mls/hr Q6H IV 05/04/20 03:00 05/06/20 16:30 DC 05/06/20 16:12 Piperacillin Sod/ Tazobactam Sod 3.375 gm/Dextrose 50 ml @ 50 mls/hr Q6H IV 05/08/20 08:00 05/10/20 11:54 DC 05/10/20 02:35 Potassium Chloride (Micro-K Extencaps) 20 meq BID PO 05/05/20 21:00 05/10/20 11:54 DC 05/10/20 08:42 Potassium Chloride (Micro-K Extencaps) 30 meq BID PO 05/05/20 09:00 05/05/20 16:02 DC 05/05/20 09:38 Prednisolone Acetate (Predforte 1% Ophth Susp) 2 drop QIDP PRN OU itching 05/03/20 22:00 05/10/20 11:54 DC Sertraline HCl (Zoloft) 100 mg QHS PO 05/03/20 21:00 05/10/20 11:54 DC 05/09/20 20:09 Sodium Chloride 1,000 ml @ 100 mls/hr Q10H IV 05/03/20 20:30 05/05/20 15:54 DC 05/05/20 14:46 Trazodone HCl (Desyrel) 50 mg QHS PO 05/03/20 21:00 05/10/20 11:54 DC 05/09/20 20:08 Vitamin D (Vitamin D) 1,000 units DAILY PO 05/04/20 09:00 05/10/20 11:54 DC 05/10/20 08:41 Liliane Saldaña MD May 10, 2020 14:54
[2020-06-08] MEDS ORDERED: SYNT100T PO (11:21)
[2020-06-08] MEDS ORDERED: ARIP1TAB4 PO (11:21)
== END 2020-05-10 11:45 | disposition home or self-care (01) | DRG 872 ==
LOC: M ED 15:57 → M ED INP 20:17 → M MS5PR 22:35
PROVIDERS: ADMIT Internal Medicine; ATTEND Internal Medicine
DX: A41.9 Sepsis, unspecified organism (principal); E87.1 Hypo-osmolality and hyponatremia; R45.851 Suicidal ideations; N10 Acute pyelonephritis; F70 Mild intellectual disabilities; K21.9 Gastro-esophageal reflux disease without esophagitis; I10 Essential (primary) hypertension; E03.9 Hypothyroidism, unspecified; E55.9 Vitamin D deficiency, unspecified; E78.5 Hyperlipidemia, unspecified; H40.9 Unspecified glaucoma; Z79.899 Other long term (current) drug therapy; Z88.8 Allergy status to other drugs, medicaments and biological substances; Z88.5 Allergy status to narcotic agent

== ENCOUNTER → 2020-07-23 | Outpatient (REF) | payer MEDICARE, MEDICAID ==
[~2020-07-23] MED LIST changes: +ARIP1TAB4 PO; +CIPR-249 PO; +FERR325T3 PO; +PRED0.12 OU; +SYNT100T PO; +VITA500C24 PO; +[UNRECOGNIZED DRUG - OTHER]
[2020-07-23 15:32] LABS: BASO # 0.1 10^3/uL (0.0-0.2); BASO % 0.6 % (0.0-1.0); EOS # 0.2 10^3/uL (0.0-0.5); EOS % 1.4 % (0.0-3.0); HEMATOCRIT 39.7 % (36.0-47.0); HEMOGLOBIN 11.5 g/dl (12.0-15.5); LYMPH # 1.6 10^3/uL (1.5-5.0); LYMPH % 14.5 % (24.0-44.0); MEAN CORPUSCULAR HEMOGLOBIN 25.6 pg (27.0-33.0); MEAN CORPUSCULAR VOLUME 88.4 fl (80.0-96.0); MONO # 0.7 10^3/uL (0.0-0.8); MONO % 6.7 % (0.0-5.0); NEUTROPHILS # 8.3 10^3/uL (1.5-8.5); NEUTROPHILS % 76.4 % (36.0-66.0); PLATELET COUNT, AUTOMATED 438 10^3/uL (150-450); RED BLOOD COUNT 4.49 10^6/uL (4.00-5.40); WHITE BLOOD COUNT 10.8 10^3/uL (4.0-10.0)
[2020-07-23 16:04] LABS: ALBUMIN 3.4 GM/DL (3.2-5.2); ALT/SGPT 14 U/L (12-78); BILIRUBIN,TOTAL 0.2 MG/DL (0.2-1.0); BLOOD UREA NITROGEN 19 MG/DL (7-18); CALCIUM LEVEL 8.8 MG/DL (8.5-10.1); CARBON DIOXIDE LEVEL 29 MEQ/L (21-32); CHLORIDE LEVEL 105 MEQ/L (98-107); CHOLESTEROL LEVEL 185 MG/DL (<200); CHOLESTEROL RISK RATIO 2.341 (<5); CREATININE FOR GFR 0.89 MG/DL (0.55-1.30); FREE T4 1.17 NG/DL (0.76-1.46); GLOMERULAR FILTRATION RATE > 60.0 (>58); GLUCOSE, FASTING 95 MG/DL (70-100); HDL CHOLESTEROL 79 MG/DL (>40); LDL CHOLESTEROL 56 MG/DL (<100); NON-HDL-C 106 MG/DL; SODIUM LEVEL 139 MEQ/L (136-145); TOTAL PROTEIN 6.9 GM/DL (6.4-8.2); TRIGLYCERIDES LEVEL 250 MG/DL (<150)
== END ==
LOC: M SFHCPLAZ 12:25
PROVIDERS: ATTEND Physician Assistant Medical
DX: D72.829 Elevated white blood cell count, unspecified (principal); E78.2 Mixed hyperlipidemia; E03.9 Hypothyroidism, unspecified

== ENCOUNTER → 2020-11-01 | Outpatient (CLI) | payer MEDICARE, MEDICAID ==
[~2020-11-01] MED LIST changes: +ASCO500T PO; +BUPR150T12 PO; -BUPR150T3 PO; +FERR1TAB8 PO; +TRI-1TAB24 PO
[2020-11-01 13:42] LABS: BASO # 0.1 10^3/uL (0.0-0.2); BASO % 0.7 % (0.0-1.0); EOS # 0.1 10^3/uL (0.0-0.5); EOS % 0.5 % (0.0-3.0); HEMATOCRIT 40.2 % (36.0-47.0); HEMOGLOBIN 12.9 g/dl (12.0-15.5); LYMPH # 1.8 10^3/uL (1.5-5.0); LYMPH % 10.7 % (24.0-44.0); MEAN CORPUSCULAR HEMOGLOBIN 27.2 pg (27.0-33.0); MEAN CORPUSCULAR HGB CONC 32.1 g/dl (32.0-36.5); MEAN CORPUSCULAR VOLUME 84.6 fl (80.0-96.0); MONO # 1.4 10^3/uL (0.0-0.8); MONO % 8.4 % (2.0-8.0); NEUTROPHILS # 12.4 10^3/uL (1.5-8.5); NEUTROPHILS % 75.6 % (36.0-66.0); PLATELET COUNT, AUTOMATED 700 10^3/uL (150-450); RED BLOOD COUNT 4.75 10^6/uL (4.00-5.40); WHITE BLOOD COUNT 16.4 10^3/uL (4.0-10.0)
[2020-11-01 14:14] LABS: ALBUMIN 2.2 GM/DL (3.2-5.2); ALT/SGPT 34 U/L (12-78); BILIRUBIN,TOTAL 0.3 MG/DL (0.2-1.0); BLOOD UREA NITROGEN 19 MG/DL (7-18); CARBON DIOXIDE LEVEL 24 MEQ/L (21-32); CHLORIDE LEVEL 96 MEQ/L (98-107); CREATININE FOR GFR 0.98 MG/DL (0.55-1.30); GLOMERULAR FILTRATION RATE > 60.0 (>58); GLUCOSE, FASTING 112 MG/DL (70-100); LIPASE 56 U/L (73-393); POTASSIUM SERUM 4.3 MEQ/L (3.5-5.1); SODIUM LEVEL 130 MEQ/L (136-145); TOTAL PROTEIN 6.5 GM/DL (6.4-8.2)
[2020-11-01 14:16] LABS: ERYTHROCYTE SEDIMENTATION RATE 78 mm/hr (0-20)
== END ==
LOC: M WUC 11:42
PROVIDERS: ATTEND Physician Assistant
DX: R19.7 Diarrhea, unspecified (principal); I95.9 Hypotension, unspecified; R53.83 Other fatigue

== ENCOUNTER 2020-11-02 15:05 | Observation (INO) | payer MEDICARE, MEDICAID ==
[~2020-11-02] VITALS: Ht 170.2 cm; Wt 77.6 kg
[~2020-11-02 15:05] MED LIST changes: -ASCO500T PO; -FERR1TAB8 PO; -TRI-1TAB24 PO
[2020-11-02 16:20] LABS: HEMATOCRIT 40.3 % (36.0-47.0); HEMOGLOBIN 13.1 g/dl (12.0-15.5); MEAN CORPUSCULAR HEMOGLOBIN 27.5 pg (27.0-33.0); MEAN CORPUSCULAR HGB CONC 32.5 g/dl (32.0-36.5); MEAN CORPUSCULAR VOLUME 84.7 fl (80.0-96.0); PLATELET COUNT, AUTOMATED 808 10^3/uL (150-450); RED BLOOD COUNT 4.76 10^6/uL (4.00-5.40); WHITE BLOOD COUNT 20.1 10^3/uL (4.0-10.0)
[2020-11-02] MEDS ORDERED: NS 1,000 ML IV ONE (16:20)
[2020-11-02 17:24] LABS: RSV AMPLIFICATION NEGATIVE (NEGATIVE)
[2020-11-02] MEDS ORDERED: CIPROFLOXACIN 400 MG in IV 1 EA IV ONE (18:00)
[2020-11-02] MEDS ORDERED: ASCO500T PO (18:36)
[2020-11-02] MEDS ORDERED: TRI-1TAB24 PO (18:36)
[2020-11-02] MEDS ORDERED: FERR1TAB8 PO (18:36)
[2020-11-02 20:42] LABS: BLOOD UREA NITROGEN 17 MG/DL (7-18); CALCIUM LEVEL 7.8 MG/DL (8.5-10.1); CARBON DIOXIDE LEVEL 26 MEQ/L (21-32); CHLORIDE LEVEL 97 MEQ/L (98-107); CREATININE FOR GFR 0.75 MG/DL (0.55-1.30); GLOMERULAR FILTRATION RATE > 60.0 (>58); GLUCOSE, FASTING 130 MG/DL (70-100); POTASSIUM SERUM 3.2 MEQ/L (3.5-5.1); SODIUM LEVEL 130 MEQ/L (136-145)
[2020-11-02] MEDS: DORZOLAMIDE 2% OPHTH SOLN 10 ML BTL OD SCH (21:00)
--- NOTE | 2020-11-02 21:19 | HPEPDOC ---
[facility] Medical History & Physical Date of Admission Nov 02, 2020 Date of Service: Nov 02, 2020 Attending Physician: WILLAM SANDERS MD History and Physical HPI: Patient is a 40-year-old female with PMhx of mild intellectual disability, MDD, PTSD, hx of suicidal ideation, GERD, gastroparesis, chronic leukocytosis (baseline WBC ~17) presumed reactive to meds from prior workup, HTN, HLD, obesity, hypothyroidism, who presented to [facility] ER with cc of diarrhea 1 week. [facility] with caregiver giving most of the HPI. According to the leather scraper. States that the patient has had watery loose stools green in appearance, nonbloody. She has had greater than 6 loose stools per day and stat es that she's had 4 bouts of diarrhea prior to arriving in the ER today. Patient denies any abdominal pain associated with the diarrhea and denies any travel history or change in eating habits. Denies any fever, chills, nausea, vomiting ,chest pain, shortness of breath, cough, cold symptoms, unintentional weight changes. Denies any known ill contacts. Of note, patient was seen by her primary care yesterday for the same complaints as mentioned above . Labs showed leukocytosis of 16, elevated CRP 23 and sedimentation rate 78 and a urinalysis which shows UTI Past Medical history Mild intellectual disability PTSD/chronic MDD. Chronic mild leukocytosis/thrombocytosis10/2017 normal AMS for FC/cytogenetics- felt reactive secondary to meds per Dr. Shukla 10/2017 Hypothyroidism Hypertension GERD Persistent leukocytosis Hyperlipidemia Allergic rhinitis cause unspecified. Chronic abdominal pain09/2017 normal EGD/colon/capsule History of suicidal thoughts Past surgical history None. Family history father alive, 66 years old with hypertension, OR and diabetes Mother alive, 41 years old with diabetes. Siblings alive, 25 years old, healthy Social history Nonsmoker Denies alcohol use or illicit drug use PHYSICAL EXAM: General: NAD, laying in bed comfortably HEENT: PERRLA, atraumatic,pharynx and tonsils normal, clear TM's. NECK: no JVD, lymphadenopathy, or thyromegaly, non-tender. LUNGS: no wheezes, rhonchi, rales. HEART: regular rate and rhythm, no murmurs. ABDOMEN: normal BS, no masses, soft and not tender, no guarding EXTREMITIES: no clubbing, no edema. SKIN: normal, no rash, clubbing or cyanosis NEUROLOGIC: alert and oriented x 3, no focal deficits ASSESSMENT AND PLAN: #diarrhea - Greater than 1 week with >6+ watery green stools per day; no pain associated with diarrhea - Will order for fecal fat to r/o pancreatic insufficiency - will order for stool for leukocytes - GI PCR panel ordered at PCP on 11/01/20 WNL - will order for stool occult for blood - Will order for c diff/ isolation precautions -will order for lactoferrin #hypoNa+ - likely hypovolemic hypoNa - will order serum osml, urine osml, urine sodium #HypoK+ - from GI loss- repleted - will continue to monitor lytes and replete as needed #Hx of thrombocytosis #Hx of persistent leukocytosis - Peripheral smear results returned on 05/10/20: Leukocytosis with immature myeloid cells, increased platelets and anemia. - Patient had bone marrow done a few years ago with no conclusive evidence of my eloproliferative neoplasm - f/u outpt with Hematology oncology #HTN - c/w home meds metoprolol #GERD - c/w home meds #HLD - C/w home statin #hypothyroidism -c/w home meds DVT ppx: heparin GI ppx: protonix Diet: 2g na Code status: full Vital Signs Vital Signs Date Time Temp Pulse Resp B/P (MAP) Pulse Ox O2 Delivery O2 Flow Rate FiO2 11/02/20 20:33 98.6 83 18 135/65 (88) 99 Room Air Laboratory Data Labs 24H Laboratory Tests 2 11/02/20 15:54: Nucleated Red Blood Cells % (auto) 0.0 11/02/20 16:10: POC Glucose (Misc Panel) 108H, POC Sodium (Misc Panel) 128L, POC Potassium (Misc Panel) 3.5, POC Chloride (Misc Panel) 90L, POC Total CO2 (Misc Panel) 27.0, POC Blood Urea Nitrogen (Misc Panel 20, POC Ionized Calcium (Misc Panel) 4.5, POC Creatinine (Misc Panel) 1.1, POC Hematocrit (Misc Panel) 43.0 11/02/20 16:36: Coronavirus (COVID-19)(PCR) NEGATIVE, Influenza Type A (RT-PCR) NEGATIVE, Influenza Type B (RT-PCR) NEGATIVE, Respiratory Syncytial Virus (PCR) NEGATIVE 11/02/20 17:25: Urine Color LINDA, Urine Appearance CLOUDYH, Urine pH 6.0, Urine Specific [place] 1.018, Urine Protein 2+H, Urine Glucose (UA) NEGATIVE, Urine Ketones TRACEH, Urine Blood 3+H, Urine Nitrite NEGATIVE, Urine Bilirubin NEGATIVE, Urine Urobilinogen 0.2, Urine Leukocyte Esterase 3+H, Urine WBC (Auto) TNTCH, Urine RBC (Auto) TNTCH, Urine Hyaline Casts (Auto) 0, Urine Bacteria (Auto) NEGATIVE, Urine Squamous Epithelial Cells 4, Urine Sperm (Auto) 11/02/20 20:04: Anion Gap 7L, Glomerular Filtration Rate > 60.0, Calcium Level 7.8L CBC/BMP Laboratory Tests 11/02/20 15:54 11/02/20 20:04 Microbiology Microbiology 11/02/20 Urine Culture, Received Pending Home Medications Scheduled Aripiprazole (Aripiprazole) 2 Mg Tablet, 2 MG PO DAILY Ascorbic Acid (Ascorbic Acid) 500 Mg Tablet, 500 MG PO QPM Atorvastatin Calcium (Atorvastatin Calcium) 20 Mg Tablet, 10 MG PO QHS Brimonidine Tartrate/Timolol (Combigan 0.2%-0.5% Eye Drops) 1 Lula Lula, 1 DROP OU BID Bupropion Hcl (Bupropion Xl) 150 Mg Tab, 150 MG PO DAILY Cholecalciferol (Vitamin D3) (Vitamin D3) 1,000 Unit Tablet, 1,000 UNITS PO DAILY Dorzolamide HCl (Dorzolamide HCl) 2% 10ML Drops, 1 DROP OD TID Ferrous Sulfate (Ferrous Sulfate) 325 Mg Tablet, 325 MG PO QPM Ketotifen Fumarate (Ketotifen Fumarate) 5 Ml Drops, 1 DROP OU BID Levothyroxine Sodium (Synthroid) 100 Mcg Tablet, 100 MCG PO QAM Metoprolol Succinate (Metoprolol Succinate) 25 Mg Tab, 25 MG PO DAILY Norgestimate-Ethinyl Estradiol (Tri-Estarylla Tablet) 1 Each Tablet, 1 TAB PO QH S Pantoprazole Sodium (Pantoprazole Sodium) 40 Mg Tablet.dr, 40 MG PO QPM Sertraline Hcl (Zoloft) 100 Mg Tablet, 100 MG PO QHS Trazodone HCl (Trazodone HCl) 50 Mg Tablet, 50 MG PO QHS Allergies Coded Allergies: ketorolac (Verified Allergy, Intermediate, rash, itching, 01/21/20) was given close together with morphine; unsure which one caused allergic reaction morphine (Verified Allergy, Intermediate, rash, itching, 01/21/20) A-FIB/CHADSVASC A-FIB History Current/History of A-Fib/PAF?: No Current PO Anticoag Therapy: No GME ATTESTATION GME ATTESTATION My faculty preceptor for this patient encounter was physically present during the encounter and was fully available. All aspects of the patient interview, examination, medical decision making process, and medical care plan development were reviewed and approved by the faculty preceptor. The faculty preceptor is aware and concurs with the plan as stated in the body of this note and will attest to such by his/her cosignature. ATTENDING NOTE time of service 928pm is a 53 yr old w a hx of developmental disability, MDD w previous SI, PTSD, chronic hyponatremia, chronic leukocytosis, hypothyroidism, DLP and CHPAIN w thrombocytosis who presented w c/o diarrhea, back pain and poor appetite h er UA findings were c/w a UTI; she will be admitted under obs for evaluation of diarrhea; her UTI appears to be asymptomatic. We will hold her iron until an infection is r/o. rest per 's H&P Frank Coon DO Nov 02, 2020 21:19 WILLAM SANDERS MD Nov 03, 2020 04:09
[2020-11-02] MEDS ORDERED: POTASSIUM CHLORIDE 10% LIQ 20 MEQ/15 ML UDC PO ONE (22:20)
[2020-11-02 22:35] VITALS: BP 111/68
[2020-11-02] MEDS: traZODone 50 MG TAB PO SCH (23:03)
[2020-11-02] MEDS: PANTOPRAZOLE 40MG TAB (PROTONIX) PO SCH (23:03)
[2020-11-02] MEDS: ATORVASTATIN 20 MG TAB PO SCH (23:03)
[2020-11-02] MEDS: ASCORBIC ACID 500 MG TAB PO SCH (23:04)
[2020-11-02] MEDS: SERTRALINE 100 MG TAB PO SCH (23:04)
[2020-11-03 00:23] LABS: CLOSTRIDIUM DIFFICILE PCR NEGATIVE (NEGATIVE)
[2020-11-03] MEDS: ACETAMINOPHEN TAB 650MG DOSE (2X325MG) PO PRN ×2 (01:02→10:17)
[2020-11-03 06:00] VITALS: BP 110/67
[2020-11-03 06:07] LABS: HEMATOCRIT 35.3 % (36.0-47.0); HEMOGLOBIN 11.3 g/dl (12.0-15.5); MEAN CORPUSCULAR HEMOGLOBIN 27.6 pg (27.0-33.0); MEAN CORPUSCULAR VOLUME 86.3 fl (80.0-96.0); RED BLOOD COUNT 4.09 10^6/uL (4.00-5.40)
[2020-11-03 06:12] LABS: PLATELET COUNT, AUTOMATED 619 10^3/uL (150-450)
[2020-11-03] MEDS: HEPARIN SOD (PORCINE) 5000UNITS/ML 1ML VIAL/SYRINGE SC SCH ×3 (06:16→21:07)
[2020-11-03 06:38] LABS: ALBUMIN 1.8 GM/DL (3.2-5.2); ALT/SGPT 32 U/L (12-78); BILIRUBIN,TOTAL 0.3 MG/DL (0.2-1.0); BLOOD UREA NITROGEN 13 MG/DL (7-18); CALCIUM LEVEL 8.2 MG/DL (8.5-10.1); CARBON DIOXIDE LEVEL 26 MEQ/L (21-32); CHLORIDE LEVEL 98 MEQ/L (98-107); CREATININE FOR GFR 0.84 MG/DL (0.55-1.30); GLOMERULAR FILTRATION RATE > 60.0 (>58); GLUCOSE, FASTING 102 MG/DL (70-100); SODIUM LEVEL 131 MEQ/L (136-145); TOTAL PROTEIN 5.5 GM/DL (6.4-8.2)
[2020-11-03 06:39] LABS: POTASSIUM SERUM 4.3 MEQ/L (3.5-5.1)
[2020-11-03] MEDS: LEVOTHYROXINE 100MCG TABLET (0.1MG) PO SCH (10:14)
[2020-11-03] MEDS: METOPROLOL SUCC *XL* 25MG TAB (TopROL *XL*) PO SCH (10:15)
[2020-11-03] MEDS: ARIPiprazole 2 MG TAB PO SCH (10:15)
[2020-11-03] MEDS: VITAMIN D 1,000 INTERNATIONAL UNITS TABLET PO SCH (10:15)
[2020-11-03] MEDS: DORZOLAMIDE 2% OPHTH SOLN 10 ML BTL OD SCH ×3 (10:15→21:07)
[2020-11-03] MEDS: buPROPion **XL** TABLET 150MG (WELLBUTRIN XL) PO SCH (10:15)
[2020-11-03] MEDS ORDERED: LOPERAMIDE 2 MG CAPLET PO PRN (11:15)
[2020-11-03] MEDS: CHOLESTYRAMINE 4 GM PWD PKT PO SCH ×2 (12:00→21:07)
[2020-11-03 14:00] VITALS: BP 100/62
--- NOTE | 2020-11-03 15:28 | IPNPDOC ---
Text Note Date of Service The patient was seen on 11/03/20. NOTE Subjective: No acute events overnight. Pt states that she has been having several episodes of diarrhea with loose stools daily for the past week. She states that she has had similar sx in the past that have resolved without treatment. She complains of urinary frequency. Pt has a hx of mild intellectual disability and is a poor historian. When asked, she initially admitted to dysuria but when asked again later she denied any dysuria. She does report urinary frequency and urgency. Denies nausea, vomiting, fever, chills, abd pain, appetite change, or weight los s. She reports no changes in diet that may have caused sx. Objective: VITALS: See below. GENERAL: Pt is laying comfortably in bed in no acute distress. HEENT: EOMI. Conjunctiva and lids normal. CARDIOVASCULAR: Regular rate and rhythm. No murmurs, rubs, or gallops apprecia manolo. PULMONARY: Clear to auscultation with good air movement. No wheezes, rales, or rhonchi appreciated. ABD: No tenderness to palpation. No suprapubic tenderness. Normoactive bowel sounds to all four quadrants. EXTREMITIES: 2+ DP pulses. No pitting edema. NEURO: No focal neurological deficits. Assessment/plan: Patient is a 40-year-old female with PMhx of mild intellectual disability, MDD, PTSD, hx of suicidal ideation, GERD, gastroparesis, chronic leukocytosis (bas ammon WBC ~17) presumed reactive to meds from prior workup, HTN, HLD, obesity, hypothyroidism, who presented to [facility] ER with cc of diarrhea 1 week. [facility] giving most of the HPI. According to the shake sawyer. States that the patient has had watery loose stools green in appearance, nonbloody. She has had greater than 6 loose stools per day and states that she's had 4 bouts of diarrhea prior to arriving in the ER today. Patient denies any abdominal pain associated with the diarrhea and denies any travel history or change in eating habits. Denies any fever, chills, nausea, vomiting ,chest pain, shortness of breath, cough, cold symptoms, unintentional weight changes. Denies any known ill contacts. Of note, patient was seen by her primary care yesterday for the same complaints as mentioned above . Labs showed leukocytosis of 16, elevated CRP 23 and sedimentation rate 78 and a urinalysis which shows UTI. Pt admitted for further work up of intermittent bouts of diarrhea, hypokalemia, and dehydration. #Diarrhea - Pt has a hx of intermittent diarrhea that has been worked up. She has had an EGD and colonoscopy done in 2018 that was normal but not biopsies were taken at this time. She has had Celiac lab work up done that has returned negative. - Differentials include infectious colitis, lactose intolerance, IBS, IBD, Celiac disease. Seeing as pt has had interment flares of diarrhea, all with similar presentation, it is possible that pt has celiac disease. In addition, given pt's age IBD is another possiblity although she has had a negative col onoscopy in 2018. - C. diff colitis has been ruled out with negative C. diff PCR. - TSH pending. - Stool osmolarity, stool fats, IgA, tissue transglutamine ordered and pending. - Will start probiotic, cholestyramine, and loperamide prn - Likely she will need to return to GI for outpatient follow up and further work up. #Chronic leukocytosis - Pt has had this chronic leukocytosis for the past several years. She has been evaluated by oncology regarding this matter and has also been referred to hematology in August. Last peripheral smear was negative for the BCR/ABL1 rearrangement, negative for JAK2 V617 direct mutation, CALR negative, MPL negative. In the past, this chronic leukocytosis has been attributed to reactive leukocytosis. - Previous bone marrow biopsy showed no sign of myeloproliferative disease. - WBC count higher than baseline likely due to dehydration. - Will have pt continue with follow up with heme/onc. #Chronic thrombocytosis - Pt platelet counts have been elevated for the past several years as well. This matter is also being addressed by oncology and hematology. Her last visit to the oncologist was in August 2020. - platelet count higher than baseline likely due to dehydration. - Will have pt continue to follow up with heme/onc. #Hypokalemia - Likely secondary from diarrhea. - Potassium chloride has been given and pt K level now WNL at 4.3. #UTI - Pt UA consistent with UTI. Pt was given a dose of Ciprofloxacin 400 mg IV once in the ED. - now reporting symptoms of frequency and urgency, will continue treatment with Macrobid x5 days - urine culture pending #MDD/PTSD - Continue home Abilify, Wellbutrin, Zoloft, and Trazadone. #Hypothyroidism - Continue home Levothyroxine. #Hyperlipidemia - Continue home atorvastatin. DVT Prophylaxis: Heparin 5,000 units. Disposition: Discharge pending clinical improvement. VS,Fishbone, I+O VS, Fishbone, I+O Laboratory Tests 11/02/20 15:54 11/02/20 20:04 11/03/20 05:28 Vital Signs Date Time Temp Pulse Resp B/P (MAP) Pulse Ox O2 Delivery O2 Flow Rate FiO2 11/03/20 10:15 85 110/67 11/03/20 06:00 96.8 18 95 Room Air I&O- Last 24 Hours up to 6 AM 11/03/20 05:59 Intake Total 1320 ml Output Total 0 ml Balance 1320 ml GME ATTESTATION GME ATTESTATION My faculty preceptor for this patient encounter was physically present during the encounter and was fully available. All aspects of the patient interview, examination, medical decision making process, and medical care plan development were reviewed and approved by the faculty preceptor. The faculty preceptor is aware and concurs with the plan as stated in the body of this note and will attest to such by his/her cosignature. ATTENDING NOTE I, Weston Garza MD, have independently examined this patient and performed my own physical exam, as well as reviewed the documentation and edited where necessary. I have discussed in detail with the resident / student the findings and plan of treatment as documented by the resident / student and edited their note. I agree with their findings and treatment plan and have edited their documentation. Chely RODRIGUEZ OMS-3 Nov 03, 2020 12:57 TYLER COLE D.O. Nov 03, 2020 15:44 WESTON GARZA MD Nov 10, 2020 14:46
[2020-11-03] MEDS: LACTOBACILLUS ACIDOPHILUS CAP (BACID) PO SCH (17:46)
[2020-11-03] MEDS: PANTOPRAZOLE 40MG TAB (PROTONIX) PO SCH (17:46)
[2020-11-03] MEDS: ASCORBIC ACID 500 MG TAB PO SCH (17:46)
[2020-11-03] MEDS ORDERED: FERROUS SULFATE 325MG TAB PO SCH (21:00)
[2020-11-03] MEDS: ATORVASTATIN 20 MG TAB PO SCH (21:07)
[2020-11-03] MEDS: NITROFURANTOIN (MACROBID) 100 MG CAP PO SCH (21:07)
[2020-11-03] MEDS: traZODone 50 MG TAB PO SCH (21:07)
[2020-11-03] MEDS: SERTRALINE 100 MG TAB PO SCH (21:07)
[2020-11-03 22:00] VITALS: BP 109/64
[2020-11-04] MEDS: HEPARIN SOD (PORCINE) 5000UNITS/ML 1ML VIAL/SYRINGE SC SCH (05:47)
[2020-11-04 06:00] VITALS: BP 105/64
[2020-11-04 06:33] LABS: HEMOGLOBIN 11.4 g/dl (12.0-15.5); MEAN CORPUSCULAR HEMOGLOBIN 27.1 pg (27.0-33.0); MEAN CORPUSCULAR HGB CONC 31.7 g/dl (32.0-36.5); MEAN CORPUSCULAR VOLUME 85.7 fl (80.0-96.0); PLATELET COUNT, AUTOMATED 663 10^3/uL (150-450); WHITE BLOOD COUNT 12.8 10^3/uL (4.0-10.0)
[2020-11-04 06:57] LABS: BLOOD UREA NITROGEN 8 MG/DL (7-18); CALCIUM LEVEL 8.9 MG/DL (8.5-10.1); CARBON DIOXIDE LEVEL 27 MEQ/L (21-32); CHLORIDE LEVEL 99 MEQ/L (98-107); CREATININE FOR GFR 0.75 MG/DL (0.55-1.30); GLOMERULAR FILTRATION RATE > 60.0 (>58); GLUCOSE, FASTING 117 MG/DL (70-100); POTASSIUM SERUM 3.6 MEQ/L (3.5-5.1); SODIUM LEVEL 131 MEQ/L (136-145)
[2020-11-04] MEDS: ARIPiprazole 2 MG TAB PO SCH (08:26)
[2020-11-04] MEDS: VITAMIN D 1,000 INTERNATIONAL UNITS TABLET PO SCH (08:26)
[2020-11-04] MEDS: buPROPion **XL** TABLET 150MG (WELLBUTRIN XL) PO SCH (08:27)
[2020-11-04] MEDS: LEVOTHYROXINE 100MCG TABLET (0.1MG) PO SCH (08:27)
[2020-11-04] MEDS: LACTOBACILLUS ACIDOPHILUS CAP (BACID) PO SCH (08:27)
[2020-11-04] MEDS: DORZOLAMIDE 2% OPHTH SOLN 10 ML BTL OD SCH (08:27)
[2020-11-04] MEDS: NITROFURANTOIN (MACROBID) 100 MG CAP PO SCH (08:27)
[2020-11-04 08:30] VITALS: BP 118/76
[2020-11-04] MEDS: METOPROLOL SUCC *XL* 25MG TAB (TopROL *XL*) PO SCH (08:30)
[2020-11-04] MEDS: CHOLESTYRAMINE 4 GM PWD PKT PO SCH (10:19)
[2020-11-04] MEDS ORDERED: RISATAB3 PO (11:26)
[2020-11-04] MEDS ORDERED: NITR100C2 PO (11:26)
[2020-11-04] MEDS ORDERED: CHOL4PW PO (11:26)
[2020-11-04] MEDS ORDERED: ANTI2TAB16 PO (11:26)
--- NOTE | 2020-11-04 16:40 | DS.PDOC ---
Discharge Summary General Date of Admission Nov 02, 2020 at 15:06 Date of Discharge November 04 2020 Attending Physician: WESTON HUGHES MD Discharge Summary PROCEDURES PERFORMED DURING STAY: None. ADMITTING DIAGNOSES: Diarrhea Hyponatremia Hypokalemia Chronic thrombocytosis Chronic leukocytosis HTN GERD HLD Hypothyroidism DISCHARGE DIAGNOSES: Chronic diarrhea UTI Chronic thrombocytosis Chronic leukocytosis HTN GERD HLD Hypothyroidism COMPLICATIONS/CHIEF COMPLAINT: diarrhea HISTORY OF PRESENT ILLNESS: 40 year old female who presented to the ED with complain of diarrhea for the past week. Patient was noted to have intellectual disability and [facility] at [facility] aide reported watery to loose stools up to 6 times a day. She denies blood in stool. She denies any abdominal pain. Patient has not had any recent travel or change in her eating habits. She denies any fevers, chills, nausea, vomiting, chest pain, shortness of breath or change in weight. No close contacts including other [facility] residents have had the same symptoms. Patient was seen by her primary care physician the day prior to presentation for the same symptoms. In the emergency department, the patient was found to be dehydrated and UA was suggestive of possible UTI. It is unclear on admission whether the patient had symptoms of possible UTI. HOSPITAL COURSE: The patient was admitted to the hospital and given bolus dose of IV fluids to treat her dehydration. C. difficile testing was negative. Stool lactoferrin was positive, suggesting some inflammatory process in the bowels. Stool occult blood was negative. Additional work up including testing for celiac disease is pending. Chart review revealed at least a three-year history of recurrent bouts of diarrhea for which she has been seen by gastroenterology. Prior EGD and colonoscopy in 2018 were negative for any pathology, although no biopsies were taken. The patient was started on a probiotic and cholestyramine twice a day as well as as needed loperamide. Additionally, she was given a lactose free diet. There was some improvement of the patient's diarrhea. The patient did report some hesitancy to eat because she is afraid of worsening her diarrhea. However, she did tolerate a regular diet without nausea or vomiting. Patient record and old urinary frequency and urinary urgency during her admission. She was put on a 5 day course of Macrobid which she can complete after discharge. Her electrolytes and fluid status remained stable at the time of discharge. DISCHARGE MEDICATIONS: Please see below. ALLERGIES: Please see below. PHYSICAL EXAMINATION ON DISCHARGE: VITAL SIGNS: Please see below. GENERAL: Alert, comfortable, in no acute distress HEENT: Normocephalic, atraumatic, sclera anicteric, moist mucous membranes NECK: Supple, trachea midline CARDIOVASCULAR: Regular rate and rhythm, normal S1 and S2. No murmurs, rubs, or gallops RESPIRATORY: Clear to auscultation bilaterally with equal air entry bilaterally. No wheezing, rhonchi, or rales. ABDOMEN: Soft, nontender, nondistended, bowel sounds present, no masses or hepatosplenomegaly appreciated EXTREMITIES: No cyanosis or edema. Pulses 2+/4 in bilateral upper and lower extr emities SKIN: [place], warm, dry NEUROLOGIC: No focal deficits appreciated PSYCHIATRIC: Mood and affect appropriate LABORATORY DATA: Please see below. IMAGING: None PROGNOSIS: Fair ACTIVITY: As tolerated. DIET: Lactose free diet DISCHARGE PLAN: Home/[facility], continue supportive care for diarrhea, follow up with GI outpatient, complete antibiotic course for UTI DISPOSITION: HOME DISCHARGE INSTRUCTIONS: 1. Follow up with your PCP and GI doctor 2. Please take all medications as prescribed 3. Return to the ED for worsening symptoms ITEMS TO FOLLOWUP ON ON OUTPATIENT: 1. Chronic diarrhea, f/u GI to determine if further testing is needed DISCHARGE CONDITION: Stable. TIME SPENT ON DISCHARGE: Greater than 35 minutes. Vital Signs/I&Os Vital Signs Date Time Temp Pulse Resp B/P (MAP) Pulse Ox O2 Delivery O2 Flow Rate FiO2 11/04/20 08:30 80 118/76 11/04/20 06:00 97.9 18 95 Room Air I&O- Last 24 Hours up to 6 AM 11/04/20 05:59 Intake Total 1022 ml Output Total 200 ml Balance 822 ml Laboratory Data Labs 24H Laboratory Tests 2 11/04/20 05:38: Nucleated Red Blood Cells % (auto) 0.0, Anion Gap 5L, Glomerular Filtration Rate > 60.0, Calcium Level 8.9 CBC/BMP Laboratory Tests 11/04/20 05:38 Microbiology Microbiology 11/02/20 Stool Lactoferrin - Final, Complete 11/02/20 Stool Occult Blood (CRYSTAL) - Final, Complete 11/02/20 Blood Culture - Preliminary, Resulted No growth after 24 hours . All specim... 11/02/20 Urine Culture - Final, Complete Discharge Medications Scheduled Aripiprazole (Aripiprazole) 2 Mg Tablet, 2 MG PO DAILY, (Reported) Ascorbic Acid (Ascorbic Acid) 500 Mg Tablet, 500 MG PO QPM, (Reported) Atorvastatin Calcium (Atorvastatin Calcium) 20 Mg Tablet, 10 MG PO QHS, (Reported) Brimonidine Tartrate/Timolol (Combigan 0.2%-0.5% Eye Drops) 1 Lula Lula, 1 DROP OU BID, (Reported) Bupropion Hcl (Bupropion Xl) 150 Mg Tab, 150 MG PO DAILY, (Reported) Cholecalciferol (Vitamin D3) (Vitamin D3) 1,000 Unit Tablet, 1,000 UNITS PO DAILY, (Reported) Dorzolamide HCl (Dorzolamide HCl) 2% 10ML Drops, 1 DROP OD TID, (Reported) Ferrous Sulfate (Ferrous Sulfate) 325 Mg Tablet, 325 MG PO QPM, (Reported) Ketotifen Fumarate (Ketotifen Fumarate) 5 Ml Drops, 1 DROP OU BID, (Reported) L.acidoph/L.bulg/B.bif/S.therm (Shayla-Bid Caplet) 1 Each Tablet, 1 EA PO BIDWM Levothyroxine Sodium (Synthroid) 100 Mcg Tablet, 100 MCG PO QAM, (Reported) Metoprolol Succinate (Metoprolol Succinate) 25 Mg Tab, 25 MG PO DAILY, (Reported) Norgestimate-Ethinyl Estradiol (Tri-Estarylla Tablet) 1 Each Tablet, 1 TAB PO QHS, (Reported) Nystatin (Nystatin) 15 Gm Cream..g., 1 UNIT EXT PRN, (Reported) Pantoprazole Sodium (Pantoprazole Sodium) 40 Mg Tablet.dr, 40 MG PO QPM, (Reported) Sertraline Hcl (Zoloft) 100 Mg Tablet, 100 MG PO QHS, (Reported) Trazodone HCl (Trazodone HCl) 50 Mg Tablet, 50 MG PO QHS, (Reported) Scheduled PRN Loperamide HCl (Anti-Diarrheal) 2 Mg Tablet, 2 MG PO DAILY PRN for diarrhea Allergies Coded Allergies: ketorolac (Verified Allergy, Intermediate, rash, itching, 11/10/20) was given close together with morphine; unsure which one caused allergic reaction morphine (Verified Allergy, Intermediate, rash, itching, 11/10/20) GME ATTESTATION GME ATTESTATION My faculty preceptor for this patient encounter was physically present during the encounter and was fully available. All aspects of the patient interview, examination, medical decision making process, and medical care plan development were reviewed and approved by the faculty preceptor. The faculty preceptor is aware and concurs with the plan as stated in the body of this note and will attest to such by his/her cosignature. ATTENDING NOTE I, Weston Hughes MD, have independently examined this patient and performed my own physical exam, as well as reviewed the documentation and edited where necessary. I have discussed in detail with the resident / student the findings and plan of treatment as documented by the resident / student and edited their note. I agree with their findings and treatment plan and have edited their documentation. Total time spent on this discharge including coordination of care, review of chart, review and additions in the documentation of the resident and actual patient contact is around 35 minutes TYLER COLE D.O. Nov 04, 2020 13:33 WESTON HUGHES MD Nov 10, 2020 15:10
[2020-11-08 17:07] LABS: FATS NEUTRAL Normal (.); FATS TOTAL Normal (.)
[2020-11-08 17:07] LABS: IgA ULTRASENSITIVE 130.9 mg/dL (72-321); TISSUE TRANSGLUTAMINASE IgA <2 U/mL (0-3)
[2020-11-10] MEDS ORDERED: NYST10CR EXT (11:11)
== END 2020-11-04 13:45 | disposition home or self-care (01) ==
LOC: M ED 15:05 → M ED INP 15:06 → ENRESERV 19:56 → M MSPAV 22:36
PROVIDERS: ADMIT Internal Medicine; ATTEND Internal Medicine
DX: K52.9 Noninfective gastroenteritis and colitis, unspecified (principal); N39.0 Urinary tract infection, site not specified; D47.3 Essential (hemorrhagic) thrombocythemia; D72.829 Elevated white blood cell count, unspecified; I10 Essential (primary) hypertension; K21.9 Gastro-esophageal reflux disease without esophagitis; E78.5 Hyperlipidemia, unspecified; E03.9 Hypothyroidism, unspecified; E87.6 Hypokalemia; E87.1 Hypo-osmolality and hyponatremia; E86.0 Dehydration; F79 Unspecified intellectual disabilities; F43.10 Post-traumatic stress disorder, unspecified; F32.9 Major depressive disorder, single episode, unspecified; R10.9 Unspecified abdominal pain; G89.29 Other chronic pain; J30.9 Allergic rhinitis, unspecified; Z79.899 Other long term (current) drug therapy; Z88.5 Allergy status to narcotic agent
CPT/HCPCS: 36415; 80047; 80048; 80053; 81001; 82270; 82705; 82784; 83516; 83605; 83630; 83735; 83930; 84443; 85027; 87040; 87086; 87493; 87631; 96361; 96365; 96366; 96372; 99284; G0378; J0744; J1644

== ENCOUNTER → 2020-11-10 | Outpatient (CLI) | payer MEDICARE, MEDICAID ==
[~2020-11-10] MED LIST changes: +ANTI2TAB16 PO; +ASCO500T PO; +CHOL4PW PO; +FERR1TAB8 PO; +NITR100C2 PO; +NYST10CR EXT; +RISATAB3 PO; +TRI-1TAB24 PO
== END ==
LOC: M LABSMTC 12:13
PROVIDERS: ATTEND Anesthesiology
DX: Z01.812 Encounter for preprocedural laboratory examination (principal); Z20.822 Contact with and (suspected) exposure to COVID-19

== ENCOUNTER 2020-11-15 10:06 | Day surgery (SDC) | payer MEDICARE, MEDICAID ==
[~2020-11-15] VITALS: Ht 167.6 cm; Wt 74.8 kg
[~2020-11-15 10:06] MED LIST changes: +NS 1,000 ML IV ONE
[2020-11-15] MEDS ORDERED: LIDOCAINE 2% 100MG/5ML SDV (FOR ANES.) As Ordered ONE (10:09)
[2020-11-15] MEDS ORDERED: propofoL 200 MG/20 ML VIAL As Ordered ONE (10:09)
[2020-11-15] MEDS ORDERED: fentaNYL 100 MCG/2 ML INJECTION (J3010) As Ordered ONE (10:09)
[2020-11-15] MEDS ORDERED: PHENYLephrine 500MCG 5ML (100MCG/ML) SYRINGE As Ordered ONE (12:26)
--- NOTE | 2020-11-15 12:28 | ROOR ---
Patient Name: Ning Frederick Procedure Date: 11/15/2020 12:12 PM Date of : 1980 Age: 40 Room: [facility] Gender: Female Note Status: Finalized Procedure: Upper GI endoscopy Indications: Iron deficiency anemia, Endoscopy to assess diarrhea in patient suspected of having disease of the small-bowel Providers: Ten MARTIN MD Referring MD: Roya REYES Requesting Provider: Medicines: Monitored Anesthesia Care Complications: No immediate complications. Procedure: Pre-Anesthesia Assessment: - The heart rate, respiratory rate, oxygen saturations, blood pressure, adequacy of pulmonary ventilation, and response to care were monitored throughout the procedure. The Endoscope was introduced through the mouth, and advanced to the second part of duodenum. The upper GI endoscopy was accomplished without difficulty. The patient tolerated the procedure well. Findings: The Z-line was variable and was found 37 cm from the incisors. This was biopsied with a cold forceps for histology. The exam of the esophagus was otherwise normal. The entire examined stomach was normal. The examined duodenum was normal. Biopsies for histology were taken with a cold forceps for evaluation of celiac disease. Impression: - Z-line variable, 37 cm from the incisors. Biopsied. - Normal stomach. - Normal examined duodenum. Biopsied. Recommendation: - Observe patient's clinical course. Procedure Code(s): --- Professional --- 73421, Esophagogastroduodenoscopy, flexible, transoral; with biopsy, single or multiple Diagnosis Code(s): --- Professional --- K22.8, Other specified diseases of esophagus D50.9, Iron deficiency anemia, unspecified R19.7, Diarrhea, unspecified CPT copyright 2019 [employer]. All rights reserved. The codes documented in this report are preliminary and upon outreach liaison review may be revised to meet current compliance requirements. Ten Martin MD Ten MARTIN MD 11/15/2020 12:28:16 PM Electronically signed by Ten MARTIN MD Number of Addenda: 0 Note Initiated On: 11/15/2020 12:12 PM Estimated Blood Loss: Estimated blood loss: none.
--- NOTE | 2020-11-15 12:55 | ROOR ---
Patient Name: Ning Frederick Procedure Date: 11/15/2020 12:15 PM Date of : 1980 Age: 40 Room: [facility] Gender: Female Note Status: Finalized Procedure: Colonoscopy Indications: Clinically significant diarrhea of unexplained origin, Iron deficiency anemia Providers: Ten MARTIN MD Referring MD: Roya REYES Requesting Provider: Medicines: Monitored Anesthesia Care Complications: No immediate complications. Procedure: Pre-Anesthesia Assessment: - The heart rate, respiratory rate, oxygen saturations, blood pressure, adequacy of pulmonary ventilation, and response to care were monitored throughout the procedure. The Colonoscope was introduced through the anus and advanced to 10 cm into the ileum. The colonoscopy was performed without difficulty. The patient tolerated the procedure well. The quality of the bowel preparation was fair. Findings: The perianal and digital rectal examinations were normal. The terminal ileum appeared normal. Inflammation characterized by erosions, erythema, pseudopolyps and shallow ulcerations was found in a continuous and circumferential pattern from the anus to the cecum. This was moderate in severity, and when compared to previous examinations, the findings are new. Biopsies were taken with a cold forceps for histology. Fluid aspiration for microbiology was performed. Impression: - Ulcerative colitis/Pancolitis ulcerative colitis. Inflammation was found from the anus to the cecum. This was moderate in severity, new compared to previous examinations. Biopsied (exclude viral/infectious). Fluid aspiration performed. (exclude viral etiology, exclude infectious etiology) - The examined portion of the ileum was normal. - Preparation of the colon was fair. Recommendation: - Use Lialda 1.2 gm at 4 tabs PO daily. - Await pathology results. - Return to my office in 3 weeks. - (the script was sent to your pharmacy on file) Procedure Code(s): --- Professional --- 74101, Colonoscopy, flexible; with biopsy, single or multiple Diagnosis Code(s): --- Professional --- D50.9, Iron deficiency anemia, unspecified K51.00, Ulcerative (chronic) pancolitis without complications R19.7, Diarrhea, unspecified CPT copyright 2019 [employer]. All rights reserved. The codes documented in this report are preliminary and upon product control and logistics analyst review may be revised to meet current compliance requirements. Ten Martin MD Ten MARTIN MD 11/15/2020 12:55:18 PM Electronically signed by Ten MARTIN MD Number of Addenda: 0 Note Initiated On: 11/15/2020 12:15 PM Estimated Blood Loss: Estimated blood loss: none.
[2020-11-15 13:22] VITALS: BP 134/76
[2020-11-16] MEDS ORDERED: MACR100C43 PO (19:35)
[2020-11-16] MEDS ORDERED: POTA10TA17 PO (19:35)
[2020-11-16] MEDS ORDERED: PYRI1TAB5 PO (19:35)
== END 2020-11-15 14:00 | disposition home or self-care (01) ==
LOC: M OPP 10:06
PROVIDERS: ATTEND Internal Medicine Gastroenterology
DX: K51.00 Ulcerative (chronic) pancolitis without complications (principal); R19.7 Diarrhea, unspecified; D50.9 Iron deficiency anemia, unspecified; K29.70 Gastritis, unspecified, without bleeding; K31.7 Polyp of stomach and duodenum; R10.13 Epigastric pain; K31.84 Gastroparesis; Z79.899 Other long term (current) drug therapy; Z88.5 Allergy status to narcotic agent
CPT/HCPCS: 43239; 45380; 87505; 88305; 88342; J2370; J3010

== ENCOUNTER 2020-11-16 15:31 | Emergency (ER) | payer MEDICARE, MEDICAID ==
[~2020-11-16] VITALS: Ht 172.7 cm; Wt 78.4 kg
[~2020-11-16 15:31] MED LIST changes: -NS 1,000 ML IV ONE
[2020-11-16 16:27] LABS: BASO % 0.3 % (0.0-1.0); EOS # 0.1 10^3/uL (0.0-0.5); EOS % 0.7 % (0.0-3.0); HEMATOCRIT 33.4 % (36.0-47.0); HEMOGLOBIN 10.5 g/dl (12.0-15.5); LYMPH # 1.2 10^3/uL (1.5-5.0); MEAN CORPUSCULAR HEMOGLOBIN 27.8 pg (27.0-33.0); MEAN CORPUSCULAR HGB CONC 31.4 g/dl (32.0-36.5); MEAN CORPUSCULAR VOLUME 88.4 fl (80.0-96.0); MONO # 0.6 10^3/uL (0.0-0.8); MONO % 4.7 % (2.0-8.0); NEUTROPHILS # 9.8 10^3/uL (1.5-8.5); NEUTROPHILS % 83.6 % (36.0-66.0); PLATELET COUNT, AUTOMATED 569 10^3/uL (150-450); RED BLOOD COUNT 3.78 10^6/uL (4.00-5.40); WHITE BLOOD COUNT 11.7 10^3/uL (4.0-10.0)
[2020-11-16 16:59] LABS: ALBUMIN 2.4 GM/DL (3.2-5.2); ALT/SGPT 12 U/L (12-78); BILIRUBIN,DIRECT < 0.1 MG/DL (0.0-0.2); BLOOD UREA NITROGEN 6 MG/DL (7-18); CALCIUM LEVEL 8.3 MG/DL (8.5-10.1); CARBON DIOXIDE LEVEL 25 MEQ/L (21-32); CHLORIDE LEVEL 103 MEQ/L (98-107); CREATININE FOR GFR 0.74 MG/DL (0.55-1.30); GLOMERULAR FILTRATION RATE > 60.0 (>58); GLUCOSE, FASTING 103 MG/DL (70-100); LIPASE 70 U/L (73-393); SODIUM LEVEL 134 MEQ/L (136-145); TOTAL PROTEIN 6.4 GM/DL (6.4-8.2)
[2020-11-16 17:02] LABS: BILIRUBIN,TOTAL < 0.1 MG/DL (0.2-1.0)
[2020-11-16 17:16] LABS: HCG, SERUM QUALITATIVE POSITIVE (NEGATIVE)
[2020-11-16] MEDS ORDERED: POTASSIUM CHLORIDE 10 MEQ SR TABLET PO ONE (17:40)
[2020-11-16 17:58] LABS: HCG, SERUM QUANTITATIVE 9 MIU/ML
--- NOTE | 2020-11-16 18:41 | REP ---
INDICATION: pelvic pain. COMPARISON: None. TECHNIQUE: Real-time sonographic evaluation of pelvis performed utilizing transabdominal and endovaginal technique. FINDINGS: Uterus measures 6.9 x 3.5 x 4.1 cm. Endometrial thickness approximately 4 mm. No sac is seen in the endometrial canal. The ovaries are not well visualized. The right ovary is only seen in the sagittal projection measuring 1.4 x 1.3 cm. There appears to be a right uterine fibroid 1.9 x 1.7 x 2.4 cm. Extensive bowel is seen in the adnexal regions. There is no definite adnexal mass or free fluid. IMPRESSION: Right uterine fibroid 2.4 cm. Endometrial thickness 4 mm with no intrauterine gestational sac. Right ovary grossly unremarkable. No definite adnexal Mass or free fluid. If the patient is , differential diagnosis would include very early intrauterine , missed AB, or ectopic . Suggest correlation with serial quantitative beta HCG values, and follow-up ultrasound if necessary. <Electronically signed by Rodríguez Caputo > 11/16/20 [id number]
[2020-11-16] MEDS ORDERED: NITROFURANTOIN (MACROBID) 100 MG CAP PO ONE ×2 (19:00→19:35)
[2020-11-16] MEDS ORDERED: PHENAZOPYRIDINE 100 MG TAB PO ONE (19:35)
[2020-11-16] MEDS ORDERED: POTA10TA17 PO (19:35)
[2020-11-16] MEDS ORDERED: PYRI1TAB5 PO (19:35)
[2020-11-16] MEDS ORDERED: MACR100C43 PO (19:35)
[2020-11-16 19:50] VITALS: BP 129/74
== END 2020-11-16 19:56 | disposition home or self-care (01) ==
LOC: M ED 15:31
DX: O23.40 Unspecified infection of urinary tract in pregnancy, unspecified trimester (principal); O34.10 Maternal care for benign tumor of corpus uteri, unspecified trimester; O02.81 Inappropriate change in quantitative human chorionic gonadotropin (hCG) in early pregnancy; O26.899 Other specified pregnancy related conditions, unspecified trimester; O09.519 Supervision of elderly primigravida, unspecified trimester; Z3A.00 Weeks of gestation of pregnancy not specified; O99.280 Endocrine, nutritional and metabolic diseases complicating pregnancy, unspecified trimester; O10.019 Pre-existing essential hypertension complicating pregnancy, unspecified trimester; O99.619 Diseases of the digestive system complicating pregnancy, unspecified trimester; Z79.3 Long term (current) use of hormonal contraceptives; Z79.899 Other long term (current) drug therapy; Z88.5 Allergy status to narcotic agent; Z88.8 Allergy status to other drugs, medicaments and biological substances

== ENCOUNTER → 2020-11-22 | Outpatient (REF) | payer MEDICARE, MEDICAID ==
[~2020-11-22] MED LIST changes: +BUDE3CAP PO; +COVI30VI IM; +MACR100C43 PO; +POTA10TA17 PO; +PYRI1TAB5 PO
[2020-11-22 14:22] LABS: BASO # 0.1 10^3/uL (0.0-0.2); BASO % 0.5 % (0.0-1.0); EOS # 0.1 10^3/uL (0.0-0.5); EOS % 0.9 % (0.0-3.0); HEMATOCRIT 31.2 % (36.0-47.0); HEMOGLOBIN 9.3 g/dl (12.0-15.5); LYMPH # 2.4 10^3/uL (1.5-5.0); LYMPH % 16.4 % (24.0-44.0); MEAN CORPUSCULAR HEMOGLOBIN 28.3 pg (27.0-33.0); MEAN CORPUSCULAR HGB CONC 29.8 g/dl (32.0-36.5); MEAN CORPUSCULAR VOLUME 94.8 fl (80.0-96.0); MONO # 0.9 10^3/uL (0.0-0.8); MONO % 6.2 % (2.0-8.0); NEUTROPHILS % 74.3 % (36.0-66.0); PLATELET COUNT, AUTOMATED 532 10^3/uL (150-450); RED BLOOD COUNT 3.29 10^6/uL (4.00-5.40); WHITE BLOOD COUNT 14.7 10^3/uL (4.0-10.0)
== END ==
LOC: M SFHCPLAZ 10:35
PROVIDERS: ATTEND Physician Assistant Medical
DX: K50.90 Crohn's disease, unspecified, without complications (principal)
CPT/HCPCS: 36415; 85025; G0463

== ENCOUNTER → 2020-12-01 | Outpatient (CLI) | payer MEDICARE, MEDICAID ==
[2020-12-01 09:20] LABS: BASO # 0.1 10^3/uL (0.0-0.2); BASO % 0.6 % (0.0-1.0); EOS # 0.2 10^3/uL (0.0-0.5); HEMOGLOBIN 8.9 g/dl (12.0-15.5); LYMPH # 2.6 10^3/uL (1.5-5.0); MEAN CORPUSCULAR HEMOGLOBIN 28.9 pg (27.0-33.0); MEAN CORPUSCULAR HGB CONC 29.7 g/dl (32.0-36.5); MEAN CORPUSCULAR VOLUME 97.4 fl (80.0-96.0); MONO # 1.1 10^3/uL (0.0-0.8); MONO % 6.4 % (2.0-8.0); NEUTROPHILS # 13.1 10^3/uL (1.5-8.5); NEUTROPHILS % 74.8 % (36.0-66.0); PLATELET COUNT, AUTOMATED 499 10^3/uL (150-450); RED BLOOD COUNT 3.08 10^6/uL (4.00-5.40); WHITE BLOOD COUNT 17.5 10^3/uL (4.0-10.0)
[2020-12-01 09:53] LABS: HCG, SERUM QUALITATIVE NEGATIVE (NEGATIVE)
== END ==
LOC: M LAB 08:08
PROVIDERS: ATTEND Physician Assistant Medical
DX: K50.90 Crohn's disease, unspecified, without complications (principal); R73.01 Impaired fasting glucose; Z32.01 Encounter for pregnancy test, result positive

== ENCOUNTER → 2020-12-31 | Outpatient (REF) | payer MEDICARE, MEDICAID ==
[~2020-12-31] MED LIST changes: +POTA10CA32 PO
[2020-12-31 10:02] LABS: BLOOD UREA NITROGEN 8 MG/DL (7-18); CALCIUM LEVEL 8.2 MG/DL (8.5-10.1); CARBON DIOXIDE LEVEL 26 MEQ/L (21-32); CHLORIDE LEVEL 108 MEQ/L (98-107); CREATININE FOR GFR 0.92 MG/DL (0.55-1.30); GLOMERULAR FILTRATION RATE > 60.0 (>58); GLUCOSE, FASTING 209 MG/DL (70-100); SODIUM LEVEL 140 MEQ/L (136-145)
== END ==
LOC: M PLALAB 08:07
PROVIDERS: ATTEND Physician Assistant Medical
DX: E87.6 Hypokalemia (principal)

== ENCOUNTER → 2021-01-11 | Outpatient (REF) | payer MEDICARE, MEDICAID ==
[2021-01-11 14:37] LABS: BLOOD UREA NITROGEN 10 MG/DL (7-18); CALCIUM LEVEL 9.3 MG/DL (8.5-10.1); CARBON DIOXIDE LEVEL 27 MEQ/L (21-32); CHLORIDE LEVEL 105 MEQ/L (98-107); CREATININE FOR GFR 0.72 MG/DL (0.55-1.30); FREE T4 1.59 NG/DL (0.76-1.46); GLOMERULAR FILTRATION RATE > 60.0 (>58); GLUCOSE, FASTING 92 MG/DL (70-100); PHOSPHORUS LEVEL 3.5 MG/DL (2.5-4.9); POTASSIUM SERUM 4.4 MEQ/L (3.5-5.1); SODIUM LEVEL 140 MEQ/L (136-145)
== END ==
LOC: M SFHCPLAZ 09:42
PROVIDERS: ATTEND Physician Assistant Medical
DX: E87.6 Hypokalemia (principal); E03.9 Hypothyroidism, unspecified

== ENCOUNTER → 2021-04-26 | Outpatient (REF) | payer MEDICARE, MEDICAID | LOC: M SFHCWAGY 19:12 | PROVIDERS: ATTEND Nurse Practitioner Women's Health | DX: Z12.4 Encounter for screening for malignant neoplasm of cervix (principal) | CPT/HCPCS: 87624; G0123 ==

== ENCOUNTER → 2021-05-18 | Outpatient (CLI) | payer MEDICARE, MEDICAID ==
[2021-05-18 17:03] LABS: CALCIUM LEVEL 9.4 MG/DL (8.5-10.1); FREE T4 1.2 NG/DL (0.76-1.46); THYROID STIMULATING HORMONE 1.68 uIU/ML (0.358-3.740)
[2021-05-18 17:05] LABS: PTH INTACT 30.2 PG/ML (18.5-88.0); TOTAL 25(OH) VITAMIN D 43.5 NG/ML (30.0-100.0)
== END ==
LOC: M PLALAB 12:32
PROVIDERS: ATTEND Physician Assistant Medical
DX: E55.9 Vitamin D deficiency, unspecified (principal); D72.829 Elevated white blood cell count, unspecified; Z79.899 Other long term (current) drug therapy
CPT/HCPCS: 36415; 82306; 82310; 83970; 84439; 84443; G0463

== ENCOUNTER 2021-07-09 14:12 | Emergency (ER) | payer MEDICARE, MEDICAID ==
[~2021-07-09] VITALS: Ht 172.7 cm; Wt 88.6 kg
[2021-07-09 15:26] LABS: HEMOGLOBIN 14.5 g/dl (12.0-15.5); MEAN CORPUSCULAR HEMOGLOBIN 28.5 pg (27.0-33.0); MEAN CORPUSCULAR HGB CONC 32.2 g/dl (32.0-36.5); MEAN CORPUSCULAR VOLUME 88.6 fl (80.0-96.0); PLATELET COUNT, AUTOMATED 408 10^3/uL (150-450); RED BLOOD COUNT 5.08 10^6/uL (4.00-5.40); WHITE BLOOD COUNT 15.6 10^3/uL (4.0-10.0)
[2021-07-09 15:51] LABS: AMPHETAMINES LEVEL URINE NEGATIVE (NEGATIVE); BARBITURATES URINE NEGATIVE (NEGATIVE); BENZODIAZEPINES URINE NEGATIVE (NEGATIVE); CANNABINOIDS URINE NEGATIVE (NEGATIVE); COCAINE METABOLITE URINE NEGATIVE (NEGATIVE); METHADONE URINE NEGATIVE (NEGATIVE); OPIATES URINE NEGATIVE (NEGATIVE); PHENCYCLIDINE URINE NEGATIVE (NEGATIVE)
[2021-07-09 15:53] LABS: HCG, SERUM QUALITATIVE NEGATIVE (NEGATIVE)
[2021-07-09 16:00] LABS: ACETAMINOPHEN LEVEL < 2.0 UG/ML (10.0-30.0); ALBUMIN 3.4 GM/DL (3.2-5.2); ALT/SGPT 18 U/L (12-78); BILIRUBIN,DIRECT < 0.1 MG/DL (0.0-0.2); BILIRUBIN,TOTAL 0.3 MG/DL (0.2-1.0); BLOOD UREA NITROGEN 11 MG/DL (7-18); CALCIUM LEVEL 9.1 MG/DL (8.5-10.1); CARBON DIOXIDE LEVEL 25 MEQ/L (21-32); CHLORIDE LEVEL 108 MEQ/L (98-107); CREATININE FOR GFR 0.87 MG/DL (0.55-1.30); ETHYL ALCOHOL (ETHANOL) < 0.003 % (0.000-0.010); GLOMERULAR FILTRATION RATE > 60.0 (>58); GLUCOSE, FASTING 102 MG/DL (70-100); POTASSIUM SERUM 4.2 MEQ/L (3.5-5.1); SALICYLATE LEVEL < 1.7 MG/DL (5.0-30.0); SODIUM LEVEL 142 MEQ/L (136-145); TOTAL PROTEIN 7.1 GM/DL (6.4-8.2)
[2021-07-09 16:54] LABS: RSV AMPLIFICATION NEGATIVE (NEGATIVE)
[2021-07-09] MEDS ORDERED: MESA1.2T PO (22:26)
[2021-07-09] MEDS ORDERED: POTA1TAB23 PO (22:26)
[2021-07-09] MEDS ORDERED: PRAZ1CAP PO (22:26)
[2021-07-09] MEDS ORDERED: med rec comment (22:35)
[2021-07-09] MEDS ORDERED: HOME MED LIST COMPLETE! XX SCH (22:35)
[2021-07-10 15:18] VITALS: BP 122/68
[2021-10-03] MEDS ORDERED: FERR325T18 PO (14:26)
== END 2021-07-10 15:40 ==
LOC: M ED 14:12
DX: R00.1 Bradycardia, unspecified (principal); F23 Brief psychotic disorder; R45.851 Suicidal ideations; Z79.3 Long term (current) use of hormonal contraceptives; Z79.899 Other long term (current) drug therapy; Z88.5 Allergy status to narcotic agent; Z88.8 Allergy status to other drugs, medicaments and biological substances

== ENCOUNTER → 2021-08-17 | Outpatient (CLI) | payer MEDICARE, MEDICAID ==
[~2021-08-17] MED LIST changes: +MESA1.2T PO; +POTA1TAB23 PO; +PRAZ1CAP PO; +med rec comment
--- NOTE | 2021-08-17 08:46 | REPMRS ---
Patient History The patient states she has not had a clinical breast exam in over a year. Patient is nulliparous. Taking hormonal contraceptives. Tomosynthesis is performed. Volpara breast density is a. [facility]%. Patient states no breast complaints today. Patient has signed MRS History Sheet. Digital Woman Screen Mammo: August 17, 2021 - Exam #: [id number] Bilateral CC and MLO view(s) were taken. Technologist: Camila Humphries, Technologist No prior studies available for comparison. FINDINGS: There are scattered fibroglandular densities. There is a mild amount of residual fibroglandular tissue which is fairly symmetric. There is no dominant mass, architectural distortion, or clustered microcalcification suggestive of malignancy. Assessment: BI-RADS/ACR category 1 mammogram. Negative Mammogram. Recommendation Routine screening mammogram in 1 year (for women over age 40). This mammogram was interpreted with the aid of an FDA-approved computer-aided dectection system. Electronically Signed By: Rodríguez Caputo MD 08/17/21 [id number]
== END ==
LOC: M WHC 07:45
PROVIDERS: ATTEND Physician Assistant Medical
DX: Z12.31 Encounter for screening mammogram for malignant neoplasm of breast (principal)

== ENCOUNTER → 2021-08-24 | Outpatient (CLI) | payer MEDICARE, MEDICAID ==
[2021-08-24 13:41] LABS: BASO # 0.1 10^3/uL (0.0-0.2); BASO % 0.4 % (0.0-1.0); EOS # 0.2 10^3/uL (0.0-0.5); EOS % 1.6 % (0.0-3.0); HEMOGLOBIN 12.2 g/dl (12.0-15.5); LYMPH # 1.2 10^3/uL (1.5-5.0); MEAN CORPUSCULAR HEMOGLOBIN 28.2 pg (27.0-33.0); MEAN CORPUSCULAR HGB CONC 30.5 g/dl (32.0-36.5); MEAN CORPUSCULAR VOLUME 92.6 fl (80.0-96.0); MONO # 0.7 10^3/uL (0.0-0.8); MONO % 5.4 % (2.0-8.0); NEUTROPHILS # 11.3 10^3/uL (1.5-8.5); NEUTROPHILS % 83.2 % (36.0-66.0); PLATELET COUNT, AUTOMATED 450 10^3/uL (150-450); RED BLOOD COUNT 4.32 10^6/uL (4.00-5.40); WHITE BLOOD COUNT 13.6 10^3/uL (4.0-10.0)
[2021-08-24 14:23] LABS: HEMOGLOBIN A1c 5.5 %
[2021-08-24 17:09] LABS: ALBUMIN 3.3 GM/DL (3.2-5.2); ALT/SGPT 12 U/L (12-78); BILIRUBIN,TOTAL 0.3 MG/DL (0.2-1.0); BLOOD UREA NITROGEN 13 MG/DL (7-18); CALCIUM LEVEL 9.4 MG/DL (8.5-10.1); CARBON DIOXIDE LEVEL 29 MEQ/L (21-32); CHLORIDE LEVEL 106 MEQ/L (98-107); CREATININE FOR GFR 0.75 MG/DL (0.55-1.30); FERRITIN 82 NG/ML (8-252); FREE T4 1.14 NG/DL (0.76-1.46); GLOMERULAR FILTRATION RATE > 60.0 (>58); GLUCOSE, FASTING 88 MG/DL (70-100); IRON (FE) 57 UG/DL (50-170); POTASSIUM SERUM 5.1 MEQ/L (3.5-5.1); SODIUM LEVEL 139 MEQ/L (136-145); TOTAL PROTEIN 6.7 GM/DL (6.4-8.2)
== END ==
LOC: M PLALAB 11:20
PROVIDERS: ATTEND Physician Assistant Medical
DX: E87.6 Hypokalemia (principal); E66.3 Overweight; D47.3 Essential (hemorrhagic) thrombocythemia; E61.1 Iron deficiency; F43.21 Adjustment disorder with depressed mood

== ENCOUNTER 2021-09-12 21:14 | Inpatient (IN) | payer MEDICARE, MEDICAID ==
[~2021-09-12] VITALS: Ht 167.6 cm; Wt 87.4 kg
[2021-09-12 22:50] LABS: HEMATOCRIT 39.2 % (36.0-47.0); HEMOGLOBIN 12.8 g/dl (12.0-15.5); MEAN CORPUSCULAR HEMOGLOBIN 28.9 pg (27.0-33.0); MEAN CORPUSCULAR HGB CONC 32.7 g/dl (32.0-36.5); MEAN CORPUSCULAR VOLUME 88.5 fl (80.0-96.0); PLATELET COUNT, AUTOMATED 402 10^3/uL (150-450); RED BLOOD COUNT 4.43 10^6/uL (4.00-5.40)
[2021-09-12 23:16] LABS: AMPHETAMINES LEVEL URINE NEGATIVE (NEGATIVE); BARBITURATES URINE NEGATIVE (NEGATIVE); BENZODIAZEPINES URINE NEGATIVE (NEGATIVE); CANNABINOIDS URINE NEGATIVE (NEGATIVE); COCAINE METABOLITE URINE NEGATIVE (NEGATIVE); METHADONE URINE NEGATIVE (NEGATIVE); OPIATES URINE NEGATIVE (NEGATIVE); PHENCYCLIDINE URINE NEGATIVE (NEGATIVE)
[2021-09-12 23:25] LABS: ALT/SGPT 16 U/L (12-78); BILIRUBIN,DIRECT < 0.1 MG/DL (0.0-0.2); BILIRUBIN,TOTAL 0.2 MG/DL (0.2-1.0); BLOOD UREA NITROGEN 12 MG/DL (7-18); CALCIUM LEVEL 8.6 MG/DL (8.5-10.1); CARBON DIOXIDE LEVEL 23 MEQ/L (21-32); CHLORIDE LEVEL 111 MEQ/L (98-107); CREATININE FOR GFR 0.77 MG/DL (0.55-1.30); ETHYL ALCOHOL (ETHANOL) < 0.003 % (0.000-0.010); GLOMERULAR FILTRATION RATE > 60.0 (>58); GLUCOSE, FASTING 123 MG/DL (70-100); POTASSIUM SERUM 3.9 MEQ/L (3.5-5.1); SALICYLATE LEVEL < 1.7 MG/DL (5.0-30.0); SODIUM LEVEL 140 MEQ/L (136-145); TOTAL PROTEIN 6.7 GM/DL (6.4-8.2)
[2021-09-13] MEDS ORDERED: D3 H2000 PO (07:00)
[2021-09-13] MEDS ORDERED: C 50TAB PO (07:00)
[2021-09-13] MEDS ORDERED: FERR325T18 PO (07:00)
[2021-09-13] MEDS ORDERED: CLEO300C2 PO (07:00)
[2021-09-13] MEDS ORDERED: ARIP1TAB6 PO (07:00)
[2021-09-13] MEDS ORDERED: OYST1TAB PO (07:01)
[2021-09-13] MEDS ORDERED: HOME MED LIST COMPLETE! XX SCH (07:05)
[2021-09-13 07:35] LABS: HCG, SERUM QUALITATIVE NEGATIVE (NEGATIVE)
[2021-09-14] VITALS (9 sets, daily range): BP systolic 121–161; BP diastolic 60–98
[2021-09-14] MEDS ORDERED: buPROPion **XL** TABLET 150MG (WELLBUTRIN XL) PO ONE (09:00)
[2021-09-14] MEDS ORDERED: LEVOTHYROXINE 100MCG TABLET (0.1MG) PO SCH (09:00)
[2021-09-14] MEDS ORDERED: LORazepam 2 MG TAB PO STA (12:37)
[2021-09-14] MEDS ORDERED: MOM 30ML SUSPENSION UDC PO PRN (14:10)
[2021-09-14] MEDS ORDERED: MAALOX 30 ML SUSP *UDC PO PRN (14:10)
[2021-09-14] MEDS ORDERED: ACETAMINOPHEN TAB 650MG DOSE (2X325MG) PO PRN (14:10)
[2021-09-14] MEDS ORDERED: LORazepam 1 MG TAB PO ONE (17:05)
[2021-09-14] MEDS: OYSTER SHELL CALCIUM 500 MG TAB PO SCH (17:31)
[2021-09-14] MEDS: PANTOPRAZOLE 40MG TAB (PROTONIX) PO SCH (17:31)
[2021-09-14] MEDS: VITAMIN D 1,000 INTERNATIONAL UNITS TABLET PO SCH (17:31)
[2021-09-14] MEDS: ASCORBIC ACID 500 MG TAB PO SCH (17:32)
[2021-09-14] MEDS: MESALAMINE 400 MG CAPSULE DELAYED RELEASE (DELZICOL) PO SCH ×2 (17:32→22:07)
[2021-09-14] MEDS: POTASSIUM CHLORIDE 10MEQ SR TABLET PO SCH (17:32)
[2021-09-14] MEDS: DORZOLAMIDE 2% OPHTH SOLN 10 ML BTL OD SCH ×2 (17:33→22:07)
[2021-09-14] MEDS: METOPROLOL SUCC *XL* 25MG TAB (TopROL *XL*) PO SCH (17:44)
[2021-09-14] MEDS ORDERED: LORazepam 2 MG TAB PO ONE (19:55)
[2021-09-14] MEDS ORDERED: diphenhydrAMINE 50MG CAP PO ONE (19:55)
[2021-09-14] MEDS ORDERED: LORazepam 2 MG/ML VIAL IM STA (19:59)
[2021-09-14] MEDS ORDERED: diphenhydrAMINE 50MG/ML VIAL (J1200) IM STA (19:59)
[2021-09-14] MEDS ORDERED: HALOPERIDOL 5MG/ML VIAL (J1630 PER 1) IM STA (19:59)
[2021-09-14] MEDS: PRAZOSIN 1 MG CAP PO SCH (22:07)
[2021-09-14] MEDS: TIMOLOL MALEATE 0.5% OPHTH SOLN 5 ML OU SCH (22:07)
[2021-09-14] MEDS: ATORVASTATIN 10 MG TAB PO SCH (22:07)
[2021-09-14] MEDS: BRIMONIDINE 0.1% OPHTH SOLN 5 ML OU SCH (22:08)
[2021-09-15] MEDS: LEVOTHYROXINE 100MCG TABLET (0.1MG) PO SCH (06:02)
[2021-09-15 06:51] VITALS: BP 96/53
[2021-09-15] MEDS ORDERED: MESALAMINE 400 MG CAPSULE DELAYED RELEASE (DELZICOL) PO SCH (09:00)
[2021-09-15] MEDS: PANTOPRAZOLE 40MG TAB (PROTONIX) PO SCH (09:32)
[2021-09-15] MEDS: OYSTER SHELL CALCIUM 500 MG TAB PO SCH (09:32)
[2021-09-15] MEDS: MESALAMINE 400 MG CAPSULE DELAYED RELEASE (DELZICOL) PO SCH ×3 (09:32→22:01)
[2021-09-15] MEDS: VITAMIN D 1,000 INTERNATIONAL UNITS TABLET PO SCH (09:32)
[2021-09-15] MEDS: buPROPion **XL** TABLET 150MG (WELLBUTRIN XL) PO SCH (09:32)
[2021-09-15] MEDS: BRIMONIDINE 0.1% OPHTH SOLN 5 ML OU SCH ×2 (10:18→22:02)
[2021-09-15] MEDS: DORZOLAMIDE 2% OPHTH SOLN 10 ML BTL OD SCH ×3 (10:18→22:02)
[2021-09-15] MEDS: TIMOLOL MALEATE 0.5% OPHTH SOLN 5 ML OU SCH ×2 (10:19→22:02)
[2021-09-15] MEDS: METOPROLOL SUCC *XL* 25MG TAB (TopROL *XL*) PO SCH (10:21)
[2021-09-15] MEDS: FERROUS SULFATE 325MG TAB PO SCH (15:39)
[2021-09-15] MEDS: ASCORBIC ACID 500 MG TAB PO SCH (15:39)
[2021-09-15] MEDS: POTASSIUM CHLORIDE 10MEQ SR TABLET PO SCH (15:41)
[2021-09-15] MEDS: ATORVASTATIN 10 MG TAB PO SCH (22:01)
[2021-09-15] MEDS: PRAZOSIN 1 MG CAP PO SCH (22:01)
[2021-09-16] MEDS: LEVOTHYROXINE 100MCG TABLET (0.1MG) PO SCH (06:10)
[2021-09-16 06:38] VITALS: BP 144/75
[2021-09-16] MEDS: buPROPion **XL** TABLET 150MG (WELLBUTRIN XL) PO SCH (09:28)
[2021-09-16] MEDS: MESALAMINE 400 MG CAPSULE DELAYED RELEASE (DELZICOL) PO SCH ×3 (09:29→20:58)
[2021-09-16] MEDS: TIMOLOL MALEATE 0.5% OPHTH SOLN 5 ML OU SCH ×2 (09:29→21:00)
[2021-09-16] MEDS: METOPROLOL SUCC *XL* 25MG TAB (TopROL *XL*) PO SCH (09:29)
[2021-09-16] MEDS: OYSTER SHELL CALCIUM 500 MG TAB PO SCH (09:29)
[2021-09-16] MEDS: VITAMIN D 1,000 INTERNATIONAL UNITS TABLET PO SCH (09:29)
[2021-09-16] MEDS: BRIMONIDINE 0.1% OPHTH SOLN 5 ML OU SCH ×2 (09:29→20:59)
[2021-09-16] MEDS: PANTOPRAZOLE 40MG TAB (PROTONIX) PO SCH (09:29)
[2021-09-16] MEDS: DORZOLAMIDE 2% OPHTH SOLN 10 ML BTL OD SCH ×3 (09:30→20:59)
[2021-09-16] MEDS: ASCORBIC ACID 500 MG TAB PO SCH (15:28)
[2021-09-16] MEDS: POTASSIUM CHLORIDE 10MEQ SR TABLET PO SCH (15:30)
[2021-09-16 16:18] VITALS: BP 126/71
[2021-09-16] MEDS: ATORVASTATIN 10 MG TAB PO SCH (20:58)
[2021-09-16] MEDS: PRAZOSIN 1 MG CAP PO SCH (20:59)
[2021-09-16] MEDS: traZODone 50 MG TAB PO PRN (21:26)
[2021-09-16] MEDS: OLANZapine ORAL DISINTEGRATING TAB 5MG PO PRN (22:01)
[2021-09-17] MEDS: LEVOTHYROXINE 100MCG TABLET (0.1MG) PO SCH (05:53)
[2021-09-17 06:18] VITALS: BP 112/56
[2021-09-17] MEDS: OYSTER SHELL CALCIUM 500 MG TAB PO SCH (08:50)
[2021-09-17] MEDS: METOPROLOL SUCC *XL* 25MG TAB (TopROL *XL*) PO SCH (08:50)
[2021-09-17] MEDS: VITAMIN D 1,000 INTERNATIONAL UNITS TABLET PO SCH (08:50)
[2021-09-17] MEDS: PANTOPRAZOLE 40MG TAB (PROTONIX) PO SCH (08:51)
[2021-09-17] MEDS: BRIMONIDINE 0.1% OPHTH SOLN 5 ML OU SCH ×2 (08:51→20:49)
[2021-09-17] MEDS: buPROPion **XL** TABLET 150MG (WELLBUTRIN XL) PO SCH (08:51)
[2021-09-17] MEDS: MESALAMINE 400 MG CAPSULE DELAYED RELEASE (DELZICOL) PO SCH ×3 (08:51→20:49)
[2021-09-17] MEDS: TIMOLOL MALEATE 0.5% OPHTH SOLN 5 ML OU SCH ×2 (08:52→20:50)
[2021-09-17] MEDS: DORZOLAMIDE 2% OPHTH SOLN 10 ML BTL OD SCH ×3 (08:52→20:49)
[2021-09-17] MEDS: FERROUS SULFATE 325MG TAB PO SCH (15:22)
[2021-09-17] MEDS: ASCORBIC ACID 500 MG TAB PO SCH (15:22)
[2021-09-17] MEDS: POTASSIUM CHLORIDE 10MEQ SR TABLET PO SCH (15:23)
[2021-09-17 15:51] VITALS: BP 135/81
[2021-09-17] MEDS: traZODone 50 MG TAB PO PRN (20:48)
[2021-09-17] MEDS: PRAZOSIN 1 MG CAP PO SCH (20:48)
[2021-09-17] MEDS: ATORVASTATIN 10 MG TAB PO SCH (20:48)
[2021-09-17] MEDS: OLANZapine ORAL DISINTEGRATING TAB 5MG PO PRN (21:34)
[2021-09-18] MEDS: LEVOTHYROXINE 100MCG TABLET (0.1MG) PO SCH (05:32)
[2021-09-18 06:20] VITALS: BP 121/64
[2021-09-18] MEDS: buPROPion **XL** TABLET 150MG (WELLBUTRIN XL) PO SCH (08:37)
[2021-09-18] MEDS: BRIMONIDINE 0.1% OPHTH SOLN 5 ML OU SCH ×2 (08:37→20:23)
[2021-09-18] MEDS: METOPROLOL SUCC *XL* 25MG TAB (TopROL *XL*) PO SCH (08:38)
[2021-09-18] MEDS: OYSTER SHELL CALCIUM 500 MG TAB PO SCH (08:39)
[2021-09-18] MEDS: VITAMIN D 1,000 INTERNATIONAL UNITS TABLET PO SCH (08:39)
[2021-09-18] MEDS: PANTOPRAZOLE 40MG TAB (PROTONIX) PO SCH (08:39)
[2021-09-18] MEDS: DORZOLAMIDE 2% OPHTH SOLN 10 ML BTL OD SCH ×3 (08:39→20:22)
[2021-09-18] MEDS: MESALAMINE 400 MG CAPSULE DELAYED RELEASE (DELZICOL) PO SCH ×3 (08:39→20:24)
[2021-09-18] MEDS: TIMOLOL MALEATE 0.5% OPHTH SOLN 5 ML OU SCH ×2 (08:41→20:23)
[2021-09-18] MEDS: HYDROCORTISONE 2.5% 20GM OINTMENT TOP SCH ×2 (10:14→20:24)
[2021-09-18] MEDS: hydrOXYzine 25 MG TAB PO PRN ×2 (14:18→23:02)
[2021-09-18] MEDS: POTASSIUM CHLORIDE 10MEQ SR TABLET PO SCH (15:52)
[2021-09-18] MEDS: ASCORBIC ACID 500 MG TAB PO SCH (15:53)
[2021-09-18 16:24] VITALS: BP 131/67
[2021-09-18] MEDS: ATORVASTATIN 10 MG TAB PO SCH (20:24)
[2021-09-18] MEDS: PRAZOSIN 1 MG CAP PO SCH (20:24)
[2021-09-18] MEDS: traZODone 50 MG TAB PO PRN (23:02)
[2021-09-19] MEDS: LEVOTHYROXINE 100MCG TABLET (0.1MG) PO SCH (05:39)
[2021-09-19 06:57] VITALS: BP 114/53
[2021-09-19] MEDS: OYSTER SHELL CALCIUM 500 MG TAB PO SCH (08:33)
[2021-09-19] MEDS: PANTOPRAZOLE 40MG TAB (PROTONIX) PO SCH (08:33)
[2021-09-19] MEDS: buPROPion **XL** TABLET 150MG (WELLBUTRIN XL) PO SCH (08:33)
[2021-09-19] MEDS: METOPROLOL SUCC *XL* 25MG TAB (TopROL *XL*) PO SCH (08:33)
[2021-09-19] MEDS: MESALAMINE 400 MG CAPSULE DELAYED RELEASE (DELZICOL) PO SCH ×3 (08:33→20:32)
[2021-09-19] MEDS: DORZOLAMIDE 2% OPHTH SOLN 10 ML BTL OD SCH ×3 (08:34→20:31)
[2021-09-19] MEDS: VITAMIN D 1,000 INTERNATIONAL UNITS TABLET PO SCH (08:34)
[2021-09-19] MEDS: TIMOLOL MALEATE 0.5% OPHTH SOLN 5 ML OU SCH ×2 (08:42→20:33)
[2021-09-19] MEDS: BRIMONIDINE 0.1% OPHTH SOLN 5 ML OU SCH ×2 (09:07→20:32)
[2021-09-19] MEDS: HYDROCORTISONE 2.5% 20GM OINTMENT TOP SCH ×2 (09:09→20:35)
[2021-09-19] MEDS: FERROUS SULFATE 325MG TAB PO SCH (16:37)
[2021-09-19] MEDS: ASCORBIC ACID 500 MG TAB PO SCH (16:37)
[2021-09-19] MEDS: POTASSIUM CHLORIDE 10MEQ SR TABLET PO SCH (16:39)
[2021-09-19 18:21] VITALS: BP 130/63
[2021-09-19] MEDS: hydrOXYzine 25 MG TAB PO PRN (19:39)
[2021-09-19] MEDS: ATORVASTATIN 10 MG TAB PO SCH (20:32)
[2021-09-19] MEDS: PRAZOSIN 1 MG CAP PO SCH (20:32)
[2021-09-19] MEDS: traZODone 50 MG TAB PO PRN (21:51)
[2021-09-20] MEDS: LEVOTHYROXINE 100MCG TABLET (0.1MG) PO SCH (05:42)
[2021-09-20 06:34] VITALS: BP 123/79
[2021-09-20] MEDS: OYSTER SHELL CALCIUM 500 MG TAB PO SCH (08:06)
[2021-09-20] MEDS: VITAMIN D 1,000 INTERNATIONAL UNITS TABLET PO SCH (08:07)
[2021-09-20] MEDS: PANTOPRAZOLE 40MG TAB (PROTONIX) PO SCH (08:08)
[2021-09-20] MEDS: DORZOLAMIDE 2% OPHTH SOLN 10 ML BTL OD SCH (08:08)
[2021-09-20] MEDS: buPROPion **XL** TABLET 150MG (WELLBUTRIN XL) PO SCH (08:08)
[2021-09-20 08:09] VITALS: BP 123/79
[2021-09-20] MEDS: METOPROLOL SUCC *XL* 25MG TAB (TopROL *XL*) PO SCH (08:09)
[2021-09-20] MEDS: MESALAMINE 400 MG CAPSULE DELAYED RELEASE (DELZICOL) PO SCH (08:11)
[2021-09-20] MEDS: TIMOLOL MALEATE 0.5% OPHTH SOLN 5 ML OU SCH (08:15)
[2021-09-20] MEDS: HYDROCORTISONE 2.5% 20GM OINTMENT TOP SCH (08:15)
[2021-09-20] MEDS: BRIMONIDINE 0.1% OPHTH SOLN 5 ML OU SCH (08:29)
[2021-09-20] MEDS ORDERED: TIMO0.5S29 OU (09:16)
[2021-09-20] MEDS ORDERED: HYDR25OIN TOP (09:16)
== END 2021-09-20 12:19 | disposition home or self-care (01) | DRG 882 ==
LOC: M ED 21:14 → M ED INP 09-14 14:07 → M PSY 09-14 15:46
PROVIDERS: ADMIT Student in an Organized Health Care Education/Training Program; ATTEND Psychiatry & Neurology Psychiatry
DX: F43.23 Adjustment disorder with mixed anxiety and depressed mood (principal); F70 Mild intellectual disabilities; F60.3 Borderline personality disorder; Z79.899 Other long term (current) drug therapy; Z88.8 Allergy status to other drugs, medicaments and biological substances; Z88.5 Allergy status to narcotic agent; F43.10 Post-traumatic stress disorder, unspecified; E03.9 Hypothyroidism, unspecified; I10 Essential (primary) hypertension; K21.9 Gastro-esophageal reflux disease without esophagitis; E55.9 Vitamin D deficiency, unspecified; E78.5 Hyperlipidemia, unspecified

== ENCOUNTER 2022-01-29 21:25 | Inpatient (IN) | payer MEDICARE, MEDICAID ==
[~2022-01-29] VITALS: Ht 167.6 cm; Wt 98.2 kg
[~2022-01-29 21:25] MED LIST changes: +ABIL1TAB11; +ARIP1TAB6 PO; +C 50TAB PO; +CLEO300C2 PO; +D3 H2000 PO; -D31000TA2 PO; +FERR325T18 PO; +HYDR25OIN TOP; +MINI1CAP; +OYST1TAB PO; +TIMO0.5S29 OU; +VITA100093 PO
[2022-01-29 22:23] LABS: HEMATOCRIT 37.8 % (36.0-47.0); HEMOGLOBIN 12.1 g/dl (12.0-15.5); MEAN CORPUSCULAR HEMOGLOBIN 29.8 pg (27.0-33.0); MEAN CORPUSCULAR VOLUME 93.1 fl (80.0-96.0); PLATELET COUNT, AUTOMATED 413 10^3/uL (150-450); RED BLOOD COUNT 4.06 10^6/uL (4.00-5.40); WHITE BLOOD COUNT 17.7 10^3/uL (4.0-10.0)
[2022-01-29 22:46] LABS: AMPHETAMINES LEVEL URINE NEGATIVE (NEGATIVE); BARBITURATES URINE NEGATIVE (NEGATIVE); BENZODIAZEPINES URINE NEGATIVE (NEGATIVE); CANNABINOIDS URINE NEGATIVE (NEGATIVE); COCAINE METABOLITE URINE NEGATIVE (NEGATIVE); METHADONE URINE NEGATIVE (NEGATIVE); OPIATES URINE NEGATIVE (NEGATIVE); PHENCYCLIDINE URINE NEGATIVE (NEGATIVE)
[2022-01-29 22:54] LABS: RSV AMPLIFICATION NEGATIVE (NEGATIVE)
[2022-01-29 22:55] LABS: ALBUMIN 2.7 GM/DL (3.2-5.2); ALT/SGPT 14 U/L (12-78); BILIRUBIN,DIRECT < 0.1 MG/DL (0.0-0.2); BILIRUBIN,TOTAL 0.2 MG/DL (0.2-1.0); BLOOD UREA NITROGEN 12 MG/DL (7-18); CALCIUM LEVEL 8.9 MG/DL (8.5-10.1); CARBON DIOXIDE LEVEL 18 MEQ/L (21-32); CHLORIDE LEVEL 111 MEQ/L (98-107); CREATININE FOR GFR 0.82 MG/DL (0.55-1.30); ETHYL ALCOHOL (ETHANOL) < 0.003 % (0.000-0.010); GLOMERULAR FILTRATION RATE > 60.0 (>58); GLUCOSE, FASTING 130 MG/DL (70-100); POTASSIUM SERUM 4.1 MEQ/L (3.5-5.1); SALICYLATE LEVEL < 1.7 MG/DL (5.0-30.0); SODIUM LEVEL 141 MEQ/L (136-145); TOTAL PROTEIN 6.6 GM/DL (6.4-8.2)
[2022-01-29 23:12] LABS: HCG, SERUM QUALITATIVE NEGATIVE (NEGATIVE)
[2022-01-30] MEDS ORDERED: METOPROLOL SUCC *XL* 25MG TAB (TopROL *XL*) PO SCH (09:00)
[2022-01-30] MEDS ORDERED: PANTOPRAZOLE 40MG TAB (PROTONIX) PO SCH (09:00)
[2022-01-30] MEDS ORDERED: buPROPion **XL** TABLET 150MG (WELLBUTRIN XL) PO SCH (09:00)
[2022-01-30] MEDS ORDERED: VITA100093 PO (09:53)
[2022-01-30] MEDS ORDERED: BUPR300T92 PO (09:53)
[2022-01-30] MEDS ORDERED: FERR1TAB8 PO (09:54)
[2022-01-30] MEDS ORDERED: MESA0.37 PO (09:54)
[2022-01-30] MEDS ORDERED: SUMA25TA3 PO (09:54)
[2022-01-30] MEDS ORDERED: HOME MED LIST COMPLETE! XX SCH (09:55)
[2022-01-30] MEDS ORDERED: traZODone 50 MG TAB PO PRN (12:30)
[2022-01-30] MEDS ORDERED: SUMAtriptan SUCCINATE 25 MG TAB PO PRN (12:30)
[2022-01-30] MEDS ORDERED: MOM 30ML SUSPENSION UDC PO PRN (12:30)
[2022-01-30] MEDS ORDERED: MAALOX 30 ML SUSP *UDC PO PRN (12:30)
[2022-01-30 17:10] VITALS: BP 142/90
[2022-01-30] MEDS: diphenhydrAMINE 25MG CAP PO PRN (17:58)
[2022-01-30] MEDS ORDERED: ATORVASTATIN 20 MG TAB PO SCH (21:00)
[2022-01-30] MEDS ORDERED: PRAZOSIN 1 MG CAP PO SCH (21:00)
[2022-01-30] MEDS: MESALAMINE 250 MG CR CAP PO SCH (21:10)
[2022-01-30] MEDS: FERROUS SULFATE 325MG TAB PO SCH (21:10)
[2022-01-30] MEDS: POTASSIUM CHLORIDE 10MEQ SR TABLET PO SCH (21:10)
[2022-01-30] MEDS: ATORVASTATIN 10 MG TAB PO SCH (21:10)
[2022-01-30] MEDS: PRAZOSIN 1 MG CAP PO SCH (21:10)
[2022-01-30] MEDS: ASCORBIC ACID 500 MG TAB PO SCH (21:10)
[2022-01-30] MEDS: DORZOLAMIDE 2% OPHTH SOLN 10 ML BTL OD SCH (21:10)
[2022-01-31] MEDS ORDERED: LEVOTHYROXINE 100MCG TABLET (0.1MG) PO SCH (06:00)
[2022-01-31] MEDS: LEVOTHYROXINE 100MCG TABLET (0.1MG) PO SCH (06:08)
[2022-01-31] MEDS: diphenhydrAMINE 25MG CAP PO PRN (06:08)
[2022-01-31 06:16] VITALS: BP 110/53
[2022-01-31] MEDS: NICOTINE 21MG/24HR 1 EA TRANSDERMAL TD SCH (08:47)
[2022-01-31] MEDS: VITAMIN D 1,000 INTERNATIONAL UNITS TABLET PO SCH (08:49)
[2022-01-31] MEDS: OYSTER SHELL CALCIUM 500 MG TAB PO SCH (08:49)
[2022-01-31] MEDS: buPROPion **XL** TABLET 150MG (WELLBUTRIN XL) PO SCH (08:49)
[2022-01-31] MEDS: DORZOLAMIDE 2% OPHTH SOLN 10 ML BTL OD SCH ×3 (08:49→20:06)
[2022-01-31] MEDS: METOPROLOL SUCC *XL* 25MG TAB (TopROL *XL*) PO SCH (08:50)
[2022-01-31] MEDS: MESALAMINE 250 MG CR CAP PO SCH ×3 (08:50→20:06)
[2022-01-31 16:24] VITALS: BP 133/70
[2022-01-31] MEDS: ASCORBIC ACID 500 MG TAB PO SCH (20:06)
[2022-01-31] MEDS: PANTOPRAZOLE 40MG TAB (PROTONIX) PO SCH (20:06)
[2022-01-31] MEDS: ATORVASTATIN 10 MG TAB PO SCH (20:06)
[2022-01-31] MEDS: POTASSIUM CHLORIDE 10MEQ SR TABLET PO SCH (20:06)
[2022-01-31] MEDS: FERROUS SULFATE 325MG TAB PO SCH (20:06)
[2022-01-31] MEDS: PRAZOSIN 1 MG CAP PO SCH (20:07)
[2022-02-01] MEDS: LEVOTHYROXINE 100MCG TABLET (0.1MG) PO SCH (05:53)
[2022-02-01] MEDS: diphenhydrAMINE 25MG CAP PO PRN (06:19)
[2022-02-01 06:37] VITALS: BP 142/78
[2022-02-01] MEDS: NICOTINE 21MG/24HR 1 EA TRANSDERMAL TD SCH (09:00)
[2022-02-01] MEDS: OYSTER SHELL CALCIUM 500 MG TAB PO SCH (09:23)
[2022-02-01] MEDS: DORZOLAMIDE 2% OPHTH SOLN 10 ML BTL OD SCH ×3 (09:23→20:20)
[2022-02-01] MEDS: METOPROLOL SUCC *XL* 25MG TAB (TopROL *XL*) PO SCH (09:23)
[2022-02-01] MEDS: VITAMIN D 1,000 INTERNATIONAL UNITS TABLET PO SCH (09:23)
[2022-02-01] MEDS: buPROPion **XL** TABLET 150MG (WELLBUTRIN XL) PO SCH (09:23)
[2022-02-01] MEDS: MESALAMINE 250 MG CR CAP PO SCH ×3 (09:27→20:20)
[2022-02-01 16:13] VITALS: BP 130/66
[2022-02-01] MEDS: POTASSIUM CHLORIDE 10MEQ SR TABLET PO SCH (20:22)
[2022-02-01] MEDS: PRAZOSIN 1 MG CAP PO SCH (20:22)
[2022-02-01] MEDS: ATORVASTATIN 10 MG TAB PO SCH (20:22)
[2022-02-01] MEDS: ASCORBIC ACID 500 MG TAB PO SCH (20:22)
[2022-02-01] MEDS: PANTOPRAZOLE 40MG TAB (PROTONIX) PO SCH (20:23)
[2022-02-01] MEDS: FERROUS SULFATE 325MG TAB PO SCH (20:23)
[2022-02-02] MEDS: LEVOTHYROXINE 100MCG TABLET (0.1MG) PO SCH (05:11)
[2022-02-02 06:41] VITALS: BP 131/75
[2022-02-02] MEDS: NICOTINE 21MG/24HR 1 EA TRANSDERMAL TD SCH (08:27)
[2022-02-02] MEDS: DORZOLAMIDE 2% OPHTH SOLN 10 ML BTL OD SCH (08:30)
[2022-02-02 08:31] VITALS: BP 149/74
[2022-02-02] MEDS: buPROPion **XL** TABLET 150MG (WELLBUTRIN XL) PO SCH (08:31)
[2022-02-02] MEDS: VITAMIN D 1,000 INTERNATIONAL UNITS TABLET PO SCH (08:31)
[2022-02-02] MEDS: OYSTER SHELL CALCIUM 500 MG TAB PO SCH (08:31)
[2022-02-02] MEDS: MESALAMINE 250 MG CR CAP PO SCH (08:31)
[2022-02-02] MEDS: METOPROLOL SUCC *XL* 25MG TAB (TopROL *XL*) PO SCH (08:31)
== END 2022-02-02 13:34 | disposition home or self-care (01) | DRG 881 ==
LOC: M ED 21:25 → M ED INP 01-30 12:26 → M PSY 01-30 16:58
PROVIDERS: ADMIT Psychiatry & Neurology Psychiatry; ATTEND Psychiatry & Neurology Psychiatry
DX: F32.A Depression, unspecified (principal); R45.851 Suicidal ideations; K50.90 Crohn's disease, unspecified, without complications; F41.9 Anxiety disorder, unspecified; F60.3 Borderline personality disorder; F79 Unspecified intellectual disabilities; Z91.52 Personal history of nonsuicidal self-harm; I10 Essential (primary) hypertension; E03.9 Hypothyroidism, unspecified; E78.5 Hyperlipidemia, unspecified; K21.9 Gastro-esophageal reflux disease without esophagitis; Z79.899 Other long term (current) drug therapy; Z88.5 Allergy status to narcotic agent; Z88.8 Allergy status to other drugs, medicaments and biological substances; Z20.822 Contact with and (suspected) exposure to COVID-19; G43.909 Migraine, unspecified, not intractable, without status migrainosus

== ENCOUNTER → 2022-02-07 | Outpatient (CLI) | payer MEDICARE, MEDICAID ==
[~2022-02-07] MED LIST changes: +BUPR300T92 PO; +MESA0.37 PO; +SUMA25TA3 PO
[2022-02-07 09:43] LABS: BASO # 0.1 10^3/uL (0.0-0.2); BASO % 0.6 % (0.0-1.0); EOS # 0.6 10^3/uL (0.0-0.5); EOS % 3.6 % (0.0-3.0); HEMATOCRIT 40.3 % (36.0-47.0); HEMOGLOBIN 12.8 g/dl (12.0-15.5); LYMPH # 1.7 10^3/uL (1.5-5.0); LYMPH % 9.9 % (24.0-44.0); MEAN CORPUSCULAR HEMOGLOBIN 30.3 pg (27.0-33.0); MEAN CORPUSCULAR HGB CONC 31.8 g/dl (32.0-36.5); MEAN CORPUSCULAR VOLUME 95.3 fl (80.0-96.0); MONO # 0.9 10^3/uL (0.0-0.8); MONO % 5.4 % (2.0-8.0); NEUTROPHILS # 13.1 10^3/uL (1.5-8.5); NEUTROPHILS % 78.8 % (36.0-66.0); PLATELET COUNT, AUTOMATED 432 10^3/uL (150-450); RED BLOOD COUNT 4.23 10^6/uL (4.00-5.40); WHITE BLOOD COUNT 16.6 10^3/uL (4.0-10.0)
[2022-02-07 10:22] LABS: ALBUMIN 3.2 GM/DL (3.2-5.2); ALT/SGPT 21 U/L (12-78); BILIRUBIN,TOTAL 0.3 MG/DL (0.2-1.0); BLOOD UREA NITROGEN 13 MG/DL (7-18); CALCIUM LEVEL 9.1 MG/DL (8.5-10.1); CARBON DIOXIDE LEVEL 24 MEQ/L (21-32); CHLORIDE LEVEL 108 MEQ/L (98-107); CHOLESTEROL LEVEL 131 MG/DL (<200); CHOLESTEROL RISK RATIO 2.568 (<5); CREATININE FOR GFR 0.92 MG/DL (0.55-1.30); FERRITIN 95 NG/ML (8-252); FREE T4 1.22 NG/DL (0.76-1.46); GLOMERULAR FILTRATION RATE > 60.0 (>58); GLUCOSE, FASTING 123 MG/DL (70-100); HDL CHOLESTEROL 51 MG/DL (>40); IRON (FE) 40 UG/DL (50-170); LDL CHOLESTEROL 47 MG/DL (<100); NON-HDL-C 80 MG/DL; POTASSIUM SERUM 4.6 MEQ/L (3.5-5.1); SODIUM LEVEL 140 MEQ/L (136-145); TOTAL PROTEIN 6.8 GM/DL (6.4-8.2); TRIGLYCERIDES LEVEL 165 MG/DL (<150)
[2022-02-07 10:31] LABS: PTH INTACT 30.7 PG/ML (18.5-88.0); TOTAL 25(OH) VITAMIN D 52.2 NG/ML (30.0-100.0)
== END ==
LOC: M LAB 08:36
PROVIDERS: ATTEND Physician Assistant Medical
DX: E03.9 Hypothyroidism, unspecified (principal); E87.6 Hypokalemia; E55.9 Vitamin D deficiency, unspecified; E78.2 Mixed hyperlipidemia; E61.1 Iron deficiency

== ENCOUNTER 2022-02-13 00:46 | Inpatient (IN) | payer MEDICARE, MEDICAID ==
[2022-02-13] MEDS ORDERED: NS 1,000 ML IV ONE (02:35)
[2022-02-13] MEDS ORDERED: diphenhydrAMINE 50MG/ML VIAL (J1200) IV ONE (02:35)
[2022-02-13] MEDS ORDERED: METOCLOPRAMIDE INJ 10MG/2ML VIAL (J2765 PER 1) IV ONE (02:35)
[2022-02-13] MEDS ORDERED: KETOROLAC 30 MG/ML 1ML VIAL IV ONE (02:35)
[2022-02-13] MEDS ORDERED: ONDANSETRON 4MG 2ML VIAL As Ordered ONE (04:38)
[2022-02-13] MEDS ORDERED: ONDANSETRON 4MG 2ML VIAL IV ONE (04:40)
[2022-02-13] MEDS ORDERED: HALOPERIDOL 5MG/ML VIAL (J1630 PER 1) IM ONE ×2 (06:15→09:55)
[2022-02-13] MEDS ORDERED: LORazepam 2 MG/ML VIAL IM ONE ×2 (06:15→09:55)
[2022-02-13] MEDS ORDERED: diphenhydrAMINE 50MG/ML VIAL (J1200) IM ONE ×2 (07:00→09:55)
[2022-02-13] MEDS ORDERED: LORazepam 2 MG TAB PO STA (07:11)
[2022-02-13] MEDS ORDERED: ONDANSETRON 4MG ORAL DISINTEGRATING TAB PO ONE (07:15)
[2022-02-13 07:51] LABS: HEMATOCRIT 39.3 % (36.0-47.0); HEMOGLOBIN 12.8 g/dl (12.0-15.5); MEAN CORPUSCULAR HEMOGLOBIN 30.3 pg (27.0-33.0); MEAN CORPUSCULAR HGB CONC 32.6 g/dl (32.0-36.5); MEAN CORPUSCULAR VOLUME 92.9 fl (80.0-96.0); PLATELET COUNT, AUTOMATED 451 10^3/uL (150-450); RED BLOOD COUNT 4.23 10^6/uL (4.00-5.40); WHITE BLOOD COUNT 17.6 10^3/uL (4.0-10.0)
[2022-02-13 08:29] LABS: ACETAMINOPHEN LEVEL < 2.0 UG/ML (10.0-30.0); ALBUMIN 3.3 GM/DL (3.2-5.2); ALT/SGPT 18 U/L (12-78); BILIRUBIN,DIRECT < 0.1 MG/DL (0.0-0.2); BILIRUBIN,TOTAL 0.3 MG/DL (0.2-1.0); BLOOD UREA NITROGEN 8 MG/DL (7-18); CALCIUM LEVEL 8.6 MG/DL (8.5-10.1); CARBON DIOXIDE LEVEL 24 MEQ/L (21-32); CHLORIDE LEVEL 110 MEQ/L (98-107); CREATININE FOR GFR 0.89 MG/DL (0.55-1.30); ETHYL ALCOHOL (ETHANOL) < 0.003 % (0.000-0.010); GLOMERULAR FILTRATION RATE > 60.0 (>58); GLUCOSE, FASTING 137 MG/DL (70-100); POTASSIUM SERUM 4.1 MEQ/L (3.5-5.1); SALICYLATE LEVEL < 1.7 MG/DL (5.0-30.0); SODIUM LEVEL 143 MEQ/L (136-145)
[2022-02-13 08:44] LABS: RSV AMPLIFICATION NEGATIVE (NEGATIVE)
[2022-02-13 09:43] LABS: AMPHETAMINES LEVEL URINE NEGATIVE (NEGATIVE); BARBITURATES URINE NEGATIVE (NEGATIVE); BENZODIAZEPINES URINE NEGATIVE (NEGATIVE); CANNABINOIDS URINE NEGATIVE (NEGATIVE); COCAINE METABOLITE URINE NEGATIVE (NEGATIVE); METHADONE URINE NEGATIVE (NEGATIVE); OPIATES URINE NEGATIVE (NEGATIVE); PHENCYCLIDINE URINE NEGATIVE (NEGATIVE)
[2022-02-13] MEDS ORDERED: PROMETHAZINE 25MG/ML 1ML VIAL IM ONE (10:50)
[2022-02-13] MEDS ORDERED: POTASSIUM CHLORIDE 10MEQ SR TABLET PO SCH (16:00)
[2022-02-13] MEDS ORDERED: HOME MED LIST COMPLETE! XX SCH (17:45)
[2022-02-13] MEDS ORDERED: MOM 30ML SUSPENSION UDC PO PRN (20:40)
[2022-02-13] MEDS ORDERED: MAALOX 30 ML SUSP *UDC PO PRN (20:40)
[2022-02-13] MEDS ORDERED: SUMAtriptan SUCCINATE 25 MG TAB PO PRN (20:40)
[2022-02-13] MEDS ORDERED: OLANZapine ORAL DISINTEGRATING TAB 5MG PO PRN (20:40)
[2022-02-13] MEDS ORDERED: ACETAMINOPHEN TAB 650MG DOSE (2X325MG) PO PRN (20:40)
[2022-02-13] MEDS: DORZOLAMIDE 2% OPHTH SOLN 10 ML BTL OD SCH (21:00)
[2022-02-13 22:19] VITALS: BP 130/82
[2022-02-13] MEDS: PRAZOSIN 1 MG CAP PO SCH (22:44)
[2022-02-13] MEDS: ATORVASTATIN 10 MG TAB PO SCH (22:44)
[2022-02-14] MEDS: LEVOTHYROXINE 100MCG TABLET (0.1MG) PO SCH (05:36)
[2022-02-14 06:38] VITALS: BP 112/64
[2022-02-14] MEDS ORDERED: ENTER DRUG NAME HERE (PATIENT'S OWN MED) IO SCH ×2 (09:00)
[2022-02-14] MEDS ORDERED: MESALAMINE 0.375 GM PO SCH (09:00)
[2022-02-14] MEDS: METOPROLOL SUCC *XL* 25MG TAB (TopROL *XL*) PO SCH (09:38)
[2022-02-14] MEDS: VITAMIN D 1,000 INTERNATIONAL UNITS TABLET PO SCH (09:38)
[2022-02-14] MEDS: buPROPion **XL** TABLET 150MG (WELLBUTRIN XL) PO SCH (09:38)
[2022-02-14] MEDS: OYSTER SHELL CALCIUM 500 MG TAB PO SCH (09:38)
[2022-02-14] MEDS: DORZOLAMIDE 2% OPHTH SOLN 10 ML BTL OD SCH ×3 (09:39→20:31)
[2022-02-14] MEDS: OLOPATADINE 0.1% OPHTH SOL 5ML(PATANOL) OU SCH ×2 (10:36→20:31)
[2022-02-14] MEDS: BRIMONIDINE 0.15% OPHTH SOLN 5 ML OU SCH ×2 (10:36→20:31)
[2022-02-14] MEDS: TIMOLOL MALEATE 0.5% OPHTH SOLN 5 ML OU SCH ×2 (10:36→20:31)
[2022-02-14] MEDS: PANTOPRAZOLE 40MG TAB (PROTONIX) PO SCH (15:38)
[2022-02-14] MEDS: FERROUS SULFATE 325MG TAB PO SCH (15:38)
[2022-02-14] MEDS: POTASSIUM CHLORIDE 10MEQ SR TABLET PO SCH (15:39)
[2022-02-14] MEDS: ASCORBIC ACID 500 MG TAB PO SCH (15:39)
[2022-02-14 18:45] VITALS: BP 106/51
[2022-02-14] MEDS: ATORVASTATIN 10 MG TAB PO SCH (20:30)
[2022-02-14] MEDS: PRAZOSIN 1 MG CAP PO SCH (20:30)
[2022-02-14] MEDS: traZODone 50 MG TAB PO PRN (20:30)
[2022-02-14] MEDS ORDERED: NORGESTIMATE ETHINYL ESTRADIOL PO SCH (21:00)
[2022-02-15] MEDS: LEVOTHYROXINE 100MCG TABLET (0.1MG) PO SCH (06:19)
[2022-02-15 06:38] VITALS: BP 109/54
[2022-02-15 07:00] LABS: CHOLESTEROL RISK RATIO 2.921 (<5)
[2022-02-15] MEDS: OYSTER SHELL CALCIUM 500 MG TAB PO SCH (08:18)
[2022-02-15] MEDS: VITAMIN D 1,000 INTERNATIONAL UNITS TABLET PO SCH (08:18)
[2022-02-15] MEDS: buPROPion **XL** TABLET 150MG (WELLBUTRIN XL) PO SCH (08:21)
[2022-02-15] MEDS: DORZOLAMIDE 2% OPHTH SOLN 10 ML BTL OD SCH ×3 (08:23→21:02)
[2022-02-15] MEDS: OLOPATADINE 0.1% OPHTH SOL 5ML(PATANOL) OU SCH ×2 (08:23→21:02)
[2022-02-15] MEDS: BRIMONIDINE 0.15% OPHTH SOLN 5 ML OU SCH ×2 (08:23→21:02)
[2022-02-15] MEDS: TIMOLOL MALEATE 0.5% OPHTH SOLN 5 ML OU SCH ×2 (08:23→21:02)
[2022-02-15] MEDS: METOPROLOL SUCC *XL* 25MG TAB (TopROL *XL*) PO SCH (09:00)
[2022-02-15] MEDS: FERROUS SULFATE 325MG TAB PO SCH (16:21)
[2022-02-15] MEDS: POTASSIUM CHLORIDE 10MEQ SR TABLET PO SCH (16:21)
[2022-02-15] MEDS: PANTOPRAZOLE 40MG TAB (PROTONIX) PO SCH (16:21)
[2022-02-15] MEDS: ASCORBIC ACID 500 MG TAB PO SCH (16:21)
[2022-02-15 17:41] VITALS: BP 142/85
[2022-02-15] MEDS: ATORVASTATIN 10 MG TAB PO SCH (21:03)
[2022-02-15] MEDS: traZODone 50 MG TAB PO PRN (21:03)
[2022-02-15] MEDS: PRAZOSIN 1 MG CAP PO SCH (21:03)
[2022-02-16] MEDS: LEVOTHYROXINE 100MCG TABLET (0.1MG) PO SCH (05:36)
[2022-02-16 06:35] VITALS: BP 119/56
[2022-02-16] MEDS: BRIMONIDINE 0.15% OPHTH SOLN 5 ML OU SCH (08:43)
[2022-02-16] MEDS: TIMOLOL MALEATE 0.5% OPHTH SOLN 5 ML OU SCH (08:43)
[2022-02-16] MEDS: buPROPion **XL** TABLET 150MG (WELLBUTRIN XL) PO SCH (08:44)
[2022-02-16] MEDS: OYSTER SHELL CALCIUM 500 MG TAB PO SCH (08:44)
[2022-02-16] MEDS: VITAMIN D 1,000 INTERNATIONAL UNITS TABLET PO SCH (08:44)
[2022-02-16] MEDS: DORZOLAMIDE 2% OPHTH SOLN 10 ML BTL OD SCH (08:47)
[2022-02-16] MEDS: OLOPATADINE 0.1% OPHTH SOL 5ML(PATANOL) OU SCH (08:47)
[2022-02-16 09:00] VITALS: BP 116/56
[2022-02-16] MEDS: METOPROLOL SUCC *XL* 25MG TAB (TopROL *XL*) PO SCH (09:00)
== END 2022-02-16 09:55 | disposition home or self-care (01) | DRG 882 ==
LOC: M ED 00:46 → EDBD 00:46 → M ED INP 20:40 → M PSY 22:05
PROVIDERS: ADMIT Psychiatry & Neurology Psychiatry; ATTEND Psychiatry & Neurology Psychiatry
DX: F43.23 Adjustment disorder with mixed anxiety and depressed mood (principal); K51.90 Ulcerative colitis, unspecified, without complications; R45.851 Suicidal ideations; F41.9 Anxiety disorder, unspecified; F70 Mild intellectual disabilities; F60.3 Borderline personality disorder; Z79.899 Other long term (current) drug therapy; Z88.5 Allergy status to narcotic agent; Z88.8 Allergy status to other drugs, medicaments and biological substances; I10 Essential (primary) hypertension; G43.909 Migraine, unspecified, not intractable, without status migrainosus; E03.9 Hypothyroidism, unspecified; K21.9 Gastro-esophageal reflux disease without esophagitis; D72.829 Elevated white blood cell count, unspecified; F43.10 Post-traumatic stress disorder, unspecified; E55.9 Vitamin D deficiency, unspecified; H40.9 Unspecified glaucoma; F91.3 Oppositional defiant disorder; E78.5 Hyperlipidemia, unspecified

== ENCOUNTER 2022-07-02 08:28 | Emergency (ER) | payer MEDICARE, MEDICAID ==
[~2022-07-02 08:28] MED LIST changes: +NYST-13 EXT; -NYST10CR EXT; +POTA-150 PO; -POTA10TA17 PO
[2022-07-02 10:00] LABS: HEMATOCRIT 47.4 % (36.0-47.0); HEMOGLOBIN 14.9 g/dl (12.0-15.5); MEAN CORPUSCULAR HEMOGLOBIN 29.7 pg (27.0-33.0); MEAN CORPUSCULAR HGB CONC 31.4 g/dl (32.0-36.5); MEAN CORPUSCULAR VOLUME 94.6 fl (80.0-96.0); PLATELET COUNT, AUTOMATED 410 10^3/uL (150-450); RED BLOOD COUNT 5.01 10^6/uL (4.00-5.40); WHITE BLOOD COUNT 25.1 10^3/uL (4.0-10.0)
[2022-07-02 10:32] LABS: ACETAMINOPHEN LEVEL < 2.0 UG/ML (10.0-20.0); ALBUMIN 3.8 G/DL (3.2-5.2); ALT/SGPT 21 U/L (7.0-40); BILIRUBIN,DIRECT < 0.1 MG/DL (<0.4); BILIRUBIN,TOTAL 0.2 MG/DL (0.3-1.2); BLOOD UREA NITROGEN 17 MG/DL (9-23); CALCIUM LEVEL 9.8 MG/DL (8.5-10.1); CARBON DIOXIDE LEVEL 26 MMOL/L (20-31); CHLORIDE LEVEL 107 MMOL/L (98-107); CREATININE FOR GFR 0.99 MG/DL (0.55-1.30); ETHYL ALCOHOL (ETHANOL) 0.003 % (0.000-0.010); GLOMERULAR FILTRATION RATE > 60.0 (>58); GLUCOSE, FASTING 106 MG/DL (60-100); POTASSIUM SERUM 3.8 MMOL/L (3.5-5.1); SODIUM LEVEL 143 MMOL/L (136-145); THYROID STIMULATING HORMONE 1.659 uIU/ML (0.55-4.78); TOTAL PROTEIN 6.6 G/DL (5.7-8.2)
[2022-07-02 11:23] LABS: HCG, SERUM QUALITATIVE NEGATIVE (NEGATIVE)
[2022-07-02 12:42] LABS: SALICYLATE LEVEL < 3.0 MG/DL (<30)
[2022-07-02 13:04] LABS: RSV AMPLIFICATION NEGATIVE (NEGATIVE)
[2022-07-02 14:00] LABS: AMPHETAMINES LEVEL URINE POSITIVE (NEGATIVE); BARBITURATES URINE NEGATIVE (NEGATIVE); BENZODIAZEPINES URINE NEGATIVE (NEGATIVE); CANNABINOIDS URINE NEGATIVE (NEGATIVE); COCAINE METABOLITE URINE NEGATIVE (NEGATIVE); METHADONE URINE NEGATIVE (NEGATIVE); OPIATES URINE NEGATIVE (NEGATIVE); PHENCYCLIDINE URINE NEGATIVE (NEGATIVE)
[2022-07-02 17:12] VITALS: BP 118/78
== END 2022-07-02 16:35 | disposition home or self-care (01) ==
LOC: M ED 08:28
DX: F32.A Depression, unspecified (principal); K21.9 Gastro-esophageal reflux disease without esophagitis; K50.90 Crohn's disease, unspecified, without complications; F50.2 Bulimia nervosa; Z79.899 Other long term (current) drug therapy

== ENCOUNTER 2022-07-04 11:52 | Outpatient (CLI) | payer MEDICARE, MEDICAID ==
[~2022-07-04 11:52] MED LIST changes: +VEDOLIZUMAB 300 MG in NS 250 ML IV ONE
[2022-07-04] MEDS ORDERED: VEDOLIZUMAB 300 MG in NS 250 ML IV ONE (12:00)
[2022-07-04 12:35] VITALS: BP 165/82
== END 2022-07-04 14:00 | disposition home or self-care (01) ==
LOC: M INFU 11:52
PROVIDERS: ATTEND Internal Medicine Gastroenterology
DX: K51.90 Ulcerative colitis, unspecified, without complications (principal); Z88.5 Allergy status to narcotic agent; Z88.8 Allergy status to other drugs, medicaments and biological substances
CPT/HCPCS: 96365; J3380

== ENCOUNTER → 2022-07-11 | Outpatient (CLI) | payer MEDICARE, MEDICAID ==
[~2022-07-11] MED LIST changes: -VEDOLIZUMAB 300 MG in NS 250 ML IV ONE
[2022-07-11 10:53] LABS: BASO # 0.1 10^3/uL (0.0-0.2); BASO % 0.4 % (0.0-1.0); EOS # 0.2 10^3/uL (0.0-0.5); EOS % 1.3 % (0.0-3.0); HEMOGLOBIN 13.2 g/dl (12.0-15.5); LYMPH # 1.5 10^3/uL (1.5-5.0); LYMPH % 9.6 % (24.0-44.0); MEAN CORPUSCULAR HEMOGLOBIN 29.3 pg (27.0-33.0); MEAN CORPUSCULAR HGB CONC 30.7 g/dl (32.0-36.5); MEAN CORPUSCULAR VOLUME 95.3 fl (80.0-96.0); MONO # 0.8 10^3/uL (0.0-0.8); MONO % 4.9 % (2.0-8.0); NEUTROPHILS # 13.1 10^3/uL (1.5-8.5); PLATELET COUNT, AUTOMATED 425 10^3/uL (150-450); RED BLOOD COUNT 4.51 10^6/uL (4.00-5.40); WHITE BLOOD COUNT 15.8 10^3/uL (4.0-10.0)
[2022-07-11 11:25] LABS: CHLORIDE LEVEL 105 MMOL/L (98-107); POTASSIUM SERUM 4.4 MMOL/L (3.5-5.1); SODIUM LEVEL 140 MMOL/L (136-145)
[2022-07-11 11:29] LABS: ALBUMIN 3.4 G/DL (3.2-5.2); CARBON DIOXIDE LEVEL 26 MMOL/L (20-31)
[2022-07-11 11:34] LABS: BLOOD UREA NITROGEN 13 MG/DL (9-23); CALCIUM LEVEL 9.1 MG/DL (8.5-10.1); GLUCOSE, FASTING 107 MG/DL (60-100); TRIGLYCERIDES LEVEL 208 MG/DL (<150)
[2022-07-11 11:35] LABS: ALKALINE PHOSPHATASE 101 U/L (46-116); PTH INTACT 47.2 PG/ML (18.5-88.0)
[2022-07-11 11:36] LABS: ALT/SGPT 14 U/L (7.0-40); AST/SGOT 12 U/L (<34); BILIRUBIN,TOTAL 0.4 MG/DL (0.3-1.2); CHOLESTEROL LEVEL 125 MG/DL (<200); CHOLESTEROL RISK RATIO 2.46 (<5); CREATININE FOR GFR 0.88 MG/DL (0.55-1.30); GLOMERULAR FILTRATION RATE > 60.0 (>58); HDL CHOLESTEROL 50.7 MG/DL (>40); IRON (FE) 51 UG/DL (50-170); LDL CHOLESTEROL 32.7 MG/DL (<100); NON-HDL-C 74 MG/DL; TOTAL PROTEIN 6.3 G/DL (5.7-8.2)
[2022-07-11 11:38] LABS: FERRITIN 108.9 NG/ML (7.3-270.7); FREE T4 1.36 NG/DL (0.89-1.76)
[2022-07-11 11:39] LABS: THYROID STIMULATING HORMONE 1.382 uIU/ML (0.55-4.78); TOTAL 25(OH) VITAMIN D 61.2 NG/ML (20.0-100.0)
== END ==
LOC: M LAB 10:03
PROVIDERS: ATTEND Physician Assistant Medical
DX: E55.9 Vitamin D deficiency, unspecified (principal); E78.2 Mixed hyperlipidemia; E61.1 Iron deficiency; E03.9 Hypothyroidism, unspecified

== ENCOUNTER → 2022-07-13 | Outpatient (CLI) | payer MEDICARE, MEDICAID ==
[~2022-07-13] VITALS: Ht 167.6 cm; Wt 94.8 kg
[~2022-07-13] MED LIST changes: +VEDOLIZUMAB 300 MG in NS 250 ML IV ONE
[2022-07-13 09:56] VITALS: BP 139/77
[2022-07-13 11:08] VITALS: BP 162/77
== END ==
LOC: M INFU 09:30
PROVIDERS: ATTEND Internal Medicine Gastroenterology
DX: K51.90 Ulcerative colitis, unspecified, without complications (principal); Z88.5 Allergy status to narcotic agent; Z88.8 Allergy status to other drugs, medicaments and biological substances
CPT/HCPCS: 96365; J3380

== ENCOUNTER → 2022-07-19 | Outpatient (CLI) | payer MEDICARE, MEDICAID ==
[~2022-07-19] MED LIST changes: -VEDOLIZUMAB 300 MG in NS 250 ML IV ONE
== END ==
LOC: M LABSMTC 09:47
PROVIDERS: ATTEND Anesthesiology
DX: Z01.812 Encounter for preprocedural laboratory examination (principal); Z20.822 Contact with and (suspected) exposure to COVID-19

== ENCOUNTER 2022-07-20 09:18 | Day surgery (SDC) | payer MEDICARE, MEDICAID ==
[~2022-07-20] VITALS: Ht 167.6 cm; Wt 91.2 kg
[~2022-07-20 09:18] MED LIST changes: +CEFUROXIME 1MG/0.1ML INTRACAMERAL INJ As Ordered ONE; +LIDOCAINE 3.5 % 1ML OPHTH TOPICAL GEL OU ONE; +MIDAZOLAM INJ 2MG/2ML VIAL (J2250 PER 1MG) As Ordered ONE; -POTA10CA32 PO; +POTA10CA33 PO; +TOBRADEX OPHTH OINT 3.5 GM As Ordered ONE; +fentaNYL 100 MCG/2 ML INJECTION As Ordered ONE; +mitoMYcin 0.2 MG/VIAL KIT FOR OPHTHALMIC USE As Ordered ONE
[2022-07-20] MEDS ORDERED: LABETALOL 100MG/20ML VIAL As Ordered ONE (10:57)
[2022-07-20] MEDS: LIDOCAINE 1% SDV 5ML VIAL As Ordered ONE ×2 (11:01→11:27)
[2022-07-20] MEDS ORDERED: hydrALAZINE 20MG/ML 1ML VIAL As Ordered ONE (11:11)
[2022-07-20 11:23] VITALS: BP 134/64
== END 2022-07-20 11:44 | disposition home or self-care (01) ==
LOC: M SDC 09:18
PROVIDERS: ATTEND Ophthalmology
DX: H40.1111 Primary open-angle glaucoma, right eye, mild stage (principal); I10 Essential (primary) hypertension; E78.5 Hyperlipidemia, unspecified; E03.9 Hypothyroidism, unspecified; G43.909 Migraine, unspecified, not intractable, without status migrainosus; K21.9 Gastro-esophageal reflux disease without esophagitis; D72.829 Elevated white blood cell count, unspecified; F41.9 Anxiety disorder, unspecified; F32.A Depression, unspecified; Z88.5 Allergy status to narcotic agent; Z88.8 Allergy status to other drugs, medicaments and biological substances; F70 Mild intellectual disabilities; Z79.899 Other long term (current) drug therapy; F43.10 Post-traumatic stress disorder, unspecified

== ENCOUNTER → 2022-07-24 | Outpatient (CLI) | payer MEDICARE, MEDICAID ==
[~2022-07-24] MED LIST changes: -CEFUROXIME 1MG/0.1ML INTRACAMERAL INJ As Ordered ONE; -LIDOCAINE 3.5 % 1ML OPHTH TOPICAL GEL OU ONE; -MIDAZOLAM INJ 2MG/2ML VIAL (J2250 PER 1MG) As Ordered ONE; -TOBRADEX OPHTH OINT 3.5 GM As Ordered ONE; -fentaNYL 100 MCG/2 ML INJECTION As Ordered ONE; -mitoMYcin 0.2 MG/VIAL KIT FOR OPHTHALMIC USE As Ordered ONE
== END ==
LOC: M LABSMTC 10:28
PROVIDERS: ATTEND Anesthesiology
DX: Z01.812 Encounter for preprocedural laboratory examination (principal); Z11.52 Encounter for screening for COVID-19

== ENCOUNTER 2022-07-26 10:45 | Day surgery (SDC) | payer MEDICARE, MEDICAID ==
[~2022-07-26] VITALS: Ht 167.6 cm; Wt 91.7 kg
[~2022-07-26 10:45] MED LIST changes: +LIDOCAINE 1% 1ML PF SYRINGE (OR EYE CASES) As Ordered ONE; +LIDOCAINE 3.5 % 1ML OPHTH TOPICAL GEL OU ONE; +mitoMYcin 0.2 MG/VIAL KIT FOR OPHTHALMIC USE As Ordered ONE
[2022-07-26] MEDS ORDERED: MIDAZOLAM INJ 2MG/2ML VIAL (J2250 PER 1MG) As Ordered ONE (12:33)
[2022-07-26] MEDS ORDERED: fentaNYL 100 MCG/2 ML INJECTION As Ordered ONE (12:33)
[2022-07-26] MEDS ORDERED: TOBRADEX OPHTH OINT 3.5 GM As Ordered ONE (12:37)
[2022-07-26] MEDS ORDERED: ONDANSETRON 4MG 2ML VIAL As Ordered ONE (12:45)
[2022-07-26 13:30] VITALS: BP 132/68
== END 2022-07-26 13:45 | disposition home or self-care (01) ==
LOC: M SDC 10:45
PROVIDERS: ATTEND Ophthalmology
DX: H40.9 Unspecified glaucoma (principal)
CPT/HCPCS: 66183; 81025; 99156; C1783; J2250; J2405; J3010; J7315

== ENCOUNTER 2022-08-10 08:55 | Outpatient (CLI) | payer MEDICARE, MEDICAID ==
[~2022-08-10] VITALS: Ht 170.2 cm; Wt 94.8 kg
[~2022-08-10 08:55] MED LIST changes: -LIDOCAINE 1% 1ML PF SYRINGE (OR EYE CASES) As Ordered ONE; -LIDOCAINE 3.5 % 1ML OPHTH TOPICAL GEL OU ONE; -mitoMYcin 0.2 MG/VIAL KIT FOR OPHTHALMIC USE As Ordered ONE
[2022-08-10] MEDS ORDERED: VEDOLIZUMAB 300 MG in NS 250 ML IV ONE (09:00)
[2022-08-10 09:10] VITALS: BP 135/69
[2022-08-10 10:34] VITALS: BP 127/80
== END 2022-08-10 10:35 ==
LOC: M INFU 08:55
PROVIDERS: ATTEND Internal Medicine Gastroenterology
DX: K51.90 Ulcerative colitis, unspecified, without complications (principal); Z88.6 Allergy status to analgesic agent
CPT/HCPCS: 96365; J3380

== ENCOUNTER → 2022-08-21 | Outpatient (CLI) | payer MEDICARE, MEDICAID | LOC: M WHC 14:34 | PROVIDERS: ATTEND Nurse Practitioner Family | DX: Z12.31 Encounter for screening mammogram for malignant neoplasm of breast (principal); R92.8 Other abnormal and inconclusive findings on diagnostic imaging of breast ==

== ENCOUNTER 2022-10-05 09:04 | Outpatient (CLI) | payer MEDICARE, MEDICAID ==
[~2022-10-05] VITALS: Ht 170.2 cm; Wt 95.0 kg
[~2022-10-05 09:04] MED LIST changes: +VEDOLIZUMAB 300 MG in NS 250 ML IV ONE
[2022-10-05 09:05] VITALS: BP 149/69
[2022-10-05 10:20] VITALS: BP 131/69
== END 2022-10-05 10:20 | disposition home or self-care (01) ==
LOC: M INFU 09:04
PROVIDERS: ATTEND Internal Medicine Gastroenterology
DX: K51.90 Ulcerative colitis, unspecified, without complications (principal); Z88.5 Allergy status to narcotic agent; Z88.6 Allergy status to analgesic agent; Z88.8 Allergy status to other drugs, medicaments and biological substances
CPT/HCPCS: 96365; J3380

== ENCOUNTER → 2022-10-10 | Outpatient (CLI) | payer MEDICARE, MEDICAID ==
[~2022-10-10] MED LIST changes: -VEDOLIZUMAB 300 MG in NS 250 ML IV ONE
== END ==
LOC: M WHC 09:40
PROVIDERS: ATTEND Nurse Practitioner Family
DX: R92.8 Other abnormal and inconclusive findings on diagnostic imaging of breast (principal)
CPT/HCPCS: 77065; G0279

== ENCOUNTER 2022-11-30 08:29 | Outpatient (CLI) | payer MEDICARE, MEDICAID ==
[~2022-11-30] VITALS: Ht 170.2 cm; Wt 95.0 kg
[~2022-11-30 08:29] MED LIST changes: +ACET1TAB55 PO; +DESI13CR2 TOP; +IBUP200T46 PO; -KETO0.02 OU; +KETO5DRO33 OU; +LOPE-39 PO; +NEOM28OI EXT; +TIMO0.5S20 OU; -TIMO0.5S29 OU
[2022-11-30 08:48] VITALS: BP 129/62
[2022-11-30] MEDS ORDERED: VEDOLIZUMAB 300 MG in NS 250 ML IV ONE (09:00)
[2022-11-30 09:47] VITALS: BP 115/68
== END 2022-11-30 09:46 | disposition home or self-care (01) ==
LOC: M INFU 08:29
PROVIDERS: ATTEND Internal Medicine Gastroenterology
DX: K51.90 Ulcerative colitis, unspecified, without complications (principal); Z88.5 Allergy status to narcotic agent; Z88.8 Allergy status to other drugs, medicaments and biological substances
CPT/HCPCS: 96365; J3380

== ENCOUNTER 2023-01-25 08:56 | Outpatient (CLI) | payer MEDICARE, MEDICAID ==
[~2023-01-25] VITALS: Ht 170.2 cm; Wt 95.0 kg
[~2023-01-25 08:56] MED LIST changes: -POTA10CA33 PO; +POTA10CA60 PO
[2023-01-25 09:00] VITALS: BP 149/72; O2SAT 100
[2023-01-25] MEDS ORDERED: VEDOLIZUMAB 300 MG in NS 250 ML IV ONE (09:00)
[2023-01-25 10:13] VITALS: BP 126/87; O2SAT 99
== END 2023-01-25 10:10 | disposition home or self-care (01) ==
LOC: M INFU 08:56
PROVIDERS: ATTEND Internal Medicine Gastroenterology
DX: K51.90 Ulcerative colitis, unspecified, without complications (principal)
CPT/HCPCS: 96365; J3380

== ENCOUNTER 2023-03-22 09:05 | Outpatient (CLI) | payer MEDICARE, MEDICAID ==
[~2023-03-22] VITALS: Ht 175.3 cm; Wt 96.6 kg
[~2023-03-22 09:05] MED LIST changes: +ACET-907 PO; +DESI13CR2 EXT; -DORZ2SOL4 OD; +DORZ2SOL4 OU; +LEVO1TAB40 PO; +LOPE2TAB12 PO; +PHEN1TAB73 PO; +SFHIBU200 PO
[2023-03-22 09:20] VITALS: BP 145/81; TEMP 97.2; O2SAT 99
[2023-03-22] MEDS ORDERED: VEDOLIZUMAB 300 MG in NS 250 ML IV ONE (09:30)
[2023-03-22 10:45] VITALS: BP 139/94; O2SAT 99
== END 2023-03-22 10:45 | disposition home or self-care (01) ==
LOC: M INFU 09:05
PROVIDERS: ATTEND Internal Medicine Gastroenterology
DX: K51.90 Ulcerative colitis, unspecified, without complications (principal); Z88.5 Allergy status to narcotic agent; Z88.8 Allergy status to other drugs, medicaments and biological substances
CPT/HCPCS: 90834; 96365; J3380

== ENCOUNTER 2023-05-17 09:00 | Outpatient (CLI) | payer MEDICARE, MEDICAID ==
[~2023-05-17] VITALS: Ht 167.6 cm; Wt 101.0 kg
[~2023-05-17 09:00] MED LIST changes: +VEDOLIZUMAB 300 MG in NS 250 ML IV ONE
[2023-05-17 09:53] VITALS: BP 176/80; O2SAT 98
[2023-05-17 10:43] VITALS: BP 152/71; O2SAT 97
== END 2023-05-17 10:45 ==
LOC: M INFU 09:00
PROVIDERS: ATTEND Internal Medicine Gastroenterology
DX: K51.90 Ulcerative colitis, unspecified, without complications (principal); Z88.5 Allergy status to narcotic agent; Z88.8 Allergy status to other drugs, medicaments and biological substances
CPT/HCPCS: 96365; J3380

== ENCOUNTER 2023-07-12 09:00 | Outpatient (CLI) | payer MEDICARE, MEDICAID ==
[~2023-07-12] VITALS: Ht 167.6 cm; Wt 104.1 kg
[2023-07-12 09:00] VITALS: BP 168/85; O2SAT 96
[2023-07-12 10:14] VITALS: BP 152/67; O2SAT 95
== END 2023-07-12 10:10 | disposition home or self-care (01) ==
LOC: M INFU 09:00
PROVIDERS: ATTEND Internal Medicine Gastroenterology
DX: K51.90 Ulcerative colitis, unspecified, without complications (principal); Z88.5 Allergy status to narcotic agent; Z88.8 Allergy status to other drugs, medicaments and biological substances
CPT/HCPCS: 96365; J3380

== ENCOUNTER → 2023-07-26 | Outpatient (CLI) | payer MEDICARE, MEDICAID ==
[~2023-07-26] MED LIST changes: -VEDOLIZUMAB 300 MG in NS 250 ML IV ONE
[2023-07-26 10:30] LABS: BASO # 0.1 10^3/uL (0.0-0.2); BASO % 0.3 % (0.0-1.0); EOS # 0.4 10^3/uL (0.0-0.5); EOS % 2.5 % (0.0-3.0); HEMATOCRIT 38.3 % (36.0-47.0); HEMOGLOBIN 11.9 g/dl (12.0-15.5); LYMPH # 1.6 10^3/uL (1.5-5.0); MEAN CORPUSCULAR HEMOGLOBIN 28.6 pg (27.0-33.0); MEAN CORPUSCULAR HGB CONC 31.1 g/dl (32.0-36.5); MEAN CORPUSCULAR VOLUME 92.1 fl (80.0-96.0); MONO # 0.8 10^3/uL (0.0-0.8); MONO % 5.6 % (2.0-8.0); NEUTROPHILS # 11.6 10^3/uL (1.5-8.5); NEUTROPHILS % 79.6 % (36.0-66.0); PLATELET COUNT, AUTOMATED 367 10^3/uL (150-450); RED BLOOD COUNT 4.16 10^6/uL (4.00-5.40); WHITE BLOOD COUNT 14.6 10^3/uL (4.0-10.0)
[2023-07-26 11:11] LABS: HEMOGLOBIN A1c 5.5 % (4.0-6.0)
[2023-07-26 11:16] LABS: CPK CREATINE PHOSPHOKINASE 87 U/L (34-145)
[2023-07-26 11:17] LABS: ALKALINE PHOSPHATASE 121 U/L (46-116); ALT/SGPT 10 U/L (7.0-40); AST/SGOT 15 U/L (<34); BILIRUBIN,TOTAL 0.2 MG/DL (0.3-1.2); BLOOD UREA NITROGEN 18 MG/DL (9-23); CALCIUM LEVEL 8.6 MG/DL (8.5-10.1); CARBON DIOXIDE LEVEL 27 MMOL/L (20-31); CHLORIDE LEVEL 107 MMOL/L (98-107); CHOLESTEROL LEVEL 134 MG/DL (<200); CHOLESTEROL RISK RATIO 3.97 (<5); GLOMERULAR FILTRATION RATE > 60.0 (>58); GLUCOSE, FASTING 118 MG/DL (60-100); HDL CHOLESTEROL 33.7 MG/DL (>40); NON-HDL-C 100.3 MG/DL; POTASSIUM SERUM 4.8 MMOL/L (3.5-5.1); SODIUM LEVEL 139 MMOL/L (136-145); TOTAL PROTEIN 5.9 G/DL (5.7-8.2); TRIGLYCERIDES LEVEL 510 MG/DL (<150)
[2023-07-26 11:21] LABS: TOTAL 25(OH) VITAMIN D 41.2 NG/ML (20.0-100.0)
[2023-07-26 15:06] LABS: PTH INTACT 29.7 PG/ML (18.5-88.0)
== END ==
LOC: M WUC 08:20
PROVIDERS: ATTEND Physician Assistant Medical
DX: E78.2 Mixed hyperlipidemia (principal); I10 Essential (primary) hypertension; D47.3 Essential (hemorrhagic) thrombocythemia; D72.829 Elevated white blood cell count, unspecified; Z68.35 Body mass index [BMI] 35.0-35.9, adult; E55.9 Vitamin D deficiency, unspecified; Z79.899 Other long term (current) drug therapy

== ENCOUNTER 2023-09-06 08:49 | Outpatient (CLI) | payer MEDICARE, MEDICAID ==
[~2023-09-06] VITALS: Ht 167.6 cm; Wt 102.0 kg
[2023-09-06 08:50] VITALS: BP 161/80; O2SAT 97
[2023-09-06] MEDS ORDERED: VEDOLIZUMAB 300 MG in NS 250 ML IV ONE (09:00)
[2023-09-06 10:25] VITALS: BP 138/88; O2SAT 100
== END 2023-09-06 10:25 | disposition home or self-care (01) ==
LOC: M INFU 08:49
PROVIDERS: ATTEND Internal Medicine Gastroenterology
DX: K51.90 Ulcerative colitis, unspecified, without complications (principal); Z88.5 Allergy status to narcotic agent; Z88.8 Allergy status to other drugs, medicaments and biological substances
CPT/HCPCS: 96365; J3380

== ENCOUNTER → 2023-10-05 | Outpatient (REF) | payer MEDICARE, MEDICAID | LOC: M SFHCWAGY 13:25 | PROVIDERS: ATTEND Nurse Practitioner Family | DX: Z12.4 Encounter for screening for malignant neoplasm of cervix (principal) ==

== ENCOUNTER → 2023-10-05 | Outpatient (CLI) | payer MEDICARE, MEDICAID | LOC: M WHC 08:51 | PROVIDERS: ATTEND Nurse Practitioner Family | DX: Z12.31 Encounter for screening mammogram for malignant neoplasm of breast (principal) ==

== ENCOUNTER → 2023-10-31 | Outpatient (CLI) | payer MEDICARE, MEDICAID ==
[2023-10-31 11:21] LABS: CHOLESTEROL RISK RATIO 2.47 (<5); HDL CHOLESTEROL 42.8 MG/DL (>40); LDL CHOLESTEROL 19.4 MG/DL (<100); NON-HDL-C 63.2 MG/DL
== END ==
LOC: M WUC 08:24
PROVIDERS: ATTEND Physician Assistant Medical
DX: E78.2 Mixed hyperlipidemia (principal)

== ENCOUNTER 2023-11-01 09:00 | Outpatient (CLI) | payer MEDICARE, MEDICAID ==
[~2023-11-01] VITALS: Ht 170.2 cm; Wt 101.4 kg
[2023-11-01 09:00] VITALS: BP 129/60; TEMP 97.7; O2SAT 97
[2023-11-01] MEDS: VEDOLIZUMAB 300 MG in NS 250 ML IV ONE (09:43)
== END 2023-11-01 10:30 | disposition home or self-care (01) ==
LOC: M INFU 09:00
PROVIDERS: ATTEND Internal Medicine Gastroenterology
DX: K51.919 Ulcerative colitis, unspecified with unspecified complications (principal); Z88.5 Allergy status to narcotic agent; Z88.8 Allergy status to other drugs, medicaments and biological substances
CPT/HCPCS: 96365; J3380

== ENCOUNTER 2023-12-27 08:21 | Outpatient (CLI) | payer MEDICARE, MEDICAID ==
[~2023-12-27] VITALS: Ht 172.7 cm; Wt 100.0 kg
[~2023-12-27 08:21] MED LIST changes: +BUPR-597 PO; -BUPR300T92 PO; -POTA10CA60 PO; +POTA10CA70 PO
[2023-12-27 08:35] VITALS: BP 131/64; O2SAT 98
[2023-12-27] MEDS: VEDOLIZUMAB 300 MG in NS 250 ML IV ONE (09:41)
[2023-12-27 10:15] VITALS: BP 142/77; O2SAT 100
== END 2023-12-27 10:25 | disposition home or self-care (01) ==
LOC: M INFU 08:21
PROVIDERS: ATTEND Internal Medicine Gastroenterology
DX: K51.919 Ulcerative colitis, unspecified with unspecified complications (principal); Z88.5 Allergy status to narcotic agent; Z88.6 Allergy status to analgesic agent
CPT/HCPCS: 96365; J3380

== ENCOUNTER 2024-02-21 09:30 | Outpatient (CLI) | payer MEDICARE, MEDICAID ==
[~2024-02-21] VITALS: Ht 167.6 cm; Wt 100.0 kg
[2024-02-21 09:30] VITALS: BP 145/68; O2SAT 98
[2024-02-21] MEDS: VEDOLIZUMAB 300 MG in NS 250 ML IV ONE (09:48)
[2024-02-21 10:20] VITALS: BP 148/68; O2SAT 98
== END 2024-02-21 10:30 ==
LOC: M INFU 09:30
PROVIDERS: ATTEND Internal Medicine Gastroenterology
DX: K51.90 Ulcerative colitis, unspecified, without complications (principal); Z88.5 Allergy status to narcotic agent; Z88.6 Allergy status to analgesic agent
CPT/HCPCS: 96365; G0463; J3380

== ENCOUNTER → 2024-03-20 | Outpatient (CLI) | payer MEDICARE, MEDICAID ==
[2024-03-20 21:18] LABS: APPEARANCE, URINE CLOUDY (CLEAR); BACTERIA, URINE AUTO 1+ (NEGATIVE); BILIRUBIN, URINE AUTO NEGATIVE (NEGATIVE); BLOOD, URINE BLOOD NEGATIVE (NEGATIVE); COLOR, URINE YELLOW (YELLOW); GLUCOSE, URINE (UA) AUTO NEGATIVE (NEGATIVE); KETONE, URINE AUTO NEGATIVE (NEGATIVE); LEUKOCYTE ESTERASE, URINE AUTO 2+ (NEGATIVE); MUCUS, URINE SMALL (NEGATIVE); NITRITE, URINE AUTO NEGATIVE (NEGATIVE); PROTEIN, URINE AUTO NEGATIVE (NEGATIVE); RBC, URINE AUTO 1 /HPF (0-3); SPECIFIC GRAVITY URINE AUTO 1.021 (1.002-1.035); SQUAMOUS EPITHELIAL CELL UR AU 8 /HPF (0-6); UROBILINOGEN, URINE AUTO 0.2 mg/dL (0.0-2.0); WBC, URINE AUTO 4 /HPF (0-3)
== END ==
LOC: M WUC 15:08
PROVIDERS: ATTEND Physician Assistant
DX: R30.0 Dysuria (principal)

== ENCOUNTER 2024-04-17 09:17 | Outpatient (CLI) | payer MEDICARE, MEDICAID ==
[~2024-04-17] VITALS: Ht 167.6 cm; Wt 107.1 kg
[2024-04-17 09:40] VITALS: BP 131/61; O2SAT 97
[2024-04-17] MEDS: VEDOLIZUMAB 300 MG in NS 250 ML IV ONE (10:25)
== END 2024-04-17 11:20 ==
LOC: M INFU 09:17
PROVIDERS: ATTEND Internal Medicine Gastroenterology
DX: K51.90 Ulcerative colitis, unspecified, without complications (principal); Z88.5 Allergy status to narcotic agent; Z88.8 Allergy status to other drugs, medicaments and biological substances
CPT/HCPCS: 96413; J3380

== ENCOUNTER 2024-06-12 10:25 | Outpatient (CLI) | payer MEDICARE, MEDICAID ==
[~2024-06-12] VITALS: Ht 165.1 cm; Wt 110.0 kg
[2024-06-12 10:30] VITALS: BP 141/87; O2SAT 99
[2024-06-12] MEDS: VEDOLIZUMAB 300 MG in NS 250 ML IV ONE (11:24)
[2024-06-12 12:01] VITALS: BP 130/72; O2SAT 97
== END 2024-06-12 12:00 ==
LOC: M INFU 10:25
PROVIDERS: ATTEND Internal Medicine Gastroenterology
DX: K51.90 Ulcerative colitis, unspecified, without complications (principal); Z88.5 Allergy status to narcotic agent; Z88.8 Allergy status to other drugs, medicaments and biological substances
CPT/HCPCS: 96413; J3380

== ENCOUNTER 2024-07-09 09:22 | Inpatient (IN) | payer MEDICARE, MEDICAID ==
[~2024-07-09] VITALS: Ht 154.9 cm; Wt 113.3 kg
[2024-07-09 11:08] LABS: HEMATOCRIT 40.9 % (36.0-47.0); MEAN CORPUSCULAR HEMOGLOBIN 28.5 pg (27.0-33.0); MEAN CORPUSCULAR HGB CONC 31.8 g/dl (32.0-36.5); MEAN CORPUSCULAR VOLUME 89.7 fl (80.0-96.0); PLATELET COUNT, AUTOMATED 442 10^3/uL (150-450); RED BLOOD COUNT 4.56 10^6/uL (4.00-5.40); WHITE BLOOD COUNT 18.3 10^3/uL (4.0-10.0)
[2024-07-09 11:29] LABS: AMPHETAMINES LEVEL URINE NEGATIVE (NEGATIVE); BARBITURATES URINE NEGATIVE (NEGATIVE); BENZODIAZEPINES URINE NEGATIVE (NEGATIVE); CANNABINOIDS URINE NEGATIVE (NEGATIVE); COCAINE METABOLITE URINE NEGATIVE (NEGATIVE); METHADONE URINE NEGATIVE (NEGATIVE); OPIATES URINE NEGATIVE (NEGATIVE); PHENCYCLIDINE URINE NEGATIVE (NEGATIVE)
[2024-07-09 11:32] LABS: ETHYL ALCOHOL (ETHANOL) 0.005 % (0.000-0.010)
[2024-07-09 11:33] LABS: ALKALINE PHOSPHATASE 149 U/L (35-104); ALT/SGPT 15 U/L (7.0-40); AST/SGOT 15 U/L (<34); BILIRUBIN,DIRECT < 0.1 MG/DL (<0.4); BILIRUBIN,TOTAL 0.2 MG/DL (0.3-1.2); BLOOD UREA NITROGEN 10 MG/DL (9-23); CALCIUM LEVEL 10.2 MG/DL (8.5-10.1); CARBON DIOXIDE LEVEL 27 MMOL/L (20-31); CHLORIDE LEVEL 105 MMOL/L (98-107); CREATININE FOR GFR 0.73 MG/DL (0.55-1.30); GLOMERULAR FILTRATION RATE > 60.0 (>58); GLUCOSE, FASTING 113 MG/DL (60-100); POTASSIUM SERUM 4.6 MMOL/L (3.5-5.1); SALICYLATE LEVEL < 3.0 MG/DL (<30); SODIUM LEVEL 138 MMOL/L (136-145); TOTAL PROTEIN 6.9 G/DL (5.7-8.2)
[2024-07-09 11:35] LABS: HCG, SERUM QUALITATIVE NEGATIVE (NEGATIVE); THYROID STIMULATING HORMONE 6.368 uIU/ML (0.55-4.78)
[2024-07-09] MEDS ORDERED: MOM 30ML SUSPENSION UDC PO PRN (12:20)
[2024-07-09] MEDS ORDERED: IBUPROFEN 400MG TAB PO PRN (12:20)
[2024-07-09] MEDS ORDERED: MAALOX 30 ML SUSP *UDC PO PRN (12:20)
[2024-07-09] MEDS ORDERED: BUSP5TA PO (14:36)
[2024-07-09] MEDS ORDERED: OYST500T16 PO (14:36)
[2024-07-09] MEDS ORDERED: LORA-930 PO (14:36)
[2024-07-09] MEDS ORDERED: AZOP0.2S OU (14:47)
[2024-07-09] MEDS ORDERED: BENZ200C70 PO (14:47)
[2024-07-09] MEDS ORDERED: HOME MED LIST COMPLETE! XX SCH (14:50)
[2024-07-09] MEDS ORDERED: MED REC COMMENT (14:56)
[2024-07-09] MEDS: diphenhydrAMINE 25MG CAP PO PRN (16:29)
[2024-07-09 17:34] VITALS: BP 146/88; TEMP 97.3; O2SAT 96
[2024-07-09] MEDS: traZODone 50 MG TAB PO PRN (22:18)
[2024-07-10 06:27] VITALS: BP 105/66; TEMP 97.9; O2SAT 100
[2024-07-10 06:29] VITALS: BP 147/72; TEMP 97.5; O2SAT 96
[2024-07-10] MEDS: busPIRone 5 MG TAB PO SCH (10:23)
[2024-07-10] MEDS: buPROPion **XL** TABLET 150MG (WELLBUTRIN XL) PO SCH (10:23)
[2024-07-10] MEDS ORDERED: BALMEX CREAM 60GM EXT PRN (10:55)
[2024-07-10] MEDS: LORATADINE 10 MG TAB PO SCH (12:16)
[2024-07-10] MEDS: LEVOTHYROXINE 100MCG TABLET (0.1MG) PO SCH (12:16)
[2024-07-10] MEDS: BRINZOLAMIDE 1% OPHTH SUSP (AZOPT) 10ML OU SCH (13:01)
[2024-07-10 13:07] VITALS: BP 150/72
[2024-07-10] MEDS: METOPROLOL SUCC *XL* 25MG TAB (TopROL *XL*) PO SCH (13:08)
[2024-07-10] MEDS: BRIMONIDINE 0.15% OPHTH SOLN 5 ML OU SCH (13:17)
[2024-07-10] MEDS: TIMOLOL MALEATE 0.5% OPHTH SOLN 5 ML OU SCH (13:33)
[2024-07-10] MEDS: ASCORBIC ACID 500 MG TAB PO SCH (16:37)
[2024-07-10] MEDS: PANTOPRAZOLE 40MG TAB (PROTONIX) PO SCH (16:37)
[2024-07-10] MEDS: CEPACOL LOZENGE PO PRN (17:06)
[2024-07-10 17:22] VITALS: BP 135/62; TEMP 96.2; O2SAT 100
[2024-07-10] MEDS: PRAZOSIN 1 MG CAP PO SCH (20:52)
[2024-07-10] MEDS: ATORVASTATIN 20 MG TAB PO SCH (20:52)
[2024-07-11 06:42] VITALS: BP 133/83; TEMP 97; O2SAT 97
[2024-07-11] MEDS ORDERED: busPIRone 5 MG TAB PO SCH (09:00)
[2024-07-11 15:40] VITALS: BP 146/70; TEMP 97.4; O2SAT 100
[2024-07-11] MEDS: busPIRone 10 MG TAB PO SCH (21:39)
[2024-07-12 06:21] VITALS: BP 141/78; TEMP 97.4; O2SAT 97
[2024-07-12] MEDS: SUMAtriptan SUCCINATE 25 MG TAB PO PRN (15:23)
[2024-07-12 15:38] VITALS: BP 133/83; TEMP 97.4; O2SAT 98
[2024-07-13 06:33] VITALS: BP 130/50; TEMP 97.2; O2SAT 100
[2024-07-13 08:49] VITALS: BP 135/77
[2024-07-13 15:24] VITALS: BP 151/70; TEMP 97.3; O2SAT 98
[2024-07-14 06:22] VITALS: BP 154/84; TEMP 97.4; O2SAT 96
[2024-07-14 15:50] VITALS: BP 146/84; TEMP 97.3; O2SAT 97
[2024-07-14] MEDS: ACETAMINOPHEN 325 MG TAB PO PRN (17:11)
[2024-07-15 06:17] VITALS: BP 152/76; TEMP 97.5; O2SAT 97
[2024-07-15 07:54] VITALS: BP 141/78; TEMP 97.8; O2SAT 98
[2024-07-15 08:20] VITALS: BP 139/69
[2024-07-15 08:23] VITALS: BP 139/69
[2024-07-15] MEDS ORDERED: TRAZ-252 PO (11:03)
[2024-07-15] MEDS ORDERED: BUSP10TA PO (11:03)
[2024-07-15] MEDS ORDERED: DIPH-435 PO (11:03)
== END 2024-07-15 13:32 | disposition home or self-care (01) | DRG 881 ==
LOC: M ED 09:22 → M ED INP 12:18 → M PSY 16:27
PROVIDERS: ADMIT Psychiatry & Neurology Psychiatry; ATTEND Psychiatry & Neurology Psychiatry
DX: F32.A Depression, unspecified (principal); R45.851 Suicidal ideations; Z68.42 Body mass index [BMI] 45.0-49.9, adult; I10 Essential (primary) hypertension; F17.200 Nicotine dependence, unspecified, uncomplicated; F43.10 Post-traumatic stress disorder, unspecified; E78.5 Hyperlipidemia, unspecified; E03.9 Hypothyroidism, unspecified; E83.52 Hypercalcemia; E66.9 Obesity, unspecified; F79 Unspecified intellectual disabilities; R73.9 Hyperglycemia, unspecified; K21.9 Gastro-esophageal reflux disease without esophagitis; G43.909 Migraine, unspecified, not intractable, without status migrainosus; Z79.899 Other long term (current) drug therapy; Z62.810 Personal history of physical and sexual abuse in childhood; Z79.890 Hormone replacement therapy; Z88.8 Allergy status to other drugs, medicaments and biological substances; Z88.5 Allergy status to narcotic agent

== ENCOUNTER → 2024-07-25 | Outpatient (REF) | payer MEDICARE, MEDICAID ==
[~2024-07-25] MED LIST changes: +AZOP0.2S OU; +BENZ200C70 PO; +BUSP10TA PO; +BUSP5TA PO; +DIPH-435 PO; +LORA-930 PO; +MED REC COMMENT; +OYST500T16 PO
[2024-07-25 11:24] LABS: APPEARANCE, URINE HAZY (CLEAR); BACTERIA, URINE AUTO 1+ (NEGATIVE); BILIRUBIN, URINE AUTO NEGATIVE (NEGATIVE); BLOOD, URINE BLOOD NEGATIVE (NEGATIVE); COLOR, URINE YELLOW (YELLOW); GLUCOSE, URINE (UA) AUTO NEGATIVE (NEGATIVE); KETONE, URINE AUTO NEGATIVE (NEGATIVE); LEUKOCYTE ESTERASE, URINE AUTO 2+ (NEGATIVE); MUCUS, URINE SMALL (NEGATIVE); NITRITE, URINE AUTO NEGATIVE (NEGATIVE); PROTEIN, URINE AUTO NEGATIVE (NEGATIVE); RBC, URINE AUTO 2 /HPF (0-3); SPECIFIC GRAVITY URINE AUTO 1.017 (1.002-1.035); SQUAMOUS EPITHELIAL CELL UR AU 3 /HPF (0-6); UROBILINOGEN, URINE AUTO 0.2 mg/dL (0.0-2.0); WBC, URINE AUTO 29 /HPF (0-3)
== END ==
LOC: M LAB REF 10:38
PROVIDERS: ATTEND Physician Assistant
DX: R30.0 Dysuria (principal)

== ENCOUNTER 2024-08-07 10:35 | Outpatient (CLI) | payer MEDICARE, MEDICAID ==
[~2024-08-07] VITALS: Ht 154.9 cm; Wt 113.3 kg
[2024-08-07 10:45] VITALS: BP 135/80; O2SAT 95
[2024-08-07] MEDS: VEDOLIZUMAB 300 MG in NS 250 ML IV ONE (11:32)
[2024-08-07 12:15] VITALS: BP 154/74; O2SAT 98
== END 2024-08-07 12:15 ==
LOC: M INFU 10:35
PROVIDERS: ATTEND Internal Medicine Gastroenterology
DX: K51.90 Ulcerative colitis, unspecified, without complications (principal); Z88.5 Allergy status to narcotic agent; Z88.8 Allergy status to other drugs, medicaments and biological substances
CPT/HCPCS: 96413; J3380

== ENCOUNTER 2024-08-22 12:45 | Inpatient (IN) | payer MEDICARE, MEDICAID ==
[~2024-08-22] VITALS: Ht 162.6 cm; Wt 112.0 kg
[~2024-08-22 12:45] MED LIST changes: +MUPI30CR TOP; +minipress PO
[2024-08-22 14:22] LABS: HEMATOCRIT 38.8 % (36.0-47.0); HEMOGLOBIN 12.3 g/dl (12.0-15.5); MEAN CORPUSCULAR HEMOGLOBIN 28.1 pg (27.0-33.0); MEAN CORPUSCULAR HGB CONC 31.7 g/dl (32.0-36.5); MEAN CORPUSCULAR VOLUME 88.8 fl (80.0-96.0); PLATELET COUNT, AUTOMATED 380 10^3/uL (150-450); RED BLOOD COUNT 4.37 10^6/uL (4.00-5.40); WHITE BLOOD COUNT 14.3 10^3/uL (4.0-10.0)
[2024-08-22] MEDS ORDERED: MUPI2OI TOP (14:29)
[2024-08-22] MEDS ORDERED: SUMA25TA3 PO (14:33)
[2024-08-22] MEDS ORDERED: BUSP10TA PO (14:35)
[2024-08-22] MEDS ORDERED: DIPH-435 PO (14:36)
[2024-08-22] MEDS ORDERED: HOME MED LIST COMPLETE! XX SCH (14:40)
[2024-08-22 14:53] LABS: AMPHETAMINES LEVEL URINE NEGATIVE (NEGATIVE); BARBITURATES URINE NEGATIVE (NEGATIVE); BENZODIAZEPINES URINE NEGATIVE (NEGATIVE); COCAINE METABOLITE URINE NEGATIVE (NEGATIVE); METHADONE URINE NEGATIVE (NEGATIVE)
[2024-08-22 14:54] LABS: CANNABINOIDS URINE NEGATIVE (NEGATIVE); OPIATES URINE NEGATIVE (NEGATIVE); PHENCYCLIDINE URINE NEGATIVE (NEGATIVE)
[2024-08-22 14:56] LABS: ETHYL ALCOHOL (ETHANOL) < 0.003 % (0.000-0.010)
[2024-08-22 14:58] LABS: SALICYLATE LEVEL < 3.0 MG/DL (<30)
[2024-08-22 15:01] LABS: ALBUMIN 2.9 G/DL (3.2-5.2); ALKALINE PHOSPHATASE 136 U/L (35-104); ALT/SGPT 22 U/L (7.0-40); AST/SGOT 27 U/L (<34); BILIRUBIN,DIRECT 0.1 MG/DL (<0.4); BILIRUBIN,TOTAL 0.3 MG/DL (0.3-1.2); BLOOD UREA NITROGEN 14 MG/DL (9-23); CARBON DIOXIDE LEVEL 24 MMOL/L (20-31); CHLORIDE LEVEL 104 MMOL/L (98-107); CREATININE FOR GFR 0.67 MG/DL (0.55-1.30); GLOMERULAR FILTRATION RATE > 60.0 (>58); GLUCOSE, FASTING 170 MG/DL (60-100); POTASSIUM SERUM 4.4 MMOL/L (3.5-5.1); SODIUM LEVEL 140 MMOL/L (136-145); THYROID STIMULATING HORMONE 1.889 uIU/ML (0.55-4.78); TOTAL PROTEIN 6.4 G/DL (5.7-8.2)
[2024-08-22 15:09] LABS: HCG, SERUM QUALITATIVE NEGATIVE (NEGATIVE)
[2024-08-22] MEDS ORDERED: diphenhydrAMINE 25MG CAP PO PRN ×2 (17:25→17:35)
[2024-08-22] MEDS: SUMAtriptan SUCCINATE 25 MG TAB PO ONE (18:03)
[2024-08-22] MEDS: ASCORBIC ACID 500 MG TAB PO SCH (18:03)
[2024-08-22 18:45] LABS: APPEARANCE, URINE HAZY (CLEAR); BACTERIA, URINE AUTO NEGATIVE (NEGATIVE); BILIRUBIN, URINE AUTO NEGATIVE (NEGATIVE); BLOOD, URINE BLOOD NEGATIVE (NEGATIVE); COLOR, URINE YELLOW (YELLOW); GLUCOSE, URINE (UA) AUTO NEGATIVE (NEGATIVE); KETONE, URINE AUTO NEGATIVE (NEGATIVE); LEUKOCYTE ESTERASE, URINE AUTO NEGATIVE (NEGATIVE); NITRITE, URINE AUTO NEGATIVE (NEGATIVE); PROTEIN, URINE AUTO NEGATIVE (NEGATIVE); RBC, URINE AUTO 0 /HPF (0-3); SPECIFIC GRAVITY URINE AUTO 1.015 (1.002-1.035); SQUAMOUS EPITHELIAL CELL UR AU 1 /HPF (0-6); UROBILINOGEN, URINE AUTO 0.2 mg/dL (0.0-2.0); WBC, URINE AUTO 1 /HPF (0-3)
[2024-08-22] MEDS ORDERED: ASCORBIC ACID 500 MG TAB PO SCH (21:00)
[2024-08-22] MEDS ORDERED: ATORVASTATIN 20 MG TAB PO SCH (21:00)
[2024-08-22] MEDS ORDERED: BRINZOLAMIDE 1% OPHTH SUSP (AZOPT) 10ML OU SCH (21:00)
[2024-08-22] MEDS ORDERED: traZODone 50 MG TAB PO SCH (21:00)
[2024-08-22] MEDS ORDERED: TIMOLOL MALEATE 0.5% OPHTH SOLN 5 ML OU SCH (21:00)
[2024-08-22] MEDS ORDERED: PANTOPRAZOLE 40MG TAB (PROTONIX) PO SCH (21:00)
[2024-08-22] MEDS ORDERED: busPIRone 10 MG TAB PO SCH (21:00)
[2024-08-22] MEDS ORDERED: PRAZOSIN 1 MG CAP PO SCH (21:00)
[2024-08-22] MEDS ORDERED: POTASSIUM CHLORIDE 10MEQ SR TABLET PO SCH (21:00)
[2024-08-22] MEDS: BRIMONIDINE 0.1% OPHTH SOLN 5ML OU SCH (21:40)
[2024-08-22] MEDS: traZODone 50 MG TAB PO SCH (21:40)
[2024-08-22] MEDS: ATORVASTATIN 20 MG TAB PO SCH (21:40)
[2024-08-22] MEDS: busPIRone 10 MG TAB PO SCH (21:40)
[2024-08-22] MEDS: BRINZOLAMIDE 1% OPHTH SUSP (AZOPT) 10ML OU SCH (21:40)
[2024-08-22] MEDS: PRAZOSIN 1 MG CAP PO SCH (21:40)
[2024-08-22] MEDS: TIMOLOL MALEATE 0.5% OPHTH SOLN 5 ML OU SCH (21:40)
[2024-08-22] MEDS: MUPIROCIN 2% OINT 22 GM TUBE TOP SCH (21:41)
[2024-08-23] MEDS ORDERED: MOM 30ML SUSPENSION UDC PO PRN (02:40)
[2024-08-23] MEDS ORDERED: MAALOX 30 ML SUSP *UDC PO PRN (02:40)
[2024-08-23] MEDS ORDERED: OLANZapine 5 MG TAB PO PRN (02:40)
[2024-08-23 03:21] VITALS: BP 187/93; TEMP 98
[2024-08-23] MEDS ORDERED: LEVOTHYROXINE 100MCG TABLET (0.1MG) PO SCH ×2 (06:00)
[2024-08-23] MEDS: NICOTINE 14 MG/24 HR TRANSDERMAL TD SCH (08:29)
[2024-08-23] MEDS: UNRESOLVED CLARIFICATION ENTRY XX SCH (08:36)
[2024-08-23] MEDS ORDERED: VITAMIN D 1,000 INTERNATIONAL UNITS TABLET PO SCH (09:00)
[2024-08-23] MEDS ORDERED: LORATADINE 10 MG TAB PO SCH ×2 (09:00)
[2024-08-23] MEDS ORDERED: buPROPion **XL** TABLET 150MG (WELLBUTRIN XL) PO SCH ×2 (09:00)
[2024-08-23] MEDS ORDERED: METOPROLOL SUCC *XL* 25MG TAB (TopROL *XL*) PO SCH ×2 (09:00)
[2024-08-23] MEDS ORDERED: CALCIUM CARBONATE 500 MG CHEW U/D PO SCH (09:00)
[2024-08-23] MEDS ORDERED: OYSTER SHELL CALCIUM 500 MG TAB PO SCH (09:00)
[2024-08-23] MEDS ORDERED: SUMAtriptan SUCCINATE 25 MG TAB PO PRN (10:25)
[2024-08-23 13:33] VITALS: BP 144/82; TEMP 97.6; O2SAT 98
[2024-08-23] MEDS: OYSTER SHELL CALCIUM 500 MG TAB PO SCH (13:33)
[2024-08-23] MEDS: LEVOTHYROXINE 100MCG TABLET (0.1MG) PO SCH (13:34)
[2024-08-23] MEDS: LORATADINE 10 MG TAB PO SCH (13:34)
[2024-08-23] MEDS: VITAMIN D 1,000 INTERNATIONAL UNITS TABLET PO SCH (13:35)
[2024-08-23] MEDS: TIMOLOL MALEATE 0.5% OPHTH SOLN 5 ML OU SCH (13:44)
[2024-08-23] MEDS: METOPROLOL SUCC *XL* 25MG TAB (TopROL *XL*) PO SCH (13:44)
[2024-08-23] MEDS: BRIMONIDINE 0.1% OPHTH SOLN 5ML OU SCH (13:45)
[2024-08-23] MEDS: MUPIROCIN 2% OINT 22 GM TUBE TOP SCH (13:46)
[2024-08-23] MEDS: BRINZOLAMIDE 1% OPHTH SUSP (AZOPT) 10ML OU SCH (13:58)
[2024-08-23] MEDS: busPIRone 5 MG TAB PO SCH (14:02)
[2024-08-23] MEDS: buPROPion **XL** TABLET 150MG (WELLBUTRIN XL) PO SCH (14:02)
[2024-08-23] MEDS: ESCITALOPRAM OXALATE 10 MG TAB (LEXAPRO) PO SCH (14:03)
[2024-08-23] MEDS: diphenhydrAMINE 25MG CAP PO ONE (14:08)
[2024-08-23] MEDS: POTASSIUM CHLORIDE 10MEQ SR TABLET PO SCH (15:52)
[2024-08-23] MEDS: ASCORBIC ACID 500 MG TAB PO SCH (15:52)
[2024-08-23] MEDS: PANTOPRAZOLE 40MG TAB (PROTONIX) PO SCH (15:52)
[2024-08-23] MEDS ORDERED: POTASSIUM CHLORIDE 10MEQ SR TABLET PO SCH (16:00)
[2024-08-23] MEDS ORDERED: PANTOPRAZOLE 40MG TAB (PROTONIX) PO SCH (16:00)
[2024-08-23] MEDS: diphenhydrAMINE 25MG CAP PO SCH (17:57)
[2024-08-23] MEDS: ATORVASTATIN 20 MG TAB PO SCH (21:13)
[2024-08-23] MEDS: PRAZOSIN 1 MG CAP PO SCH (21:14)
[2024-08-24 07:05] VITALS: BP 132/86; TEMP 97.7; O2SAT 93
[2024-08-24] MEDS: ACETAMINOPHEN 325 MG TAB PO PRN (08:50)
[2024-08-24 14:53] VITALS: BP 127/73; TEMP 97.7; O2SAT 100
[2024-08-25 06:26] VITALS: BP 116/58; TEMP 97.1; O2SAT 95
[2024-08-25 09:30] VITALS: BP 139/82
[2024-08-25 15:46] VITALS: BP 130/64; TEMP 98.9; O2SAT 97
[2024-08-26 06:19] VITALS: BP 141/87; TEMP 97.4; O2SAT 98
[2024-08-26 09:22] VITALS: BP 133/63
[2024-08-26 09:23] VITALS: BP 133/63
[2024-08-26] MEDS ORDERED: BUPR150T12 PO (11:50)
[2024-08-26] MEDS ORDERED: BUSP5TA PO (11:50)
[2024-08-26] MEDS ORDERED: LEXA1TAB PO (11:50)
== END 2024-08-26 14:31 | disposition home or self-care (01) | DRG 880 ==
LOC: M ED 12:45 → M ED INP 08-23 02:39 → M PSY 08-23 03:14
PROVIDERS: ADMIT Psychiatry & Neurology Neurology; ATTEND Psychiatry & Neurology Psychiatry
DX: F41.9 Anxiety disorder, unspecified (principal); R45.851 Suicidal ideations; F32.A Depression, unspecified; F60.3 Borderline personality disorder; F43.10 Post-traumatic stress disorder, unspecified; I10 Essential (primary) hypertension; E78.5 Hyperlipidemia, unspecified; E03.9 Hypothyroidism, unspecified; E66.9 Obesity, unspecified; K21.9 Gastro-esophageal reflux disease without esophagitis; F79 Unspecified intellectual disabilities; G43.909 Migraine, unspecified, not intractable, without status migrainosus; Z79.890 Hormone replacement therapy; Z79.899 Other long term (current) drug therapy; Z88.5 Allergy status to narcotic agent; Z88.8 Allergy status to other drugs, medicaments and biological substances; Z62.810 Personal history of physical and sexual abuse in childhood

== ENCOUNTER 2024-08-28 12:27 | Day surgery (SDC) | payer MEDICARE, MEDICAID ==
[~2024-08-28] VITALS: Ht 177.8 cm; Wt 112.5 kg
[~2024-08-28 12:27] MED LIST changes: +LEXA1TAB PO; +LIDOCAINE 2% 100MG/5ML SDV (FOR ANES.) As Ordered ONE; +MUPI2OI TOP; +ePHEDrine SULFATE 25 MG/5 ML(5MG/ML) SYRINGE As Ordered ONE; +propofoL 200 MG/20 ML VIAL As Ordered ONE
[2024-08-28] MEDS ORDERED: fentaNYL 100 MCG/2 ML INJECTION As Ordered ONE (14:17)
[2024-08-28] MEDS ORDERED: LABETALOL 100MG/20ML VIAL As Ordered ONE (14:24)
[2024-08-28 14:38] VITALS: TEMP 97.8
[2024-08-28 14:52] VITALS: BP 173/88; O2SAT 96
== END 2024-08-28 14:58 | disposition home or self-care (01) ==
LOC: M OPP 12:27
PROVIDERS: ATTEND Internal Medicine Gastroenterology
DX: K22.89 Other specified disease of esophagus (principal); R11.0 Nausea; R10.13 Epigastric pain
CPT/HCPCS: 43239; 88305; J1920; J3010

== ENCOUNTER → 2024-09-22 | Outpatient (REF) | payer MEDICARE, MEDICAID ==
[~2024-09-22] MED LIST changes: -LIDOCAINE 2% 100MG/5ML SDV (FOR ANES.) As Ordered ONE; -ePHEDrine SULFATE 25 MG/5 ML(5MG/ML) SYRINGE As Ordered ONE; -propofoL 200 MG/20 ML VIAL As Ordered ONE
== END ==
LOC: M LAB REF 11:08
PROVIDERS: ATTEND Student in an Organized Health Care Education/Training Program
DX: R30.0 Dysuria (principal)

== ENCOUNTER 2024-09-26 08:35 | Emergency (ER) | payer MEDICARE, MEDICAID ==
[~2024-09-26] VITALS: Ht 165.1 cm; Wt 109.8 kg
[2024-09-26] MEDS: ONDANSETRON 4MG ORAL DISINTEGRATING TAB PO ONE (09:14)
[2024-09-26 09:52] LABS: BASO # 0.1 10^3/uL (0.0-0.2); BASO % 0.3 % (0.0-1.0); EOS % 0.1 % (0.0-3.0); HEMOGLOBIN 15.4 g/dl (12.0-15.5); LYMPH # 0.7 10^3/uL (1.5-5.0); LYMPH % 2.3 % (24.0-44.0); MEAN CORPUSCULAR HEMOGLOBIN 27.9 pg (27.0-33.0); MEAN CORPUSCULAR HGB CONC 31.4 g/dl (32.0-36.5); MEAN CORPUSCULAR VOLUME 88.8 fl (80.0-96.0); MONO # 0.7 10^3/uL (0.0-0.8); MONO % 2.5 % (2.0-8.0); NEUTROPHILS # 27.2 10^3/uL (1.5-8.5); NEUTROPHILS % 94.2 % (36.0-66.0); PLATELET COUNT, AUTOMATED 472 10^3/uL (150-450); RED BLOOD COUNT 5.52 10^6/uL (4.00-5.40); WHITE BLOOD COUNT 28.8 10^3/uL (4.0-10.0)
[2024-09-26 10:19] LABS: LIPASE 30 U/L (12-53)
[2024-09-26 10:20] LABS: AMYLASE 81 U/L (30-118)
[2024-09-26 10:21] LABS: ALBUMIN 3.9 G/DL (3.2-5.2); ALKALINE PHOSPHATASE 195 U/L (35-104); ALT/SGPT 38 U/L (7.0-40); AST/SGOT 33 U/L (<34); BILIRUBIN,DIRECT 0.1 MG/DL (<0.4); BILIRUBIN,TOTAL 0.5 MG/DL (0.3-1.2); BLOOD UREA NITROGEN 17 MG/DL (9-23); CALCIUM LEVEL 10.3 MG/DL (8.5-10.1); CARBON DIOXIDE LEVEL 22 MMOL/L (20-31); CHLORIDE LEVEL 104 MMOL/L (98-107); CREATININE FOR GFR 0.75 MG/DL (0.55-1.30); GLOMERULAR FILTRATION RATE > 60.0 (>58); GLUCOSE, FASTING 204 MG/DL (60-100); POTASSIUM SERUM 4.5 MMOL/L (3.5-5.1); SODIUM LEVEL 142 MMOL/L (136-145)
[2024-09-26 11:16] LABS: MAGNESIUM LEVEL 1.6 MG/DL (1.8-2.4)
[2024-09-26] MEDS: NS (Normal Saline) 0.9% 1,000 ML IV ONE (11:38)
[2024-09-26] MEDS: METOCLOPRAMIDE INJ 10MG/2ML VIAL IV ONE (11:38)
[2024-09-26 12:33] LABS: KETONE, URINE AUTO RFX NEGATIVE (NEGATIVE); LEUKOCYTE ESTERASE UR AUTO RFX NEGATIVE (NEGATIVE); MUCUS, URINE RFX SMALL (NEGATIVE); NITRITE, URINE AUTO RFX NEGATIVE (NEGATIVE); RBC, URINE AUTO RFX 2 /HPF (0-3); SQUAM EPITHELIAL CELL UR AURFX 5 /HPF (0-6); WBC, URINE AUTO RFX 3 /HPF (0-3)
[2024-09-26] MEDS ORDERED: ISOVUE-370 76% 100ML VIAL As Ordered ONE (12:35)
[2024-09-26] MEDS: ACETAMINOPHEN *IV* 1,000 MG in IV 1 EA IV ONE (13:02)
[2024-09-26 13:40] LABS: KETONE, URINE AUTO RFX NEGATIVE (NEGATIVE); LEUKOCYTE ESTERASE UR AUTO RFX NEGATIVE (NEGATIVE); MUCUS, URINE RFX LARGE (NEGATIVE); NITRITE, URINE AUTO RFX NEGATIVE (NEGATIVE); RBC, URINE AUTO RFX 0 /HPF (0-3); SQUAM EPITHELIAL CELL UR AURFX 4 /HPF (0-6); WBC, URINE AUTO RFX 0 /HPF (0-3)
[2024-09-26 14:33] LABS: BASO # 0.1 10^3/uL (0.0-0.2); BASO % 0.3 % (0.0-1.0); HEMOGLOBIN 13.5 g/dl (12.0-15.5); LYMPH # 0.5 10^3/uL (1.5-5.0); LYMPH % 2.2 % (24.0-44.0); MEAN CORPUSCULAR HEMOGLOBIN 28.3 pg (27.0-33.0); MEAN CORPUSCULAR HGB CONC 31.4 g/dl (32.0-36.5); MEAN CORPUSCULAR VOLUME 90.1 fl (80.0-96.0); MONO # 0.5 10^3/uL (0.0-0.8); MONO % 2.3 % (2.0-8.0); NEUTROPHILS # 20.9 10^3/uL (1.5-8.5); NEUTROPHILS % 94.5 % (36.0-66.0); PLATELET COUNT, AUTOMATED 386 10^3/uL (150-450); RED BLOOD COUNT 4.77 10^6/uL (4.00-5.40); WHITE BLOOD COUNT 22.1 10^3/uL (4.0-10.0)
[2024-09-26 14:45] VITALS: BP 136/71; TEMP 98.1; O2SAT 97
[2024-09-26] MEDS ORDERED: REGL10TA6 PO (14:48)
== END 2024-09-26 15:14 | disposition home or self-care (01) ==
LOC: M ED 08:35
DX: R11.10 Vomiting, unspecified (principal); R19.7 Diarrhea, unspecified; I10 Essential (primary) hypertension; D72.829 Elevated white blood cell count, unspecified; K51.90 Ulcerative colitis, unspecified, without complications; F91.3 Oppositional defiant disorder; Z79.3 Long term (current) use of hormonal contraceptives; Z79.899 Other long term (current) drug therapy; Z88.5 Allergy status to narcotic agent; Z88.8 Allergy status to other drugs, medicaments and biological substances
CPT/HCPCS: 36415; 74177; 80048; 80076; 81001; 82150; 83605; 83690; 83735; 85025; 87040; 87486; 87581; 87633; 87798; 96361; 96365; 96375; 99284; J0131; J2765; Q9967

== ENCOUNTER 2024-10-02 10:22 | Outpatient (CLI) | payer MEDICARE, MEDICAID ==
[~2024-10-02] VITALS: Ht 165.1 cm; Wt 112.4 kg
[2024-10-02] MEDS: VEDOLIZUMAB 300 MG in NS 250 ML IV ONE (11:16)
[2024-10-02 11:55] VITALS: BP 123/66; O2SAT 94
== END 2024-10-02 11:55 ==
LOC: M INFU 10:22
PROVIDERS: ATTEND Internal Medicine Gastroenterology
DX: K51.919 Ulcerative colitis, unspecified with unspecified complications (principal); Z88.5 Allergy status to narcotic agent; Z88.8 Allergy status to other drugs, medicaments and biological substances
CPT/HCPCS: 96413; J3380

== ENCOUNTER 2024-11-06 08:31 | Emergency (ER) | payer MEDICARE, MEDICAID ==
[~2024-11-06] VITALS: Ht 167.6 cm; Wt 162.0 kg
[2024-11-06 09:34] LABS: HEMATOCRIT 38.1 % (36.0-47.0); MEAN CORPUSCULAR HGB CONC 31.5 g/dl (32.0-36.5); MEAN CORPUSCULAR VOLUME 88.8 fl (80.0-96.0); PLATELET COUNT, AUTOMATED 353 10^3/uL (150-450); RED BLOOD COUNT 4.29 10^6/uL (4.00-5.40); WHITE BLOOD COUNT 15.2 10^3/uL (4.0-10.0)
[2024-11-06 09:59] LABS: ETHYL ALCOHOL (ETHANOL) < 0.003 % (0.000-0.010)
[2024-11-06] MEDS ORDERED: BANO25TA PO ×2 (09:59)
[2024-11-06] MEDS ORDERED: ACET1TAB55 PO (09:59)
[2024-11-06 10:01] LABS: SALICYLATE LEVEL < 3.0 MG/DL (<30)
[2024-11-06 10:03] LABS: THYROID STIMULATING HORMONE 3.549 uIU/ML (0.55-4.78)
[2024-11-06 10:16] LABS: ALBUMIN 2.6 G/DL (3.2-5.2); ALKALINE PHOSPHATASE 136 U/L (35-104); ALT/SGPT 12 U/L (7.0-40); AST/SGOT 17 U/L (<34); BILIRUBIN,DIRECT < 0.1 MG/DL (<0.4); BILIRUBIN,TOTAL 0.2 MG/DL (0.3-1.2); BLOOD UREA NITROGEN 13 MG/DL (9-23); CALCIUM LEVEL 9.1 MG/DL (8.5-10.1); CARBON DIOXIDE LEVEL 26 MMOL/L (20-31); CHLORIDE LEVEL 103 MMOL/L (98-107); CREATININE FOR GFR 0.64 MG/DL (0.55-1.30); GLOMERULAR FILTRATION RATE > 60.0 (>58); GLUCOSE, FASTING 222 MG/DL (60-100); POTASSIUM SERUM 4.5 MMOL/L (3.5-5.1); SODIUM LEVEL 137 MMOL/L (136-145); TOTAL PROTEIN 6.2 G/DL (5.7-8.2)
[2024-11-06 10:25] LABS: HCG, SERUM QUALITATIVE NEGATIVE (NEGATIVE)
[2024-11-06] MEDS ORDERED: GUAI100L6 PO (10:51)
[2024-11-06] MEDS ORDERED: IBUP200C25 PO (10:51)
[2024-11-06] MEDS ORDERED: DESI13CR2 TOP (10:51)
[2024-11-06] MEDS ORDERED: NEOM14OI TOP (10:51)
[2024-11-06] MEDS ORDERED: LEXA1TAB PO (10:51)
[2024-11-06] MEDS ORDERED: HOME MED LIST COMPLETE! XX SCH (10:55)
[2024-11-06 12:44] VITALS: BP 144/78; TEMP 98.2; O2SAT 98
== END 2024-11-06 13:15 | disposition home or self-care (01) ==
LOC: M ED 08:31
DX: F32.9 Major depressive disorder, single episode, unspecified (principal); B34.9 Viral infection, unspecified; Z91.52 Personal history of nonsuicidal self-harm; Z79.899 Other long term (current) drug therapy; Z88.5 Allergy status to narcotic agent; Z88.8 Allergy status to other drugs, medicaments and biological substances

== ENCOUNTER 2024-11-27 10:25 | Outpatient (CLI) | payer MEDICARE, MEDICAID ==
[~2024-11-27] VITALS: Ht 170.2 cm; Wt 116.4 kg
[2024-11-27 10:25] VITALS: BP 137/65; O2SAT 97
[~2024-11-27 10:25] MED LIST changes: +BANO25TA PO; -BUPR-597 PO; +BUPR-766 PO; +GUAI100L6 PO; +IBUP200C25 PO; +NEOM14OI TOP; -NYST-13 EXT; +NYST0.1C EXT
[2024-11-27] MEDS: VEDOLIZUMAB 300 MG in NS 250 ML IV ONE (11:07)
[2024-11-27 11:35] VITALS: O2SAT 99
[2024-11-27 11:48] VITALS: BP 169/87; O2SAT 96
== END 2024-11-27 11:55 | disposition home or self-care (01) ==
LOC: M INFU 10:25
PROVIDERS: ATTEND Internal Medicine Gastroenterology
DX: K51.919 Ulcerative colitis, unspecified with unspecified complications (principal); Z88.5 Allergy status to narcotic agent; Z88.8 Allergy status to other drugs, medicaments and biological substances
CPT/HCPCS: 96413; J3380

== ENCOUNTER 2025-02-15 18:40 | Inpatient (IN) | payer MEDICARE, MEDICAID ==
[~2025-02-15] VITALS: Ht 162.6 cm; Wt 100.0 kg
[~2025-02-15 18:40] MED LIST changes: +PRED20TA PO; +VENTAER INH
[2025-02-15 19:23] LABS: PLATELET COUNT, AUTOMATED 427 10^3/uL (150-450)
[2025-02-15 19:53] LABS: AMPHETAMINES LEVEL URINE NEGATIVE (NEGATIVE); BARBITURATES URINE NEGATIVE (NEGATIVE); BENZODIAZEPINES URINE NEGATIVE (NEGATIVE); CANNABINOIDS URINE NEGATIVE (NEGATIVE); COCAINE METABOLITE URINE NEGATIVE (NEGATIVE); METHADONE URINE NEGATIVE (NEGATIVE); OPIATES URINE NEGATIVE (NEGATIVE); PHENCYCLIDINE URINE NEGATIVE (NEGATIVE)
[2025-02-15 19:59] LABS: ETHYL ALCOHOL (ETHANOL) < 0.003 % (0.000-0.010)
[2025-02-15 20:00] LABS: ALT/SGPT 14 U/L (7.0-40); AST/SGOT 28 U/L (<34); CALCIUM LEVEL 9.4 MG/DL (8.5-10.1); CARBON DIOXIDE LEVEL 21 MMOL/L (20-31); CHLORIDE LEVEL 106 MMOL/L (98-107); CREATININE FOR GFR 0.88 MG/DL (0.55-1.30); GLOMERULAR FILTRATION RATE 83.1 (>58); POTASSIUM SERUM 4.3 MMOL/L (3.5-5.1); SALICYLATE LEVEL < 3.0 MG/DL (<30); SODIUM LEVEL 141 MMOL/L (136-145)
[2025-02-15 20:17] LABS: HCG, SERUM QUALITATIVE NEGATIVE (NEGATIVE)
[2025-02-15] MEDS ORDERED: DICY20TA20 PO (22:59)
[2025-02-15] MEDS ORDERED: BENA25CA4 PO (22:59)
[2025-02-15] MEDS ORDERED: HOME MED LIST COMPLETE! XX SCH (23:00)
[2025-02-16] MEDS: LEVOTHYROXINE 100 MCG TABLET (0.1 MG) PO SCH (06:28)
[2025-02-16] MEDS: buPROPion **XL** 150 MG TABLET PO SCH ×2 (09:07→09:16)
[2025-02-16] MEDS: LORATADINE 10 MG TAB PO SCH (09:07)
[2025-02-16] MEDS: METOPROLOL SUCC. 25 MG *XL* TAB PO SCH (09:07)
[2025-02-16] MEDS: DICYCLOMINE 10 MG CAP PO SCH (09:08)
[2025-02-16] MEDS: VITAMIN D 1,000 INTERNATIONAL UNITS TABLET PO SCH (09:08)
[2025-02-16] MEDS: PANTOPRAZOLE 40MG TAB PO SCH (09:08)
[2025-02-16] MEDS: CALCIUM CARBONATE 500 MG CHEW U/D PO SCH (09:08)
[2025-02-16] MEDS: busPIRone 5 MG TAB PO SCH (09:08)
[2025-02-16] MEDS: ASCORBIC ACID 500 MG TAB PO SCH (15:53)
[2025-02-16] MEDS: POTASSIUM CHLORIDE 10MEQ SR TABLET PO SCH (15:53)
[2025-02-16] MEDS: traZODone 50 MG TAB PO SCH (20:55)
[2025-02-16] MEDS: ATORVASTATIN 10 MG TAB PO SCH (20:55)
[2025-02-16] MEDS: PRAZOSIN 1 MG CAP PO SCH (20:55)
[2025-02-16] MEDS: ESCITALOPRAM OXALATE 10 MG TABLET PO SCH (20:55)
[2025-02-17 03:59] LABS: APPEARANCE, URINE CLOUDY (CLEAR); BACTERIA, URINE AUTO 1+ (NEGATIVE); BILIRUBIN, URINE AUTO NEGATIVE (NEGATIVE); BLOOD, URINE BLOOD NEGATIVE (NEGATIVE); GLUCOSE, URINE (UA) AUTO NEGATIVE (NEGATIVE); KETONE, URINE AUTO TRACE mg/dL (NEGATIVE); LEUKOCYTE ESTERASE, URINE AUTO NEGATIVE (NEGATIVE); MUCUS, URINE SMALL (NEGATIVE); NITRITE, URINE AUTO NEGATIVE (NEGATIVE); PROTEIN, URINE AUTO NEGATIVE (NEGATIVE); RBC, URINE AUTO 2 /HPF (0-3); SPECIFIC GRAVITY URINE AUTO 1.019 (1.002-1.035); SQUAMOUS EPITHELIAL CELL UR AU 7 /HPF (0-6); UROBILINOGEN, URINE AUTO 0.2 mg/dL (0.0-2.0); WBC, URINE AUTO 3 /HPF (0-3)
[2025-02-17] MEDS ORDERED: ALBUTEROL 90 MCG/ACT 8 GM HFA INHALER INH PRN (13:45)
[2025-02-17] MEDS ORDERED: OLANZapine 5 MG TAB PO PRN (13:45)
[2025-02-17] MEDS ORDERED: traZODone 50 MG TAB PO PRN (13:45)
[2025-02-17] MEDS ORDERED: ACETAMINOPHEN 325 MG TAB PO PRN (13:45)
[2025-02-17] MEDS ORDERED: LORazepam 1 MG TAB PO PRN (13:45)
[2025-02-17] MEDS ORDERED: MOM 30 ML SUSPENSION UDC PO PRN (13:45)
[2025-02-17] MEDS ORDERED: IBUPROFEN 400 MG TAB PO PRN (13:45)
[2025-02-17] MEDS ORDERED: MAALOX 30 ML SUSP *UDC PO PRN (13:45)
[2025-02-17 15:33] VITALS: BP 147/71; TEMP 98.3; O2SAT 96
[2025-02-17] MEDS: ASCORBIC ACID 500 MG TAB PO SCH (15:40)
[2025-02-17] MEDS: busPIRone 5 MG TAB PO SCH (21:27)
[2025-02-17] MEDS: PANTOPRAZOLE 40MG TAB PO SCH (21:27)
[2025-02-17] MEDS: HALOPERIDOL 5 MG TAB PO PRN (21:27)
[2025-02-17] MEDS: PRAZOSIN 1 MG CAP PO SCH (21:27)
[2025-02-17] MEDS: ATORVASTATIN 10 MG TAB PO SCH (21:28)
[2025-02-17] MEDS: ESCITALOPRAM OXALATE 10 MG TABLET PO SCH (21:28)
[2025-02-18 06:22] VITALS: BP 135/72; TEMP 97.2; O2SAT 96
[2025-02-18] MEDS: LEVOTHYROXINE 100 MCG TABLET (0.1 MG) PO SCH (06:43)
[2025-02-18] MEDS: NICOTINE 14 MG/24 HR TRANSDERMAL TD SCH (08:55)
[2025-02-18] MEDS: METOPROLOL SUCC. 25 MG *XL* TAB PO SCH (09:19)
[2025-02-18] MEDS: VITAMIN D 1,000 INTERNATIONAL UNITS TABLET PO SCH (09:20)
[2025-02-18] MEDS: LORATADINE 10 MG TAB PO SCH (09:20)
[2025-02-18] MEDS: buPROPion **XL** 150 MG TABLET PO SCH (09:20)
[2025-02-18] MEDS: OYSTER SHELL CALCIUM 500 MG TAB PO SCH (09:25)
[2025-02-18 17:27] VITALS: BP 136/61; TEMP 97.2; O2SAT 97
[2025-02-19 06:36] VITALS: BP 117/64; TEMP 97; O2SAT 97
[2025-02-19 08:23] LABS: CHOLESTEROL LEVEL 117.0 MG/DL (<200); CHOLESTEROL RISK RATIO 2.35 (<5); LDL CHOLESTEROL 28.8 MG/DL (<100); NON-HDL-C 67.4 MG/DL; TRIGLYCERIDES LEVEL 193.0 MG/DL (<150)
[2025-02-19 15:35] VITALS: BP 145/88; TEMP 97; O2SAT 100
[2025-02-20 06:35] VITALS: BP 146/65; TEMP 97.7; O2SAT 97
[2025-02-20 09:11] VITALS: BP 146/65
== END 2025-02-20 12:05 | disposition home or self-care (01) | DRG 881 ==
LOC: M ED 18:40 → M ED INP 02-17 13:42 → M PSY 02-17 14:49
PROVIDERS: ADMIT Internal Medicine; ATTEND Internal Medicine
DX: F32.A Depression, unspecified (principal); R45.851 Suicidal ideations; F41.9 Anxiety disorder, unspecified; F60.3 Borderline personality disorder; F79 Unspecified intellectual disabilities; F43.10 Post-traumatic stress disorder, unspecified; Z88.5 Allergy status to narcotic agent; Z88.8 Allergy status to other drugs, medicaments and biological substances; Z79.899 Other long term (current) drug therapy; Z79.890 Hormone replacement therapy; Z79.52 Long term (current) use of systemic steroids; E66.9 Obesity, unspecified; K21.9 Gastro-esophageal reflux disease without esophagitis; E03.9 Hypothyroidism, unspecified; I10 Essential (primary) hypertension; J45.909 Unspecified asthma, uncomplicated; F17.200 Nicotine dependence, unspecified, uncomplicated; Z68.37 Body mass index [BMI] 37.0-37.9, adult; E55.9 Vitamin D deficiency, unspecified; D72.829 Elevated white blood cell count, unspecified

== ENCOUNTER → 2025-02-28 | Outpatient (CLI) | payer MEDICARE, MEDICAID ==
[~2025-02-28] MED LIST changes: +BENA25CA4 PO; +DICY20TA20 PO
== END ==
LOC: M LAB 09:04
PROVIDERS: ATTEND Internal Medicine Gastroenterology
DX: K51.00 Ulcerative (chronic) pancolitis without complications (principal); Z11.59 Encounter for screening for other viral diseases

== ENCOUNTER → 2025-03-23 | Outpatient (CLI) | payer MEDICARE, MEDICAID ==
[2025-03-23 11:14] LABS: ALT/SGPT 12 U/L (7.0-40); AST/SGOT 16 U/L (<34); CALCIUM LEVEL 8.7 MG/DL (8.5-10.1); CARBON DIOXIDE LEVEL 24 MMOL/L (20-31); CHLORIDE LEVEL 109 MMOL/L (98-107); CREATININE FOR GFR 0.68 MG/DL (0.55-1.30); GLOMERULAR FILTRATION RATE > 90.0 (>58); POTASSIUM SERUM 4.2 MMOL/L (3.5-5.1); SODIUM LEVEL 143 MMOL/L (136-145)
[2025-03-23 11:16] LABS: FREE T4 1.10 NG/DL (0.89-1.76)
[2025-03-23 11:49] LABS: ESTIMATED AVERAGE GLUCOSE 143.0 MG/DL (60-110)
== END ==
LOC: M PLALAB 07:28
PROVIDERS: ATTEND Physician Assistant Medical
DX: R63.5 Abnormal weight gain (principal); R73.09 Other abnormal glucose

== ENCOUNTER 2025-03-27 14:10 | Outpatient (CLI) | payer MEDICARE, MEDICAID ==
[2025-03-27 14:15] VITALS: BP 150/72; O2SAT 96
[2025-03-27] MEDS: VEDOLIZUMAB 300 MG in NS 250 ML IV ONE (14:57)
[2025-03-27 15:35] VITALS: BP 138/72; O2SAT 99
== END 2025-03-27 15:45 | disposition home or self-care (01) ==
LOC: M INFU 14:10
PROVIDERS: ATTEND Internal Medicine Gastroenterology
DX: K51.90 Ulcerative colitis, unspecified, without complications (principal); Z88.5 Allergy status to narcotic agent; Z88.8 Allergy status to other drugs, medicaments and biological substances
CPT/HCPCS: 96413; J3380

== ENCOUNTER 2025-05-20 00:12 | Emergency (ER) | payer MEDICARE, MEDICAID ==
[~2025-05-20] VITALS: Ht 175.3 cm; Wt 106.8 kg
[2025-05-20] MEDS ORDERED: BENZ200C70 PO (05:46)
[2025-05-20 05:52] VITALS: BP 135/66; TEMP 97.7; O2SAT 95
== END 2025-05-20 05:54 | disposition home or self-care (01) ==
LOC: M ED 00:12
DX: J06.9 Acute upper respiratory infection, unspecified (principal); B34.8 Other viral infections of unspecified site; I10 Essential (primary) hypertension; E78.5 Hyperlipidemia, unspecified; E55.9 Vitamin D deficiency, unspecified; F90.9 Attention-deficit hyperactivity disorder, unspecified type; F32.A Depression, unspecified; Z79.3 Long term (current) use of hormonal contraceptives; Z79.899 Other long term (current) drug therapy; Z88.5 Allergy status to narcotic agent; Z88.8 Allergy status to other drugs, medicaments and biological substances

== ENCOUNTER 2025-06-14 23:32 | Emergency (ER) | payer MEDICARE, MEDICAID ==
[~2025-06-14] VITALS: Ht 167.6 cm; Wt 108.0 kg
[2025-06-15 00:16] LABS: BASO # 0.1 10^3/uL (0.0-0.2); BASO % 0.7 % (0.0-1.0); EOS # 0.6 10^3/uL (0.0-0.5); EOS % 3.4 % (0.0-3.0); LYMPH # 2.8 10^3/uL (1.5-5.0); LYMPH % 16.4 % (24.0-44.0); MONO # 1.0 10^3/uL (0.0-0.8); MONO % 5.9 % (2.0-8.0); NEUTROPHILS # 12.1 10^3/uL (1.5-8.5); NEUTROPHILS % 71.6 % (36.0-66.0); PLATELET COUNT, AUTOMATED 449 10^3/uL (150-450)
[2025-06-15] MEDS: NS (Normal Saline) 0.9% 1,000 ML IV ONE (01:01)
[2025-06-15] MEDS: HYDROMORPHONE HCL 0.5 MG/0.5 ML SYRINGE IV PRN (01:01)
[2025-06-15 01:07] LABS: ALT/SGPT 18 U/L (7.0-40); AST/SGOT 33 U/L (<34); C REACTIVE PROTEIN QUANTITATIV 2.29 MG/DL (<1.0); CALCIUM LEVEL 8.4 MG/DL (8.5-10.1); CARBON DIOXIDE LEVEL 22 MMOL/L (20-31); CHLORIDE LEVEL 104 MMOL/L (98-107); CREATININE FOR GFR 0.64 MG/DL (0.55-1.30); GLOMERULAR FILTRATION RATE > 90.0 (>58); MAGNESIUM LEVEL 1.4 MG/DL (1.8-2.4); POTASSIUM SERUM 4.6 MMOL/L (3.5-5.1); SODIUM LEVEL 140 MMOL/L (136-145)
[2025-06-15] MEDS ORDERED: ISOVUE-370 76% 100 ML VIAL As Ordered ONE (01:21)
[2025-06-15 01:34] LABS: HCG, SERUM QUALITATIVE NEGATIVE (NEGATIVE)
[2025-06-15 01:43] LABS: SALICYLATE LEVEL < 3.0 MG/DL (<30)
[2025-06-15] MEDS: ACETAMINOPHEN *IV* 1,000 MG in IV 1 EA IV ONE (02:17)
[2025-06-15 02:23] LABS: PHENCYCLIDINE URINE NEGATIVE (NEGATIVE)
[2025-06-15 02:24] LABS: AMPHETAMINES LEVEL URINE NEGATIVE (NEGATIVE); BARBITURATES URINE NEGATIVE (NEGATIVE); BENZODIAZEPINES URINE NEGATIVE (NEGATIVE); CANNABINOIDS URINE NEGATIVE (NEGATIVE); COCAINE METABOLITE URINE NEGATIVE (NEGATIVE); METHADONE URINE NEGATIVE (NEGATIVE); OPIATES URINE NEGATIVE (NEGATIVE)
[2025-06-15] MEDS ORDERED: PRED20TA PO (03:40)
[2025-06-15] MEDS ORDERED: PRED10TA2 PO (03:40)
[2025-06-15] MEDS: MAG SULF 1GM/100ML (MAG RUN) 1 GM in IV 1 EA IV ONE (03:47)
[2025-06-15 04:47] VITALS: BP 160/72; TEMP 98.9; O2SAT 95
== END 2025-06-15 06:12 | disposition home or self-care (01) ==
LOC: M ED 23:32
DX: F43.0 Acute stress reaction (principal); K63.9 Disease of intestine, unspecified; R10.9 Unspecified abdominal pain; F41.9 Anxiety disorder, unspecified; E78.5 Hyperlipidemia, unspecified; I10 Essential (primary) hypertension; F43.10 Post-traumatic stress disorder, unspecified; F32.A Depression, unspecified; K51.90 Ulcerative colitis, unspecified, without complications; Z79.899 Other long term (current) drug therapy; Z88.5 Allergy status to narcotic agent; Z88.8 Allergy status to other drugs, medicaments and biological substances
CPT/HCPCS: 74177; 80048; 80076; 80143; 80307; 83735; 84443; 84703; 85025; 85652; 86140; 99285; J0131; J1171; J2919; J3475; Q9967

== ENCOUNTER 2025-06-21 12:06 | Inpatient (IN) | payer MEDICARE, MEDICAID ==
[~2025-06-21] VITALS: Ht 154.9 cm; Wt 106.4 kg
[~2025-06-21 12:06] MED LIST changes: +PRED10TA2 PO
[2025-06-21 13:18] LABS: BASO # 0.1 10^3/uL (0.0-0.2); BASO % 0.4 % (0.0-1.0); EOS # 0.1 10^3/uL (0.0-0.5); EOS % 0.2 % (0.0-3.0); LYMPH # 0.7 10^3/uL (1.5-5.0); LYMPH % 2.5 % (24.0-44.0); MONO # 0.2 10^3/uL (0.0-0.8); MONO % 0.8 % (2.0-8.0); NEUTROPHILS # 25.1 10^3/uL (1.5-8.5); NEUTROPHILS % 93.1 % (36.0-66.0)
[2025-06-21 13:43] LABS: CALCIUM LEVEL 9.3 MG/DL (8.5-10.1); CARBON DIOXIDE LEVEL 23 MMOL/L (20-31); CHLORIDE LEVEL 99 MMOL/L (98-107); CK-MB VALUE MASS < 1.0 NG/ML (<3.6); CPK CREATINE PHOSPHOKINASE 36 U/L (34-145); CREATININE FOR GFR 0.74 MG/DL (0.55-1.30); GLOMERULAR FILTRATION RATE > 90.0 (>58); POTASSIUM SERUM 4.7 MMOL/L (3.5-5.1); SODIUM LEVEL 133 MMOL/L (136-145)
[2025-06-21] MEDS ORDERED: NITROGLYCERIN 0.3 MG SUBL TAB SL PRN (13:45)
[2025-06-21] MEDS ORDERED: NITROGLYCERIN 0.4 MG SUBL TABLET SL PRN (13:55)
[2025-06-21] MEDS: NS 0.9% IV STA (14:14)
[2025-06-21] MEDS: [UNRECOGNIZED DRUG - OTHER] IV STA (14:14)
[2025-06-21] MEDS ORDERED: ISOVUE-370 76% 100 ML VIAL As Ordered ONE (14:24)
[2025-06-21 14:47] LABS: CK-MB VALUE MASS < 1.0 NG/ML (<3.6)
[2025-06-21 14:50] LABS: CPK CREATINE PHOSPHOKINASE 36 U/L (34-145)
[2025-06-21] MEDS: PIPERACILLIN/TAZOBACTAM SOD 4.5 GM in DEXTROSE 5% (D5W) ADV/MINI-BAG 50 ML IV ONE (14:54)
[2025-06-21] MEDS: BENZONATATE 100 MG CAPSULE PO ONE (16:10)
[2025-06-21] MEDS ORDERED: DEXTROSE 50% 50 ML SYRINGE IV PRN (17:35)
[2025-06-21] MEDS ORDERED: GLUCAGON INJ 1 MG VIAL SC PRN (17:35)
[2025-06-21] MEDS ORDERED: GLUCOSE 4 GM CHEW PO PRN (17:35)
[2025-06-21 17:55] LABS: KETONE, URINE AUTO RFX NEGATIVE (NEGATIVE); LEUKOCYTE ESTERASE UR AUTO RFX NEGATIVE (NEGATIVE); NITRITE, URINE AUTO RFX NEGATIVE (NEGATIVE); RBC, URINE AUTO RFX 0 /HPF (0-3); SQUAM EPITHELIAL CELL UR AURFX 1 /HPF (0-6); WBC, URINE AUTO RFX 0 /HPF (0-3)
[2025-06-21] MEDS ORDERED: LEXA5TAB13 PO (18:05)
[2025-06-21] MEDS ORDERED: METF-839 PO (18:05)
[2025-06-21] MEDS ORDERED: PRED10TA2 PO (18:05)
[2025-06-21] MEDS ORDERED: VENTAER INH (18:05)
[2025-06-21] MEDS ORDERED: BIMA01SOL OU (18:05)
[2025-06-21] MEDS ORDERED: HOME MED LIST COMPLETE! XX SCH (18:05)
[2025-06-21] MEDS ORDERED: SYNT100T PO (18:05)
[2025-06-21 18:13] VITALS: BP 145/94; TEMP 97; O2SAT 96
[2025-06-21] MEDS: LR 1,000 ML IV SCH (18:40)
[2025-06-21] MEDS: INSULIN LISPRO (NovoLOG) PER UNIT SC SCH ×2 (18:40→22:12)
[2025-06-21 18:58] LABS: BASO # 0.1 10^3/uL (0.0-0.2); BASO % 0.2 % (0.0-1.0); EOS # 0.0 10^3/uL (0.0-0.5); EOS % 0.0 % (0.0-3.0); LYMPH # 0.9 10^3/uL (1.5-5.0); LYMPH % 3.7 % (24.0-44.0); MONO # 0.5 10^3/uL (0.0-0.8); MONO % 2.0 % (2.0-8.0); NEUTROPHILS # 23.0 10^3/uL (1.5-8.5); NEUTROPHILS % 91.9 % (36.0-66.0); PLATELET COUNT, AUTOMATED 386 10^3/uL (150-450)
[2025-06-21] MEDS: LR 1,000 ML IV ONE (20:14)
[2025-06-21] MEDS ORDERED: ACETAMINOPHEN 325 MG TAB PO PRN (20:35)
[2025-06-21] MEDS ORDERED: traZODone 50 MG TAB PO PRN (20:35)
[2025-06-21] MEDS ORDERED: ASCORBIC ACID 500 MG TAB PO SCH (21:00)
[2025-06-21] MEDS: ESCITALOPRAM OXALATE 10 MG TABLET PO SCH (22:51)
[2025-06-21] MEDS: busPIRone 5 MG TAB PO SCH (22:52)
[2025-06-21] MEDS: ESCITALOPRAM OXALATE 5 MG TABLET PO SCH (22:52)
[2025-06-21] MEDS: DOXYCYCLINE HYCLATE 100 MG TABLET PO SCH (22:53)
[2025-06-21] MEDS: PRAZOSIN 1 MG CAP PO SCH (22:53)
[2025-06-21] MEDS: cefTRIAXone SOD 2 GM in DEXTROSE 5% (D5W) ADV/MINI-BAG 50 ML IV SCH (22:53)
[2025-06-21] MEDS: ATORVASTATIN 10 MG TAB PO SCH (22:53)
[2025-06-21] MEDS: PANTOPRAZOLE 40MG TAB PO SCH (22:53)
[2025-06-21] MEDS: LATANOPROST 0.005% OPHTH SOLN 2.5 ML OU SCH (22:54)
[2025-06-22 04:19] VITALS: BP 136/65; TEMP 97.1; O2SAT 98
[2025-06-22] MEDS: LEVOTHYROXINE 100 MCG TABLET (0.1 MG) PO SCH (05:55)
[2025-06-22 06:46] LABS: BASO # 0.1 10^3/uL (0.0-0.2); BASO % 0.3 % (0.0-1.0); EOS # 0.5 10^3/uL (0.0-0.5); EOS % 2.4 % (0.0-3.0); LYMPH # 2.1 10^3/uL (1.5-5.0); LYMPH % 9.3 % (24.0-44.0); MONO # 1.1 10^3/uL (0.0-0.8); MONO % 5.1 % (2.0-8.0); NEUTROPHILS # 17.9 10^3/uL (1.5-8.5); NEUTROPHILS % 80.4 % (36.0-66.0); PLATELET COUNT, AUTOMATED 350 10^3/uL (150-450)
[2025-06-22 07:15] LABS: CALCIUM LEVEL 8.3 MG/DL (8.5-10.1); CARBON DIOXIDE LEVEL 28 MMOL/L (20-31); CHLORIDE LEVEL 101 MMOL/L (98-107); CREATININE FOR GFR 0.72 MG/DL (0.55-1.30); GLOMERULAR FILTRATION RATE > 90.0 (>58); POTASSIUM SERUM 4.1 MMOL/L (3.5-5.1); SODIUM LEVEL 138 MMOL/L (136-145)
[2025-06-22] MEDS: buPROPion **XL** 150 MG TABLET PO SCH ×2 (08:18→08:19)
[2025-06-22] MEDS: ENOXAPARIN 40 MG/0.4 ML SYRINGE (J1650 PER 10MG) SC SCH (08:18)
[2025-06-22] MEDS: LORATADINE 10 MG TAB PO SCH (08:21)
[2025-06-22] MEDS: METOPROLOL SUCC. 25 MG *XL* TAB PO SCH (08:21)
[2025-06-22 12:00] VITALS: BP 127/69; TEMP 97.9; O2SAT 90
[2025-06-22] MEDS: DEXTROMETHORPHAN 60 MG/10 ML SUSP 90 ML BTL PO SCH (14:29)
[2025-06-22] MEDS: BENZONATATE 100 MG CAPSULE PO SCH (17:08)
[2025-06-22] MEDS: ASCORBIC ACID 500 MG TAB PO SCH (17:08)
[2025-06-22 20:00] VITALS: BP 138/77; TEMP 97.9; O2SAT 94
[2025-06-23] MEDS: ALBUTEROL 90 MCG/ACT 8 GM HFA INHALER INH PRN (00:29)
[2025-06-23 04:00] VITALS: BP 129/66; TEMP 98; O2SAT 96
[2025-06-23 06:17] LABS: BASO # 0.1 10^3/uL (0.0-0.2); BASO % 0.6 % (0.0-1.0); EOS # 0.6 10^3/uL (0.0-0.5); EOS % 3.7 % (0.0-3.0); LYMPH # 2.4 10^3/uL (1.5-5.0); LYMPH % 14.0 % (24.0-44.0); MONO # 0.9 10^3/uL (0.0-0.8); MONO % 5.2 % (2.0-8.0); NEUTROPHILS # 12.6 10^3/uL (1.5-8.5); NEUTROPHILS % 73.4 % (36.0-66.0); PLATELET COUNT, AUTOMATED 346 10^3/uL (150-450)
[2025-06-23 06:49] LABS: CALCIUM LEVEL 8.1 MG/DL (8.5-10.1); CARBON DIOXIDE LEVEL 29 MMOL/L (20-31); CHLORIDE LEVEL 100 MMOL/L (98-107); CREATININE FOR GFR 0.69 MG/DL (0.55-1.30); GLOMERULAR FILTRATION RATE > 90.0 (>58); POTASSIUM SERUM 4.0 MMOL/L (3.5-5.1); SODIUM LEVEL 138 MMOL/L (136-145)
[2025-06-23 09:17] VITALS: BP 138/80
[2025-06-23] MEDS ORDERED: CEFD1CAP9 PO (11:00)
[2025-06-23] MEDS ORDERED: CARA1TAB6 PO (11:07)
== END 2025-06-23 12:05 | disposition home or self-care (01) | DRG 866 ==
LOC: EDBD 12:06 → M ED 12:06 → M ED INP 16:47 → M MSPAV 18:13
PROVIDERS: ADMIT Student in an Organized Health Care Education/Training Program; ATTEND General Practice
DX: B34.8 Other viral infections of unspecified site (principal); K51.90 Ulcerative colitis, unspecified, without complications; D84.9 Immunodeficiency, unspecified; I10 Essential (primary) hypertension; E78.5 Hyperlipidemia, unspecified; E03.9 Hypothyroidism, unspecified; G43.909 Migraine, unspecified, not intractable, without status migrainosus; K21.9 Gastro-esophageal reflux disease without esophagitis; F32.A Depression, unspecified; F43.10 Post-traumatic stress disorder, unspecified; E11.9 Type 2 diabetes mellitus without complications; Z79.84 Long term (current) use of oral hypoglycemic drugs; Z79.890 Hormone replacement therapy; Z79.52 Long term (current) use of systemic steroids; Z79.899 Other long term (current) drug therapy; Z88.5 Allergy status to narcotic agent; Z88.8 Allergy status to other drugs, medicaments and biological substances

== ENCOUNTER → 2025-07-01 | Outpatient (REF) | payer MEDICARE, MEDICAID ==
[~2025-07-01] MED LIST changes: +BIMA01SOL OU; +CARA1TAB6 PO; +CEFD1CAP9 PO; +LEXA5TAB13 PO; +METF-839 PO
== END ==
LOC: M SFHCWAGY 10:23
PROVIDERS: ATTEND Nurse Practitioner Family
DX: N76.0 Acute vaginitis (principal)

== ENCOUNTER 2025-07-14 23:24 | Emergency (ER) | payer MEDICARE, MEDICAID ==
[~2025-07-14] VITALS: Ht 172.7 cm; Wt 90.9 kg
[2025-07-14 23:30] VITALS: TEMP 97.7
[2025-07-15 00:22] LABS: BASO # 0.1 10^3/uL (0.0-0.2); BASO % 0.3 % (0.0-1.0); EOS # 0.6 10^3/uL (0.0-0.5); EOS % 3.6 % (0.0-3.0); LYMPH # 2.3 10^3/uL (1.5-5.0); LYMPH % 15.2 % (24.0-44.0); MONO # 0.9 10^3/uL (0.0-0.8); MONO % 6.2 % (2.0-8.0); NEUTROPHILS # 11.2 10^3/uL (1.5-8.5); NEUTROPHILS % 73.6 % (36.0-66.0); PLATELET COUNT, AUTOMATED 404 10^3/uL (150-450)
[2025-07-15] MEDS: NS (Normal Saline) 0.9% 1,000 ML IV ONE (00:35)
[2025-07-15] MEDS: ACETAMINOPHEN *IV* 1,000 MG in IV 1 EA IV ONE (00:35)
[2025-07-15 00:51] LABS: CPK CREATINE PHOSPHOKINASE 45 U/L (34-145)
[2025-07-15 00:52] LABS: ALT/SGPT 17 U/L (7.0-40); AST/SGOT 17 U/L (<34); CALCIUM LEVEL 8.6 MG/DL (8.5-10.1); CARBON DIOXIDE LEVEL 25 MMOL/L (20-31); CHLORIDE LEVEL 104 MMOL/L (98-107); CK-MB VALUE MASS < 1.0 NG/ML (<3.6); CREATININE FOR GFR 0.69 MG/DL (0.55-1.30); GLOMERULAR FILTRATION RATE > 90.0 (>58); POTASSIUM SERUM 4.1 MMOL/L (3.5-5.1); SODIUM LEVEL 139 MMOL/L (136-145)
[2025-07-15] MEDS ORDERED: ISOVUE-370 76% 100 ML VIAL As Ordered ONE (01:50)
[2025-07-15 06:00] VITALS: BP 142/78
[2025-07-15 06:00] LABS: KETONE, URINE AUTO RFX NEGATIVE (NEGATIVE); LEUKOCYTE ESTERASE UR AUTO RFX NEGATIVE (NEGATIVE); MUCUS, URINE RFX SMALL (NEGATIVE); NITRITE, URINE AUTO RFX NEGATIVE (NEGATIVE); RBC, URINE AUTO RFX 0 /HPF (0-3); SQUAM EPITHELIAL CELL UR AURFX 1 /HPF (0-6); WBC, URINE AUTO RFX 0 /HPF (0-3)
[2025-07-15 06:15] VITALS: O2SAT 96
== END 2025-07-15 09:46 | disposition home or self-care (01) ==
LOC: EDBD 23:24 → M ED 23:24
DX: R10.9 Unspecified abdominal pain (principal); I10 Essential (primary) hypertension; E03.9 Hypothyroidism, unspecified; K21.9 Gastro-esophageal reflux disease without esophagitis; Z87.19 Personal history of other diseases of the digestive system; E78.5 Hyperlipidemia, unspecified; F91.3 Oppositional defiant disorder; F43.10 Post-traumatic stress disorder, unspecified; F79 Unspecified intellectual disabilities; F32.9 Major depressive disorder, single episode, unspecified; Z79.3 Long term (current) use of hormonal contraceptives; Z79.899 Other long term (current) drug therapy; Z88.5 Allergy status to narcotic agent; Z88.8 Allergy status to other drugs, medicaments and biological substances
CPT/HCPCS: 74177; 80048; 80076; 81001; 82550; 82553; 83690; 84484; 85025; 93005; 93041; 96365; 96366; 99285; J0134; Q9967

== ENCOUNTER 2025-07-21 21:03 | Emergency (ER) | payer MEDICARE, MEDICAID ==
[2025-07-21 21:41] LABS: PLATELET COUNT, AUTOMATED 459 10^3/uL (150-450)
[2025-07-21 22:06] LABS: CK-MB VALUE MASS < 1.0 NG/ML (<3.6)
[2025-07-21 22:07] LABS: ETHYL ALCOHOL (ETHANOL) < 0.003 % (0.000-0.010)
[2025-07-21 22:08] LABS: ALT/SGPT 12 U/L (7.0-40); AST/SGOT 18 U/L (<34); CALCIUM LEVEL 8.5 MG/DL (8.5-10.1); CARBON DIOXIDE LEVEL 27 MMOL/L (20-31); CHLORIDE LEVEL 105 MMOL/L (98-107); CREATININE FOR GFR 0.74 MG/DL (0.55-1.30); GLOMERULAR FILTRATION RATE > 90.0 (>58); POTASSIUM SERUM 4.1 MMOL/L (3.5-5.1); SALICYLATE LEVEL < 3.0 MG/DL (<30); SODIUM LEVEL 142 MMOL/L (136-145)
[2025-07-21 22:11] LABS: CPK CREATINE PHOSPHOKINASE 56 U/L (34-145)
[2025-07-21 23:09] LABS: AMPHETAMINES LEVEL URINE NEGATIVE (NEGATIVE); BARBITURATES URINE NEGATIVE (NEGATIVE); BENZODIAZEPINES URINE NEGATIVE (NEGATIVE); CANNABINOIDS URINE NEGATIVE (NEGATIVE); COCAINE METABOLITE URINE NEGATIVE (NEGATIVE); METHADONE URINE NEGATIVE (NEGATIVE); OPIATES URINE NEGATIVE (NEGATIVE); PHENCYCLIDINE URINE NEGATIVE (NEGATIVE)
[2025-07-21 23:11] LABS: CK-MB VALUE MASS < 1.0 NG/ML (<3.6)
[2025-07-21 23:17] LABS: CPK CREATINE PHOSPHOKINASE 53 U/L (34-145)
[2025-07-22 01:15] VITALS: BP 151/81; TEMP 97.3; O2SAT 97
[2025-07-22] MEDS: FAMOTIDINE 20 MG TAB PO ONE (01:24)
== END 2025-07-22 01:25 | disposition home or self-care (01) ==
LOC: M ED 21:03
DX: R07.89 Other chest pain (principal); F43.0 Acute stress reaction; I10 Essential (primary) hypertension; E78.5 Hyperlipidemia, unspecified; K21.9 Gastro-esophageal reflux disease without esophagitis; K59.00 Constipation, unspecified; F41.9 Anxiety disorder, unspecified; F32.A Depression, unspecified; F50.20 Bulimia nervosa, unspecified; F40.240 Claustrophobia; N92.6 Irregular menstruation, unspecified; Z79.3 Long term (current) use of hormonal contraceptives; Z79.899 Other long term (current) drug therapy; Z88.5 Allergy status to narcotic agent; Z88.8 Allergy status to other drugs, medicaments and biological substances
CPT/HCPCS: 80048; 80076; 80143; 80307; 82077; 82550; 82553; 84443; 84484; 85027; 93005; 99284; G0463

== ENCOUNTER 2025-07-31 12:25 | Outpatient (CLI) | payer MEDICARE, MEDICAID ==
[~2025-07-31] VITALS: Ht 167.6 cm; Wt 107.0 kg
[2025-07-31 12:25] VITALS: BP 124/58; O2SAT 95
[2025-07-31] MEDS: VEDOLIZUMAB 300 MG in NS 250 ML IV ONE (12:45)
[2025-07-31 13:29] VITALS: BP 107/65; O2SAT 97
== END 2025-07-31 13:30 ==
LOC: M INFU 12:25
PROVIDERS: ATTEND Internal Medicine Gastroenterology
DX: K51.00 Ulcerative (chronic) pancolitis without complications (principal); Z88.5 Allergy status to narcotic agent; Z88.6 Allergy status to analgesic agent; Z88.8 Allergy status to other drugs, medicaments and biological substances
CPT/HCPCS: 96413; J3380